=== PATIENT | male | born 1945 | race Caucasian/White ===

== ENCOUNTER → 2016-08-30 | Outpatient (CLI) | payer OTHER, MEDICARE ==
--- NOTE | 2016-08-30 13:40 | RAD ---
EXAM: Nuclear bone scan. HISTORY: Prostate cancer. Abnormal PSA. TECHNIQUE: Following the intravenous injection of 25 mCi of Tc 99m labeled methylene diphosphonate (MDP), whole body imaging was performed. COMPARISON: Chest radiograph dated 06/21/2013. FINDINGS: There is expected uptake of radiopharmaceutical within the axial and appendicular skeleton. There is expected tracer activity within the renal collecting system. There is no convincing evidence of osseous metastatic disease. There is intense tracer activity within the left antecubital fossa at the tracer injection site. IMPRESSION: No scintigraphic evidence of osseous metastatic disease.
== END | disposition home or self-care (01) ==
LOC: NM 09:29
PROVIDERS: ATTEND Urology
DX: C61 Malignant neoplasm of prostate (principal)
CPT/HCPCS: 78306; 96374; A9503

== ENCOUNTER → 2016-11-02 | Outpatient (CLI) | payer OTHER ==
[2016-11-02 08:45] LABS: CALCIUM 9.1 mg/dL (8.5-10.1); POTASSIUM 3.9 mmol/L (3.5-5.1)
[2016-11-02 08:46] LABS: GFR 73.5
== END | disposition home or self-care (01) ==
LOC: LAB 07:51
PROVIDERS: ATTEND Family Medicine
DX: I10 Essential (primary) hypertension (principal)
CPT/HCPCS: 36415; 80048

== ENCOUNTER → 2016-11-25 | Outpatient (CLI) | payer OTHER ==
[~2016-11-25] MED LIST: MECL12.52 PO
[2016-11-25 08:25] LABS: CALCIUM 9.2 mg/dL (8.5-10.1); CREATININE 1.1 mg/dL (0.7-1.3); POTASSIUM 3.7 mmol/L (3.5-5.1)
[2016-11-25 08:26] LABS: BASO # 0.1 x10^3/uL (0.0-0.2); BASO % 1 % (0-3); EOS # 0.2 x10^3/uL (0.0-0.7); EOS % 4 % (0-3); HEMOGLOBIN 13.1 g/dL (13.0-17.5); LYMPH # 1.5 x10^3/uL (1.0-4.8); LYMPH % 25 % (24-48); MEAN CORPUSCULAR HEMOGLOBIN 26 pg (25-35); MEAN CORPUSCULAR HGB CONC 33 g/dL (31-37); MEAN CORPUSCULAR VOLUME 79 fL (79-100); MONO # 0.6 x10^3/uL (0.0-1.1); MONO % 10 % (0-9); NEUT # 3.6 x10^3uL (1.8-7.7); NEUT % 60 % (31-73); PLATELET COUNT 221 x10^3/uL (140-400); RED BLOOD COUNT 5.07 x10^6/uL (4.30-5.70); RED CELL DISTRIBUTION WIDTH 15.5 % (11.5-14.5)
[2016-11-25 08:28] LABS: GFR 65.8
== END | disposition home or self-care (01) ==
LOC: LAB 07:56
PROVIDERS: ATTEND Internal Medicine Cardiovascular Disease
DX: I20.9 Angina pectoris, unspecified (principal)
CPT/HCPCS: 36415; 80048; 85027; 85610

== ENCOUNTER 2016-11-28 04:37 | Emergency (ER) | payer OTHER ==
[~2016-11-28] VITALS: Ht 185.4 cm; Wt 86.2 kg
[2016-11-28] MEDS ORDERED: 0.9 % SODIUM CHLORIDE 10 ML DISP.SYRIN. IV PRN (04:45)
--- NOTE | 2016-11-28 05:28 | EKG ---
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
--- NOTE | 2016-11-28 05:29 | PHYS DOC ---
Past History Past Medical History: CAD, COPD, GERD, High Cholesterol, Hypertension Additional Past Surgical Histo: prostate, bilateral hernias Smoking: Cigarettes, Quit Greater Than 1 Year Alcohol Use: None Drug Use: None Adult General Chief Complaint Chief Complaint: dizziness lightheadedness [facility] HPI This is a pleasant 71-year-old male with history of hypertension, hyperlipidemia , question of COPD on albuterol at home presenting with sudden onset of dizziness intense vertiginous like symptoms while getting up to walk to the bathroom. Patient in his normal state of health got up to use the restroom this morning when he felt his head spinning. He became intensely nauseated and felt like he was going to vomit and was complaining of a spinning sensation. He denies any headache, hearing loss, tinnitus, recent trauma falls or other neurologic complaints. He denied any chest pain, abdominal pain, only intense nausea with sensation of movement. The symptoms worsen when he changes position from a supine to standing position and with movement changes of the head. He denies any recent URI symptoms, recent travel outside the country, recent change in medications, or changes in vision, problems speaking, or other focal neurologic weakness or numbness and tingling. He did recall that he specific need for catheterization in the next [address] Lynch is his Medical Doctor Dr. Nava is his PCP Review of Systems Review of Systems Constitutional: Denies fever or chills [] Eyes: Denies change in visual acuity, redness, or eye pain [] HENT: Denies nasal congestion or sore throat [] Respiratory: Denies cough or shortness of breath [] Cardiovascular: No additional information not addressed in HPI [] GI: Denies abdominal pain, does complain of intense nausea without vomiting, bloody stools or diarrhea. : Denies dysuria or hematuria [] Musculoskeletal: Denies back pain or joint pain [] Integument: Denies rash or skin lesions [] Neurologic: Denies headache, he complains of dizziness with spinning sensation with out diplopia, dysarthria, aphasia, changes in vision or weakness. Endocrine: Denies polyuria or polydipsia [] Current Medications Current Medications Current Medications Medications (Trade) Dose Ordered Sig/Stan Start Time Stop Time Status Last Admin Dose Admin Diazepam (Valium) 5 mg 1X ONCE 11/28/16 05:00 11/28/16 05:01 UNV Ondansetron HCl (Zofran) 4 mg 1X ONCE 11/28/16 05:00 11/28/16 05:01 UNV Sodium Chloride (Normal Saline Flush) 10 ml QSHIFT PRN 11/28/16 04:45 UNV Physical Exam Physical Exam Constitutional: Well developed, well nourished, no acute distress, non-toxic appearance. [] HENT: Normocephalic, atraumatic, bilateral external ears normal, dry tacky mucous membranes no oral exudates, nose normal. [] Eyes: PERRLA, EOMI, conjunctiva normal, no discharge. [] Neck: Normal range of motion, no tenderness, supple, no stridor. No bruits noted Cardiovascular:Heart rate regular rhythm, no murmur [] Lungs & Thorax: Bilateral breath sounds clear to auscultation [] Abdomen: Bowel sounds normal, soft, no tenderness, no masses, no pulsatile masses. [] Skin: Warm, dry, no erythema, no rash. [] Back: No tenderness, no CVA tenderness. [] Extremities: No tenderness, no cyanosis, no clubbing, ROM intact, no edema. [] Neurologic: Alert and oriented X 3, normal motor function, normal sensory function, no focal deficits noted. Cranial nerves II through XII intact. Patient exhibits no dysarthria, no short term memory issues, no deep fascia. Patient has normal sensation to light touch and proprioception over all dermatomes. Patient has no dysmetria, [id number] and no evidence of pronator drift. Psychologic: Affect normal, judgement normal, mood normal. [] EKG EKG [] EKG timed 4:45 AM 11/28/2016 demonstrates normal sinus rhythm with a heart rate of 53 sinus bradycardia with a P Tk 152 which is normal, QRS width of 82 which is normal, QTC of 400 which is normal, he is numb severe T wave flattening in the inferior leads without any major abnormality. EKG read by Dr. Valladares. Radiology/Procedures Radiology/Procedures [] Course & Med Decision Making Course & Med Decision Making Pertinent Labs and Imaging studies reviewed. (See chart for details) and reviewed vital signs as well as physical exam and history. My syncope and dizziness differential includes but not limited to: Neurally mediated vasovagal syncope, situational syncope, cardiac sinus syncope , orthostatic hypertension, medications, psychiatric interventions, neurologic syncope, cardiogenic syncopal B, to include organic heart disease congestive heart failure, cardiac dysrhythmia, seizure disorder, stroke or transient ischemic attack, bradycardia dysrhythmias, tachycardia dysrhythmias, PT, V. fib V. fib, cardiac abnormalities like first degree secondary third-degree AV blocks , prolonged QT, hypertrophic Rudolph myopathy, severe pulmonic stenosis, pulmonary arterial hypertension, atrial myxomas, aortic stenosis, valvular failure, alcohol consumption, adrenal insufficiency, drug effects from things like antidepressants, antihypertensive agents like beta blockers, vasodilators including calcium channel blockers and nitrates, autonomic insufficiency. [] Care be turned over to Dr. Porter at approximately 6 AM. pending laboratory work and CT the head as well as response to therapy. The present time I do not believe this is a cardiac dysrhythmia or cardiac ischemia causing his symptoms. ER attending note Dr. Tien Porter Care assumed by me at 6 AM. Patient reexamined. He is well appearing and comfortable after treatment. Patient is alert and communicative with a nonfocal neurologic exam grossly. States he does feel improved. Remainder of workup pending At 7:41 AM patient continues to be well-appearing and improved after meclizine administration. Workup unremarkable. No further workup or treatment indicated at this time. Patient comfortable and agrees with outpatient follow-up. Meclizine prescription dispensed and strict return precautions will be given Dragon Disclaimer Dragon Disclaimer This chart was dictated in whole or in part using Voice Recognition software in a busy, high-work load, and often noisy Emergency Department environment. It may contain unintended and wholly unrecognized errors or omissions. Departure Departure: Impression: Primary Impression: Dizziness of unknown cause Additional Impressions: Postural dizziness Benign positional vertigo Disposition: 01 HOME, SELF-CARE Condition: IMPROVED Referrals: RENAN CAUSEY MD (PCP) Patient Instructions: Vertigo Additional Instructions: It appears that he was having symptoms of vertigo. This is when the inner ear causes symptoms of dizziness with movement similar to seasickness. Most commonly this is a result of a viral infection or sometimes it happens for no reason. This is called benign positional vertigo. We have done a very full workup today to make sure that there was no reason that he needs to be admitted to the hospital. Her labs, EKG, chest x-ray, and CT of the head are all unremarkable and reassuring today. No further workup or treatment is indicated at this time .Use meclizine as prescribed as needed for dizziness and be extra careful when you stand and ambulate. Do not operate a motor vehicle or machinery or put herself in any position which might be dangerous if you're having symptoms of dizziness. Follow-up up with your doctor tomorrow and return immediately for new severe or work worsening symptoms Scripts Meclizine Hcl (MECLIZINE HCL) 12.5 Mg Tablet 1 TAB PO TID, #30 TAB Prov: TIEN PORTER MD 11/28/16 Problem Qualifiers MIKE VALLADARES MD Nov 28, 2016 05:29 TIEN PORTER MD Nov 28, 2016 07:06
[2016-11-28] MEDS ORDERED: ONDANSETRON PF 4 MG/2 ML VIAL. IV ONE (05:30)
[2016-11-28] MEDS ORDERED: IV NORMAL SALINE 1,000ML 1,000 ML IV SCH (05:30)
[2016-11-28 05:34] LABS: BASO % 1 % (0-3); EOS # 0.2 x10^3/uL (0.0-0.7); EOS % 4 % (0-3); HEMATOCRIT 38.9 % (39.0-53.0); HEMOGLOBIN 12.7 g/dL (13.0-17.5); LYMPH # 1.2 x10^3/uL (1.0-4.8); LYMPH % 20 % (24-48); MEAN CORPUSCULAR HEMOGLOBIN 26 pg (25-35); MEAN CORPUSCULAR HGB CONC 33 g/dL (31-37); MEAN CORPUSCULAR VOLUME 79 fL (79-100); MONO # 0.6 x10^3/uL (0.0-1.1); MONO % 10 % (0-9); NEUT # 4.1 x10^3uL (1.8-7.7); NEUT % 66 % (31-73); PLATELET COUNT 205 x10^3/uL (140-400); RED BLOOD COUNT 4.92 x10^6/uL (4.30-5.70); RED CELL DISTRIBUTION WIDTH 15.5 % (11.5-14.5); WHITE BLOOD COUNT 6.2 x10^3/uL (4.0-11.0)
[2016-11-28 06:08] LABS: ALBUMIN 3.6 g/dL (3.4-5.0); ALBUMIN/GLOBULIN RATIO 0.9 (1.0-1.7); GFR 73.5; POTASSIUM 3.8 mmol/L (3.5-5.1); TOTAL BILIRUBIN 0.4 mg/dL (0.2-1.0); TOTAL PROTEIN 7.4 g/dL (6.4-8.2)
--- NOTE | 2016-11-28 06:17 | RAD ---
EXAM: CT head without contrast HISTORY: DIZZINESS X 1 WEEK, GETTING WORSE COMPARISON: None. TECHNIQUE: Computed tomographic images of the head were obtained without contrast. PQRS compliance statement: One or more of the following individualized dose reduction techniques were utilized for this examination: 1. Automated exposure control 2. Adjustment of the mA and/or kV according to patient size 3. Use of iterative reconstruction technique FINDINGS: There is no acute intracranial process identified. Specifically, there are no intracranial blood products, extra-axial fluid collections, mass effect or midline shift. Ventricles and basilar cisterns are maintained. The visualized portions of the orbits and mastoid air cells are unremarkable. Mucous retention cysts versus polyps partially visualized in the right maxillary sinus. Remaining visualized paranasal sinuses are clear. No suspicious calvarial lesion is seen. IMPRESSION: No acute intracranial findings. Electronically signed by: Anita Lees MD (11/28/2016 6:13 AM)
[2016-11-28] MEDS ORDERED: MECL12.52 PO (07:39)
[2016-11-28 07:45] VITALS: BP 170/67
[2016-11-28] MEDS ORDERED: MECLIZINE 25 MG TABLET PO ONE (08:00)
--- NOTE | 2016-11-28 09:33 | RAD ---
AP PORTABLE CHEST Clinical Indication: DIZZINESS. Comparison: Two-view chest 06/21/2013. Findings: The cardiomediastinal silhouette is normal. Lungs are clear. There is no pneumothorax. No pleural effusion is appreciated. There is no acute bone abnormality. IMPRESSION: No acute cardiopulmonary process.
== END 2016-11-28 07:55 | disposition home or self-care (01) ==
LOC: ER 04:37
DX: R42 Dizziness and giddiness (principal); H81.10 Benign paroxysmal vertigo, unspecified ear; K21.9 Gastro-esophageal reflux disease without esophagitis; J44.9 Chronic obstructive pulmonary disease, unspecified; I25.10 Atherosclerotic heart disease of native coronary artery without angina pectoris; I10 Essential (primary) hypertension; E78.00 Pure hypercholesterolemia, unspecified; Z87.891 Personal history of nicotine dependence
CPT/HCPCS: 36415; 70450; 71010; 80053; 82553; 83690; 83735; 83880; 84443; 84484; 85027; 93005; 96361; 96374; 96375; 99285; J2405; J8597; J7030

== ENCOUNTER 2016-12-12 11:54 | Inpatient (IN) | payer MEDICARE, OTHER ==
[~2016-12-12] VITALS: Ht 185.4 cm; Wt 83.2 kg
[2016-12-12 12:16] LABS: BASO # 0.1 x10^3/uL (0.0-0.2); BASO % 1 % (0-3); EOS # 0.2 x10^3/uL (0.0-0.7); EOS % 3 % (0-3); HEMATOCRIT 38.5 % (39.0-53.0); HEMOGLOBIN 12.6 g/dL (13.0-17.5); LYMPH # 1.5 x10^3/uL (1.0-4.8); LYMPH % 20 % (24-48); MEAN CORPUSCULAR HEMOGLOBIN 26 pg (25-35); MEAN CORPUSCULAR HGB CONC 33 g/dL (31-37); MEAN CORPUSCULAR VOLUME 80 fL (79-100); MONO # 0.7 x10^3/uL (0.0-1.1); MONO % 10 % (0-9); NEUT % 66 % (31-73); PLATELET COUNT 265 x10^3/uL (140-400); RED BLOOD COUNT 4.83 x10^6/uL (4.30-5.70); RED CELL DISTRIBUTION WIDTH 15.6 % (11.5-14.5); WHITE BLOOD COUNT 7.5 x10^3/uL (4.0-11.0)
--- NOTE | 2016-12-12 12:19 | RAD ---
CT head without contrast History: Stroke protocol Comparison: 11/28/2016. Procedure: Axial images are obtained of the head from the skull base through the vertex without IV contrast. Findings: Mild bilateral periventricular white matter hypodensities likely chronic small ischemic disease. Tiny old infarct in the left basal ganglia similar to prior exam. The ventricles and sulci are normal for the patient's age. No mass-effect, intracranial mass, midline shift, hemorrhage identified. Basilar cisterns are patent. Bone windows demonstrate no significant calvarial abnormality. Mucous retention cyst or polyp identified in the right maxillary sinus.. Impression: 1. No acute intracranial process. Report called to ER at time of dictation. PQRS Compliance Statement: One or more of the following individualized dose reduction techniques were utilized for this examination: 1. Automated exposure control 2. Adjustment of the mA and/or kV according to patient size 3. Use of iterative reconstruction technique
[2016-12-12 12:28] LABS: ALBUMIN 3.7 g/dL (3.4-5.0); CALCIUM 8.9 mg/dL (8.5-10.1); CREATININE 0.9 mg/dL (0.7-1.3); GFR 82.9; POTASSIUM 4.5 mmol/L (3.5-5.1); TOTAL BILIRUBIN 0.4 mg/dL (0.2-1.0); TOTAL PROTEIN 7.4 g/dL (6.4-8.2)
--- NOTE | 2016-12-12 12:28 | PHYS DOC ---
General Chief Complaint: WEAKNESS/GENERALIZED Stated Complaint: POSS CVA Time Seen by MD: 11:57 Source: patient, family, EMS, snf records, old records, other ([facility] records) Exam Limitations: clinical condition (pt communicates via written, appears AOx3 ) Problems: History of Present Illness Initial Comments Patient is a 71-year-old male brought to the ED by EMS from 2003 possible stroke. EMS reports that the staff at [facility] reports the patient was last known well at 1123 this morning. They report that the patient apparently suddenly became aphasic but able to write for communication. Through this mode of communication the patient complained of difficulty swallowing and generalized weakness. During the stroke scale evaluation RN reports that the patient was "unable" to raise his arms for the test however able to adjust his hearing aids and write to communicate. No headache chest pain or difficulty breathing. Patient corrects that his symptoms started at 11 AM but weren't detected until 1123. Patient was seen at [facility] emergency department on November 28 diagnosed benign positional vertigo advised to follow-up with his doctor the following day. He followed up with his doctor early that week and was recommended to go to physical therapy. On December 01 while attending therapy at [facility] the patient fell suffering a head laceration. Family reports that he had an ischemic stroke and was transferred to [facility] for further evaluation and treatment. Patient was an inpatient at [facility] for 12/01-12/09 with vertigo symptoms, while an inpatient on December 04 lasting until December 05 the patient developed the same symptoms and was fully evaluated with CTs, MRI, lumbar puncture, and neurology consultation. Ultimately symptoms were attributed to psychiatric etiology and the patient was discharged to 2005 this past , December 09. Family reports that the patient had a recurrence of these symptoms this past Tuesday and Tuesday while still an inpatient at [facility]. Both times symptoms resolved spontaneously without intervention. Medical records have been requested from [facility]. NIHSS 20 in ED. PCP is Dr. Nava Patient follows with Dr. Lynch cardiology. Urologist Dr Garibay Radio Broadcaster Dr Ryan GILL VS: 97.6, 57, 16, 141/87, 100% RA Timing/Duration: 1/2 hour Severity: severe Modifying Factors: improves with other Associated Symptoms: other Allergies: Coded Allergies: amlodipine (Verified Adverse Reaction, Intermediate, 11/28/16) Past Medical History Medical History: other (coronary artery disease, COPD, GERD, hyperlipidemia, hypertension, prostate cancer) Surgical History: other (prostate, bilateral herniorrhaphies) Social History Smoker: quit greater than 1 year Alcohol: none Drugs: none Review of Systems Constitutional: see HPI, denies diaphoresis, denies fever Respiratory: denies cough, denies shortness of breath Cardiovascular: denies chest pain, denies syncope Gastrointestinal: denies diarrhea (while), denies vomiting Genitourinary: denies discharge, denies hematuria Musculoskeletal: denies back pain, denies neck pain Psychiatric/Neurological: see HPI (she and she has redness swelling) Physical Exam General Appearance: WD/WN, no apparent distress Eyes: bilateral eye normal inspection, bilateral eye PERRL, bilateral eye EOMI Ear, Nose, Throat: hearing grossly normal, normal ENT inspection, normal pharynx Neck: non-tender (order), supple Respiratory: normal breath sounds Cardiovascular: normal peripheral pulses, bradycardia Gastrointestinal: non tender, soft Back: no CVA tenderness, no vertebral tenderness Extremities: non-tender, normal inspection Neurologic/Psychiatric: turf keeper II-XII nml as tested (no lateralizing neuro deficits,), alert, oriented x 3, other Skin: normal color, warm/dry Orders, Labs, Meds EKG: Sinus bradycardia at [address]-T changes no STEMI. Interpreted by Dr. Guadarrama. PATIENT: KITTY BRENNAN ACCOUNT: [id number] : 1945 LOCATION: ER AGE: 71 SEX: M EXAM STATUS: PRE ER ORD. PHYSICIAN: IGNACIO GUADARRAMA DO REASON: cva PROCEDURE: CT CODE STROKE HEAD WO CT head without contrast History: Stroke protocol Comparison: 11/28/2016. Procedure: Axial images are obtained of the head from the skull base through the vertex without IV contrast. Findings: Mild bilateral periventricular white matter hypodensities likely chronic small ischemic disease. Tiny old infarct in the left basal ganglia similar to prior exam. The ventricles and sulci are normal for the patient's age. No mass-effect, intracranial mass, midline shift, hemorrhage identified. Basilar cisterns are patent. Bone windows demonstrate no significant calvarial abnormality. Mucous retention cyst or polyp identified in the right maxillary sinus.. Impression: 1. No acute intracranial process. Report called to ER at time of dictation. RS Compliance Statement: One or more of the following individualized dose reduction techniques were utilized for this examination: 1. Automated exposure control 2. Adjustment of the mA and/or kV according to patient size 3. Use of iterative reconstruction technique DICTATED AND SIGNED BY: MICHAEL WOODARD MD DATE: 12/12/16 1211 CC: RENAN CAUSEY MD; IGNACIO GUADARRAMA DO ~ PATIENT: KITTY BRENNAN ACCOUNT: [id number] : 1945 LOCATION: ER AGE: 71 SEX: M EXAM STATUS: REG ER ORD. PHYSICIAN: IGNACIO GUADARRAMA DO REASON: cva PROCEDURE: CHEST AP ONLY EXAM: CHEST 1 VIEW History: Cerebrovascular accident COMPARISON: None available. TECHNIQUE: Single portable radiograph of the chest FINDINGS: The cardiac silhouette is unremarkable. The lungs are clear bilaterally. The costophrenic sulci are clear and well demarcated. IMPRESSION: No radiographic evidence of an acute cardiopulmonary process. DICTATED AND SIGNED BY: MICHAEL WOODARD MD DATE: 12/12/16 1240 CC: RENAN CAUSEY MD; IGNACIO GUADARRAMA DO ~ Pertinent labs: D-dimer 1.42, lactic acid 0.8, AST 47, ALT 97, CRP 5, troponin less than 0.017 urine studies remain pending 1330: I discussed the patient with Dr. Jeter who recommends observation admission. He requests that I hold off from ordering tests until he can review the results and records from [facility] recent admission to prevent redundancy in testing. 1335: I discussed the patient with Dr. Causey who accepts observation admission. We will keep patient nothing by mouth until Dr. Jeter takes a look at the patient later today. IMPRESSIONS: Aphasia rule out CVA Elevated d-dimer Elevated LFTs Benign positional vertigo Departure Time of Disposition: 13:46 Disposition: 09 ADMITTED INPATIENT Diagnosis: aphasia rule out CVA, elevated d-dimer, benign pos Condition: STABLE Additional Instructions: Admit to tele/obs, Dr. Causey is accepting Dr. Jeter neurology to be consulted. IGNACIO GUADARRAMA DO Dec 12, 2016 12:28
--- NOTE | 2016-12-12 12:44 | RAD ---
EXAM: CHEST 1 VIEW History: Cerebrovascular accident COMPARISON: None available. TECHNIQUE: Single portable radiograph of the chest FINDINGS: The cardiac silhouette is unremarkable. The lungs are clear bilaterally. The costophrenic sulci are clear and well demarcated. IMPRESSION: No radiographic evidence of an acute cardiopulmonary process.
[2016-12-12 13:23] LABS: SEDIMENTATION RATE 27 (0-15)
[2016-12-12 13:51] LABS: BARBITURATES NEG (NEG); BENZODIAZEPINES NEG (NEG); CANNABINOIDS NEG (NEG); COCAINE NEG (NEG); METHADONE NEG (NEG); OPIATES NEG (NEG); PHENCYCLIDINE NEG (NEG)
[2016-12-12 13:52] LABS: AMPHETAMINE/METHAMPHETAMINE NEG (NEG)
[2016-12-12 15:00] VITALS: BP 175/85
[2016-12-12] MEDS ORDERED: ALBU0.63 NEB (15:35)
[2016-12-12] MEDS ORDERED: CLOP75TA57 PO (15:35)
[2016-12-12] MEDS ORDERED: ALPR0.25 PO (15:35)
[2016-12-12] MEDS ORDERED: LIDO700A39 TP (15:35)
[2016-12-12] MEDS ORDERED: ATORVASTATIN CA80 MG PO (15:35)
[2016-12-12] MEDS ORDERED: TAMS0.4C2 PO (16:01)
[2016-12-12] MEDS ORDERED: BECL8.7H NS (16:01)
[2016-12-12] MEDS ORDERED: FISH12002 PO (16:02)
[2016-12-12] MEDS ORDERED: ASPI-630 PO (16:03)
[2016-12-12] MEDS ORDERED: CARV6.25 PO (16:03)
[2016-12-12] MEDS ORDERED: FOSI20TA PO (16:04)
[2016-12-12] MEDS ORDERED: ESOM40CA PO (16:05)
--- NOTE | 2016-12-12 16:57 | EKG ---
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
[2016-12-12] MEDS ORDERED: ALPRAZolam 0.25 MG TABLET PO PRN (18:00)
[2016-12-12] MEDS ORDERED: ALBUTEROL SULFATE 2.5 MG/3 ML NEBU. NEB PRN (18:15)
[2016-12-12] MEDS ORDERED: CONTRAST GIVEN MC PRN (18:30)
[2016-12-12] MEDS: CARVEDILOL 6.25 MG TABLET PO SCH (18:30)
[2016-12-12] MEDS ORDERED: IOHEXOL 300 MG/ML 75 ML VIAL. IV ONE (18:30)
--- NOTE | 2016-12-12 19:47 | RAD ---
CT ANGIOGRAPHY CHEST dated 12/12/2016 5:53 PM Indication: Chest pain, elevated [id number] PE protocol: Omni 300 75cc: Chest pain, elevated d-dimer. No priors.. Comparison: No comparison is available. Technique: Contiguous axial imaging of the chest performed following intravenous and demonstration of 75 cc Omnipaque 300. Study was performed as dedicated PE protocol with thin cut coronal MIPS and 3-D reconstructions. One or more of the following individualized dose reduction techniques were utilized for this examination: 1. Automated exposure control 2. Adjustment of the mA and/or kV according to patient size 3. Use of iterative reconstruction technique Findings: Study is somewhat limited due to diminished contrast bolus. No evidence of central, lobar or proximal segmental pulmonary embolus. Distal segmental and subsegmental branches are not well evaluated based on technique. Heart size mildly enlarged. No pericardial effusion. Coronary artery calcifications. No mediastinal, hilar or axillary lymphadenopathy. Nonpathologically enlarged precarinal lymph node. Thyroid gland unremarkable. Central airways are patent there prominent interstitial markings at both lung bases 3 mm noncalcified pulmonary nodule in the left lower lobe on image 210. No consolidation or pleural effusion. Mild upper zone emphysema. No pneumothorax. Right lateral chest wall is excluded on this exam. Limited images of the upper abdomen show small hiatal hernia. There is a well-defined low density focus at the hepatic dome that likely represents cyst. No significant bony abnormality. Multilevel spondylosis.. IMPRESSION: 1. Limited exam. No evidence of central, lobar or proximal segmental pulmonary and was. 2. Interstitial changes at both lung bases, mild interstitial fibrosis versus mild basilar predominant edema. 3. Coronary artery calcifications. 4. Mild emphysema. 5. Small noncalcified pulmonary nodules in the left lower lobe, nonspecific. Electronically signed by: Tien Dhaliwal MD (12/12/2016 7:43 PM) [employer]
[2016-12-12] MEDS: MECLIZINE 12.5 MG TABLET. PO SCH (20:31)
[2016-12-12] MEDS: ATORVASTATIN CALCIUM 20 MG TABLET PO SCH (20:31)
[2016-12-12] MEDS: ENOXAPARIN 40 MG/0.4 ML DISP.SYRIN. SQ SCH (20:36)
[2016-12-12 20:39] VITALS: BP 181/72
[2016-12-12 20:44] LABS: BACTERIA,URINE 0 /HPF (0-FEW); BILIRUBIN,URINE NEG (NEG); CLARITY,URINE CLEAR; COLOR,URINE STRAW; GLUCOSE,URINE NEG (NEG); NITRITE,URINE NEG (NEG); RBC,URINE 0 /HPF (0-2); UROBILINOGEN,URINE 0.2 mg/dL (0.2 mg/dL); WBC,URINE OCC /HPF (0-4)
[2016-12-12 20:45] LABS: SQUAMOUS EPITHELIAL CELL,UR OCC /LPF
[2016-12-12 21:38] VITALS: BP 204/70
[2016-12-12] MEDS ORDERED: hydrALAZINE 20 MG/ML VIAL. IV PRN (21:45)
[2016-12-12 23:25] VITALS: BP 163/61
[2016-12-13 06:07] VITALS: BP 167/73
--- NOTE | 2016-12-13 07:09 | PDOC2 ---
CARDIAC CONSULT DATE OF CONSULT Date Of Consult DATE: 12/12/16 REASON FOR CONSULT Reason for Consult gernera weakness and difficulty to talk. REFERRING PHYSICIAN Referring Physician Dr Jansen SOURCE Source: Caregiver, Chart review, Patient HPI History of Present Illness Mr Hartley is a 71cy.o.wm was admitted through ER after he presented with recurrent episodes of aphasia for the last week.. Apparently the episodes was around 11:this am at [facility] where he receives physical therapy and rehabilitation. The patient has been communicating well with writing only since admission. He was admitted to [facility] in the first week of December where extensive stroke work up including brain MRI,Head ct scan, CT angio to the brain and neck,Echocardiogram for left sided weakness and aphasia revealed chronic small vessels ischemic changes and 70% stenosis of the left carotid artery at the origin. He had neurology and psychiatry consultations which concluded possibility of conversion reaction. Currently and through writing the patient denies any new medical or neurological complaints except for aphasia and dysphagia. PAST MEDICAL HISTORY Cardiovascular: AFIB, HTN CENTRAL NERVOUS SYSTEM: CVA, Vertigo GI: Diverticulosis, GERD Psych: Anxiety Musculoskeletal: Weakness Renal/: Prostate Ca. PAST SURGICAL HISTORY Past Surgical History: Other (abdominal surgery) FAMILY HISTORY Family History: Coronary Artery Disease (father had cad and mother had cancer.) SOCIAL HISTORY Smoke: No ALCOHOL: none Lives: with Family CURRENT MEDICATIONS Current Medications Current Medications Alprazolam (Xanax) 0.125 mg PRN BID PRN PO ANXIETY / AGITATION; Start 12/12/16 at 18:00 Aspirin (Children'S Aspirin) 81 mg DAILY PO ; Start 12/13/16 at 09:00 Carvedilol (Coreg) 6.25 mg BIDWMEALS PO ; Start 12/12/16 at 18:30 Clopidogrel Bisulfate (Plavix) 75 mg DAILY PO ; Start 12/13/16 at 09:00 Lidocaine (Lidoderm) 1 patch DAILY TP ; Start 12/13/16 at 09:00 Meclizine HCl (Antivert) 12.5 mg TID PO ; Start 12/12/16 at 21:00 Tamsulosin HCl (Flomax) 0.4 mg DAILY PO ; Start 12/13/16 at 09:00 Albuterol Sulfate (Ventolin) 2.5 mg PRN QID PRN NEB SHORTNESS OF BREATH; Start 12/12/16 at 18:15 Atorvastatin Calcium (Lipitor) 80 mg QHS PO ; Start 12/12/16 at 21:00 Fluticasone Propionate (Flonase) 2 spray DAILY NS ; Start 12/13/16 at 09:00 Pantoprazole Sodium (Protonix) 40 mg DAILYAC PO ; Start 12/13/16 at 07:30 Fish Oil (Fish Oil) 1,000 mg DAILY PO ; Start 12/13/16 at 09:00 Lisinopril (Prinivil) 10 mg DAILY PO ; Start 12/13/16 at 09:00 Enoxaparin Sodium (Lovenox) 40 mg Q24H SQ Last administered on 12/12/16 20:36; Start 12/12/16 at 21:00 Iohexol (Omnipaque 300 Mg/ml) 75 ml 1X ONCE IV Last administered on 12/12/16 19:44; Start 12/12/16 at 18:30; Stop 12/12/16 at 18:31; Status DC Info (Do NOT chart on this entry -- for MONITORING) 1 each PRN DAILY PRN MC SEE COMMENTS; Start 12/12/16 at 18:30; Stop 12/14/16 at 18:29 Hydralazine HCl (Apresoline) 10 mg PRN Q8HRS PRN IV ELEVATED BP, SEE COMMENTS Last administered on 12/12/16 21:45; Start 12/12/16 at 21:45 Active Scripts Active Meclizine Hcl 12.5 Mg Tablet 1 Tab PO TID Reported Nexium Capsule (Esomeprazole Magnesium) 40 Mg Capsule. 1 Cap PO DAILY Fosinopril Sodium 20 Mg Tablet 0.5 Tab PO DAILY Coreg (Carvedilol) 6.25 Mg Tablet 1 Tab PO BID Aspirin 81 Mg Tab.chew 81 Mg PO DAILY Check 3-6-9 1,200 mg Softgel (Fish Oil/Borage/Flax/Om3,6,9#1) 1,200 Mg Capsule 1 ,200 Mg PO DAILY Qnasl (Beclomethasone Dipropionate) 8.7 Gm Hfa.aer.ad 1 Spr NS BID Tamsulosin Hcl 0.4 Mg Cap.er.24h 1 Cap PO DAILY Atorvastatin Calcium 80 Mg Tablet 80 Mg PO QHS Albuterol Sulfate Neb Soln (Albuterol Sulfate) 0.63 Mg/3 Ml Vial.neb 1 Vial NEB QID PRN Lidocaine 1 Each Adh..patch 1 Each TP DAILY Plavix (Clopidogrel Bisulfate) 75 Mg Tablet 1 Tab PO DAILY Xanax (Alprazolam) 0.25 Mg Tablet 0.5 Tab PO PRN BID PRN ALLERGIES Allergies: Coded Allergies: amlodipine (Verified Adverse Reaction, Intermediate, 11/28/16) ROS Review of Systems as mention above in the HPI PHYSICAL EXAM Physical Exam WD/WN NAD HEENT: Atraumatic Lungs: Clear to auscultation Heart: Regular rate, Normal S1, Normal S2, No murmurs, Gallops Abdomen: Normal bowel sounds, Soft, No tenderness, No hepatospenomegaly Extremities: No clubbing, No cyanosis, Normal pulses, No tenderness/swelling Skin: No rashes Neuro: Normal gait, Strength at 5/5 X4 ext (srength 4/5 throughout.), Normal tone, Sensation intact, Cranial nerves 3-12 NL, Other ( aphasic, communicates well with writing only, memory judgement and comprehsion are intcat ) Psych/Mental Status: Mental status NL (except for anxiety) VITALS Vital Signs Vital Signs Date Time Temp Pulse Resp B/P (MAP) Pulse Ox O2 Delivery O2 Flow Rate FiO2 12/12/16 23:25 98.4 66 18 163/61 (95) 100 Room Air LABS LABS Laboratory Tests Test 12/12/16 11:55 12/12/16 13:31 12/12/16 16:30 12/12/16 20:00 White Blood Count 7.5 x10^3/uL (4.0-11.0) Red Blood Count 4.83 x10^6/uL (4.30-5.70) Hemoglobin 12.6 g/dL (13.0-17.5) Hematocrit 38.5 % (39.0-53.0) Mean Corpuscular Volume 80 fL (79-100) Mean Corpuscular Hemoglobin 26 pg (25-35) Mean Corpuscular Hemoglobin Concent 33 g/dL (31-37) Red Cell Distribution Width 15.6 % (11.5-14.5) Platelet Count 265 x10^3/uL (140-400) Neutrophils (%) (Auto) 66 % (31-73) Lymphocytes (%) (Auto) 20 % (24-48) Monocytes (%) (Auto) 10 % (0-9) Eosinophils (%) (Auto) 3 % (0-3) Basophils (%) (Auto) 1 % (0-3) Neutrophils # (Auto) 5.0 x10^3uL (1.8-7.7) Lymphocytes # (Auto) 1.5 x10^3/uL (1.0-4.8) Monocytes # (Auto) 0.7 x10^3/uL (0.0-1.1) Eosinophils # (Auto) 0.2 x10^3/uL (0.0-0.7) Basophils # (Auto) 0.1 x10^3/uL (0.0-0.2) Erythrocyte Sedimentation Rate 27 (0-15) Prothrombin Time 10.1 SEC (9.4-11.4) Prothromb Time International Ratio 1.0 (0.9-1.1) Activated Partial Thromboplast Time 25 SEC (23-33) D-Dimer (Aicha) 1.42 mg/L (0.00-0.50) Sodium Level 143 mmol/L (136-145) Potassium Level 4.5 mmol/L (3.5-5.1) Chloride Level 107 mmol/L (98-107) Carbon Dioxide Level 28 mmol/L (21-32) Anion Gap 8 (6-14) Blood Urea Nitrogen 15 mg/dL (8-26) Creatinine 0.9 mg/dL (0.7-1.3) Estimated GFR (Cockcroft-Gault) 82.9 BUN/Creatinine Ratio 17 (6-20) Glucose Level 100 mg/dL (70-99) Lactic Acid Level 0.8 mmol/L (0.4-2.0) Calcium Level 8.9 mg/dL (8.5-10.1) Total Bilirubin 0.4 mg/dL (0.2-1.0) Aspartate Amino Transf (AST/SGOT) 47 U/L (15-37) Alanine Aminotransferase (ALT/SGPT) 97 U/L (16-63) Alkaline Phosphatase 74 U/L (46-116) Creatine Kinase 48 U/L (39-308) Troponin I Quantitative < 0.017 ng/mL (0-0.055) < 0.017 ng/mL (0-0.055) C-Reactive Protein 5.0 mg/L (0-3.3) Total Protein 7.4 g/dL (6.4-8.2) Albumin 3.7 g/dL (3.4-5.0) Albumin/Globulin Ratio 1.0 (1.0-1.7) Ethyl Alcohol Level < 10 mg/dL (0-10) Urine Opiates Screen Neg (NEG) Urine Methadone Screen Neg (NEG) Urine Barbiturates Neg (NEG) Urine Phencyclidine Screen Neg (NEG) Urine Amphetamine/Methamphetamine Neg (NEG) Urine Benzodiazepines Screen Neg (NEG) Urine Cocaine Screen Neg (NEG) Urine Cannabinoids Screen Neg (NEG) Urine Ethyl Alcohol Neg (NEG) Ammonia 16 mcmol/L (11-34) Urine Collection Type Unknown Urine Color Straw Urine Clarity Clear Urine pH 5.5 Urine Specific [place] 1.010 Urine Protein Neg (NEG-TRACE) Urine Glucose (UA) Neg mg/dL (NEG) Urine Ketones (Stick) Neg mg/dL (NEG) Urine Blood Neg (NEG) Urine Nitrite Neg (NEG) Urine Bilirubin Neg (NEG) Urine Urobilinogen Dipstick 0.2 mg/dL (0.2 mg/dL) Urine Leukocyte Esterase Neg (NEG) Urine RBC 0 /HPF (0-2) Urine WBC Occ /HPF (0-4) Urine Squamous Epithelial Cells Occ /LPF Urine Bacteria 0 /HPF (0-FEW) Urine Mucus Slight /LPF Test 12/13/16 01:00 Troponin I Quantitative < 0.017 ng/mL (0-0.055) IMAGES IMAGES CT head without contrast History: Stroke protocol Comparison: 11/28/2016. Procedure: Axial images are obtained of the head from the skull base through the vertex without IV contrast. CT ANGIOGRAPHY CHEST dated 12/12/2016 5:53 PM Indication: Chest pain, elevated [id number] PE protocol: Omni 300 75cc: Chest pain, elevated d-dimer. No priors.. Comparison: No comparison is available. Technique: Contiguous axial imaging of the chest performed following intravenous and demonstration of 75 cc Omnipaque 300. Study was performed as dedicated PE protocol with thin cut coronal MIPS and 3-D reconstructions. One or more of the following individualized dose reduction techniques were utilized for this examination: 1. Automated exposure control 2. Adjustment of the mA and/or kV according to patient size 3. Use of iterative reconstruction technique Findings: Study is somewhat limited due to diminished contrast bolus. No evidence of central, lobar or proximal segmental pulmonary embolus. Distal segmental and subsegmental branches are not well evaluated based on technique. Heart size mildly enlarged. No pericardial effusion. Coronary artery calcifications. No mediastinal, hilar or axillary lymphadenopathy. Nonpathologically enlarged precarinal lymph node. Thyroid gland unremarkable. Central airways are patent there prominent interstitial markings at both lung bases 3 mm noncalcified pulmonary nodule in the left lower lobe on image 210. No consolidation or pleural effusion. Mild upper zone emphysema. No pneumothorax. Right lateral chest wall is excluded on this exam. Limited images of the upper abdomen show small hiatal hernia. There is a well-defined low density focus at the hepatic dome that likely represents cyst. No significant bony abnormality. Multilevel spondylosis.. IMPRESSION: 1. Limited exam. No evidence of central, lobar or proximal segmental pulmonary and was. 2. Interstitial changes at both lung bases, mild interstitial fibrosis versus mild basilar predominant edema. 3. Coronary artery calcifications. 4. Mild emphysema. 5. Small noncalcified pulmonary nodules in the left lower lobe, nonspecific. Findings: Mild bilateral periventricular white matter hypodensities likely chronic small ischemic disease. Tiny old infarct in the left basal ganglia similar to prior exam. The ventricles and sulci are normal for the patient's age. No mass-effect, intracranial mass, midline shift, hemorrhage identified. Basilar cisterns are patent. Bone windows demonstrate no significant calvarial abnormality. Mucous retention cyst or polyp identified in the right maxillary sinus.. Impression: XAM: CHEST 1 VIEW History: Cerebrovascular accident COMPARISON: None available. TECHNIQUE: Single portable radiograph of the chest FINDINGS: The cardiac silhouette is unremarkable. The lungs are clear bilaterally. The costophrenic sulci are clear and well demarcated. IMPRESSION: No radiographic evidence of an acute cardiopulmonary process. 1. No acute intracranial process. EKG EKG normal sinus rhythm. Assessment Additional comments: 1- Recurrent episodes of aphasia without focal neurological deficits, anxiety and possible conversion reaction. 2- Multiple medical problems includes CAD,HTN,HLD, Cerebral chronic small vessels disease 3- Anxiety. PLAN: 1- Continue Home medications, speech therapy, PT/OT Irina SOTO MD Dec 13, 2016 07:09
[2016-12-13] MEDS: LIDOCAINE (700MG/PATCH) PATCH. TP SCH (09:00)
[2016-12-13] MEDS: FLUTICASONE 50MCG/NASAL SPRAY 16GM BOTTLE. NS SCH (09:00)
[2016-12-13 09:30] LABS: BASO # 0.1 x10^3/uL (0.0-0.2); BASO % 1 % (0-3); EOS # 0.2 x10^3/uL (0.0-0.7); EOS % 3 % (0-3); HEMATOCRIT 37.7 % (39.0-53.0); HEMOGLOBIN 12.3 g/dL (13.0-17.5); LYMPH # 1.4 x10^3/uL (1.0-4.8); LYMPH % 23 % (24-48); MEAN CORPUSCULAR HEMOGLOBIN 26 pg (25-35); MEAN CORPUSCULAR HGB CONC 33 g/dL (31-37); MEAN CORPUSCULAR VOLUME 79 fL (79-100); MONO # 0.6 x10^3/uL (0.0-1.1); MONO % 10 % (0-9); NEUT # 3.8 x10^3uL (1.8-7.7); NEUT % 64 % (31-73); PLATELET COUNT 255 x10^3/uL (140-400); RED BLOOD COUNT 4.78 x10^6/uL (4.30-5.70); RED CELL DISTRIBUTION WIDTH 15.5 % (11.5-14.5); WHITE BLOOD COUNT 5.9 x10^3/uL (4.0-11.0)
--- NOTE | 2016-12-13 09:33 | PDOC ---
OBJECTIVE: Vital Signs: Vital Signs Date Time Temp Pulse Resp B/P (MAP) Pulse Ox O2 Delivery O2 Flow Rate FiO2 12/13/16 06:07 98.4 69 20 167/73 (104) 94 Room Air I & O Intake and Output 12/13/16 07:00 Intake Total 0 ml Output Total 825 ml Balance -825 ml Intake Oral 0 ml Output Urine Total 825 ml Labs: Laboratory Tests Test 12/12/16 11:55 12/12/16 13:31 12/12/16 16:30 12/12/16 20:00 White Blood Count 7.5 x10^3/uL (4.0-11.0) Red Blood Count 4.83 x10^6/uL (4.30-5.70) Hemoglobin 12.6 g/dL (13.0-17.5) Hematocrit 38.5 % (39.0-53.0) Mean Corpuscular Volume 80 fL (79-100) Mean Corpuscular Hemoglobin 26 pg (25-35) Mean Corpuscular Hemoglobin Concent 33 g/dL (31-37) Red Cell Distribution Width 15.6 % (11.5-14.5) Platelet Count 265 x10^3/uL (140-400) Neutrophils (%) (Auto) 66 % (31-73) Lymphocytes (%) (Auto) 20 % (24-48) Monocytes (%) (Auto) 10 % (0-9) Eosinophils (%) (Auto) 3 % (0-3) Basophils (%) (Auto) 1 % (0-3) Neutrophils # (Auto) 5.0 x10^3uL (1.8-7.7) Lymphocytes # (Auto) 1.5 x10^3/uL (1.0-4.8) Monocytes # (Auto) 0.7 x10^3/uL (0.0-1.1) Eosinophils # (Auto) 0.2 x10^3/uL (0.0-0.7) Basophils # (Auto) 0.1 x10^3/uL (0.0-0.2) Erythrocyte Sedimentation Rate 27 (0-15) Prothrombin Time 10.1 SEC (9.4-11.4) Prothromb Time International Ratio 1.0 (0.9-1.1) Activated Partial Thromboplast Time 25 SEC (23-33) D-Dimer (Aicha) 1.42 mg/L (0.00-0.50) Sodium Level 143 mmol/L (136-145) Potassium Level 4.5 mmol/L (3.5-5.1) Chloride Level 107 mmol/L (98-107) Carbon Dioxide Level 28 mmol/L (21-32) Anion Gap 8 (6-14) Blood Urea Nitrogen 15 mg/dL (8-26) Creatinine 0.9 mg/dL (0.7-1.3) Estimated GFR (Cockcroft-Gault) 82.9 BUN/Creatinine Ratio 17 (6-20) Glucose Level 100 mg/dL (70-99) Lactic Acid Level 0.8 mmol/L (0.4-2.0) Calcium Level 8.9 mg/dL (8.5-10.1) Total Bilirubin 0.4 mg/dL (0.2-1.0) Aspartate Amino Transf (AST/SGOT) 47 U/L (15-37) Alanine Aminotransferase (ALT/SGPT) 97 U/L (16-63) Alkaline Phosphatase 74 U/L (46-116) Creatine Kinase 48 U/L (39-308) Troponin I Quantitative < 0.017 ng/mL (0-0.055) < 0.017 ng/mL (0-0.055) C-Reactive Protein 5.0 mg/L (0-3.3) Total Protein 7.4 g/dL (6.4-8.2) Albumin 3.7 g/dL (3.4-5.0) Albumin/Globulin Ratio 1.0 (1.0-1.7) Ethyl Alcohol Level < 10 mg/dL (0-10) Urine Opiates Screen Neg (NEG) Urine Methadone Screen Neg (NEG) Urine Barbiturates Neg (NEG) Urine Phencyclidine Screen Neg (NEG) Urine Amphetamine/Methamphetamine Neg (NEG) Urine Benzodiazepines Screen Neg (NEG) Urine Cocaine Screen Neg (NEG) Urine Cannabinoids Screen Neg (NEG) Urine Ethyl Alcohol Neg (NEG) Ammonia 16 mcmol/L (11-34) Urine Collection Type Unknown Urine Color Straw Urine Clarity Clear Urine pH 5.5 Urine Specific [place] 1.010 Urine Protein Neg (NEG-TRACE) Urine Glucose (UA) Neg mg/dL (NEG) Urine Ketones (Stick) Neg mg/dL (NEG) Urine Blood Neg (NEG) Urine Nitrite Neg (NEG) Urine Bilirubin Neg (NEG) Urine Urobilinogen Dipstick 0.2 mg/dL (0.2 mg/dL) Urine Leukocyte Esterase Neg (NEG) Urine RBC 0 /HPF (0-2) Urine WBC Occ /HPF (0-4) Urine Squamous Epithelial Cells Occ /LPF Urine Bacteria 0 /HPF (0-FEW) Urine Mucus Slight /LPF Test 12/13/16 01:00 Troponin I Quantitative < 0.017 ng/mL (0-0.055) Physical Exam: General Exam: HEENT: normocephalic, atraumatic, otherwise unremarkable. Neck: supple, negative for JVD, carotid bruit, lymphadenopathy or thyromegaly. Lungs: clear. Cardiovascular: normal S1, S2, systolic murmur.. Abdomen: soft, no tenderness, mass or organomegaly. Extremities: no edema, or clubbing or cyanosis.. The peripheral pulses were normal. Neurological Examination: 1- Mental status: alert and oriented to time x2 follows simple commands, fluent speech, no language dysfunction. 2- Cranial Nerves:. The pupils were equal and reactive to light and accommodation. The extra ocular movements were intact; there was no nystagmus on horizontal or vertical gazes. There were no facial, motor or sensory deficits. The hearing was intact. The palate was elevated symmetrically. The sternocleidomastoids were powerful bilaterally. The patient protruded the tongue in the midline without fasciculations or atrophy. 3-Motor Examination: No focal muscle bulk wasting. The strength was 5/5 throughout. 4-Sensory Examination: Normal pinprick, light touch, vibratory, and position senses. 5-Deep Tendon Reflexes: Were symmetric and active without pathologic responses. 6-Coordinations and Gait: uses a walker with assistance. ASSESSMENT: Assessment Additional comments: 1- Recurrent episodes of aphasia without focal neurological deficits, anxiety and possible conversion reaction. 2- Multiple medical problems includes CAD,HTN,HLD, Cerebral chronic small vessels disease 3- Anxiety. PLAN: 1- Continue Home medications, speech therapy, PT/OT Irina SOTO MD Dec 13, 2016 09:33
[2016-12-13 09:43] LABS: ALBUMIN 3.5 g/dL (3.4-5.0); ALBUMIN/GLOBULIN RATIO 0.9 (1.0-1.7); CALCIUM 9.2 mg/dL (8.5-10.1); CREATININE 0.9 mg/dL (0.7-1.3); GFR 82.9; POTASSIUM 3.8 mmol/L (3.5-5.1); TOTAL BILIRUBIN 0.4 mg/dL (0.2-1.0); TOTAL PROTEIN 7.5 g/dL (6.4-8.2)
--- NOTE | 2016-12-13 09:49 | PDOC ---
SUBJECTIVE: No new neurological c/o. OBJECTIVE: OBJECTIVE: Vital Signs: Vital Signs Date Time Temp Pulse Resp B/P (MAP) Pulse Ox O2 Delivery O2 Flow Rate FiO2 12/13/16 06:07 98.4 69 20 167/73 (104) 94 Room Air I & O Intake and Output 12/13/16 07:00 Intake Total 0 ml Output Total 825 ml Balance -825 ml Intake Oral 0 ml Output Urine Total 825 ml Labs: Laboratory Tests Test 12/12/16 11:55 12/12/16 13:31 12/12/16 16:30 12/12/16 20:00 White Blood Count 7.5 x10^3/uL (4.0-11.0) Red Blood Count 4.83 x10^6/uL (4.30-5.70) Hemoglobin 12.6 g/dL (13.0-17.5) Hematocrit 38.5 % (39.0-53.0) Mean Corpuscular Volume 80 fL (79-100) Mean Corpuscular Hemoglobin 26 pg (25-35) Mean Corpuscular Hemoglobin Concent 33 g/dL (31-37) Red Cell Distribution Width 15.6 % (11.5-14.5) Platelet Count 265 x10^3/uL (140-400) Neutrophils (%) (Auto) 66 % (31-73) Lymphocytes (%) (Auto) 20 % (24-48) Monocytes (%) (Auto) 10 % (0-9) Eosinophils (%) (Auto) 3 % (0-3) Basophils (%) (Auto) 1 % (0-3) Neutrophils # (Auto) 5.0 x10^3uL (1.8-7.7) Lymphocytes # (Auto) 1.5 x10^3/uL (1.0-4.8) Monocytes # (Auto) 0.7 x10^3/uL (0.0-1.1) Eosinophils # (Auto) 0.2 x10^3/uL (0.0-0.7) Basophils # (Auto) 0.1 x10^3/uL (0.0-0.2) Erythrocyte Sedimentation Rate 27 (0-15) Prothrombin Time 10.1 SEC (9.4-11.4) Prothromb Time International Ratio 1.0 (0.9-1.1) Activated Partial Thromboplast Time 25 SEC (23-33) D-Dimer (Aicha) 1.42 mg/L (0.00-0.50) Sodium Level 143 mmol/L (136-145) Potassium Level 4.5 mmol/L (3.5-5.1) Chloride Level 107 mmol/L (98-107) Carbon Dioxide Level 28 mmol/L (21-32) Anion Gap 8 (6-14) Blood Urea Nitrogen 15 mg/dL (8-26) Creatinine 0.9 mg/dL (0.7-1.3) Estimated GFR (Cockcroft-Gault) 82.9 BUN/Creatinine Ratio 17 (6-20) Glucose Level 100 mg/dL (70-99) Lactic Acid Level 0.8 mmol/L (0.4-2.0) Calcium Level 8.9 mg/dL (8.5-10.1) Total Bilirubin 0.4 mg/dL (0.2-1.0) Aspartate Amino Transf (AST/SGOT) 47 U/L (15-37) Alanine Aminotransferase (ALT/SGPT) 97 U/L (16-63) Alkaline Phosphatase 74 U/L (46-116) Creatine Kinase 48 U/L (39-308) Troponin I Quantitative < 0.017 ng/mL (0-0.055) < 0.017 ng/mL (0-0.055) C-Reactive Protein 5.0 mg/L (0-3.3) Total Protein 7.4 g/dL (6.4-8.2) Albumin 3.7 g/dL (3.4-5.0) Albumin/Globulin Ratio 1.0 (1.0-1.7) Ethyl Alcohol Level < 10 mg/dL (0-10) Urine Opiates Screen Neg (NEG) Urine Methadone Screen Neg (NEG) Urine Barbiturates Neg (NEG) Urine Phencyclidine Screen Neg (NEG) Urine Amphetamine/Methamphetamine Neg (NEG) Urine Benzodiazepines Screen Neg (NEG) Urine Cocaine Screen Neg (NEG) Urine Cannabinoids Screen Neg (NEG) Urine Ethyl Alcohol Neg (NEG) Ammonia 16 mcmol/L (11-34) Urine Collection Type Unknown Urine Color Straw Urine Clarity Clear Urine pH 5.5 Urine Specific [place] 1.010 Urine Protein Neg (NEG-TRACE) Urine Glucose (UA) Neg mg/dL (NEG) Urine Ketones (Stick) Neg mg/dL (NEG) Urine Blood Neg (NEG) Urine Nitrite Neg (NEG) Urine Bilirubin Neg (NEG) Urine Urobilinogen Dipstick 0.2 mg/dL (0.2 mg/dL) Urine Leukocyte Esterase Neg (NEG) Urine RBC 0 /HPF (0-2) Urine WBC Occ /HPF (0-4) Urine Squamous Epithelial Cells Occ /LPF Urine Bacteria 0 /HPF (0-FEW) Urine Mucus Slight /LPF Test 12/13/16 01:00 Troponin I Quantitative < 0.017 ng/mL (0-0.055) Physical Exam: General Exam: HEENT: normocephalic, atraumatic, otherwise unremarkable. Neck: supple, negative for JVD, carotid bruit, lymphadenopathy or thyromegaly. Lungs: clear. Cardiovascular: normal S1, S2, systolic murmur.. Abdomen: soft, no tenderness, mass or organomegaly. Extremities: no edema, or clubbing or cyanosis.. The peripheral pulses were normal. Neurological Examination: 1- Mental status: alert and oriented to time x3 follows commands, fluent speech , no language dysfunction. 2- Cranial Nerves:. The pupils were equal and reactive to light and accommodation. The extra ocular movements were intact; there was no nystagmus on horizontal or vertical gazes. There were no facial, motor or sensory deficits. The hearing was intact. The palate was elevated symmetrically. The sternocleidomastoids were powerful bilaterally. The patient protruded the tongue in the midline without fasciculations or atrophy. 3-Motor Examination: No focal muscle bulk wasting. The strength was 5/5 throughout. 4-Sensory Examination: Normal pinprick, light touch, vibratory, and position senses. 5-Deep Tendon Reflexes: Were symmetric and active without pathologic responses. 6-Coordinations and Gait: unsteady uses a walker with assistance. ASSESSMENT: Assessment Additional comments: 1- Recurrent episodes of aphasia resolved without focal neurological deficits, anxiety, non-convulsive seizure and possible conversion reaction. 2- Multiple medical problems includes CAD,HTN,HLD, Cerebral chronic small vessels disease 3- Anxiety. PLAN: 1- Continue Home medications, speech therapy, PT/OT and vestibular exercises for positional vertigo. 2- follow up in my office after 1 week from discharge and schedule for an EEG on out patient basis. i have discussed with Dr. Carson. Vital Signs: Vital Signs Date Time Temp Pulse Resp B/P (MAP) Pulse Ox O2 Delivery O2 Flow Rate FiO2 12/13/16 06:07 98.4 69 20 167/73 (104) 94 Room Air I & O Intake and Output 12/13/16 07:00 Intake Total 0 ml Output Total 825 ml Balance -825 ml Intake Oral 0 ml Output Urine Total 825 ml Labs: Laboratory Tests Test 12/12/16 11:55 12/12/16 13:31 12/12/16 16:30 12/12/16 20:00 White Blood Count 7.5 x10^3/uL (4.0-11.0) Red Blood Count 4.83 x10^6/uL (4.30-5.70) Hemoglobin 12.6 g/dL (13.0-17.5) Hematocrit 38.5 % (39.0-53.0) Mean Corpuscular Volume 80 fL (79-100) Mean Corpuscular Hemoglobin 26 pg (25-35) Mean Corpuscular Hemoglobin Concent 33 g/dL (31-37) Red Cell Distribution Width 15.6 % (11.5-14.5) Platelet Count 265 x10^3/uL (140-400) Neutrophils (%) (Auto) 66 % (31-73) Lymphocytes (%) (Auto) 20 % (24-48) Monocytes (%) (Auto) 10 % (0-9) Eosinophils (%) (Auto) 3 % (0-3) Basophils (%) (Auto) 1 % (0-3) Neutrophils # (Auto) 5.0 x10^3uL (1.8-7.7) Lymphocytes # (Auto) 1.5 x10^3/uL (1.0-4.8) Monocytes # (Auto) 0.7 x10^3/uL (0.0-1.1) Eosinophils # (Auto) 0.2 x10^3/uL (0.0-0.7) Basophils # (Auto) 0.1 x10^3/uL (0.0-0.2) Erythrocyte Sedimentation Rate 27 (0-15) Prothrombin Time 10.1 SEC (9.4-11.4) Prothromb Time International Ratio 1.0 (0.9-1.1) Activated Partial Thromboplast Time 25 SEC (23-33) D-Dimer (Aicha) 1.42 mg/L (0.00-0.50) Sodium Level 143 mmol/L (136-145) Potassium Level 4.5 mmol/L (3.5-5.1) Chloride Level 107 mmol/L (98-107) Carbon Dioxide Level 28 mmol/L (21-32) Anion Gap 8 (6-14) Blood Urea Nitrogen 15 mg/dL (8-26) Creatinine 0.9 mg/dL (0.7-1.3) Estimated GFR (Cockcroft-Gault) 82.9 BUN/Creatinine Ratio 17 (6-20) Glucose Level 100 mg/dL (70-99) Lactic Acid Level 0.8 mmol/L (0.4-2.0) Calcium Level 8.9 mg/dL (8.5-10.1) Total Bilirubin 0.4 mg/dL (0.2-1.0) Aspartate Amino Transf (AST/SGOT) 47 U/L (15-37) Alanine Aminotransferase (ALT/SGPT) 97 U/L (16-63) Alkaline Phosphatase 74 U/L (46-116) Creatine Kinase 48 U/L (39-308) Troponin I Quantitative < 0.017 ng/mL (0-0.055) < 0.017 ng/mL (0-0.055) C-Reactive Protein 5.0 mg/L (0-3.3) Total Protein 7.4 g/dL (6.4-8.2) Albumin 3.7 g/dL (3.4-5.0) Albumin/Globulin Ratio 1.0 (1.0-1.7) Ethyl Alcohol Level < 10 mg/dL (0-10) Urine Opiates Screen Neg (NEG) Urine Methadone Screen Neg (NEG) Urine Barbiturates Neg (NEG) Urine Phencyclidine Screen Neg (NEG) Urine Amphetamine/Methamphetamine Neg (NEG) Urine Benzodiazepines Screen Neg (NEG) Urine Cocaine Screen Neg (NEG) Urine Cannabinoids Screen Neg (NEG) Urine Ethyl Alcohol Neg (NEG) Ammonia 16 mcmol/L (11-34) Urine Collection Type Unknown Urine Color Straw Urine Clarity Clear Urine pH 5.5 Urine Specific [place] 1.010 Urine Protein Neg (NEG-TRACE) Urine Glucose (UA) Neg mg/dL (NEG) Urine Ketones (Stick) Neg mg/dL (NEG) Urine Blood Neg (NEG) Urine Nitrite Neg (NEG) Urine Bilirubin Neg (NEG) Urine Urobilinogen Dipstick 0.2 mg/dL (0.2 mg/dL) Urine Leukocyte Esterase Neg (NEG) Urine RBC 0 /HPF (0-2) Urine WBC Occ /HPF (0-4) Urine Squamous Epithelial Cells Occ /LPF Urine Bacteria 0 /HPF (0-FEW) Urine Mucus Slight /LPF Test 12/13/16 01:00 12/13/16 09:23 Troponin I Quantitative < 0.017 ng/mL (0-0.055) White Blood Count 5.9 x10^3/uL (4.0-11.0) Red Blood Count 4.78 x10^6/uL (4.30-5.70) Hemoglobin 12.3 g/dL (13.0-17.5) Hematocrit 37.7 % (39.0-53.0) Mean Corpuscular Volume 79 fL (79-100) Mean Corpuscular Hemoglobin 26 pg (25-35) Mean Corpuscular Hemoglobin Concent 33 g/dL (31-37) Red Cell Distribution Width 15.5 % (11.5-14.5) Platelet Count 255 x10^3/uL (140-400) Neutrophils (%) (Auto) 64 % (31-73) Lymphocytes (%) (Auto) 23 % (24-48) Monocytes (%) (Auto) 10 % (0-9) Eosinophils (%) (Auto) 3 % (0-3) Basophils (%) (Auto) 1 % (0-3) Neutrophils # (Auto) 3.8 x10^3uL (1.8-7.7) Lymphocytes # (Auto) 1.4 x10^3/uL (1.0-4.8) Monocytes # (Auto) 0.6 x10^3/uL (0.0-1.1) Eosinophils # (Auto) 0.2 x10^3/uL (0.0-0.7) Basophils # (Auto) 0.1 x10^3/uL (0.0-0.2) Irina SOTO MD Dec 13, 2016 09:49
--- NOTE | 2016-12-13 09:59 | PDOC ---
SUBJECTIVE: Still feels dizzy lightheaded OBJECTIVE: WDWN NAD taking physical therapy Vital Signs: Vital signs noted relatively elevated blood pressure does have drop in his orthostatics however Vital Signs Date Time Temp Pulse Resp B/P (MAP) Pulse Ox O2 Delivery O2 Flow Rate FiO2 12/13/16 06:07 98.4 69 20 167/73 (104) 94 Room Air I & O Intake and Output 12/13/16 07:00 Intake Total 0 ml Output Total 825 ml Balance -825 ml Intake Oral 0 ml Output Urine Total 825 ml Labs: Laboratory Tests Test 12/12/16 11:55 12/12/16 13:31 12/12/16 16:30 12/12/16 20:00 White Blood Count 7.5 x10^3/uL (4.0-11.0) Red Blood Count 4.83 x10^6/uL (4.30-5.70) Hemoglobin 12.6 g/dL (13.0-17.5) Hematocrit 38.5 % (39.0-53.0) Mean Corpuscular Volume 80 fL (79-100) Mean Corpuscular Hemoglobin 26 pg (25-35) Mean Corpuscular Hemoglobin Concent 33 g/dL (31-37) Red Cell Distribution Width 15.6 % (11.5-14.5) Platelet Count 265 x10^3/uL (140-400) Neutrophils (%) (Auto) 66 % (31-73) Lymphocytes (%) (Auto) 20 % (24-48) Monocytes (%) (Auto) 10 % (0-9) Eosinophils (%) (Auto) 3 % (0-3) Basophils (%) (Auto) 1 % (0-3) Neutrophils # (Auto) 5.0 x10^3uL (1.8-7.7) Lymphocytes # (Auto) 1.5 x10^3/uL (1.0-4.8) Monocytes # (Auto) 0.7 x10^3/uL (0.0-1.1) Eosinophils # (Auto) 0.2 x10^3/uL (0.0-0.7) Basophils # (Auto) 0.1 x10^3/uL (0.0-0.2) Erythrocyte Sedimentation Rate 27 (0-15) Prothrombin Time 10.1 SEC (9.4-11.4) Prothromb Time International Ratio 1.0 (0.9-1.1) Activated Partial Thromboplast Time 25 SEC (23-33) D-Dimer (Aicha) 1.42 mg/L (0.00-0.50) Sodium Level 143 mmol/L (136-145) Potassium Level 4.5 mmol/L (3.5-5.1) Chloride Level 107 mmol/L (98-107) Carbon Dioxide Level 28 mmol/L (21-32) Anion Gap 8 (6-14) Blood Urea Nitrogen 15 mg/dL (8-26) Creatinine 0.9 mg/dL (0.7-1.3) Estimated GFR (Cockcroft-Gault) 82.9 BUN/Creatinine Ratio 17 (6-20) Glucose Level 100 mg/dL (70-99) Lactic Acid Level 0.8 mmol/L (0.4-2.0) Calcium Level 8.9 mg/dL (8.5-10.1) Total Bilirubin 0.4 mg/dL (0.2-1.0) Aspartate Amino Transf (AST/SGOT) 47 U/L (15-37) Alanine Aminotransferase (ALT/SGPT) 97 U/L (16-63) Alkaline Phosphatase 74 U/L (46-116) Creatine Kinase 48 U/L (39-308) Troponin I Quantitative < 0.017 ng/mL (0-0.055) < 0.017 ng/mL (0-0.055) C-Reactive Protein 5.0 mg/L (0-3.3) Total Protein 7.4 g/dL (6.4-8.2) Albumin 3.7 g/dL (3.4-5.0) Albumin/Globulin Ratio 1.0 (1.0-1.7) Ethyl Alcohol Level < 10 mg/dL (0-10) Urine Opiates Screen Neg (NEG) Urine Methadone Screen Neg (NEG) Urine Barbiturates Neg (NEG) Urine Phencyclidine Screen Neg (NEG) Urine Amphetamine/Methamphetamine Neg (NEG) Urine Benzodiazepines Screen Neg (NEG) Urine Cocaine Screen Neg (NEG) Urine Cannabinoids Screen Neg (NEG) Urine Ethyl Alcohol Neg (NEG) Ammonia 16 mcmol/L (11-34) Urine Collection Type Unknown Urine Color Straw Urine Clarity Clear Urine pH 5.5 Urine Specific [place] 1.010 Urine Protein Neg (NEG-TRACE) Urine Glucose (UA) Neg mg/dL (NEG) Urine Ketones (Stick) Neg mg/dL (NEG) Urine Blood Neg (NEG) Urine Nitrite Neg (NEG) Urine Bilirubin Neg (NEG) Urine Urobilinogen Dipstick 0.2 mg/dL (0.2 mg/dL) Urine Leukocyte Esterase Neg (NEG) Urine RBC 0 /HPF (0-2) Urine WBC Occ /HPF (0-4) Urine Squamous Epithelial Cells Occ /LPF Urine Bacteria 0 /HPF (0-FEW) Urine Mucus Slight /LPF Test 12/13/16 01:00 12/13/16 09:23 Troponin I Quantitative < 0.017 ng/mL (0-0.055) White Blood Count 5.9 x10^3/uL (4.0-11.0) Red Blood Count 4.78 x10^6/uL (4.30-5.70) Hemoglobin 12.3 g/dL (13.0-17.5) Hematocrit 37.7 % (39.0-53.0) Mean Corpuscular Volume 79 fL (79-100) Mean Corpuscular Hemoglobin 26 pg (25-35) Mean Corpuscular Hemoglobin Concent 33 g/dL (31-37) Red Cell Distribution Width 15.5 % (11.5-14.5) Platelet Count 255 x10^3/uL (140-400) Neutrophils (%) (Auto) 64 % (31-73) Lymphocytes (%) (Auto) 23 % (24-48) Monocytes (%) (Auto) 10 % (0-9) Eosinophils (%) (Auto) 3 % (0-3) Basophils (%) (Auto) 1 % (0-3) Neutrophils # (Auto) 3.8 x10^3uL (1.8-7.7) Lymphocytes # (Auto) 1.4 x10^3/uL (1.0-4.8) Monocytes # (Auto) 0.6 x10^3/uL (0.0-1.1) Eosinophils # (Auto) 0.2 x10^3/uL (0.0-0.7) Basophils # (Auto) 0.1 x10^3/uL (0.0-0.2) Sodium Level 144 mmol/L (136-145) Potassium Level 3.8 mmol/L (3.5-5.1) Chloride Level 109 mmol/L (98-107) Carbon Dioxide Level 25 mmol/L (21-32) Anion Gap 10 (6-14) Blood Urea Nitrogen 15 mg/dL (8-26) Creatinine 0.9 mg/dL (0.7-1.3) Estimated GFR (Cockcroft-Gault) 82.9 BUN/Creatinine Ratio 17 (6-20) Glucose Level 90 mg/dL (70-99) Calcium Level 9.2 mg/dL (8.5-10.1) Total Bilirubin 0.4 mg/dL (0.2-1.0) Aspartate Amino Transf (AST/SGOT) 30 U/L (15-37) Alanine Aminotransferase (ALT/SGPT) 70 U/L (16-63) Alkaline Phosphatase 69 U/L (46-116) Total Protein 7.5 g/dL (6.4-8.2) Albumin 3.5 g/dL (3.4-5.0) Albumin/Globulin Ratio 0.9 (1.0-1.7) Physical Exam: Speech fluent spontaneous alert and oriented eyes PERRL EOMI sclerae clear mouth and throat normal lungs clear severe exam regular sinus was soft nontender ASSESSMENT: TIA like symptoms sliding orthostasis orthostatic hypotension Lightheadedness Problem List: Benign positional vertigo Dizziness of unknown cause Postural dizziness PLAN: Continue to monitor just medications physical occupational therapy RENAN CAUSEY MD Dec 13, 2016 09:59
[2016-12-13 10:38] VITALS: BP 182/70
[2016-12-13 10:44] VITALS: BP 175/70
[2016-12-13 10:45] VITALS: BP 147/69
[2016-12-13] MEDS: TAMSULOSIN 0.4 MG CAP.ER.24H. PO SCH (10:54)
[2016-12-13] MEDS: OMEGA-3 FATTY ACIDS/FISH OIL 1,000 MG CAPSULE. PO SCH (10:55)
[2016-12-13] MEDS: CARVEDILOL 6.25 MG TABLET PO SCH ×2 (10:55→17:02)
[2016-12-13] MEDS: MECLIZINE 12.5 MG TABLET. PO SCH ×3 (10:55→21:06)
[2016-12-13] MEDS: CLOPIDOGREL BISULFATE 75 MG TABLET PO SCH (10:55)
[2016-12-13] MEDS: PANTOPRAZOLE 40 MG TABLET. PO SCH (10:55)
[2016-12-13] MEDS: LISINOPRIL 10 MG TABLET PO SCH (10:55)
[2016-12-13] MEDS: ASPIRIN 81 MG TAB.CHEW PO SCH (10:55)
--- NOTE | 2016-12-13 13:54 | RAD ---
Ultrasound abdomen 12/13/2016 at 0833 hours Indication: Elevated LFTs Comparison: None available Technique: Grayscale and color Doppler sonographic imaging of the abdomen was performed. Findings: The liver is homogenous in echotexture without evidence for a focal mass lesion. The liver measures 12.7 cm. Gallbladder is normal in appearance without evidence for gallstones, gallbladder wall thickening or pericholecystic fluid. Negative sonographic Lauren's sign. The common bile duct measures maximum 3 mm. The spleen is normal in appearance measuring maximally 10.0 cm. Pancreas is normal as visualized. The right kidney measures 10.5 x 6 x 4 x 5.9 cm. The left kidney measures 9.8 x 4.6 x 6.3 cm. There is mild to moderate hydronephrosis of the right kidney. No parenchymal loss. There are no renal calculi identified. No suspicious contour deforming renal mass. The aorta is nondilated. IVC is patent. Impression: 1. There is mild to moderate hydronephrosis of the right kidney. Underlying etiology is not elicited on this examination. Further evaluation with a CT abdomen/pelvis without intravenous contrast is recommended. 2. No evidence for intrahepatic or extrahepatic biliary ductal dilatation. No cholelithiasis.
[2016-12-13 15:31] VITALS: BP 147/66
[2016-12-13 19:13] VITALS: BP 146/59
[2016-12-13] MEDS: ENOXAPARIN 40 MG/0.4 ML DISP.SYRIN. SQ SCH (21:06)
[2016-12-13] MEDS: ATORVASTATIN CALCIUM 20 MG TABLET PO SCH (21:06)
[2016-12-14 05:13] VITALS: BP 135/55
[2016-12-14 06:31] LABS: CALCIUM 8.6 mg/dL (8.5-10.1); CREATININE 0.9 mg/dL (0.7-1.3); GFR 82.9; POTASSIUM 3.7 mmol/L (3.5-5.1)
--- NOTE | 2016-12-14 06:51 | ACF ---
Admission Criteria Forms NEUROLOGY GRG Clinical Indications for Admission to Inpatient Care (Place ' X' for any and all applicable criteria): Hospital admission is needed for appropriate care of the patient because of 1 or more of the following: [ ]I. Encephalitis [ ]II. Severe [employer] infections indicated by 1 or more of the following(1)(2)(3) : [ ]a) Intracranial abscess [ ]b) Spinal abscess or myelitis [ ]c) Tuberculous or other nonbacterial, nonviral [employer] infection(8) [ ]III. Vasculitis and 1 or more of the following(14)(15): []a) Altered mental status that is severe or persistent or other acute neurologic change []b) Psychosis []c) Seizure [ ]IV. Status epilepticus or repetitive seizures not controlled with emergent treatment [A] (7)(8) [ ]V. Altered mental status that is severe or persistent [ ]. Transient alteration in consciousness with high-risk etiology; examples include (12)(13): [ ]a) Cardiovascular source [ ]b) Cataplexy [ ]VII. Cerebral aneurysm requiring ANY ONE of the following(14): [ ]a) IV antihypertensives or vasoactive agents [ ]b) Sedation and analgesia for suspected leak [ ]c) Need for external ventricular drainage and cerebral perfusion pressure monitoring [ ]d) Emergent evaluation to determine need for surgical clipping or endovascular coiling by interventional radiology. If surgery is required ( Also use Craniotomy, Supratentorial, for Surgery of Bleeding Intracranial Aneurysm (for bleeding aneurysm) or Craniotomy, Supratentorial (for nonbleeding aneurysm) as appropriate. [ X]VIII. New-onset severe neurologic symptom requiring inpatient care indicated by ANY ONE of the following: [ X]a) Aphasia(15) [ ]b) Weakness (grade 3 or less) [ ]c) Paralysis (eg, hemiplegia) [ ]d) Spasticity(16) [ ]e) Dystonia [ ]e) Ataxia(17) [ ]f) Amnesia(18) [ ]g) Involuntary movements(19) [ ]h) Vertigo [ ] Visual loss [ ]i) Other severe neurologic finding (eg, papilledema, mass effect on imaging, myoclonus not treatable at alternative level of care (eg, observation care) [ ]IX. Guillain-[place] syndrome(20) [ ]X. Myasthenia gravis crisis or inpatient monitoring need as indicated by 1 or more of the following(21): [ ]a) Intensive treatment (eg, course of plasmapheresis) with inadequate outpatient situation to monitor patients status [ ]b) Inadequate airway protection [ ]c) Respiratory insufficiency requiring intubation or inpatient. monitoring [ ]d) Progressive dysphagia with failure to thrive [ ]XI. Multiple sclerosis or other acute demyelinating disease requiring inpatient care as indicated by 1 or more of the following (22)(23): [ ]a) Acute severe deterioration requiring inpatient treatment (eg, IV steroids, plasmapheresis, close observation) [ ]b) Acute complication requiring inpatient care (eg, sepsis, severe decubitus, aspiration) [ ]XII.Parkinson disease requiring inpatient care (Also use Optimal Recovery Care Criteria or General Recovery Criteria as appropriate) indicated by 1 or more of the following(25): [ ]a) Infection (eg, aspiration pneumonia) not treatable at alternative level of care [ ]b Dehydration that is severe or persistent [ ]c) Life-threatening agitation or psychotic behavior not treatable on emergency, observation care, or alternative level (eg, residential) basis [ ]d) Severe medication withdrawal effects (eg, freezing, neuroleptic malignant syndrome) not responsive to emergency and observation care treatment ( as appropriate) [ ]e) Other severe manifestation not treatable at alternative level of care [ ]XII. Amyotrophic lateral sclerosis with inpatient care needs as indicated by ANY ONE of the following(26): [ ]a) Acute complications (eg, aspiration pneumonia, sepsis ) requiring inpatient care ( see other optimal Recovery Guideline as appropriate) [ ]b) Dehydration that is severe persistent AND artificial support desired [ ]c) Inadequate airway protection AND artificial support desired [ ]d) Severe ventilatory insufficiency AND artificial support desired [ ]XIII. Myasthenia gravis crisis or inpatient monitoring need as indicated by 1 or more of the following(21): [] a) Inadequate airway protection []b) Respiratory insufficiency requiring intubation or inpatient monitoring []c) Progressive dysphagia with failure to thrive []d) Intensive treatment (e.g., course of plasmapheresis) with inadequate outpatient situation to monitor patients status [ ]XIV. Multiple sclerosis or other acute demyelinating disease requiring inpatient care indicated by 1 or more of the following[C](36)(43)(44)(45)(46): []a) Acute severe deterioration requiring inpatient treatment (eg, IV steroids, plasmapheresis, close observation) []b) Acute complication requiring inpatient care (eg, sepsis, severe decubitus, aspiration) [ ]XV. Intracranial hypertension (e.g., pseudotumor cerebri) requiring inpatient care (e.g., acute visual loss, inadequate oral intake) (47)(48)(49) [ ]XVI. Parkinson disease requiring inpatient care (Also use Optimal Recovery Care Criteria or General Recovery Criteria as appropriate) indicated by 1 or more of the following(25): [] a) Infection (e.g., aspiration pneumonia) not treatable at alternative level of care []b) Volume depletion not responsive to emergency and observation care treatment (as appropriate) []c) Life-threatening agitation or psychotic behavior not treatable on emergency, observation care, or alternative level (e.g., residential) basis []d) Severe medication withdrawal effects (e.g., freezing, neuroleptic malignant syndrome) not responsive to emergency and observation care treatment (as appropriate) []e) Other severe manifestation not treatable at alternative level of care [ ]XVII. Amyotrophic lateral sclerosis with inpatient care needs as indicated by1 or more of the following(42): []a) Acute complications (eg, aspiration pneumonia, sepsis) requiring inpatient care (see other Optimal Recovery Guideline or General Recovery Guideline as appropriate) []b) Dehydration that is severe or persistent AND artificial support desired []c) Inadequate airway protection AND artificial support desired []d) Severe ventilatory insufficiency AND artificial support desired [ ]XVIII. Severe myopathy, neuropathy, or other neuromuscular disease indicated by 1 or more of the following(42)(52)(53)(54): []a ) New-onset severe diffuse weakness (eg, strength 3/5 or less) []b) Severe dysphagia []c) Dyspnea at rest or with minimal exertion (new) []d) Inadequate airway protection []e) Inadequate ventilation indicated by 1 or more of the following : i) Partial pressure of carbon dioxide greater than 44 mm Hg ( 5.9 kPa) (new) ii) Reduced peak expiratory flow rate (new) iii) Vital capacity less than 50% of predicted (less than 15 mL/kg) iv) Peak inspiratory force less negative than -30 cm H2O (- 2942 Pa) [ ]XVII.Complications of congenital or degenerative disease (eg, infection, seizures, dehydration, injury) not responsive to emergency and observation care treatment (as appropriate ) [C](16)(29)(30) [ ]XVIII.Suspected or confirmed nerve or muscle toxic injury, including ANY ONE of the following: [ ]a) Rhabdomyolysis(31) i) Acute renal failure ii) Dehydration that is severe or persistent iii) Altered mental status that is severe or persistent iv) Electrolyte abnormality that remains after emergency or observation level care ( as appropriate) [ ]b) Botulism(32) [ ]c) Other severe toxin-induced sign or symptom [ ]XIX. Neurologic trauma requiring inpatient treatment (medical) indicated by ANY ONE of the following(33)(34): [ ]a) Vital signs or neurologic signs more frequently than every 4 hours [ ]b) Hyperosmolar therapy [ ]c) Respiratory monitoring [ ]d) Intracranial pressure monitoring and treatment [ ]e) Stabilization and immobilization device placement (eg, braces, body jacket) [ ]f) Intubation & mechanical ventilation for airway protection or therapeutic hyperventilation [ ]g) Other treatment or monitoring needed that requires inpatient level of care [ ]XX.Complications of neurologic devices (eg, ventricular shunt, neurostimulator) requiring 1 or more of the following(35)(36): [ ]a) IV antibiotics with monitoring while awaiting culture results [ ]b) Monitoring for hydrocephalus [ ]XXI. Neurology condition symptom, or finding for which emergency and observation care have failed or are not considered appropriate. See General Criteria: Observation Care ISC, General Admission Criteria GRG, or Pediatric General Admission Criteria GRG guideline as appropriate. The original [facility] content created by [facility] [employer] has been revised. The portions of the content which have been revised are identified through the use of italic text or in bold, and [facility] has neither reviewed nor approved the modified material. All other unmodified content is copyright [facility] Please see references footnoted in the original [facility] edition 2016 Admission Criteria Met?: Yes TAY CALVO Dec 14, 2016 06:51
[2016-12-14] MEDS ORDERED: IOHEXOL 300 MG/ML 75 ML VIAL. IV ONE (08:00)
--- NOTE | 2016-12-14 08:36 | PDOC ---
SUBJECTIVE: Mr. Hartley continues to have positional vertigo. he denies any new neurological complaints. No recurrent TIA or seizure -like episodes. OBJECTIVE: Vital Signs: Vital Signs Date Time Temp Pulse Resp B/P (MAP) Pulse Ox O2 Delivery O2 Flow Rate FiO2 12/14/16 05:13 98.2 59 18 135/55 (81) 95 Room Air I & O Intake and Output 12/14/16 07:00 Intake Total 1640 ml Balance 1640 ml Intake Oral 1640 ml # Bowel Movements 3 Labs: Laboratory Tests Test 12/12/16 11:55 12/12/16 13:31 12/12/16 16:30 12/12/16 20:00 White Blood Count 7.5 x10^3/uL (4.0-11.0) Red Blood Count 4.83 x10^6/uL (4.30-5.70) Hemoglobin 12.6 g/dL (13.0-17.5) Hematocrit 38.5 % (39.0-53.0) Mean Corpuscular Volume 80 fL (79-100) Mean Corpuscular Hemoglobin 26 pg (25-35) Mean Corpuscular Hemoglobin Concent 33 g/dL (31-37) Red Cell Distribution Width 15.6 % (11.5-14.5) Platelet Count 265 x10^3/uL (140-400) Neutrophils (%) (Auto) 66 % (31-73) Lymphocytes (%) (Auto) 20 % (24-48) Monocytes (%) (Auto) 10 % (0-9) Eosinophils (%) (Auto) 3 % (0-3) Basophils (%) (Auto) 1 % (0-3) Neutrophils # (Auto) 5.0 x10^3uL (1.8-7.7) Lymphocytes # (Auto) 1.5 x10^3/uL (1.0-4.8) Monocytes # (Auto) 0.7 x10^3/uL (0.0-1.1) Eosinophils # (Auto) 0.2 x10^3/uL (0.0-0.7) Basophils # (Auto) 0.1 x10^3/uL (0.0-0.2) Erythrocyte Sedimentation Rate 27 (0-15) Prothrombin Time 10.1 SEC (9.4-11.4) Prothromb Time International Ratio 1.0 (0.9-1.1) Activated Partial Thromboplast Time 25 SEC (23-33) D-Dimer (Aicha) 1.42 mg/L (0.00-0.50) Sodium Level 143 mmol/L (136-145) Potassium Level 4.5 mmol/L (3.5-5.1) Chloride Level 107 mmol/L (98-107) Carbon Dioxide Level 28 mmol/L (21-32) Anion Gap 8 (6-14) Blood Urea Nitrogen 15 mg/dL (8-26) Creatinine 0.9 mg/dL (0.7-1.3) Estimated GFR (Cockcroft-Gault) 82.9 BUN/Creatinine Ratio 17 (6-20) Glucose Level 100 mg/dL (70-99) Lactic Acid Level 0.8 mmol/L (0.4-2.0) Calcium Level 8.9 mg/dL (8.5-10.1) Total Bilirubin 0.4 mg/dL (0.2-1.0) Aspartate Amino Transf (AST/SGOT) 47 U/L (15-37) Alanine Aminotransferase (ALT/SGPT) 97 U/L (16-63) Alkaline Phosphatase 74 U/L (46-116) Creatine Kinase 48 U/L (39-308) Troponin I Quantitative < 0.017 ng/mL (0-0.055) < 0.017 ng/mL (0-0.055) C-Reactive Protein 5.0 mg/L (0-3.3) Total Protein 7.4 g/dL (6.4-8.2) Albumin 3.7 g/dL (3.4-5.0) Albumin/Globulin Ratio 1.0 (1.0-1.7) Ethyl Alcohol Level < 10 mg/dL (0-10) Urine Opiates Screen Neg (NEG) Urine Methadone Screen Neg (NEG) Urine Barbiturates Neg (NEG) Urine Phencyclidine Screen Neg (NEG) Urine Amphetamine/Methamphetamine Neg (NEG) Urine Benzodiazepines Screen Neg (NEG) Urine Cocaine Screen Neg (NEG) Urine Cannabinoids Screen Neg (NEG) Urine Ethyl Alcohol Neg (NEG) Ammonia 16 mcmol/L (11-34) Urine Collection Type Unknown Urine Color Straw Urine Clarity Clear Urine pH 5.5 Urine Specific [place] 1.010 Urine Protein Neg (NEG-TRACE) Urine Glucose (UA) Neg mg/dL (NEG) Urine Ketones (Stick) Neg mg/dL (NEG) Urine Blood Neg (NEG) Urine Nitrite Neg (NEG) Urine Bilirubin Neg (NEG) Urine Urobilinogen Dipstick 0.2 mg/dL (0.2 mg/dL) Urine Leukocyte Esterase Neg (NEG) Urine RBC 0 /HPF (0-2) Urine WBC Occ /HPF (0-4) Urine Squamous Epithelial Cells Occ /LPF Urine Bacteria 0 /HPF (0-FEW) Urine Mucus Slight /LPF Test 12/13/16 01:00 12/13/16 09:23 12/14/16 05:46 Troponin I Quantitative < 0.017 ng/mL (0-0.055) White Blood Count 5.9 x10^3/uL (4.0-11.0) Red Blood Count 4.78 x10^6/uL (4.30-5.70) Hemoglobin 12.3 g/dL (13.0-17.5) Hematocrit 37.7 % (39.0-53.0) Mean Corpuscular Volume 79 fL (79-100) Mean Corpuscular Hemoglobin 26 pg (25-35) Mean Corpuscular Hemoglobin Concent 33 g/dL (31-37) Red Cell Distribution Width 15.5 % (11.5-14.5) Platelet Count 255 x10^3/uL (140-400) Neutrophils (%) (Auto) 64 % (31-73) Lymphocytes (%) (Auto) 23 % (24-48) Monocytes (%) (Auto) 10 % (0-9) Eosinophils (%) (Auto) 3 % (0-3) Basophils (%) (Auto) 1 % (0-3) Neutrophils # (Auto) 3.8 x10^3uL (1.8-7.7) Lymphocytes # (Auto) 1.4 x10^3/uL (1.0-4.8) Monocytes # (Auto) 0.6 x10^3/uL (0.0-1.1) Eosinophils # (Auto) 0.2 x10^3/uL (0.0-0.7) Basophils # (Auto) 0.1 x10^3/uL (0.0-0.2) Sodium Level 144 mmol/L (136-145) 144 mmol/L (136-145) Potassium Level 3.8 mmol/L (3.5-5.1) 3.7 mmol/L (3.5-5.1) Chloride Level 109 mmol/L (98-107) 108 mmol/L (98-107) Carbon Dioxide Level 25 mmol/L (21-32) 26 mmol/L (21-32) Anion Gap 10 (6-14) 10 (6-14) Blood Urea Nitrogen 15 mg/dL (8-26) 19 mg/dL (8-26) Creatinine 0.9 mg/dL (0.7-1.3) 0.9 mg/dL (0.7-1.3) Estimated GFR (Cockcroft-Gault) 82.9 82.9 BUN/Creatinine Ratio 17 (6-20) Glucose Level 90 mg/dL (70-99) 97 mg/dL (70-99) Calcium Level 9.2 mg/dL (8.5-10.1) 8.6 mg/dL (8.5-10.1) Total Bilirubin 0.4 mg/dL (0.2-1.0) Aspartate Amino Transf (AST/SGOT) 30 U/L (15-37) Alanine Aminotransferase (ALT/SGPT) 70 U/L (16-63) Alkaline Phosphatase 69 U/L (46-116) Total Protein 7.5 g/dL (6.4-8.2) Albumin 3.5 g/dL (3.4-5.0) Albumin/Globulin Ratio 0.9 (1.0-1.7) Physical Exam: General Exam: HEENT: normocephalic, atraumatic, otherwise unremarkable. Neck: supple, negative for JVD, carotid bruit, lymphadenopathy or thyromegaly. Lungs: clear. Cardiovascular: normal S1, S2, systolic murmur.. Abdomen: soft, no tenderness, mass or organomegaly. Extremities: no edema, or clubbing or cyanosis.. The peripheral pulses were normal. Neurological Examination: 1- Mental status: alert and oriented to time x3 follows commands, fluent speech , no language dysfunction. 2- Cranial Nerves:. The pupils were equal and reactive to light and accommodation. The extra ocular movements were intact; there was no nystagmus on horizontal or vertical gazes. There were no facial, motor or sensory deficits. The hearing was intact. The palate was elevated symmetrically. The sternocleidomastoids were powerful bilaterally. The patient protruded the tongue in the midline without fasciculations or atrophy. 3-Motor Examination: No focal muscle bulk wasting. The strength was 5/5 throughout. 4-Sensory Examination: Normal pinprick, light touch, vibratory, and position senses. 5-Deep Tendon Reflexes: Were symmetric and active without pathologic responses. 6-Coordinations and Gait: unsteady uses a walker with assistance. still slightly unsteady in uprising positions. ELECTROENCEPHALOGRAM: normal waking and drowsy record. No seizure activities . low background amplitude probably due to anxiety. ASSESSMENT: 1- Recurrent episodes of aphasia resolved without focal neurological deficits, anxiety, non-convulsive seizure and possible conversion reaction. 2- Multiple medical problems includes CAD,HTN,HLD, Cerebral chronic small vessels disease 3- Anxiety. PLAN: 1- Continue Home medications, speech therapy, PT/OT and vestibular exercises for positional vertigo Irina SOTO MD Dec 14, 2016 08:36
[2016-12-14] MEDS: FLUTICASONE 50MCG/NASAL SPRAY 16GM BOTTLE. NS SCH (09:36)
[2016-12-14] MEDS: TAMSULOSIN 0.4 MG CAP.ER.24H. PO SCH (09:37)
[2016-12-14] MEDS: LIDOCAINE (700MG/PATCH) PATCH. TP SCH (09:37)
[2016-12-14] MEDS: CLOPIDOGREL BISULFATE 75 MG TABLET PO SCH (09:37)
[2016-12-14] MEDS: ASPIRIN 81 MG TAB.CHEW PO SCH (09:37)
[2016-12-14] MEDS: MECLIZINE 12.5 MG TABLET. PO SCH (09:37)
[2016-12-14] MEDS: LISINOPRIL 10 MG TABLET PO SCH (09:37)
[2016-12-14] MEDS: OMEGA-3 FATTY ACIDS/FISH OIL 1,000 MG CAPSULE. PO SCH (09:37)
[2016-12-14] MEDS: PANTOPRAZOLE 40 MG TABLET. PO SCH (09:37)
[2016-12-14 09:38] VITALS: BP 135/55
[2016-12-14] MEDS: CARVEDILOL 6.25 MG TABLET PO SCH (09:38)
--- NOTE | 2016-12-14 10:44 | RAD ---
CT abdomen/pelvis without contrast 12/14/2016 at 0917 hours Indication: Hydronephrosis. Comparison: Ultrasound abdomen 12/13/2016 Technique: Multiple axial CT images of the abdomen and pelvis were acquired without intravenous contrast. Oral contrast was administered. Coronal and sagittal reformats are provided. Findings: Lung bases are clear. Heart is normal in size. Evaluation of the solid abdominal viscera is limited by lack of intravenous contrast. There is a 2.0 cm simple appearing cyst in the right hepatic dome. There is an 8 mm simple cyst in the inferior right hepatic lobe. There is a 4 mm hypodense lesion in the left hepatic lobe which is too small to characterize, however favor to represent a simple cyst. The spleen, bilateral adrenal glands, pancreas and gallbladder are normal in appearance. No intrahepatic or extrahepatic biliary ductal dilatation. The kidneys are symmetric in size. There is moderate prominence of the right renal collecting system and mild prominence of the left renal collecting system. The ureters are nondilated. Findings may represent ureteropelvic junction obstruction or peripelvic cysts. Urinary bladder is normal in appearance. No renal calculi are identified. No contour deforming renal mass is present. The abdominal aorta is normal in course and caliber with moderate atherosclerotic calcification. IVC is present. No enlarged abdominal or pelvic lymph nodes are identified. Small and large bowel are normal in caliber. No evidence for bowel obstruction. Normal appendix is visualized. Sigmoid colonic diverticula are present without adjacent inflammatory changes to suggest diverticulitis. There is no abdominal free fluid or free air. Post surgical changes from prostatectomy are identified. Bilateral gianna dissection is noted. No suspicious osseous lesions are identified. Impression: 1. Moderate prominence of the right renal collecting system and mild prominence of the left renal collecting system may represent hydronephrosis from a ureteropelvic junction (UPJ) obstruction versus parapelvic cysts given the lack of ureteral dilatation and renal calculi. A contrast-enhanced examination may delineate whether the cystic areas within the renal pelvis represent the renal collecting systems versus separate cystic structures. 2. Prostate post therapy changes are present. No suspicious osseous lesions are identified. No suspicious gianna disease within the abdomen or pelvis. PQRS Compliance Statement: One or more of the following individualized dose reduction techniques were utilized for this examination: 1. Automated exposure control 2. Adjustment of the mA and/or kV according to patient size 3. Use of iterative reconstruction technique
--- NOTE | 2017-01-05 17:56 | HP ---
ADMIT DATE: 12/12/2016 HISTORY OF PRESENT ILLNESS: A 71-year-old gentleman brought in through the Emergency Room, apparently with possibility of a stroke. The patient suddenly became markedly aphasic, but was able to communicate through writing. He noted sudden trouble swallowing, generalized weakness, and unable to raise his arms or communicate in any other ways, but do write. The patient was seen within the hour of onset of his medical issues. The patient apparently was seen recently at [facility] for possibility of an ischemic stroke and he was seen there from 12/01/2016 to 12/09/2016. He had a CT scan, MRI, lumbar puncture, and neurological consultation. In any case, he was admitted through the Emergency Room for possible TIA versus stroke in evolution. PAST MEDICAL HISTORY: As noted above versus coronary artery disease, COPD, GERD, hyperlipidemia, hypertension, and prostate cancer. SURGICAL HISTORY: Problems with BPH and bilateral herniorrhaphies. SOCIAL HISTORY: He quit smoking approximately a year ago. Denies alcohol or drug use. FAMILY HISTORY: Unremarkable. MEDICATIONS: DuoNeb nebulizer treatments, Xanax 0.25, aspirin 81, Lipitor 80, QNASL nasal spray, carvedilol 6.25 mg daily, Plavix 75 mg daily, Nexium 40 mg daily, lisinopril 20 mg daily, meclizine 12.5 mg t.i.d., and Flomax 0.4 mg daily. ALLERGIES: AMLODIPINE. SOCIAL HISTORY: As noted above. Quit smoking. Denies alcohol or drug use. Lives at [place] at the present time for rehabilitation. REVIEW OF SYSTEMS: General aphasia with generalized weakness, seems to communicate. No chest pain or shortness of breath. Denies abdominal pain. Denies any melena, hematochezia, or hematemesis. Does have neurological deficits as reported above. PHYSICAL EXAMINATION: VITAL SIGNS: Blood pressure as high as 204/70, pulse 70, respiratory rate 18, afebrile. HEENT: The patient's head was atraumatic, normocephalic. Eyes: PERRLA without jaundice. Mouth and throat were normal. NECK: Supple, without JVD, clear of thyromegaly. LUNGS: Diminished throughout, but clear. CARDIOVASCULAR: Regular sinus rhythm, S1, S2, without murmur, rub, thrill, or extra heart sounds. ABDOMEN: Soft and nontender. EXTREMITIES: No clubbing, cyanosis, or edema. NEUROLOGIC: The patient seems to be aphasic, but communicates well with writing. Eyes are PERRLA, EOMI. Cranial nerves 2-12 grossly intact. Memory and judgment are basically intact. Fairly good muscle strength as well as normal reflexes. IMPRESSION: Aphasia, history of coronary artery disease, hypertension, hyperlipidemia, cerebral chronic small vessel disease, hypertensive urgency, and generalized anxiety. PLAN: The patient will be admitted. Consult with Neurology, Dr. Jeter, and make further evaluation on him as indicated. Make further evaluation per those results. RENAN CAUSEY MD DR: JOHN/reg JOB#: [id number] / [id number]
--- NOTE | 2017-01-05 21:08 | DS ---
DATE OF DISCHARGE: 12/14/2016 HOSPITAL COURSE: The patient came in with intermittent episodes of aphasia. The patient was brought in, evaluated carefully. Dr. Jeter, neurologist, was also consulted, elevated D-dimer. CTA was basically unremarkable. The patient also had other testing done including a CT of the abdomen and pelvis that demonstrated prominence of the right renal collecting system, may have a obstruction. The patient made excellent progress during the rest of his hospitalization. Dr. Jeter as noted neurologist reviewed the patient early and reviewed tests that were done at [facility], made timely diagnoses. The patient made good progress. He will be discharged home to follow up as an outpatient. MEDICATIONS: See MRAD. DISCHARGE INSTRUCTIONS: Decreased activity. No driving. IMPRESSION: Multiple episodes of aphasia, focal neurological deficits, anxiety, nonconvulsive seizure, possible conversion reaction, history of coronary artery disease, hypertension, cerebral chronic small vessel disease, hypertensive urgency, anxiety, abnormal urinary collection system on the right. RENAN CAUSEY MD DR: JOHN/reg JOB#: [id number] / [id number]
== END 2016-12-14 13:24 | disposition home or self-care (01) | DRG 312 ==
LOC: ER 11:54 → 1 SOUTH 14:20
PROVIDERS: ADMIT Family Medicine; ATTEND Family Medicine
DX: I95.1 Orthostatic hypotension (principal); R47.01 Aphasia; F44.9 Dissociative and conversion disorder, unspecified; E78.5 Hyperlipidemia, unspecified; I10 Essential (primary) hypertension; I25.10 Atherosclerotic heart disease of native coronary artery without angina pectoris; I48.91 Unspecified atrial fibrillation; J44.9 Chronic obstructive pulmonary disease, unspecified; K21.9 Gastro-esophageal reflux disease without esophagitis; H81.10 Benign paroxysmal vertigo, unspecified ear; K57.90 Diverticulosis of intestine, part unspecified, without perforation or abscess without bleeding; R13.10 Dysphagia, unspecified; R29.720 NIHSS score 20; R56.9 Unspecified convulsions; Z80.9 Family history of malignant neoplasm, unspecified; Z82.49 Family history of ischemic heart disease and other diseases of the circulatory system; Z85.46 Personal history of malignant neoplasm of prostate; Z86.73 Personal history of transient ischemic attack (TIA), and cerebral infarction without residual deficits; Z87.891 Personal history of nicotine dependence; Z88.8 Allergy status to other drugs, medicaments and biological substances; I16.0 Hypertensive urgency; I73.9 Peripheral vascular disease, unspecified; F41.1 Generalized anxiety disorder
CPT/HCPCS: 36415; 70450; 71010; 71275; 74176; 76700; 80048; 80053; 81001; 82140; 82550; 82608; 83605; 84484; 85027; 85379; 85610; 85651; 85730; 86140; 87086; 93005; 95816; G0480; G0481; J0360; J1650; J8597; Q9967; 97110; 97116; 97530; 99285-25

== ENCOUNTER → 2017-01-28 | Outpatient (CLI) | payer MEDICARE, OTHER ==
[~2017-01-28] MED LIST changes: +ALBU0.63 NEB; +ALPR0.25 PO; +ASPI-630 PO; +ATORVASTATIN CA80 MG PO; +BECL8.7H NS; +CARV6.25 PO; +CLOP75TA57 PO; +ESOM40CA PO; +FISH12002 PO; +FOSI20TA PO; +LIDO700A39 TP; +TAMS0.4C2 PO
[2017-01-28 09:19] LABS: CALCIUM 8.8 mg/dL (8.5-10.1); CREATININE 0.9 mg/dL (0.7-1.3); GFR 82.9; POTASSIUM 3.9 mmol/L (3.5-5.1)
== END | disposition home or self-care (01) ==
LOC: LAB 08:18
PROVIDERS: ATTEND Internal Medicine Cardiovascular Disease
DX: I10 Essential (primary) hypertension (principal)
CPT/HCPCS: 36415; 80048

== ENCOUNTER → 2017-03-07 | Outpatient (CLI) | payer MEDICARE, OTHER ==
[2017-03-07 10:23] LABS: BASO % 1 % (0-3); EOS # 0.2 x10^3/uL (0.0-0.7); EOS % 4 % (0-3); HEMATOCRIT 39.4 % (39.0-53.0); HEMOGLOBIN 13.1 g/dL (13.0-17.5); LYMPH # 1.1 x10^3/uL (1.0-4.8); LYMPH % 21 % (24-48); MEAN CORPUSCULAR HEMOGLOBIN 26 pg (25-35); MEAN CORPUSCULAR HGB CONC 33 g/dL (31-37); MEAN CORPUSCULAR VOLUME 78 fL (79-100); MONO # 0.6 x10^3/uL (0.0-1.1); MONO % 12 % (0-9); NEUT # 3.1 x10^3uL (1.8-7.7); NEUT % 62 % (31-73); PLATELET COUNT 214 x10^3/uL (140-400); RED BLOOD COUNT 5.06 x10^6/uL (4.30-5.70); RED CELL DISTRIBUTION WIDTH 15.6 % (11.5-14.5); WHITE BLOOD COUNT 5.1 x10^3/uL (4.0-11.0)
[2017-03-07 10:28] LABS: CREATININE 0.8 mg/dL (0.7-1.3); POTASSIUM 4.1 mmol/L (3.5-5.1)
== END | disposition home or self-care (01) ==
LOC: LAB 08:50
PROVIDERS: ATTEND Family Medicine
DX: I10 Essential (primary) hypertension (principal); E78.01 Familial hypercholesterolemia; D50.9 Iron deficiency anemia, unspecified; R79.89 Other specified abnormal findings of blood chemistry
CPT/HCPCS: 36415; 80048; 80061; 85025

== ENCOUNTER → 2017-09-02 | Outpatient (CLI) | payer OTHER, MEDICARE ==
--- NOTE | 2017-09-02 15:52 | RAD ---
Carotid ultrasound, 09/02/2017: History: Carotid artery disease Duplex evaluation of the carotid arteries in neck was performed including grayscale, color-flow and spectral Doppler analysis. There is moderate intimal thickening and smooth plaquing in both common carotid arteries, extending into the bifurcations, more so on the right. The right plaque is partially calcified. The peak systolic velocity in the right internal carotid artery is 149 cm/s with an end-diastolic velocity of 36 cm/s. This produces an internal carotid to common carotid artery ratio on the right of 1.8. The peak systolic velocity suggests narrowing in the 50-70% diameter range while the end-diastolic velocity measurement and the ratio suggests a lesser degree of narrowing. Correlation with color images suggests that the narrowing is probably approximately 50%. On the left, the peak systolic velocity in the internal carotid artery is 62 cm per sec with an end-diastolic velocity 15 cm/s. The internal carotid to common carotid artery ratio is 0.70. These Doppler findings suggest narrowing in the 0-50% diameter range. Antegrade flow is present in both vertebral arteries in the neck. IMPRESSION: 1. Moderate atherosclerotic plaquing at the right carotid bifurcation with underlying luminal narrowing in the 50-70% diameter range, probably closer to the 50% level. 2. Mild atherosclerotic plaquing at the left carotid bifurcation with underlying luminal narrowing in the 0-50% diameter range. Note: Stenosis calculations for CTA, MRA and conventional angiography are based upon determination of the distal ICA diameter in accordance with the NASCET methodology. Stenosis calculations for Doppler studies are derived from validated velocity criteria which are known to correlate with NASCET methodology of determining stenosis.
== END | disposition home or self-care (01) ==
LOC: US 09:36
PROVIDERS: ATTEND Internal Medicine Cardiovascular Disease
DX: I65.23 Occlusion and stenosis of bilateral carotid arteries (principal)
CPT/HCPCS: 93880

== ENCOUNTER → 2017-10-03 | Outpatient (CLI) | payer OTHER, MEDICARE ==
--- NOTE | 2017-10-03 13:41 | RAD ---
Deep Doppler renal ultrasound, 10/03/2017: History: Hypertension Duplex evaluation of the main renal arteries was performed including grayscale, color-flow and spectral Doppler analysis. The peak systolic velocity in the proximal right main renal artery is 99 cm/s and on the left is 144 cm/s. These findings do not suggest high-grade stenosis. No parvus/tardus phenomena is seen. The right kidney measures 10.4 cm in length while the left kidney measures 11.2 cm. The renal pelves are mildly prominent bilaterally, as also noted on the 12/14/2016 CT study. IMPRESSION: 1. No duplex evidence of significant renal artery stenosis. 2. Mild chronic prominence of the renal pelves.
== END | disposition home or self-care (01) ==
LOC: US 08:38
PROVIDERS: ATTEND Internal Medicine Cardiovascular Disease
DX: I10 Essential (primary) hypertension (principal)
CPT/HCPCS: 93975

== ENCOUNTER 2018-01-20 11:06 | Inpatient (IN) | payer MEDICARE ==
[2018-01-20] VITALS (11 sets, daily range): BP systolic 141–184; BP diastolic 47–76
[~2018-01-20] VITALS: Ht 185.4 cm; Wt 82.7 kg
--- NOTE | 2018-01-20 11:26 | RAD ---
PQRS Compliance Statement: One or more of the following individualized dose reduction techniques were utilized for this examination: 1. Automated exposure control 2. Adjustment of the mA and/or kV according to patient size 3. Use of iterative reconstruction technique CT HEAD WITHOUT CONTRAST History: APHASIA, CHEST PAIN, WEAKNESS Comparison: CT head without contrast, December 12, 2016. Technique: Axial images are obtained of the head from the skull base through the vertex without IV contrast. Findings: No mass-effect, midline shift, extra-axial fluid collection, hemorrhage, or obvious acute infarction is identified. Basilar cisterns are patent. The ventricles and sulci are prominent, consistent with age-related cerebral atrophy. Bone windows demonstrate no acute calvarial abnormality. There are 2 mucous retention cysts or polyps of the right maxillary sinus, larger measures 2 cm. There is no air-fluid level. Mastoid air cells are well aerated. IMPRESSION: No acute intracranial abnormality. FOR INTERNAL CODING PURPOSES Critical result: Findings discussed with BRANDON NORTON at 01/20/2018 11:21 AM. RESULT CODE: (C) Electronically signed by: Montana Phelps MD (01/20/2018 11:22 AM) [id number]
[2018-01-20 11:37] LABS: BASO # 0.1 x10^3/uL (0.0-0.2); BASO % 1 % (0-3); EOS # 0.2 x10^3/uL (0.0-0.7); EOS % 3 % (0-3); HEMATOCRIT 38.5 % (39.0-53.0); HEMOGLOBIN 12.7 g/dL (13.0-17.5); LYMPH # 1.2 x10^3/uL (1.0-4.8); LYMPH % 22 % (24-48); MEAN CORPUSCULAR HEMOGLOBIN 26 pg (25-35); MEAN CORPUSCULAR HGB CONC 33 g/dL (31-37); MEAN CORPUSCULAR VOLUME 79 fL (79-100); MONO # 0.7 x10^3/uL (0.0-1.1); MONO % 13 % (0-9); NEUT # 3.3 x10^3uL (1.8-7.7); NEUT % 61 % (31-73); PLATELET COUNT 242 x10^3/uL (140-400); RED BLOOD COUNT 4.89 x10^6/uL (4.30-5.70); RED CELL DISTRIBUTION WIDTH 15.8 % (11.5-14.5); WHITE BLOOD COUNT 5.3 x10^3/uL (4.0-11.0)
--- NOTE | 2018-01-20 11:51 | RAD ---
PORTABLE CHEST 1V Clinical Indication: chest pain, aphagia Comparison: AP chest December 12, 2016. Findings: Atherosclerotic aortic arch. The cardiomediastinal silhouette is normal. Lungs are clear. There is no pneumothorax. No pleural effusion is appreciated. No acute bone abnormality. IMPRESSION: No acute cardiopulmonary process. Electronically signed by: Montana Phelps MD (01/20/2018 11:47 AM) [id number]
[2018-01-20 12:00] LABS: ALBUMIN 3.8 g/dL (3.4-5.0); ALBUMIN/GLOBULIN RATIO 1.1 (1.0-1.7); GFR 73.2; MAGNESIUM 1.9 mg/dL (1.8-2.4); POTASSIUM 3.8 mmol/L (3.5-5.1); TOTAL BILIRUBIN 0.7 mg/dL (0.2-1.0); TOTAL PROTEIN 7.2 g/dL (6.4-8.2)
[2018-01-20] MEDS ORDERED: ASPIRIN 81 MG TAB.CHEW PO ONE (12:00)
[2018-01-20] MEDS ORDERED: LORazepam 2 MG/ML VIAL IV ONE (12:15)
--- NOTE | 2018-01-20 12:24 | PHYS DOC ---
Past History Past Medical History: CAD, Cancer, COPD, GERD, Hypertension Additional Past Surgical Histo: prostate, bilateral hernias Smoking: Cigarettes, Quit Greater Than 1 Year Alcohol Use: None Drug Use: None Adult General Chief Complaint Chief Complaint: chest pain and unable to talk HPI HPI 72-year-old male patient with history of previous CVA brought in by EMS because of chest pain and aphasia. Patient was mowing the grass and complaining of substernal chest pain and EMS was informed and on today to come to the hospital at 1055 suddenly stopped to talk and asking for paper to right his words. Patient is not talking at arrival to ER but moving all extremities without any problem and denies chest pain. Review of Systems Review of Systems Constitutional: Denies fever or chills [] Eyes: Denies change in visual acuity, redness, or eye pain [] HENT: Denies nasal congestion or sore throat [] Respiratory: Denies cough or shortness of breath [] Cardiovascular: No additional information not addressed in HPI [] GI: Denies abdominal pain, nausea, vomiting, bloody stools or diarrhea [] : Denies dysuria or hematuria [] Musculoskeletal: Denies back pain or joint pain [] Integument: Denies rash or skin lesions [] Neurologic: Denies headache, focal weakness or sensory changes [] Endocrine: Denies polyuria or polydipsia [] All other systems were reviewed and found to be within normal limits, except as documented in this note. Current Medications Current Medications Current Medications Medications (Trade) Dose Ordered Sig/Stan Start Time Stop Time Status Last Admin Dose Admin Aspirin (Children'S Aspirin) 324 mg 1X ONCE 01/20/18 12:00 01/20/18 12:01 DC Iohexol (Omnipaque 300 Mg/ml) 75 ml 1X ONCE 01/20/18 12:30 01/20/18 12:31 Lorazepam (Ativan) 1 mg 1X ONCE 01/20/18 12:15 01/20/18 12:16 01/20/18 12:10 1 MG Allergies Allergies Allergies Coded Allergies Type Severity Reaction Last Updated Verified amlodipine Adverse Reaction Intermediate 11/28/16 Yes Physical Exam Physical Exam Constitutional: Well nourished, mild distress, non-toxic appearance. [] HENT: Normocephalic, atraumatic, bilateral external ears normal, oropharynx moist, no oral exudates, nose normal. [] Eyes: PERRLA, EOMI, conjunctiva normal, no discharge. [] Neck: Normal range of motion, no tenderness, supple, no stridor. [] Cardiovascular:Heart rate regular rhythm, no murmur [] Lungs & Thorax: Bilateral breath sounds clear to auscultation [] Abdomen: Bowel sounds normal, soft, no tenderness, no masses, no pulsatile masses. [] Skin: Warm, dry, no erythema, no rash. [] Back: No tenderness, no CVA tenderness. [] Extremities: No tenderness, no cyanosis, no clubbing, ROM intact, no edema. [] Neurologic: Alert and oriented X 3, normal motor function, normal sensory function, no focal deficits noted, no facial droop, aphasia, NIH scale of 1. [] Psychologic: Affect anxious, judgement normal, mood normal. [] Current Patient Data Lab Results Laboratory Tests Test 01/20/18 11:22 White Blood Count 5.3 x10^3/uL (4.0-11.0) Red Blood Count 4.89 x10^6/uL (4.30-5.70) Hemoglobin 12.7 g/dL (13.0-17.5) L Hematocrit 38.5 % (39.0-53.0) L Mean Corpuscular Volume 79 fL (79-100) Mean Corpuscular Hemoglobin 26 pg (25-35) Mean Corpuscular Hemoglobin Concent 33 g/dL (31-37) Red Cell Distribution Width 15.8 % (11.5-14.5) H Platelet Count 242 x10^3/uL (140-400) Neutrophils (%) (Auto) 61 % (31-73) Lymphocytes (%) (Auto) 22 % (24-48) L Monocytes (%) (Auto) 13 % (0-9) H Eosinophils (%) (Auto) 3 % (0-3) Basophils (%) (Auto) 1 % (0-3) Neutrophils # (Auto) 3.3 x10^3uL (1.8-7.7) Lymphocytes # (Auto) 1.2 x10^3/uL (1.0-4.8) Monocytes # (Auto) 0.7 x10^3/uL (0.0-1.1) Eosinophils # (Auto) 0.2 x10^3/uL (0.0-0.7) Basophils # (Auto) 0.1 x10^3/uL (0.0-0.2) Prothrombin Time 10.4 SEC (9.4-11.4) Prothrombin Time INR 1.0 (0.9-1.1) PTT 24 SEC (23-33) Sodium Level 145 mmol/L (136-145) Potassium Level 3.8 mmol/L (3.5-5.1) Chloride Level 107 mmol/L (98-107) Carbon Dioxide Level 27 mmol/L (21-32) Anion Gap 11 (6-14) Blood Urea Nitrogen 22 mg/dL (8-26) Creatinine 1.0 mg/dL (0.7-1.3) Estimated GFR (Cockcroft-Gault) 73.2 BUN/Creatinine Ratio 22 (6-20) H Glucose Level 107 mg/dL (70-99) H Calcium Level 9.0 mg/dL (8.5-10.1) Magnesium Level 1.9 mg/dL (1.8-2.4) Total Bilirubin 0.7 mg/dL (0.2-1.0) Aspartate Amino Transferase (AST) 22 U/L (15-37) Alanine Aminotransferase (ALT) 33 U/L (16-63) Alkaline Phosphatase 69 U/L (46-116) Creatine Kinase 109 U/L (39-308) Creatine Kinase MB (Mass) 1.2 ng/mL (0.0-3.6) Creatine Kinase MB Relative Index 1.1 % (0-4) Troponin I Quantitative < 0.017 ng/mL (0-0.055) IQ-Fqm-I-Type Natriuretic Peptide 241 pg/mL (0-124) H Total Protein 7.2 g/dL (6.4-8.2) Albumin 3.8 g/dL (3.4-5.0) Albumin/Globulin Ratio 1.1 (1.0-1.7) Lipase 189 U/L (73-393) EKG EKG EKG interpreted by me. EKG at 1105 showed normal sinus rhythm at rate of 60, no acute ST and T-wave abnormalities[] Radiology/Procedures Radiology/[place] [[place] [address] IMAGING REPORT Signed PATIENT: KITTY BRENNAN W ACCOUNT: [id number] : 1945 LOCATION: ER AGE: 72 SEX: M EXAM STATUS: REG ER ORD. PHYSICIAN: BRANDON NOROTN MD REASON: chest pain and aphasia PROCEDURE: CT CODE STROKE HEAD WO PQRS Compliance Statement: One or more of the following individualized dose reduction techniques were utilized for this examination: 1. Automated exposure control 2. Adjustment of the mA and/or kV according to patient size 3. Use of iterative reconstruction technique CT HEAD WITHOUT CONTRAST History: APHASIA, CHEST PAIN, WEAKNESS Comparison: CT head without contrast, December 12, 2016. Technique: Axial images are obtained of the head from the skull base through the vertex without IV contrast. Findings: No mass-effect, midline shift, extra-axial fluid collection, hemorrhage, or obvious acute infarction is identified. Basilar cisterns are patent. The ventricles and sulci are prominent, consistent with age-related cerebral atrophy. Bone windows demonstrate no acute calvarial abnormality. There are 2 mucous retention cysts or polyps of the right maxillary sinus, larger measures 2 cm. There is no air-fluid level. Mastoid air cells are well aerated. IMPRESSION: No acute intracranial abnormality. FOR INTERNAL CODING PURPOSES Critical result: Findings discussed with BRANDON NORTON at 01/20/2018 11:21 AM. RESULT CODE: (C) Electronically signed by: Montana Phelps MD (01/20/2018 11:22 AM) [id number] DICTATED AND SIGNED BY: MONTANA PHELPS MD DATE: 01/20/18 1116 CC: RENAN CAUSEY MD; BRANDON NORTON MD ~ ][address] [address] IMAGING REPORT Signed PATIENT: KITTY BRENNAN ACCOUNT: [id number] : 1945 LOCATION: ER AGE: 72 SEX: M EXAM STATUS: REG ER ORD. PHYSICIAN: BRANDON NORTON MD REASON: chest pain and aphagia PROCEDURE: PORTABLE CHEST 1V PORTABLE CHEST 1V Clinical Indication: chest pain, aphagia Comparison: AP chest December 12, 2016. Findings: Atherosclerotic aortic arch. The cardiomediastinal silhouette is normal. Lungs are clear. There is no pneumothorax. No pleural effusion is appreciated. No acute bone abnormality. IMPRESSION: No acute cardiopulmonary process. Electronically signed by: Montana Phelps MD (01/20/2018 11:47 AM) [id number] DICTATED AND SIGNED BY: MONTANA PHELPS MD DATE: 01/20/18 1144 CC: RENAN CAUSEY MD; BRANDON NORTON MD ~ [address] [address] IMAGING REPORT Signed PATIENT: KITTY RBENNAN ACCOUNT: [id number] : 1945 LOCATION: ICU AGE: 72 SEX: M EXAM STATUS: ADM IN ORD. PHYSICIAN: BRANDON NORTON MD REASON: aphasia PROCEDURE: CT ANGIOGRAPHY HEAD AND NECK CT ANGIOGRAPHY HEAD AND NECK Indication: CHEST PAIN, WEAKNESS, UNABLE TO TALK OMNI 300 75CC Exposure: One or more of the following individualized dose reduction techniques were utilized for this examination: 1. Automated exposure control 2. Adjustment of the mA and/or kV according to patient size 3. Use of iterative reconstruction technique. TECHNIQUE: Standard imaging obtained after intravenous contrast. MIP reconstructions were obtained. Percent stenosis is estimated using criteria that correlates with NASCET methodology. Comparison: None are available. Neck: Atherosclerotic calcifications and moderate narrowing of the proximal right subclavian artery. The right common carotid artery is patent with mild mural irregularity. Right internal carotid artery demonstrates moderate narrowing at its origin. There is also omhu-uy-[id number] narrowing at the origin of the right internal carotid artery. Right vertebral artery is patent in the neck. Mild narrowing at the origin of the left common carotid artery. Mild narrowing at the origin of the left internal carotid artery. Left vertebral artery is tortuous at its origin. Grossly patent throughout its length. Head: Middle cerebral arteries are patent bilaterally. The left A1 segment of the anterior cerebral artery is hypoplastic with a narrowed appearance but patent. There is symmetric opacification of both anterior cerebral arteries. Left vertebral artery is dominant. Basilar artery is patent. Posterior cerebral arteries are patent. Posterior communicating arteries are not clearly seen. No filling defects are identified. No evidence of aneurysm or vascular malformation. IMPRESSION: Findings compatible with mild atherosclerotic disease. No evidence of occlusive disease or filling defect. Electronically signed by: Tien Mcrae MD (01/20/2018 1:21 PM) [facility] DICTATED AND SIGNED BY: TIEN MCRAE MD DATE: 01/20/18 1243 CC: RENAN CAUSEY MD; BRANDON NORTON MD ~ Course & Med Decision Making Course & Med Decision Making Pertinent Labs and Imaging studies reviewed. (See chart for details) Evaluation of patient in ER showed 72-year-old male patient brought in by EMS because of chest pain and developing aphasia while he was in the ambulance. Patient was writing everything without problem. Code stroke was activated. patient had remarkable CT of head but was not a candidate for TPA because of indigestion of 1. Dr. Jeter was informed at 1124 agreed with not to starting TPA and recommended to give aspirin and Plavix. While he was in ER complaining of numbness of left side of his extremity and did not move his left or right upper and lower extremities but was able to write without problem. Dr. Jeter was informed again at 1148 and recommended to seek and sharp headache and to not start any TPA. Dr. Causey accepted admission at 1218. Dragon Disclaimer Dragon Disclaimer This electronic medical record was generated, in whole or in part, using a voice recognition dictation system. Departure Departure: Impression: Primary Impression: Aphasia Additional Impression: Acute chest pain Disposition: ADMITTED INPATIENT (at 1218) Admitting Physician: Renan Causey Condition: GUARDED Referrals: RENAN CAUSEY MD (PCP) Critical Care Time Critical care time was [60] minutes exclusive of procedures. Problem Qualifiers BRANDON NORTON MD Jan 20, 2018 12:24
[2018-01-20] MEDS ORDERED: IOHEXOL 300 MG/ML 75 ML VIAL. IV ONE (12:30)
--- NOTE | 2018-01-20 13:25 | RAD ---
CT ANGIOGRAPHY HEAD AND NECK Indication: CHEST PAIN, WEAKNESS, UNABLE TO TALK OMNI 300 75CC Exposure: One or more of the following individualized dose reduction techniques were utilized for this examination: 1. Automated exposure control 2. Adjustment of the mA and/or kV according to patient size 3. Use of iterative reconstruction technique. TECHNIQUE: Standard imaging obtained after intravenous contrast. MIP reconstructions were obtained. Percent stenosis is estimated using criteria that correlates with NASCET methodology. Comparison: None are available. Neck: Atherosclerotic calcifications and moderate narrowing of the proximal right subclavian artery. The right common carotid artery is patent with mild mural irregularity. Right internal carotid artery demonstrates moderate narrowing at its origin. There is also [id number] narrowing at the origin of the right internal carotid artery. Right vertebral artery is patent in the neck. Mild narrowing at the origin of the left common carotid artery. Mild narrowing at the origin of the left internal carotid artery. Left vertebral artery is tortuous at its origin. Grossly patent throughout its length. Head: Middle cerebral arteries are patent bilaterally. The left A1 segment of the anterior cerebral artery is hypoplastic with a narrowed appearance but patent. There is symmetric opacification of both anterior cerebral arteries. Left vertebral artery is dominant. Basilar artery is patent. Posterior cerebral arteries are patent. Posterior communicating arteries are not clearly seen. No filling defects are identified. No evidence of aneurysm or vascular malformation. IMPRESSION: Findings compatible with mild atherosclerotic disease. No evidence of occlusive disease or filling defect. Electronically signed by: Tien Mcrae MD (01/20/2018 1:21 PM) [facility]
[2018-01-20] MEDS ORDERED: NON FORMULARY ITEM (Meclizine Hcl 1 TAB) PO SCH (14:00)
[2018-01-20] MEDS ORDERED: ALPRAZolam 0.5 MG TABLET PO PRN (14:00)
[2018-01-20] MEDS ORDERED: NON FORMULARY ITEM (Albuterol Sulfate (Albuterol Sulfate Neb Soln) 1 VIAL) NEB PRN (14:00)
[2018-01-20] MEDS ORDERED: CARV25TA2 PO (14:37)
[2018-01-20] MEDS ORDERED: FLUT30CR5 TP (14:37)
[2018-01-20] MEDS ORDERED: HYDR12.58 PO (14:37)
[2018-01-20] MEDS: IV NORMAL SALINE 1,000ML 1,000 ML IV SCH (14:43)
[2018-01-20] MEDS ORDERED: ALBUTEROL SULFATE 2.5 MG/3 ML NEBU. NEB PRN (15:00)
[2018-01-20 15:33] LABS: BILIRUBIN,URINE NEG (NEG); CLARITY,URINE CLEAR; COLOR,URINE YELLOW; GLUCOSE,URINE NEG (NEG); NITRITE,URINE NEG (NEG); UROBILINOGEN,URINE 1 mg/dL (0.2 mg/dL)
[2018-01-20 15:34] LABS: BACTERIA,URINE 0 /HPF (0-FEW); RBC,URINE RARE /HPF (0-2); SQUAMOUS EPITHELIAL CELL,UR FEW /LPF; WBC,URINE OCC /HPF (0-4)
[2018-01-20] MEDS: hydrALAZINE 20 MG/ML VIAL. IV PRN ×2 (16:18→21:07)
[2018-01-20] MEDS: CARVEDILOL 12.5 MG TABLET PO SCH (16:58)
[2018-01-20] MEDS ORDERED: BECLOMETHASONE DIPROPIONATE NS SCH (21:00)
[2018-01-20] MEDS: ATORVASTATIN CALCIUM 20 MG TABLET PO SCH (21:00)
[2018-01-20] MEDS ORDERED: ACETAMINOPHEN 650 MG SUPP.RECT. PR PRN (22:00)
[2018-01-21] VITALS (19 sets, daily range): BP systolic 121–196; BP diastolic 57–93
[2018-01-21] MEDS: hydrALAZINE 20 MG/ML VIAL. IV PRN ×4 (01:52→20:23)
[2018-01-21] MEDS: IV NORMAL SALINE 1,000ML 1,000 ML IV SCH (04:10)
[2018-01-21] MEDS: PANTOPRAZOLE 40 MG TABLET. PO SCH (07:30)
[2018-01-21] MEDS: ASPIRIN 81 MG TAB.CHEW PO SCH (07:51)
[2018-01-21] MEDS: CLOPIDOGREL BISULFATE 75 MG TABLET PO SCH (07:51)
[2018-01-21] MEDS: TAMSULOSIN 0.4 MG CAP.ER.24H. PO SCH (07:51)
[2018-01-21] MEDS: CARVEDILOL 12.5 MG TABLET PO SCH ×2 (07:51→18:20)
[2018-01-21] MEDS: LISINOPRIL 20 MG TABLET PO SCH (07:51)
[2018-01-21] MEDS ORDERED: ASPIRIN ENTERIC COATED 81 MG TABLET.DR. PO SCH (08:00)
[2018-01-21] MEDS ORDERED: LIDOCAINE (700MG/PATCH) PATCH. TD SCH (09:00)
[2018-01-21] MEDS ORDERED: cloNIDine TTS-2 1 PATCH PATCH TD SCH (10:30)
--- NOTE | 2018-01-21 11:53 | EKG ---
[address] [address] Test Date: 2018-01-20 Test Time: 11:05:46 Pat Name: KITTY BRENNAN Department: Room: ICU02 1 Gender: M Closing Agent: : 1945 Requested By: BRANDON NORTON Order Number: [id number] Reading MD: Primo Soriano MD Measurements Intervals Etters Rate: 60 P: 36 GA: 146 QRS: 16 QRSD: 82 T: 61 QT: 414 QTc: 414 Interpretive Statements SINUS RHYTHM Electronically Signed On 01-23-2018 10:36:11 CDT by Primo Soriano MD
--- NOTE | 2018-01-21 11:56 | PDOC ---
Exam Note: Manuel Note: Please also refer to the separate dictated note~for this date of service dictated separately.~Patient seen individually. Discussed the patient with Nursing staff reviewed the chart.~Reviewed interim history and current functioning. Reviewed vital signs,~Labs/ Radiology~and current medications noted below. Continue current treatment with the changes noted in the dictated addendum note. late entry for 01/20/18 Assessment: Vital Signs: VS - Last 72 Hours, by Label Date Time Temp Pulse Resp B/P (MAP) Pulse Ox O2 Delivery O2 Flow Rate FiO2 01/21/18 11:05 81 133/59 (83) 01/21/18 10:00 85 164/69 (100) 01/21/18 09:05 82 189/76 01/21/18 09:04 82 18 176/61 (99) 96 Room Air 01/21/18 08:00 67 18 183/70 (107) 96 Room Air 01/21/18 07:00 98.3 71 18 188/71 (110) 96 Room Air 01/21/18 06:45 69 19 150/93 (112) 95 Room Air 01/21/18 05:38 72 16 153/68 (96) 95 Room Air 01/21/18 04:38 64 10 161/64 (96) 96 Room Air 01/21/18 03:38 71 10 158/68 (98) 96 Room Air 01/21/18 01:52 65 181/68 01/21/18 01:38 65 20 181/68 (105) 95 Room Air 01/21/18 00:38 58 11 164/62 (96) 95 Room Air 01/20/18 23:38 61 11 141/67 (91) 98 Room Air 01/20/18 22:38 72 28 160/53 (88) 97 Room Air 01/20/18 21:38 81 27 161/47 (85) 97 Room Air 01/20/18 21:07 66 180/73 01/20/18 20:44 66 20 180/73 (108) 97 Room Air 01/20/18 19:38 66 22 173/56 (95) 98 Room Air 01/20/18 18:38 97.6 68 20 172/57 (95) 98 Room Air 01/20/18 18:07 70 19 169/76 (107) 98 Room Air 01/20/18 17:08 72 147/52 (83) 8/17/18 16:30 98.4 72 20 147/52 (83) 97 Room Air 01/20/18 16:18 54 174/67 01/20/18 16:12 54 174/67 (102) 01/20/18 14:51 53 18 184/68 (106) 100 Room Air 01/20/18 12:47 61 16 166/64 (98) 97 Room Air 01/20/18 12:24 60 16 173/64 (100) 96 Room Air 01/20/18 11:47 58 18 176/72 (106) 97 Room Air 01/20/18 11:06 98.4 59 16 96 Room Air Vital Signs Date Time Temp Pulse Resp B/P (MAP) Pulse Ox O2 Delivery O2 Flow Rate FiO2 01/21/18 11:05 81 133/59 (83) 01/21/18 09:04 18 96 Room Air 01/21/18 07:00 98.3 I&O Intake and Output 01/21/18 07:00 Intake Total 0 ml Output Total 1000 ml Balance -1000 ml Intake Oral 0 ml Output Urine Total 1000 ml Labs: Laboratory Tests Test 01/20/18 13:50 01/20/18 18:00 01/20/18 23:45 Urine Collection Type Unknown Urine Color Yellow Urine Clarity Clear Urine pH 7.5 Urine Specific [place] 1.015 Urine Protein Neg (NEG-TRACE) Urine Glucose (UA) Neg mg/dL (NEG) Urine Ketones (Stick) Neg mg/dL (NEG) Urine Blood Neg (NEG) Urine Nitrite Neg (NEG) Urine Bilirubin Neg (NEG) Urine Urobilinogen Dipstick 1 mg/dL (0.2 mg/dL) Urine Leukocyte Esterase Neg (NEG) Urine RBC Rare /HPF (0-2) Urine WBC Occ /HPF (0-4) Urine Squamous Epithelial Cells Few /LPF Urine Bacteria 0 /HPF (0-FEW) Urine Mucus Slight /LPF Nasal Screen MRSA (PCR) Negative (Negative) Troponin I Quantitative < 0.017 ng/mL (0-0.055) < 0.017 ng/mL (0-0.055) Current Medications: Meds: Current Medications Aspirin (Children'S Aspirin) 324 mg 1X ONCE PO ; Start 01/20/18 at 12:00; Stop 01/20/18 at 12:01; Status DC Lorazepam (Ativan) 1 mg 1X ONCE IV Last administered on 01/20/18at 12:10; Start 01/20/18 at 12:15; Stop 01/20/18 at 12:16; Status DC Iohexol (Omnipaque 300 Mg/ml) 75 ml 1X ONCE IV Last administered on 01/20/18at 12:20; Start 01/20/18 at 12:30; Stop 01/20/18 at 12:31; Status DC Sodium Chloride 1,000 ml @ 75 mls/hr [id number] IV Last administered on at 04:10; Start 01/20/18 at 12:17; Stop 01/21/18 at 12:16 Clopidogrel Bisulfate (Plavix) 75 mg DAILY PO ; Start 01/21/18 at 09:00 Tamsulosin HCl (Flomax) 0.4 mg DAILY PO ; Start 01/21/18 at 09:00 Non-Formulary Medication (Albuterol Sulfate (Albuterol Sulfate Neb Soln)) 1 vial QID PRN NEB SHORTNESS OF BREATH; Start 01/20/18 at 14:00; Status Cancel Alprazolam (Xanax) 0.5 mg PRN BID PRN PO ANXIETY / AGITATION; Start 01/20/18 at 14:00; Stop 01/20/18 at 14:50; Status DC Aspirin (Aspirin Enteric Coated) 81 mg DAILYWBKFT PO ; Start 01/21/18 at 08:00; Stop 01/21/18 at 08:00; Status DC Atorvastatin Calcium (Lipitor) 80 mg QHS PO ; Start 01/20/18 at 21:00 Non-Formulary Medication (Beclomethasone Dipropionate (Qnasl)) 1 spr BID NS ; Start 01/20/18 at 21:00; Status UNV Carvedilol (Coreg) 25 mg BIDWMEALS PO ; Start 01/20/18 at 17:00 Pantoprazole Sodium (Protonix) 40 mg DAILYAC PO ; Start 01/21/18 at 07:30 Lisinopril (Prinivil) 20 mg DAILY PO ; Start 01/21/18 at 09:00 Lidocaine (Lidoderm) 1 patch DAILY TD ; Start 01/21/18 at 09:00; Status Cancel Non-Formulary Medication (Meclizine Hcl ) 1 tab TID PO ; Start 01/20/18 at 14:00 ; Status UNV Hydralazine HCl (Apresoline) 20 mg PRN Q4HRS PRN IV ELEVATED BP, SEE COMMENTS Last administered on 01/21/18at 09:05; Start 01/20/18 at 14:00 Aspirin (Children'S Aspirin) 81 mg DAILYWBKFT PO ; Start 01/21/18 at 08:00 Albuterol Sulfate (Ventolin) 2.5 mg PRN QID PRN NEB SHORTNESS OF BREATH; Start 01/20/18 at 15:00 Acetaminophen (Tylenol Supp) 650 mg PRN Q6HRS PRN NE PAIN / TEMP; Start at 22:00 Clonidine HCl (Catapres Tts-2) 1 patch WEEKLY TD Last administered on at 10:16; Start 01/21/18 at 10:30 Active Scripts Active Reported Cutivate (Fluticasone Propionate) 30 Gm Cream..g. 1 Maykel TP BID Hydrochlorothiazide Tablet (Hydrochlorothiazide) 12.5 Mg Tablet 25 Mg PO DAILY Carvedilol 25 Mg Tablet 1 Tab PO BID Nexium Capsule (Esomeprazole Magnesium) 40 Mg Capsule.dr 1 Cap PO DAILY last dose this morning next dose tomorrow Fosinopril Sodium 20 Mg Tablet 1 Tab PO DAILY last dose this morning next dose tomorrow Aspirin 81 Mg Tab.chew 81 Mg PO DAILY last dose this morning next dose tomorrow morning Barnard 3-6-9 1,200 mg Softgel (Fish Oil/Borage/Flax/Om3,6,9#1) 1,200 Mg Capsule 1 ,200 Mg PO DAILY last dose this morning next dose tomorrow Tamsulosin Hcl 0.4 Mg Cap.er.24h 1 Cap PO DAILY last dose this morning next dose tomorrow Atorvastatin Calcium 80 Mg Tablet 80 Mg PO QHS last dose last night next dose tonight Albuterol Sulfate Neb Soln (Albuterol Sulfate) 0.63 Mg/3 Ml Vial.neb 1 Vial NEB QID PRN last dose this morning next dose this afternoon Plavix (Clopidogrel Bisulfate) 75 Mg Tablet 1 Tab PO DAILY last dose this morning next dose tomorrow I have reviewed the current psychotropics carefully including drug interactions. Risk benefit ratio favors no change other than as noted in my dictated progress note. Diagnosis: Problems: (1) Aphasia MARCO HADDAD MD Jan 21, 2018 11:56
--- NOTE | 2018-01-21 13:11 | CONS ---
DATE OF CONSULTATION: 01/20/2018 PSYCHIATRIC CONSULTATION This late entry 01/20/2018, covers elements not covered in my initial note 01/20/2018. SUBJECTIVE: I met with the patient evening of 01/20/2018, also with his and grandson, who were in the room with him in ICU bed 2. IDENTIFYING DATA: The patient is a 72-year-old male seen in ICU bed 2, [facility], referred by Dr. Carson and Dr. Jeter on account of questionable conversion disorder with the patient is unable to speak. Reportedly, he has had a similar episode about a year back, though the family believes he had CVA at that time, was treated at [facility], then transferred to [facility] at that time. Since then, he has done reasonably well. Around that time a year back, he had another episodes similar as well. The patient has been writing on a piece of paper to communicate. He seems to be able to fully understand and receptive skills are reasonable. HISTORY OF PRESENT ILLNESS: The patient reportedly was doing well till the morning of 01/20/2018, mowing his yard. Grandson states he found his grandfather sitting during that time, unable to respond verbally. He has been reasonably oriented and as stated, he is able to understand receptively reasonably well. He denies being depressed. No clear anxiety episodes. No symptoms of bipolar disorder, suicidal or homicidal ideation. No clear psychotic symptoms. PAST PSYCHIATRIC HISTORY: As noted above. PAST MEDICAL HISTORY: Hyperlipidemia, hypertension, GERD, BPH. ALLERGIES: AMLODIPINE. CODE STATUS: FULL CODE. CURRENT PSYCHOTROPICS: Xanax p.r.n. FAMILY HISTORY: Noncontributory. SOCIAL HISTORY: The patient lives at home with his and grandson. Grandson reportedly has a diagnosis of autistic spectrum disorder. No alcohol or drug abuse history. MENTAL STATUS EXAMINATION: The patient was seen individually. He communicates by writing, seems to understand reasonably well, well oriented, seemed to remember me from the past as I had seen the family previously, but unable to communicate verbally. No active suicidal or homicidal ideation. He denies being depressed or anxious. IMPRESSION: 1. Anxiety disorder, unspecified. He reportedly has a questionable diagnosis of conversion disorder, but at this stage, it is not quite clear. I would like to defer until we made sure everything organic has been ruled out as a cause for his symptoms. He does follow with Dr. Jeter, Neurology on an outpatient basis. CT head, ventricles, sulci prominent, age-related cerebral atrophy, maxillary sinus cyst, otherwise unremarkable. PLAN: Carefully reviewed the patient's current psychotropics. I would not make any changes in his psychotropics for now and reassess depending on how he does medically. Dr. Carson, thank you for the opportunity to participate in your patient's care. We will follow up with you. MAN Sabra HADDAD MD DR: JERSEY/reg JOB#: [id number] / [id number]
--- NOTE | 2018-01-21 15:46 | HP ---
ADMIT DATE: 01/20/2018 HISTORY OF PRESENT ILLNESS: The patient is a 72-year-old gentleman who came in through the Emergency Room with multiple complaints. First of all is a stroke and the patient had marked aphasia and that he had problems with one arm and then the left arm, got confused on which arm was weak and leg was weak. The patient also began to talk to spontaneously without any problems. In the past, the patient has had problems with conversion syndrome. He also was complaining of chest pain. The patient was admitted for a variety of reasons, possible TIA versus stroke versus conversion syndrome, also chest pain and the like. The patient is having substernal chest pain, nonradiating. PAST MEDICAL HISTORY: Possibility for histories of strokes, TIA, numbness, hypercholesterolemia, hypertension, diverticulitis, abdominal hernia repair, GERD, prostate problems, psychiatric issues, recently seen by a psychiatrist for anxiety, possible history of cancer. Immunizations of tetanus, influenza and pneumococcal up-to-date. FAMILY HISTORY: Father with heart attack. Mother with some form of cancer. ALLERGIES: He has ADVERSE EFFECTS TO AMLODIPINE. MEDICATIONS: Include clonidine TTS 2 patch, lisinopril 20 mg a day, Flomax 0.4, Plavix 75, aspirin 81, Protonix 40, Lipitor 80, carvedilol 25, albuterol treatments. SOCIAL HISTORY: Denies smoking, alcohol, or drug use. , lives at home. REVIEW OF SYSTEMS: The patient denies headaches, vision change, blurred vision, double vision. Denies any melena, hematochezia, or hematemesis and neurologically, baseline for this individual. PHYSICAL EXAMINATION: GENERAL: This is a very anxious-appearing white male. VITAL SIGNS: Blood pressure is approximately 140/70, respiratory rate upwards of 10, pulse in the 60s. He is afebrile. HEENT: Atraumatic, normocephalic. Eyes: PERRLA without jaundice. The mouth and throat were normal. NECK: Supple, without thyromegaly. LUNGS: Clear to auscultation. CARDIOVASCULAR: Regular sinus rhythm. ABDOMEN: Soft, nontender, no rebound or guarding. Positive bowel sounds, no hepatosplenomegaly. EXTREMITIES: No clubbing, cyanosis, or edema. NEUROLOGIC: The patient was alert and oriented x 3. Speech fluent, spontaneous, appropriate. The patient moving all extremities well. Reflexes were normal. He was actually up with PT, OT walking down the bill and without any obvious signs of weakness or dysfunction. IMPRESSION: Chest pain, rule out myocardial infarction. History of coronary artery disease. Also, a possible conversion syndrome. Dr. Christiansen and Dr. Jeter, Psychiatry and Neurology respectively are reviewing the patient and making the best judgment possible for this individual's medical care. In any case, the patient to continue to be monitored and make further once Psychiatry and Neurology have made their evaluation of the patient. RENAN CAUSEY MD DR: JOHN/reg JOB#: [id number] / [id number]
--- NOTE | 2018-01-21 17:56 | PN ---
DATE: 01/21/2018 SUBJECTIVE: The patient denies any new medical or neurological complaints. The patient is talking and communicating well, stated he wants to go home. The patient stated he is back to his normal baseline. He denies any headaches, visual disturbances, chest pain, shortness of breath or palpitation. OBJECTIVE: GENERAL: Well-developed, well-nourished male, not in acute distress. VITAL SIGNS: Blood pressure is 121/57, respiratory rate 18, pulse is 86 and regular, afebrile. Oxygen saturation 96% on room air. HEENT: Normocephalic, atraumatic, otherwise unremarkable. NECK: Supple. Negative for carotid bruit, lymphadenopathy or thyromegaly. LUNGS: Clear to A and P. CARDIOVASCULAR: Regular rate and rhythm, normal S1, S2. There is no S3, S4, or murmur. ABDOMEN: Soft. Bowel sounds positive. EXTREMITIES: Negative for cyanosis, clubbing or pitting edema. NEUROLOGIC: Mental Status: The patient is alert and oriented x 3. Speech is fluent. There is no language dysfunction. Memory, judgment and abstracting thinking are normal. The patient denies hallucination or delusion. Cranial nerves are intact. No focal motor or sensory deficit. Deep tendon reflexes were symmetric and hypoactive without pathologic responses. Gait not tested at this time. IMPRESSION: 1. Intermittent difficulty speaking, lasted less than 24 hours with a normal neurological examination, rule out conversion reaction. Other remote possibility includes a TIA, results without neurological sequelae. 2. Multiple medical problems that include history of stroke, hypertension, hyperlipidemia, anxiety and prostate cancer. RECOMMENDATIONS: Continue with current management and home medications. No further neurological workup is needed at this time. M Ean SOTO MD DR: HAILEY/reg JOB#: [id number] / [id number]
--- NOTE | 2018-01-21 19:34 | CONS ---
DATE OF CONSULTATION: 01/20/2018 NEUROLOGY CONSULTATION REFERRING PHYSICIAN: Roscoe Carson M.D. REASON FOR CONSULTATION: Rule out stroke versus TIA. HISTORY OF PRESENT ILLNESS: This is a 72-year-old right-handed male who is known to me from previous admission to [facility], who was admitted through Emergency Room with a chief complaint of difficulty talking and possible aphasia. The patient has been under extreme stress and anxiety in the last few days. In the Emergency Room, he tried to communicate by writing. The patient was mourning because he complained of substernal chest pain. EMS was activated and transferred the patient to Emergency Room. In the ER, the patient was not communicating, but he was following commands and communicated by writing. He denies chest pain, nausea, vomiting, vertigo, headaches or visual disturbances. The patient had similar episode last year, he was admitted the same institution and he presented with the same complaints. The patient also was admitted to [facility] last year and an extensive workup had been done including a brain MRI, CAT scan and carotid Doppler study, which revealed no evidence of intracranial process or stroke and his symptoms probably related to conversion, reaction and underlying anxiety disorders. Initial nonenhanced head CT scan this morning revealed no evidence of acute intracranial process, but showed age-related atrophy, and mucous retention cyst or polyp in the right maxillary sinus. PAST MEDICAL HISTORY: Significant for stroke in the past, TIAs, hypertension, diverticulitis, double hernia repair, GERD, prostate cancer, anxiety. SOCIAL HISTORY: The patient denies smoking, alcohol drinking, or illicit drug use. FAMILY HISTORY: Mother had cancer and father had coronary artery disease. CURRENT MEDICATIONS: Clonidine TTS-2 1 patch weekly, lisinopril 20 mg p.o. daily, tamsulosin or Flomax 0.4 mg daily, Plavix 75 mg p.o. daily, aspirin 81 mg daily, Protonix 40 mg p.o. daily, Tylenol p.r.n., Lipitor 80 mg at bedtime, carvedilol 25 mg b.i.d., albuterol inhaler, and hydralazine 20 mg IV p.r.n. for severe hypertension. ALLERGIES: AMLODIPINE. REVIEW OF SYSTEMS: A 10-point review of system was performed and consistent with inability to speak. Otherwise, as mentioned above in the history of present illness. PHYSICAL EXAMINATION: GENERAL: Well-developed, well-nourished male, not in acute distress. He weighs 182 pounds. VITAL SIGNS: Blood pressure is 147/52, respiratory rate 20, pulse 72, temperature 98.4, oxygen saturation 97% on room air. HEENT: Normocephalic, atraumatic, otherwise, unremarkable. NECK: Supple. Negative for carotid bruit, lymphadenopathy or thyromegaly. LUNGS: Clear to A and P. CARDIOVASCULAR: Regular rate and rhythm, normal S1, S2. There is no S3, S4 or murmur. ABDOMEN: Soft. Bowel sounds positive. EXTREMITIES: Negative for cyanosis, clubbing or pitting edema. NEUROLOGIC: 1. Mental Status: The patient is alert and oriented x 3. The patient is aphasic at this time, but he communicates with writing. Comprehension is normal. He follows 1-step commands. Further evaluation is limited at this time; however, the patient shrugs his shoulders symmetrically, protrudes his tongue in the midline without fasciculation or atrophy. 2. Motor: No focal muscle bulk was seen. The tone is normal. The strength is 4/5 throughout. 3. Sensory examination revealed normal pinprick, light touch senses throughout. Deep tendon reflexes were symmetric and hypoactive with absent Achilles responses. Gait: The stance is steady. LABORATORY DATA: CBC revealed white cells of 5.3 thousand, hemoglobin 12.7, hematocrit 38.5, platelet count 242,000. Chemistry revealed sodium of 145, potassium 3.8, chloride 107, CO2 27, BUN 22, creatinine 1, glucose 107, calcium 9. Liver enzymes are normal. Cardiac enzymes are normal. Lipid profile is normal as well and lipase is normal. NPB is elevated at 241. Urinalysis is negative for urinary tract infections. DIAGNOSTIC DATA: Nonenhanced head CT scan as described above in the history of present illness. CT angio of the neck and brain revealed no evidence of abnormalities. IMPRESSION: 1. Difficulty to speak, otherwise, the rest of the neurological examination is unremarkable, etiology uncertain. The differential diagnosis includes transient ischemic attack versus aphasia. However, the patient had similar episodes in the past and conversion reaction could not be entirely ruled out. 2. Multiple medical problems include previous stroke, transient ischemic attacks, hypertension, hyperlipidemia, anxiety, and history of prostate cancer. RECOMMENDATIONS: 1. Continue with current management and home medications. 2. Agree with psychiatric consult, rule out anxiety versus conversion reaction. M Ean SOTO MD DR: HAILEY/reg JOB#: [id number] / [id number]
[2018-01-21] MEDS: ATORVASTATIN CALCIUM 20 MG TABLET PO SCH (20:23)
[2018-01-22 03:49] VITALS: BP 118/59
[2018-01-22 08:00] VITALS: BP 131/59
[2018-01-22] MEDS: ASPIRIN 81 MG TAB.CHEW PO SCH (08:52)
[2018-01-22] MEDS: TAMSULOSIN 0.4 MG CAP.ER.24H. PO SCH (08:52)
[2018-01-22] MEDS: CLOPIDOGREL BISULFATE 75 MG TABLET PO SCH (08:52)
[2018-01-22] MEDS: LISINOPRIL 20 MG TABLET PO SCH (08:52)
[2018-01-22] MEDS: PANTOPRAZOLE 40 MG TABLET. PO SCH (08:52)
[2018-01-22] MEDS: CARVEDILOL 12.5 MG TABLET PO SCH (08:53)
[2018-01-22 11:04] VITALS: BP 132/57
--- NOTE | 2018-01-22 22:12 | PN ---
DATE: 01/21/2018 This is a late entry, 01/21/2018, covers the elements not covered in my initial note, 01/21/2018. SUBJECTIVE: I met with the patient in the morning. Overall, the patient is back to speaking once again. I also met with his who was in his room with him and she is very pleased. We reviewed his history of having had several similar episodes in about a year back. There are no overt discernible psychiatric reason to account for his symptoms at this stage, especially given the fact that he has had no episodes for a whole year and then had an episode of chest pain followed by the above transient aphasia or elective mutism. REVIEW OF SYSTEMS: No CV, , pulmonary, eye system symptoms on review. MENTAL STATUS EXAM: The patient is reasonably oriented. Speech is coherent, abstraction fair, computation reasonable. Mood and affect is improved. He was pleasant and smiling. LABORATORY DATA: Reviewed. IMPRESSION: Anxiety disorder, unspecified; adjustment disorder, unclear psychiatric diagnosis beyond these. Possible transient conversion reaction. PLAN: No change from a psychiatric standpoint. Reviewed his psychotropics at some length. MARCO HADDAD MD DR: JERSEY/reg JOB#: [id number] / [id number]
== END 2018-01-22 12:05 | disposition home or self-care (01) | DRG 880 ==
LOC: ER 11:06 → ICU 12:42
PROVIDERS: ADMIT Family Medicine; ATTEND Family Medicine
DX: F44.9 Dissociative and conversion disorder, unspecified (principal); R47.01 Aphasia; R07.9 Chest pain, unspecified; E78.5 Hyperlipidemia, unspecified; F43.22 Adjustment disorder with anxiety; I10 Essential (primary) hypertension; I25.10 Atherosclerotic heart disease of native coronary artery without angina pectoris; E78.00 Pure hypercholesterolemia, unspecified; J34.1 Cyst and mucocele of nose and nasal sinus; J44.9 Chronic obstructive pulmonary disease, unspecified; K21.9 Gastro-esophageal reflux disease without esophagitis; N40.0 Benign prostatic hyperplasia without lower urinary tract symptoms; Z80.9 Family history of malignant neoplasm, unspecified; I69.320 Aphasia following cerebral infarction; Z82.49 Family history of ischemic heart disease and other diseases of the circulatory system; Z85.46 Personal history of malignant neoplasm of prostate; Z87.891 Personal history of nicotine dependence; Z88.8 Allergy status to other drugs, medicaments and biological substances; Z79.82 Long term (current) use of aspirin; Z79.899 Other long term (current) drug therapy; Z79.02 Long term (current) use of antithrombotics/antiplatelets
CPT/HCPCS: 36415; 70450; 70496; 70498; 71045; 80053; 80061; 81001; 82553; 82947; 83690; 83735; 83880; 84484; 85025; 85610; 85730; 87641; 92526; 93005; 94640; 96374; J0360; J2060; Q9967; 92610; 97116; 97530; 99291-25; J7030

== ENCOUNTER 2018-04-05 08:25 | Inpatient (IN) | payer MEDICARE ==
[~2018-04-05] VITALS: Ht 185.4 cm; Wt 82.6 kg
[2018-04-05] VITALS (11 sets, daily range): BP systolic 139–188; BP diastolic 53–84
[~2018-04-05 08:25] MED LIST changes: +CARV25TA2 PO; +FLUT30CR5 TP; -FOSI20TA PO; -TAMS0.4C2 PO
--- NOTE | 2018-04-05 08:51 | RAD ---
CT CODE STROKE HEAD WO History: CODE STROKE, aphasia Comparison: None. Technique: Noncontrast CT imaging was performed of the head. Exposure: One or more of the following individualized dose reduction techniques were utilized for this examination: 1. Automated exposure control 2. Adjustment of the mA and/or kV according to patient size 3. Use of iterative reconstruction technique. Findings: No acute extra-axial or parenchymal hemorrhage is identified. There is no significant intra-axial mass effect, midline shift, or extra-axial fluid collection. The lomeli-white differentiation of the major vascular territories is preserved. The ventricles, sulci, and cisterns are within normal limits in size and configuration. There are again mucous retention cysts or polyps of the right maxillary sinus, larger focus posteriorly about 2.2 cm. No acute calvarial abnormality is identified. Impression: 1. No acute intracranial abnormality is identified. If there is concern for evolving or acute ischemia, followup CT or MRI could be beneficial. Critical result: Findings discussed with BRANDON NORTON at 04/05/2018 8:48 AM. RESULT CODE: (C) Electronically signed by: Redd Bueno MD (04/05/2018 8:48 AM) [id number]
--- NOTE | 2018-04-05 08:53 | RAD ---
PORTABLE CHEST 1V History: CODE STROKE Comparison: January 20, 2018 Findings: Single view of the chest is submitted. There is a lesser degree of inspiration for this exam. Pericardial cardiac silhouette is similar. Left hemidiaphragm is not defined on this exam, possible small left pleural effusion with adjacent airspace opacity. There is also likely atelectasis medial right lung base. No pneumothorax is identified. Impression: 1. There is left base opacity, possible small left pleural effusion with adjacent atelectasis/infiltrate, also suspected atelectasis of the medial right lung base. Electronically signed by: Redd Bueno MD (04/05/2018 8:50 AM) [id number]
[2018-04-05 09:17] LABS: BASO # 0.1 x10^3/uL (0.0-0.2); BASO % 1 % (0-3); EOS # 0.2 x10^3/uL (0.0-0.7); EOS % 3 % (0-3); HEMATOCRIT 39.2 % (39.0-53.0); LYMPH # 1.1 x10^3/uL (1.0-4.8); LYMPH % 19 % (24-48); MEAN CORPUSCULAR HEMOGLOBIN 26 pg (25-35); MEAN CORPUSCULAR HGB CONC 33 g/dL (31-37); MEAN CORPUSCULAR VOLUME 78 fL (79-100); MONO # 0.6 x10^3/uL (0.0-1.1); MONO % 11 % (0-9); NEUT # 3.8 x10^3uL (1.8-7.7); NEUT % 66 % (31-73); PLATELET COUNT 226 x10^3/uL (140-400); RED BLOOD COUNT 5.02 x10^6/uL (4.30-5.70); RED CELL DISTRIBUTION WIDTH 15.6 % (11.5-14.5); WHITE BLOOD COUNT 5.8 x10^3/uL (4.0-11.0)
--- NOTE | 2018-04-05 09:17 | PHYS DOC ---
Past History Past Medical History: CAD, Cancer, COPD, GERD, Hypertension Past Surgical History: No Surgical History Additional Past Surgical Histo: prostate, bilateral hernias Smoking: Cigarettes, Quit Greater Than 1 Year Alcohol Use: Sober Drug Use: None Adult General Chief Complaint Chief Complaint: NEURO SYMPTOMS/DEFICITS HPI HPI Patient is a 72 year old male who was seen I EMS because of sudden onset of aphasia. Patient's family member states he woke up around 6:30 this morning and talk a few sentences and at 0645 had a have a fall at bathroom and stopped talking. Patient and son stated he had several episodes of aphasia the same as this time previously and treated as TIA. Patient does not follows the commands. Patient had previous hospitalization with the fascia and diagnosis of conversion disorder. Review of Systems Review of Systems Unable to obtain because of the aphasia Allergies Allergies Allergies Coded Allergies Type Severity Reaction Last Updated Verified amlodipine Adverse Reaction Intermediate 04/05/18 Yes Physical Exam Physical Exam Constitutional: Well nourished, mild distress, non-toxic appearance, anxious, refused to talk HENT: Normocephalic, atraumatic Eyes: PERRLA, EOMI, conjunctiva normal, no discharge. [] Neck: Normal range of motion, no tenderness, supple, no stridor. [] Cardiovascular:Heart rate regular rhythm, no murmur [] Lungs & Thorax: Bilateral breath sounds clear to auscultation [] Abdomen: Bowel sounds normal, soft, no tenderness, no masses, no pulsatile masses. [] Skin: Warm, dry, no erythema, no rash. [] Back: No tenderness, no CVA tenderness. [] Extremities: No tenderness, no cyanosis, no clubbing, ROM intact, no edema. [] Neurologic: Alert and moves all extremities but reports his upper and lower extremity for 10 and 5 seconds up and gradually drops intentionally his extremities. Unable to have NIH score. Psychologic: Affect anxious. EKG EKG EKG interpreted by me. EKG at 0 858 showed sinus bradycardia at rate of 52, left gan axis, poor R-wave progress in anteroseptal leads, no acute ST and T- wave abnormalities Radiology/Procedures Radiology/Procedures [address] [address] IMAGING REPORT Signed PATIENT: KITTY BRENNAN ACCOUNT: [id number] : 1945 LOCATION: ER AGE: 72 SEX: M EXAM STATUS: PRE ER ORD. PHYSICIAN: BRANDON NORTON MD REASON: aphasia PROCEDURE: CT CODE STROKE HEAD WO CT CODE STROKE HEAD WO History: CODE STROKE, aphasia Comparison: None. Technique: Noncontrast CT imaging was performed of the head. Exposure: One or more of the following individualized dose reduction techniques were utilized for this examination: 1. Automated exposure control 2. Adjustment of the mA and/or kV according to patient size 3. Use of iterative reconstruction technique. Findings: No acute extra-axial or parenchymal hemorrhage is identified. There is no significant intra-axial mass effect, midline shift, or extra-axial fluid collection. The lomeli-white differentiation of the major vascular territories is preserved. The ventricles, sulci, and cisterns are within normal limits in size and configuration. There are again mucous retention cysts or polyps of the right maxillary sinus, larger focus posteriorly about 2.2 cm. No acute calvarial abnormality is identified. Impression: 1. No acute intracranial abnormality is identified. If there is concern for evolving or acute ischemia, followup CT or MRI could be beneficial. Critical result: Findings discussed with BRANDON NORTON at 04/05/2018 8:48 AM. RESULT CODE: (C) Electronically signed by: Carrol Bueno MD (04/05/2018 8:48 AM) [id number] DICTATED AND SIGNED BY: CARROL BUENO MD DATE: 04/05/18 0844 CC: RENAN CAUSEY MD; BRANDON NORTON MD ~ [address] [address] IMAGING REPORT Signed PATIENT: KITTY BRENNAN ACCOUNT: [id number] : 1945 LOCATION: ER AGE: 72 SEX: M EXAM STATUS: PRE ER ORD. PHYSICIAN: BRANDON NORTON MD REASON: CODE STROKE PROCEDURE: PORTABLE CHEST 1V PORTABLE CHEST 1V History: CODE STROKE Comparison: January 20, 2018 Findings: Single view of the chest is submitted. There is a lesser degree of inspiration for this exam. Pericardial cardiac silhouette is similar. Left hemidiaphragm is not defined on this exam, possible small left pleural effusion with adjacent airspace opacity. There is also likely atelectasis medial right lung base. No pneumothorax is identified. Impression: 1. There is left base opacity, possible small left pleural effusion with adjacent atelectasis/infiltrate, also suspected atelectasis of the medial right lung base. Electronically signed by: Carrol Bueno MD (04/05/2018 8:50 AM) [facility] DICTATED AND SIGNED BY: CARROL BUENO MD DATE: 04/05/18847 CC: RENAN CAUSEY MD; BRANDON NORTON MD ~ Course & Med Decision Making Course & Med Decision Making Pertinent Labs and Imaging studies reviewed. (See chart for details) Evaluation of patient in ER showed 72-year-old male patient brought in by EMS because of sudden onset aphasia since 0645 this morning. Patient had the same problem previously with diagnose of conversion reaction. CT of head was unremarkable. Patient was not a candidate for TPA because of episodes of the same problem previously that resolved spontaneously and also concern for conversion disorder. Dr. Jeter on-call neurology was consulted at 0846 and agreed with plan of care and not starting TPA. Dr. Causey accepted admission at 0910. Dragon Disclaimer Dragon Disclaimer This electronic medical record was generated, in whole or in part, using a voice recognition dictation system. Departure Departure: Impression: Primary Impression: Aphasia Additional Impressions: Conversion disorder Anxiety Disposition: ADMITTED INPATIENT (at 0916) Admitting Physician: Renan Causey (accepted admission at 0910) Condition: STABLE Referrals: RENAN CAUSEY MD (PCP) Problem Qualifiers BRANDON NORTON MD Apr 05, 2018 09:17
[2018-04-05 09:32] LABS: ALBUMIN 3.8 g/dL (3.4-5.0); CALCIUM 8.7 mg/dL (8.5-10.1); CREATININE 0.9 mg/dL (0.7-1.3); GFR 82.7; POTASSIUM 4.1 mmol/L (3.5-5.1); TOTAL BILIRUBIN 0.5 mg/dL (0.2-1.0); TOTAL PROTEIN 7.5 g/dL (6.4-8.2)
--- NOTE | 2018-04-05 10:25 | EKG ---
[address] [address] Test Date: 2018-04-05 Test Time: 08:58:47 Pat Name: KITTY BRENNAN Department: Room: ICU03 1 Gender: M Check Clerk: : 1945 Requested By: BRANDON NORTON Order Number: [id number] Reading MD: Ha Philip Measurements Intervals [place] Rate: 52 P: 47 TN: 160 QRS: -8 QRSD: 84 T: 49 QT: 434 QTc: 406 Interpretive Statements SINUS RHYTHM LEFTWARD AXIS QRS(T) CONTOUR ABNORMALITY CONSIDER ANTEROSEPTAL MYOCARDIAL DAMAGE POSSIBLY ABNORMAL ECG Electronically Signed On 04-07-2018 10:31:22 CDT by Ha Philip
[2018-04-05] MEDS: hydrALAZINE 10 MG TABLET PO SCH ×2 (14:23→20:52)
[2018-04-05] MEDS ORDERED: HYDR12.58 PO (14:37)
[2018-04-05] MEDS ORDERED: TAMS0.4C2 PO (16:01)
[2018-04-05] MEDS ORDERED: FOSI20TA3 PO (16:04)
[2018-04-05] MEDS ORDERED: CARVEDILOL 12.5 MG TABLET PO SCH (17:00)
--- NOTE | 2018-04-05 18:31 | PDOC ---
Exam Note: Manuel Note: Please also refer to the separate dictated note~for this date of service dictated separately.~Patient seen individually. Discussed the patient with Nursing staff reviewed the chart.~Reviewed interim history and current functioning. Reviewed vital signs,~Labs/ Radiology~and current medications noted below. Continue current treatment with the changes noted in the dictated addendum note Assessment: Vital Signs: Vital Signs Date Time Temp Pulse Resp B/P (MAP) Pulse Ox O2 Delivery O2 Flow Rate FiO2 04/05/18 17:51 64 151/69 (96) 94 Room Air 04/05/18 16:48 18 04/05/18 11:04 98.0 Labs: Laboratory Tests Test 04/05/18 08:50 White Blood Count 5.8 x10^3/uL (4.0-11.0) Red Blood Count 5.02 x10^6/uL (4.30-5.70) Hemoglobin 13.0 g/dL (13.0-17.5) Hematocrit 39.2 % (39.0-53.0) Mean Corpuscular Volume 78 fL (79-100) L Mean Corpuscular Hemoglobin 26 pg (25-35) Mean Corpuscular Hemoglobin Concent 33 g/dL (31-37) Red Cell Distribution Width 15.6 % (11.5-14.5) H Platelet Count 226 x10^3/uL (140-400) Neutrophils (%) (Auto) 66 % (31-73) Lymphocytes (%) (Auto) 19 % (24-48) L Monocytes (%) (Auto) 11 % (0-9) H Eosinophils (%) (Auto) 3 % (0-3) Basophils (%) (Auto) 1 % (0-3) Neutrophils # (Auto) 3.8 x10^3uL (1.8-7.7) Lymphocytes # (Auto) 1.1 x10^3/uL (1.0-4.8) Monocytes # (Auto) 0.6 x10^3/uL (0.0-1.1) Eosinophils # (Auto) 0.2 x10^3/uL (0.0-0.7) Basophils # (Auto) 0.1 x10^3/uL (0.0-0.2) Prothrombin Time 9.8 SEC (9.4-11.4) Prothrombin Time INR 1.0 (0.9-1.1) PTT 24 SEC (23-33) Sodium Level 139 mmol/L (136-145) Potassium Level 4.1 mmol/L (3.5-5.1) Chloride Level 104 mmol/L (98-107) Carbon Dioxide Level 27 mmol/L (21-32) Anion Gap 8 (6-14) Blood Urea Nitrogen 21 mg/dL (8-26) Creatinine 0.9 mg/dL (0.7-1.3) Estimated GFR (Cockcroft-Gault) 82.7 BUN/Creatinine Ratio 23 (6-20) H Glucose Level 106 mg/dL (70-99) H Calcium Level 8.7 mg/dL (8.5-10.1) Total Bilirubin 0.5 mg/dL (0.2-1.0) Aspartate Amino Transferase (AST) 26 U/L (15-37) Alanine Aminotransferase (ALT) 41 U/L (16-63) Alkaline Phosphatase 66 U/L (46-116) Creatine Kinase 64 U/L (39-308) Troponin I Quantitative < 0.017 ng/mL (0-0.055) Total Protein 7.5 g/dL (6.4-8.2) Albumin 3.8 g/dL (3.4-5.0) Albumin/Globulin Ratio 1.0 (1.0-1.7) Triglycerides Level 125 mg/dL (0-150) Cholesterol Level 131 mg/dL (0-200) LDL Cholesterol, Calculated 65 mg/dL (0-100) VLDL Cholesterol, Calculated 25 mg/dL (0-40) Non-HDL Cholesterol Calculated 90 mg/dL (0-129) HDL Cholesterol 41 mg/dL (40-60) Cholesterol/HDL Ratio 3.0 Current Medications: Meds: Current Medications Clopidogrel Bisulfate (Plavix) 75 mg DAILY PO ; Start 04/06/18 at 09:00 Tamsulosin HCl (Flomax) 0.4 mg HS PO ; Start 04/05/18 at 21:00 Aspirin (Children'S Aspirin) 81 mg DAILYWBKFT PO ; Start 04/06/18 at 08:00 Atorvastatin Calcium (Lipitor) 80 mg QHS PO ; Start 04/05/18 at 21:00 Carvedilol (Coreg) 25 mg BIDWMEALS PO Last administered on 04/05/18at 17:01; Start 04/05/18 at 17:00 Pantoprazole Sodium (Protonix) 40 mg DAILYAC PO ; Start 04/06/18 at 07:30 Fish Oil (Fish Oil) 1,000 mg DAILY PO ; Start 04/06/18 at 09:00 Lisinopril (Prinivil) 40 mg DAILY PO ; Start 04/06/18 at 09:00 Hydrochlorothiazide (Microzide) 12.5 mg DAILY PO ; Start 04/06/18 at 09:00 Hydralazine HCl (Apresoline) 10 mg TID PO Last administered on 04/05/18at 14:23 ; Start 04/05/18 at 14:00 Active Scripts Active Reported Hydrochlorothiazide Tablet (Hydrochlorothiazide) 12.5 Mg Tablet 12.5 Mg PO DAILY 30 Days Carvedilol 25 Mg Tablet 1 Tab PO BID Nexium Capsule (Esomeprazole Magnesium) 40 Mg Capsule.dr 1 Cap PO DAILY last dose this morning next dose tomorrow Fosinopril Sodium 20 Mg Tablet 2 Tab PO DAILY last dose this morning next dose tomorrow Aspirin 81 Mg Tab.chew 81 Mg PO DAILY last dose this morning next dose tomorrow morning [place] 3-6-9 1,200 mg Softgel (Fish Oil/Borage/Flax/Om3,6,9#1) 1,200 Mg Capsule 1 ,200 Mg PO DAILY last dose this morning next dose tomorrow Tamsulosin Hcl 0.4 Mg Cap.er.24h 1 Cap PO HS last dose this morning next dose tomorrow Atorvastatin Calcium 80 Mg Tablet 80 Mg PO QHS last dose last night next dose tonight Plavix (Clopidogrel Bisulfate) 75 Mg Tablet 1 Tab PO DAILY last dose this morning next dose tomorrow I have reviewed the current psychotropics carefully including drug interactions. Risk benefit ratio favors no change other than as noted in my dictated progress note. Diagnosis: Problems: (1) Aphasia (2) Anxiety (3) Conversion disorder MARCO HADDAD MD Apr 05, 2018 18:30
[2018-04-05] MEDS ORDERED: ATORVASTATIN CALCIUM 20 MG TABLET PO SCH (21:00)
[2018-04-05] MEDS ORDERED: TAMSULOSIN 0.4 MG CAP.ER.24H. PO SCH (21:00)
--- NOTE | 2018-04-05 23:08 | PDOC ---
Exam Note: Manuel Note: Please also refer to the separate dictated note~for this date of service dictated separately.~Patient seen individually. Discussed the patient with Nursing staff reviewed the chart.~Reviewed interim history and current functioning. Reviewed vital signs,~Labs/ Radiology~and current medications noted below. Continue current treatment with the changes noted in the dictated addendum note Assessment: Vital Signs: Vital Signs Date Time Temp Pulse Resp B/P (MAP) Pulse Ox O2 Delivery O2 Flow Rate FiO2 04/05/18 22:00 56 16 167/64 (98) 94 Room Air 04/05/18 19:00 98.3 Labs: Laboratory Tests Test 04/05/18 08:50 White Blood Count 5.8 x10^3/uL (4.0-11.0) Red Blood Count 5.02 x10^6/uL (4.30-5.70) Hemoglobin 13.0 g/dL (13.0-17.5) Hematocrit 39.2 % (39.0-53.0) Mean Corpuscular Volume 78 fL (79-100) L Mean Corpuscular Hemoglobin 26 pg (25-35) Mean Corpuscular Hemoglobin Concent 33 g/dL (31-37) Red Cell Distribution Width 15.6 % (11.5-14.5) H Platelet Count 226 x10^3/uL (140-400) Neutrophils (%) (Auto) 66 % (31-73) Lymphocytes (%) (Auto) 19 % (24-48) L Monocytes (%) (Auto) 11 % (0-9) H Eosinophils (%) (Auto) 3 % (0-3) Basophils (%) (Auto) 1 % (0-3) Neutrophils # (Auto) 3.8 x10^3uL (1.8-7.7) Lymphocytes # (Auto) 1.1 x10^3/uL (1.0-4.8) Monocytes # (Auto) 0.6 x10^3/uL (0.0-1.1) Eosinophils # (Auto) 0.2 x10^3/uL (0.0-0.7) Basophils # (Auto) 0.1 x10^3/uL (0.0-0.2) Prothrombin Time 9.8 SEC (9.4-11.4) Prothrombin Time INR 1.0 (0.9-1.1) PTT 24 SEC (23-33) Sodium Level 139 mmol/L (136-145) Potassium Level 4.1 mmol/L (3.5-5.1) Chloride Level 104 mmol/L (98-107) Carbon Dioxide Level 27 mmol/L (21-32) Anion Gap 8 (6-14) Blood Urea Nitrogen 21 mg/dL (8-26) Creatinine 0.9 mg/dL (0.7-1.3) Estimated GFR (Cockcroft-Gault) 82.7 BUN/Creatinine Ratio 23 (6-20) H Glucose Level 106 mg/dL (70-99) H Calcium Level 8.7 mg/dL (8.5-10.1) Total Bilirubin 0.5 mg/dL (0.2-1.0) Aspartate Amino Transferase (AST) 26 U/L (15-37) Alanine Aminotransferase (ALT) 41 U/L (16-63) Alkaline Phosphatase 66 U/L (46-116) Creatine Kinase 64 U/L (39-308) Troponin I Quantitative < 0.017 ng/mL (0-0.055) Total Protein 7.5 g/dL (6.4-8.2) Albumin 3.8 g/dL (3.4-5.0) Albumin/Globulin Ratio 1.0 (1.0-1.7) Triglycerides Level 125 mg/dL (0-150) Cholesterol Level 131 mg/dL (0-200) LDL Cholesterol, Calculated 65 mg/dL (0-100) VLDL Cholesterol, Calculated 25 mg/dL (0-40) Non-HDL Cholesterol Calculated 90 mg/dL (0-129) HDL Cholesterol 41 mg/dL (40-60) Cholesterol/HDL Ratio 3.0 Current Medications: Meds: Current Medications Clopidogrel Bisulfate (Plavix) 75 mg DAILY PO ; Start 04/06/18 at 09:00 Tamsulosin HCl (Flomax) 0.4 mg HS PO Last administered on 04/05/18at 20:52; Start 04/05/18 at 21:00 Aspirin (Children'S Aspirin) 81 mg DAILYWBKFT PO ; Start 04/06/18 at 08:00 Atorvastatin Calcium (Lipitor) 80 mg QHS PO Last administered on 04/05/18at 20: 51; Start 04/05/18 at 21:00 Carvedilol (Coreg) 25 mg BIDWMEALS PO Last administered on 04/05/18at 17:01; Start 04/05/18 at 17:00 Pantoprazole Sodium (Protonix) 40 mg DAILYAC PO ; Start 04/06/18 at 07:30 Fish Oil (Fish Oil) 1,000 mg DAILY PO ; Start 04/06/18 at 09:00 Lisinopril (Prinivil) 40 mg DAILY PO ; Start 04/06/18 at 09:00 Hydrochlorothiazide (Microzide) 12.5 mg DAILY PO ; Start 04/06/18 at 09:00 Hydralazine HCl (Apresoline) 10 mg TID PO Last administered on 04/05/18at 20:52 ; Start 04/05/18 at 14:00 Active Scripts Active Reported Hydrochlorothiazide Tablet (Hydrochlorothiazide) 12.5 Mg Tablet 12.5 Mg PO DAILY 30 Days Carvedilol 25 Mg Tablet 1 Tab PO BID Nexium Capsule (Esomeprazole Magnesium) 40 Mg Capsule.dr 1 Cap PO DAILY last dose this morning next dose tomorrow Fosinopril Sodium 20 Mg Tablet 2 Tab PO DAILY last dose this morning next dose tomorrow Aspirin 81 Mg Tab.chew 81 Mg PO DAILY last dose this morning next dose tomorrow morning [place] 3-6-9 1,200 mg Softgel (Fish Oil/Borage/Flax/Om3,6,9#1) 1,200 Mg Capsule 1 ,200 Mg PO DAILY last dose this morning next dose tomorrow Tamsulosin Hcl 0.4 Mg Cap.er.24h 1 Cap PO HS last dose this morning next dose tomorrow Atorvastatin Calcium 80 Mg Tablet 80 Mg PO QHS last dose last night next dose tonight Plavix (Clopidogrel Bisulfate) 75 Mg Tablet 1 Tab PO DAILY last dose this morning next dose tomorrow I have reviewed the current psychotropics carefully including drug interactions. Risk benefit ratio favors no change other than as noted in my dictated progress note. Diagnosis: Problems: (1) Vertigo (2) Conversion disorder (3) Anxiety (4) Aphasia MARCO HADDAD MD Apr 05, 2018 23:08
--- NOTE | 2018-04-05 23:42 | HP ---
ADMIT DATE: 04/05/2018 HISTORY OF PRESENT ILLNESS: A 72-year-old male came in via EMS with sudden onset of aphasia. The patient woke up at 6:30, he was unable to really talk much. He also complained of right arm tingling and weakness in his right arm. The patient was brought into rule out TIA versus stroke in evolution. The patient has had previous diagnosis of conversion disorder and has been seen by ____ in the past for such, but to be on the safe side as he does have risk factors the patient was admitted to the hospital for further evaluation and treatment. Neurological symptoms, he has had a TPA given to him in 2017, TIA, and numbness. PAST MEDICAL HISTORY: Coronary artery disease, hypertension, COPD, diverticulitis, abdominal surgery, double hernia repair, GERD, prostate cancer, prostate problems, quit smoking approximately a year ago, history of cancer. IMMUNIZATIONS: Diphtheria, tetanus, influenza and pneumococcal vaccinations are all up-to-date. FAMILY HISTORY: Positive for heart attack, cancer. ALLERGIES: NORVASC. HOME MEDICATIONS: Include that of Flomax daily, Plavix 75 daily, Lipitor 80 daily, carvedilol 25 b.i.d., fosinopril 20 mg daily, hydrochlorothiazide 12.5 mg daily, Nexium and fish oil. SOCIAL HISTORY: The patient noted he quit smoking a year ago. REVIEW OF SYSTEMS: Denies abdominal pain. Denies any melena, hematochezia, or hematemesis. Actually he was able to write with his right hand very distinctly, very nicely and answering questions that he seemed to understand and gave appropriate answers on his pad. PHYSICAL EXAMINATION: GENERAL: A pleasant white male, in no apparent distress. VITAL SIGNS: Blood pressure up to 188/76 came down to 150/70, respiratory rate 18, pulse 58, and afebrile. HEENT: The patient's head was atraumatic, normocephalic. Eyes: PERRLA without jaundice. Mouth and throat were normal. NECK: Supple, without JVD, carotid bruits or thyromegaly. LUNGS: Diminished throughout, poor movement of air, but clear. CARDIOVASCULAR: Tachycardic. ABDOMEN: Soft, nontender. EXTREMITIES: No clubbing, cyanosis or edema. NEUROLOGIC: The patient was alert and oriented. On a slip of paper, he was able to write; however, he was not able to speak, although Speech Pathology had seen the patient and had him do some coughing maneuvers or other maneuvers that would indicate that he was able to use his vocal cords and so she did not have any problem with him eating. PLAN: As a result of this, the patient was admitted and will continue to be monitored carefully for further evaluation and treatment of his TIA-like symptoms versus that of a conversion syndrome. RENAN CAUSEY MD DR: JOHN/reg JOB#: [id number] / [id number]
[2018-04-06] VITALS (10 sets, daily range): BP systolic 122–180; BP diastolic 49–87
[2018-04-06 07:08] LABS: BACTERIA,URINE 0 /HPF (0-FEW); BILIRUBIN,URINE NEG (NEG); CLARITY,URINE CLEAR; COLOR,URINE YELLOW; GLUCOSE,URINE NEG (NEG); NITRITE,URINE NEG (NEG); RBC,URINE 0 /HPF (0-2); SQUAMOUS EPITHELIAL CELL,UR OCC /LPF; UROBILINOGEN,URINE 0.2 mg/dL (0.2 mg/dL); WBC,URINE 0 /HPF (0-4)
[2018-04-06 07:11] LABS: CALCIUM 8.7 mg/dL (8.5-10.1); GFR 73.2; POTASSIUM 3.7 mmol/L (3.5-5.1)
[2018-04-06 07:12] LABS: BASO # 0.1 x10^3/uL (0.0-0.2); BASO % 1 % (0-3); EOS # 0.2 x10^3/uL (0.0-0.7); EOS % 3 % (0-3); HEMATOCRIT 38.3 % (39.0-53.0); HEMOGLOBIN 12.6 g/dL (13.0-17.5); LYMPH # 1.3 x10^3/uL (1.0-4.8); LYMPH % 22 % (24-48); MEAN CORPUSCULAR HEMOGLOBIN 26 pg (25-35); MEAN CORPUSCULAR HGB CONC 33 g/dL (31-37); MEAN CORPUSCULAR VOLUME 79 fL (79-100); MONO # 0.6 x10^3/uL (0.0-1.1); MONO % 10 % (0-9); NEUT # 3.7 x10^3uL (1.8-7.7); NEUT % 64 % (31-73); PLATELET COUNT 214 x10^3/uL (140-400); RED BLOOD COUNT 4.87 x10^6/uL (4.30-5.70); RED CELL DISTRIBUTION WIDTH 15.6 % (11.5-14.5); WHITE BLOOD COUNT 5.7 x10^3/uL (4.0-11.0)
[2018-04-06] MEDS ORDERED: PANTOPRAZOLE 40 MG TABLET. PO SCH (07:30)
[2018-04-06] MEDS: hydrALAZINE 10 MG TABLET PO SCH (07:42)
[2018-04-06] MEDS ORDERED: ASPIRIN 81 MG TAB.CHEW PO SCH (08:00)
[2018-04-06] MEDS ORDERED: OMEGA-3 FATTY ACIDS/FISH OIL 1,000 MG CAPSULE. PO SCH (09:00)
[2018-04-06] MEDS ORDERED: hydroCHLOROthiazide 12.5 MG CAPSULE PO SCH (09:00)
[2018-04-06] MEDS ORDERED: LISINOPRIL 20 MG TABLET PO SCH (09:00)
[2018-04-06] MEDS ORDERED: CLOPIDOGREL BISULFATE 75 MG TABLET PO SCH (09:00)
--- NOTE | 2018-04-06 11:54 | DS ---
DATE OF DISCHARGE: 04/06/2018 HOSPITAL COURSE: The patient was admitted because of possible TIA with numbness, tingling, weakness on the right side of his body and inability to speak. The patient had been suffering a couple concussions previous to this and the patient otherwise seemed to be resting fairly comfortably, making fairly good progress overall there. On the day of discharge, the patient was able to talk, walk. He was working with PT/OT and made a dramatic recovery from his episodes. Dr. Christiansen, psychiatrist, has reviewed the patient and made further evaluation on him as indicated. Otherwise, the patient has made good progress. He will be discharged home. See EMRAD and regular diet, decreased activity. Follow up as an outpatient. IMPRESSION: Aphasia, anxiety, conversion disorder, mild concussion, hypertension, bradycardia. Decrease activity, no driving, and return to clinic for followup in 7-10 days or sooner as needed. RENAN CAUSEY MD DR: JOHN/reg JOB#: [id number] / [id number]
--- NOTE | 2018-04-06 22:21 | CONS ---
DATE OF CONSULTATION: 04/05/2018 PSYCHIATRIC CONSULTATION This late entry 04/05/2018 covers elements not covered in my initial note 04/05/2018. IDENTIFYING DATA: The patient is a 72-year-old male seen in ICU bed 3, [facility], requested by Dr. Carson after the patient was admitted earlier in the morning once again with the inability to speak and aphasia. He has had several of these episodes in the past, nothing medical has been found to account for it, question has been raised about conversion disorder and I have been asked to consult from a psychiatric standpoint again. I have seen him in the past. CHIEF COMPLAINT: "I can talk again now." HISTORY OF PRESENT ILLNESS: I met with the patient and his in the ICU. 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 and found he was unable to talk very much. He had gone to the restroom. He was also complaining of right arm tingling, weakness of right arm. He was brought in to rule out TIA versus stroke in evolution. In the past, there has been question of some obsessive thinking, though he minimizes this. His feels this is a problem. She states he worries about her health and he ruminates to a point where he then may stop talking. In 2006, reportedly, he was given TPA as well. PAST PSYCHIATRIC HISTORY: Noncontributory other than above. He does admit to some anxiety, mood symptoms, obsessive thinking. He has never been on any psychotropics in the past. PAST MEDICAL HISTORY: History of coronary artery disease, hypertension, COPD, diverticulitis, abdominal surgery, double hernia repair, GERD, prostate cancer. He quit smoking 1 year ago. History of cancer. IMMUNIZATIONS: Up-to-date. ALLERGIES: NORVASC. CURRENT PSYCHOTROPICS: Noncontributory. FAMILY HISTORY: Noncontributory for psychiatric disorder. Coronary artery disease, cancer. SOCIAL HISTORY: The patient lives at home with his . No alcohol or drug abuse history. MENTAL STATUS EXAMINATION: The patient was seen individually on the evening of 04/05/2018. He remembered me from my prior visit. He is quite pleasant, verbal, somewhat anxious with the dysphoric mood, which he minimizes. Speech is coherent, abstraction fair. He is somewhat distractable. No active suicidal or homicidal ideation. Attention span short. LABORATORY DATA: Reviewed. IMPRESSION: Anxiety disorder, unspecified, probable adjustment disorder with depressed mood and anxiety versus major depressive disorder, though the patient minimizes mood symptoms. He has some obsessive thought processes. RECOMMENDATION: From a psychiatric standpoint once again, I am unable to explain all the symptoms entirely, but perhaps some of his obsessive thinking could be contributing to it and making presentation of conversion disorder more likely. I have discussed at great length with the patient and his about SSRIs. Apparently, her grandson is on Celexa, he is doing well on it, and they are agreeable to considering that if that was recommended by Dr. Carson as an outpatient. Let them think this over, make decision with Dr. Carson. Dr. Carson, thank you for the opportunity to participate in your patient's care. We will follow with you. MAN Sabra HADDAD MD DR: JERSE[place]/reg JOB#: [id number] / [id number]
== END 2018-04-06 11:20 | disposition short-term general hospital (02) | DRG 880 ==
LOC: ER 08:25 → ICU 09:14
PROVIDERS: ADMIT Family Medicine; ATTEND Family Medicine
DX: F44.9 Dissociative and conversion disorder, unspecified (principal); S06.0X9A Concussion with loss of consciousness of unspecified duration, initial encounter; F41.9 Anxiety disorder, unspecified; F39 Unspecified mood [affective] disorder; I10 Essential (primary) hypertension; I25.10 Atherosclerotic heart disease of native coronary artery without angina pectoris; F43.23 Adjustment disorder with mixed anxiety and depressed mood; J44.9 Chronic obstructive pulmonary disease, unspecified; K21.9 Gastro-esophageal reflux disease without esophagitis; W18.39XA Other fall on same level, initial encounter; Z82.49 Family history of ischemic heart disease and other diseases of the circulatory system; Z85.46 Personal history of malignant neoplasm of prostate; Z86.73 Personal history of transient ischemic attack (TIA), and cerebral infarction without residual deficits; Z87.891 Personal history of nicotine dependence; Z88.8 Allergy status to other drugs, medicaments and biological substances; Y93.89 Activity, other specified; Y92.89 Other specified places as the place of occurrence of the external cause; Y99.8 Other external cause status
CPT/HCPCS: 36415; 70450; 71045; 80048; 80053; 80061; 81001; 82550; 84484; 85025; 85610; 85730; 87641; 93005; 92610; 99285-25

== ENCOUNTER 2018-04-07 08:34 | Emergency (ER) | payer MEDICARE ==
[~2018-04-07] VITALS: Ht 185.4 cm; Wt 82.6 kg
[~2018-04-07 08:34] MED LIST changes: +FOSI20TA3 PO; +HYDR12.58 PO; +TAMS0.4C2 PO
--- NOTE | 2018-04-07 09:13 | PHYS DOC ---
Past History Past Medical History: CAD, Cancer, COPD, GERD, High Cholesterol, Hypertension, TIA Past Surgical History: No Surgical History Additional Past Surgical Histo: prostate, bilateral hernias Smoking: Cigarettes, Quit Greater Than 1 Year Alcohol Use: Sober Drug Use: None Adult General Chief Complaint Chief Complaint: NEURO SYMPTOMS/DEFICITS HPI HPI Patient is a 72 year old male who brought in by EMS because of aphasia and not moving his upper and lower extremities. Patient was seen in this emergency room 3 days ago with aphasia and was discharged yesterday with diagnose of conversation disorder and was able to talk and walk without problem at 10 PM before going to bed. Patient stated she was at the kitchen making breakfast at 8 AM when she heard banging on the wall and then found him on the edge of a his bed and was not able to talk and move his upper and lower extremity. Patient refused to talk or moving his upper and lower extremity as well as arrival to ER. Review of Systems Review of Systems Unable to obtain because of medical condition Allergies Allergies Allergies Coded Allergies Type Severity Reaction Last Updated Verified amlodipine Adverse Reaction Intermediate 04/07/18 Yes Physical Exam Physical Exam Constitutional: Well nourished, no acute distress, non-toxic appearance. [] HENT: Normocephalic, atraumatic, oropharynx moist, no oral exudates, nose normal. [] Eyes: PERRLA, EOMI, conjunctiva normal, no discharge. [] Neck: Normal range of motion, no tenderness, supple, no stridor. [] Cardiovascular:Heart rate regular rhythm, no murmur [] Lungs & Thorax: Bilateral breath sounds clear to auscultation [] Abdomen: Bowel sounds normal, soft, no tenderness, no masses, no pulsatile masses. [] Skin: Warm, dry, no erythema, no rash. [] Back: No tenderness, no CVA tenderness. [] Extremities: No tenderness, no cyanosis, no clubbing, ROM intact, no edema. [] Neurologic: Alert, patient inpatient and refused to talk and move his extremity but then he does not. Patient moves upper and lower extremities. Patient had induration skin of 24 that most of them was false numbers. Psychologic: Affect anxious. Current Patient Data Vital Signs Vital Signs Date Time Temp Pulse Resp B/P (MAP) Pulse Ox O2 Delivery O2 Flow Rate FiO2 04/07/18 08:35 98.4 71 18 96 Room Air Lab Results Laboratory Tests Test 04/07/18 08:39 Glucose (Fingerstick) 95 mg/dL (70-99) EKG EKG EKG interpreted by me. EKG at 0841 showed normal sinus rhythm at rate of 64, left gan axis, incomplete right bundle branch, no acute ST and T-wave abnormalities. Radiology/Procedures Radiology/Procedures [place] [id number] IMAGING REPORT Signed PATIENT: KITTY BRENNAN ACCOUNT: [id number] : 1945 LOCATION: ER AGE: 72 SEX: M EXAM STATUS: PRE ER ORD. PHYSICIAN: BRANDON NORTON MD REASON: ALOC PROCEDURE: CT HEAD WO CONTRAST CT HEAD WO CONTRAST History: Altered mental status, not communicating, bilateral arm weakness Comparison: December 12, 2016 and April 05, 2018 Technique: Noncontrast CT imaging was performed of the head. Exposure: One or more of the following individualized dose reduction techniques were utilized for this examination: 1. Automated exposure control 2. Adjustment of the mA and/or kV according to patient size 3. Use of iterative reconstruction technique. Findings: Ventricular size is stable. There is no new intra-axial mass effect, midline shift, extra-axial fluid collection, acute intracranial hemorrhage. There are again right maxillary sinus mucous retention cysts. Impression: 1. No acute intracranial abnormality is identified by CT. There Electronically signed by: Carrol Sadler MD (04/07/2018 9:08 AM) [id number] DICTATED AND SIGNED BY: CARROL SADLER MD DATE: 04/07/18 0900 CC: RENAN CAUSEY MD; BRANDON NORTON MD ~ Course & Med Decision Making Course & Med Decision Making Pertinent Labs and Imaging studies reviewed. (See chart for details) Evaluation of patient in ER showed 72-year-old male patient with history of compression disorder in by EMS because of aphasia and not moving his extremity. Patient was able to use his arm for writing. Dr. Causey informed and recommended to transfer patient to [facility] for obtaining MRI. Dr. Guadalupe accepted admission to [facility] at 0950. Dragon Disclaimer Dragon Disclaimer This electronic medical record was generated, in whole or in part, using a voice recognition dictation system. NIH Stroke Scale: NIH Stroke Scale Response (Comments) Value Level of Consciousness: 0 Alert/Responsive 0 LOC Questions: 2 Answers neither correct 2 LOC Commands: 1 Performs one task 1 Best Gaze: 0 Normal 0 Visual: 0 No visual loss 0 Facial Palsy: 0 Normal, symmetrical 0 Motor - Left Arm 3 Limb falls 3 Motor - Right Arm 3 Limb falls 3 Motor - Left Leg 3 Limb falls 3 Motor: Right Leg 3 Limb falls 3 Limb Ataxia: 2 Two limbs 2 Sensory: 2 Severe to total loss 2 Best Language: 3 Mute 3 Dysathria: 2 Severe 2 Extinction and Inattention: 0 Normal 0 Total 24 Departure Departure: Impression: Primary Impression: Acute focal neurological deficit Additional Impressions: Aphasia Conversion disorder Disposition: XFER [id number] HOSP ([facility] at 0 951) Condition: STABLE Referrals: RENAN CAUSEY MD (PCP) Problem Qualifiers BRANDON NORTON MD Apr 07, 2018 09:13
[2018-04-07 09:15] LABS: BASO # 0.1 x10^3/uL (0.0-0.2); BASO % 1 % (0-3); EOS # 0.2 x10^3/uL (0.0-0.7); EOS % 3 % (0-3); HEMATOCRIT 39.7 % (39.0-53.0); HEMOGLOBIN 13.1 g/dL (13.0-17.5); LYMPH # 1.1 x10^3/uL (1.0-4.8); LYMPH % 20 % (24-48); MEAN CORPUSCULAR HEMOGLOBIN 26 pg (25-35); MEAN CORPUSCULAR HGB CONC 33 g/dL (31-37); MEAN CORPUSCULAR VOLUME 79 fL (79-100); MONO # 0.6 x10^3/uL (0.0-1.1); MONO % 12 % (0-9); NEUT # 3.3 x10^3uL (1.8-7.7); NEUT % 63 % (31-73); PLATELET COUNT 239 x10^3/uL (140-400); RED BLOOD COUNT 5.04 x10^6/uL (4.30-5.70); RED CELL DISTRIBUTION WIDTH 15.7 % (11.5-14.5); WHITE BLOOD COUNT 5.2 x10^3/uL (4.0-11.0)
[2018-04-07 09:26] LABS: ALBUMIN 3.6 g/dL (3.4-5.0); CALCIUM 8.7 mg/dL (8.5-10.1); GFR 73.2; MAGNESIUM 2.2 mg/dL (1.8-2.4); POTASSIUM 3.7 mmol/L (3.5-5.1); TOTAL BILIRUBIN 0.6 mg/dL (0.2-1.0); TOTAL PROTEIN 7.2 g/dL (6.4-8.2)
[2018-04-07 11:35] VITALS: BP 168/79
== END 2018-04-07 11:50 | disposition short-term general hospital (02) ==
LOC: ER 08:34
DX: F44.9 Dissociative and conversion disorder, unspecified (principal); R29.818 Other symptoms and signs involving the nervous system; R47.01 Aphasia; I25.10 Atherosclerotic heart disease of native coronary artery without angina pectoris; J44.9 Chronic obstructive pulmonary disease, unspecified; K21.9 Gastro-esophageal reflux disease without esophagitis; E78.00 Pure hypercholesterolemia, unspecified; I10 Essential (primary) hypertension; Z86.73 Personal history of transient ischemic attack (TIA), and cerebral infarction without residual deficits; Z87.891 Personal history of nicotine dependence; Z88.8 Allergy status to other drugs, medicaments and biological substances
CPT/HCPCS: 36415; 70450; 80053; 82550; 82947; 83735; 84484; 85025; 85610; 93005; 99285

== ENCOUNTER → 2018-09-26 | Outpatient (CLI) | payer MEDICARE ==
[~2018-09-26] MED LIST changes: -FOSI20TA3 PO; +FOSI20TA7 PO
== END | disposition home or self-care (01) ==
LOC: LAB 08:16
PROVIDERS: ATTEND Urology
DX: C61 Malignant neoplasm of prostate (principal)
CPT/HCPCS: 84153; G0103

== ENCOUNTER → 2018-09-26 | Outpatient (CLI) | payer MEDICARE ==
[2018-09-26 09:38] LABS: CALCIUM 9.3 mg/dL (8.5-10.1); CREATININE 1.1 mg/dL (0.7-1.3); GFR 65.4; POTASSIUM 4.2 mmol/L (3.5-5.1)
== END | disposition home or self-care (01) ==
LOC: LAB 08:08
PROVIDERS: ATTEND Internal Medicine Cardiovascular Disease
DX: I10 Essential (primary) hypertension (principal)
CPT/HCPCS: 36415; 80048

== ENCOUNTER 2019-07-28 12:59 | Inpatient (IN) | payer MEDICARE, BC ==
[~2019-07-28] VITALS: Ht 185.4 cm; Wt 94.7 kg
[~2019-07-28 12:59] MED LIST changes: +LIDO700A21 TP; -LIDO700A39 TP; -MECL12.52 PO; +MECL12.573 PO
--- NOTE | 2019-07-28 13:30 | RAD ---
CT CODE STROKE HEAD WO Clinical indications: Unresponsive. Code stroke. COMPARISON: April 07, 2018. Technique: Noncontrast axial cross sectional scanning of the head was performed. PQRS compliance Statement One or more of the following individualized dose reduction techniques were utilized for this study: 1. Automated exposure control 2. Adjustment of the mA and/or kV according to patient size 3. Use of iterative reconstruction technique Findings: No acute intracranial hemorrhage or midline shift or mass-effect or hydrocephalus or extra-axial fluid collection is seen. No new focal hypodense area or sulci effacement is seen to indicate an acute infarct or edema radiographically. No skull fracture or pneumocephalus is seen. No opacification of the mastoid sinuses or the middle ear cavities or the paranasal sinuses is seen. The maxillary sinuses are not completely seen in this study. Impression: No new intracranial abnormality is seen. FOR INTERNAL CODING PURPOSES Critical result: Findings discussed with Dr. FEDERICO SCOTT at 07/28/2019 1:26 PM. RESULT CODE: (C) Electronically signed by: Rick Cabral MD (07/28/2019 1:27 PM) [facility]
[2019-07-28] MEDS ORDERED: IV NORMAL SALINE 1,000ML 1,000 ML IV SCH (14:08)
[2019-07-28 14:18] LABS: CALCIUM 9.4 mg/dL (8.5-10.1)
[2019-07-28 14:19] LABS: BASO # 0.1 x10^3/uL (0.0-0.2); BASO % 1 % (0-3); EOS # 0.2 x10^3/uL (0.0-0.7); EOS % 4 % (0-3); HEMATOCRIT 42.1 % (39.0-53.0); HEMOGLOBIN 13.4 g/dL (13.0-17.5); LYMPH # 1.3 x10^3/uL (1.0-4.8); LYMPH % 21 % (24-48); MEAN CORPUSCULAR HEMOGLOBIN 26 pg (25-35); MEAN CORPUSCULAR HGB CONC 32 g/dL (31-37); MEAN CORPUSCULAR VOLUME 82 fL (79-100); MONO # 0.9 x10^3/uL (0.0-1.1); MONO % 14 % (0-9); NEUT # 3.7 x10^3uL (1.8-7.7); NEUT % 60 % (31-73); PLATELET COUNT 234 x10^3/uL (140-400); RED CELL DISTRIBUTION WIDTH 16.4 % (11.5-14.5); WHITE BLOOD COUNT 6.1 x10^3/uL (4.0-11.0)
[2019-07-28 14:24] LABS: ALBUMIN 4.2 g/dL (3.4-5.0); DIRECT BILIRUBIN 0.2 mg/dL (0.0-0.2); MAGNESIUM 2.2 mg/dL (1.8-2.4); TOTAL BILIRUBIN 0.9 mg/dL (0.2-1.0); TOTAL PROTEIN 7.9 g/dL (6.4-8.2)
--- NOTE | 2019-07-28 14:42 | RAD ---
PORTABLE CHEST 1V Clinical indications: Chest pain. COMPARISON: April 05 2018. Findings: Chronic elevation of the right hemidiaphragm with associated atelectasis is seen which is stable. Small right-sided pleural effusion is now evident with blunting of the right lateral costophrenic angle. There is chronic pleural thickening and scarring of the left lung base. No perihilar pulmonary edema is seen. No pneumothorax is evident. Heart size, pulmonary vasculature, mediastinum and both danyell are stable. Impression: New small right-sided pleural effusion. Electronically signed by: Rick Cabral MD (07/28/2019 2:39 PM) [facility]
--- NOTE | 2019-07-28 15:09 | PHYS DOC ---
Past History Past Medical History: CAD, Cancer, COPD, GERD, High Cholesterol, Hypertension, TIA Additional Past Medical Histor: conversion disorder Past Surgical History: No Surgical History Additional Past Surgical Histo: prostate, bilateral hernias Smoking: Cigarettes, Quit Greater Than 1 Year Alcohol Use: Sober Drug Use: None Adult General Chief Complaint Chief Complaint: NEURO SYMPTOMS/DEFICITS [facility] HPI Patient is a 3-year-old male who presents from home via EMS with report of acute mental status change. EMS reports that call went out his chest pain and well in route, they indicate that patient went unresponsive and came in code stroke. Nolan garcia was transported to CT immediately upon arrival. Upon evaluation of patient, patient size noted to be open and patient looking around but not interacting with staff whatsoever. Upon review of prior notes from recent admission, patient noted to have been diagnosed with conversion disorder. Additional history is unobtainable as patient is not interacting with staff at all.[] Review of Systems Review of Systems Constitutional: No reported fever or chills [] Cardiovascular: No additional information not addressed in HPI [] GI: No reported vomiting or diarrhea [] Neurologic: Positive mental status changes [] Unable to fully assess review of systems as patient is not interacting with staff. Current Medications Current Medications Current Medications Medications (Trade) Dose Ordered Sig/Stan Start Time Stop Time Status Last Admin Dose Admin Sodium Chloride 1,000 ml @ 1,000 mls/hr Q1H 07/28/19 14:08 07/28/19 15:07 07/28/19 14:08 1,000 MLS/HR Allergies Allergies Allergies Coded Allergies Type Severity Reaction Last Updated Verified amlodipine Adverse Reaction Intermediate 04/07/18 Yes Physical Exam Physical Exam Constitutional: Well developed, well nourished, no acute distress, non-toxic appearance. [] HENT: Normocephalic, atraumatic, bilateral external ears normal, oropharynx moist, no oral exudates, nose normal. [] Eyes: PERRLA, EOMI, conjunctiva normal, no discharge. [] Neck: Normal range of motion, no tenderness, supple. [] Cardiovascular: Regular rate and rhythm[] Lungs & Thorax: Bilateral breath sounds clear to auscultation [] Abdomen: Bowel sounds normal, soft, no tenderness. [] Skin: Warm, dry, no erythema, no rash. [] Extremities: No tenderness, no cyanosis, no clubbing, ROM intact, no edema. [] Neurologic: Awake and alert, unable to fully assess neurological status as patient will not follow any commands. [] Current Patient Data Vital Signs Vital Signs Date Time Temp Pulse Resp B/P (MAP) Pulse Ox O2 Delivery O2 Flow Rate FiO2 07/28/19 12:59 97.7 66 22 183/90 (121) 98 Room Air Lab Results Laboratory Tests Test 07/28/19 13:20 White Blood Count 6.1 x10^3/uL (4.0-11.0) Red Blood Count 5.10 x10^6/uL (4.30-5.70) Hemoglobin 13.4 g/dL (13.0-17.5) Hematocrit 42.1 % (39.0-53.0) Mean Corpuscular Volume 82 fL (79-100) Mean Corpuscular Hemoglobin 26 pg (25-35) Mean Corpuscular Hemoglobin Concent 32 g/dL (31-37) Red Cell Distribution Width 16.4 % (11.5-14.5) H Platelet Count 234 x10^3/uL (140-400) Neutrophils (%) (Auto) 60 % (31-73) Lymphocytes (%) (Auto) 21 % (24-48) L Monocytes (%) (Auto) 14 % (0-9) H Eosinophils (%) (Auto) 4 % (0-3) H Basophils (%) (Auto) 1 % (0-3) Neutrophils # (Auto) 3.7 x10^3uL (1.8-7.7) Lymphocytes # (Auto) 1.3 x10^3/uL (1.0-4.8) Monocytes # (Auto) 0.9 x10^3/uL (0.0-1.1) Eosinophils # (Auto) 0.2 x10^3/uL (0.0-0.7) Basophils # (Auto) 0.1 x10^3/uL (0.0-0.2) Sodium Level 145 mmol/L (136-145) Potassium Level 4.0 mmol/L (3.5-5.1) Chloride Level 106 mmol/L (98-107) Carbon Dioxide Level 28 mmol/L (21-32) Anion Gap 11 (6-14) Blood Urea Nitrogen 20 mg/dL (8-26) Creatinine 1.0 mg/dL (0.7-1.3) Estimated GFR (Cockcroft-Gault) 73.0 Glucose Level 89 mg/dL (70-99) Calcium Level 9.4 mg/dL (8.5-10.1) Magnesium Level 2.2 mg/dL (1.8-2.4) Total Bilirubin 0.9 mg/dL (0.2-1.0) Direct Bilirubin 0.2 mg/dL (0.0-0.2) Aspartate Amino Transferase (AST) 57 U/L (15-37) H Alanine Aminotransferase (ALT) 101 U/L (16-63) H Alkaline Phosphatase 70 U/L (46-116) Troponin I Quantitative < 0.017 ng/mL (0-0.055) Total Protein 7.9 g/dL (6.4-8.2) Albumin 4.2 g/dL (3.4-5.0) EKG EKG [] Radiology/Procedures Radiology/Procedures [] Impressions: PROCEDURE: CT CODE STROKE HEAD WO CT CODE STROKE HEAD WO Clinical indications: Unresponsive. Code stroke. COMPARISON: April 07, 2018. Technique: Noncontrast axial cross sectional scanning of the head was performed. PQRS compliance Statement One or more of the following individualized dose reduction techniques were utilized for this study: 1. Automated exposure control 2. Adjustment of the mA and/or kV according to patient size 3. Use of iterative reconstruction technique Findings: No acute intracranial hemorrhage or midline shift or mass-effect or hydrocephalus or extra-axial fluid collection is seen. No new focal hypodense area or sulci effacement is seen to indicate an acute infarct or edema radiographically. No skull fracture or pneumocephalus is seen. No opacification of the mastoid sinuses or the middle ear cavities or the paranasal sinuses is seen. The maxillary sinuses are not completely seen in this study. Impression: No new intracranial abnormality is seen. Course & Med Decision Making Course & Med Decision Making Pertinent Labs and Imaging studies reviewed. (See chart for details) [] Dragon Disclaimer Dragon Disclaimer This electronic medical record was generated, in whole or in part, using a voice recognition dictation system. Departure Departure: Impression: Primary Impression: Chest pain Additional Impressions: Aphasia Conversion disorder Disposition: 09 ADMITTED INPATIENT Admitting Physician: Renan Carson Condition: IMPROVED Referrals: RENAN CARSON MD (PCP) Problem Qualifiers Primary Impression: Chest pain Chest pain type: unspecified Qualified Codes: R07.9 - Chest pain, unspecified FEDERICO SCOTT Jr. DO Jul 28, 2019 15:09
[2019-07-28] MEDS ORDERED: ASPIRIN 81 MG TAB.CHEW PO ONE (16:15)
[2019-07-28] MEDS ORDERED: MORPHINE SULFATE 2 MG/ML DISP.SYRIN. IV ONE (16:15)
--- NOTE | 2019-07-28 16:23 | EKG ---
[address] [address] Test Date: 2019-07-28 Test Time: 13:14:56 Pat Name: KITTY BRENNAN Department: Room: Gender: M Visual Aid Expert: : 1945 Requested By: FEDERICO SCOTT Order Number: [id number] Reading MD: Measurements Intervals [place] Rate: 65 P: 59 [place]: 170 QRS: 47 QRSD: 80 T: 26 QT: 428 QTc: 446 Interpretive Statements SINUS RHYTHM NO SPECIFIC ECG ABNORMALITIES RI6.01 No previous ECG available for comparison
[2019-07-28 17:00] VITALS: BP 178/70
[2019-07-28] MEDS ORDERED: LEVE500T21 PO (18:20)
[2019-07-28] MEDS ORDERED: CARV25TA2 PO (18:20)
[2019-07-28] MEDS ORDERED: FOSI40TA4 PO (18:20)
[2019-07-28] MEDS ORDERED: POTA20TA4 PO (18:20)
[2019-07-28] MEDS ORDERED: FURO-69 PO (18:20)
--- NOTE | 2019-07-28 19:00 | HP ---
ADMIT DATE: 07/28/2019 HISTORY OF PRESENT ILLNESS: This 73-year-old gentleman apparently was having some neurological symptoms and deficits at his house. 911 was called and the patient was brought in through the Emergency Room for an element of possible having a stroke or seizure. The patient in the past and has been evaluated by Neurology as well as Psychiatry and felt the patient may have some type of a conversion syndrome. See notes by Dr. Christiansen and Dr. Jeter pretty much agrees that there is no evidence of any significant deficits noted in terms of substantial neurological problems. PAST MEDICAL HISTORY: As noted a possible conversion syndrome, TPA given in 2017 for possible CVA, TIAs, numbness, coronary artery disease, hypercholesterolemia, diverticulitis, abdominal surgery, GERD. He has had prostate problems. He has recently seen a psychiatrist. His vaccinations for influenza, pneumococcal, and TPD are all up-to-date. FAMILY HISTORY: Father with heart attack. Mother with cancer. ALLERGIES: THE PATIENT HAS AN ADVERSE REACTION TO AMLODIPINE. HOME MEDICATIONS: Include Flomax, Plavix, Lipitor 80, carvedilol 25 b.i.d., lisinopril, aspirin 81, hydrochlorothiazide 12.5, Nexium 40, fish oil. SOCIAL HISTORY: Denies smoking, alcohol or drug use. REVIEW OF SYSTEMS: As noted, the patient notes just generalized weakness, unable to bring his arm down after being unable to move his right hand and distinctly he answer some questions. He seems to be improving there. He denies chest pain, shortness of breath, any abdominal pain, any nausea, vomiting, basically unremarkable there. PHYSICAL EXAMINATION: GENERAL: This is a pleasant white male. VITAL SIGNS: Blood pressure 183/90, respiratory rate 22, pulse 66, afebrile. NEUROLOGIC: The patient is alert and oriented. Speech is fluent, spontaneous, appropriate. The patient does seem to have some deficits, but again, we will leave that to Dr. Jeter if these are significant. HEENT: Otherwise the patient's eyes are PERRL, EOMI. Sclerae clear. Mouth and throat: Normal. NECK: Supple. LUNGS: Diminished, but clear. CARDIOVASCULAR: Regular sinus rhythm. ABDOMEN: Soft, nontender. EXTREMITIES: No clubbing, cyanosis, or edema. NEUROLOGIC: Intact. LABORATORY DATA: Basically unremarkable. Chest x-ray did show pleural effusion. We will go ahead and get a BMP. CBC all within normal limits except there is elevation of liver enzymes. We will go ahead and run some other blood test. IMPRESSION: Change in mental status, possible TIAs, elevated liver enzymes, hypertensive urgency and BPH, make further evaluation on him as indicated. Also, pleural effusion. RENAN CAUSEY MD DR: JOHN/reg JOB#: [id number] / [id number]
[2019-07-28 19:45] VITALS: BP 162/76
[2019-07-28] MEDS: CARVEDILOL 12.5 MG TABLET PO SCH (19:45)
[2019-07-28] MEDS: levETIRAcetam 500 MG TABLET PO SCH (19:45)
[2019-07-28] MEDS: TAMSULOSIN 0.4 MG CAP.ER.24H. PO SCH (20:59)
[2019-07-28] MEDS: ATORVASTATIN CALCIUM 20 MG TABLET PO SCH (20:59)
--- NOTE | 2019-07-28 21:57 | PDOC ---
Exam Note: Manuel Note: Please also refer to the separate dictated note~for this date of service dictated separately.~Patient seen individually. Discussed the patient with Nursing staff reviewed the chart.~Reviewed interim history and current functioning. Reviewed vital signs,~Labs/ Radiology~and current medications noted below. Continue current treatment with the changes noted in the dictated addendum note Assessment: Vital Signs/I&O: Vital Signs Date Time Temp Pulse Resp B/P (MAP) Pulse Ox O2 Delivery O2 Flow Rate FiO2 07/28/19 19:45 Room Air 07/28/19 19:45 59 162/76 07/28/19 19:45 98.3 18 94 Labs: Laboratory Tests Test 07/28/19 13:20 07/28/19 18:35 White Blood Count 6.1 x10^3/uL (4.0-11.0) Red Blood Count 5.10 x10^6/uL (4.30-5.70) Hemoglobin 13.4 g/dL (13.0-17.5) Hematocrit 42.1 % (39.0-53.0) Mean Corpuscular Volume 82 fL (79-100) Mean Corpuscular Hemoglobin 26 pg (25-35) Mean Corpuscular Hemoglobin Concent 32 g/dL (31-37) Red Cell Distribution Width 16.4 % (11.5-14.5) H Platelet Count 234 x10^3/uL (140-400) Neutrophils (%) (Auto) 60 % (31-73) Lymphocytes (%) (Auto) 21 % (24-48) L Monocytes (%) (Auto) 14 % (0-9) H Eosinophils (%) (Auto) 4 % (0-3) H Basophils (%) (Auto) 1 % (0-3) Neutrophils # (Auto) 3.7 x10^3uL (1.8-7.7) Lymphocytes # (Auto) 1.3 x10^3/uL (1.0-4.8) Monocytes # (Auto) 0.9 x10^3/uL (0.0-1.1) Eosinophils # (Auto) 0.2 x10^3/uL (0.0-0.7) Basophils # (Auto) 0.1 x10^3/uL (0.0-0.2) Sodium Level 145 mmol/L (136-145) Potassium Level 4.0 mmol/L (3.5-5.1) Chloride Level 106 mmol/L (98-107) Carbon Dioxide Level 28 mmol/L (21-32) Anion Gap 11 (6-14) Blood Urea Nitrogen 20 mg/dL (8-26) Creatinine 1.0 mg/dL (0.7-1.3) Estimated GFR (Cockcroft-Gault) 73.0 Glucose Level 89 mg/dL (70-99) Calcium Level 9.4 mg/dL (8.5-10.1) Magnesium Level 2.2 mg/dL (1.8-2.4) Total Bilirubin 0.9 mg/dL (0.2-1.0) Direct Bilirubin 0.2 mg/dL (0.0-0.2) Aspartate Amino Transferase (AST) 57 U/L (15-37) H Alanine Aminotransferase (ALT) 101 U/L (16-63) H Alkaline Phosphatase 70 U/L (46-116) Troponin I Quantitative < 0.017 ng/mL (0-0.055) Total Protein 7.9 g/dL (6.4-8.2) Albumin 4.2 g/dL (3.4-5.0) JU-[id number]-Type Natriuretic Peptide 207 pg/mL (0-124) H Current Medications: Meds: Current Medications Medications (Trade) Dose Ordered Sig/Stan Route PRN Reason Start Time Stop Time Status Last Admin Dose Admin Sodium Chloride 1,000 ml @ 1,000 mls/hr Q1H IV 07/28/19 14:08 07/28/19 15:07 DC 07/28/19 14:08 Tamsulosin HCl (Flomax) 0.4 mg HS PO 07/28/19 21:00 07/28/19 20:59 Atorvastatin Calcium (Lipitor) 80 mg QHS PO 07/28/19 21:00 07/28/19 20:59 Carvedilol (Coreg) 25 mg [id number] PO 07/28/19 19:00 07/28/19 19:45 Levetiracetam (Keppra) 500 mg BID94 PO 07/28/19 19:00 07/28/19 19:45 I have reviewed the current psychotropics carefully including drug interactions. Risk benefit ratio favors no change other than as noted in my dictated progress note. Diagnosis: Problems: (1) Adjustment disorder with anxiety (2) Conversion disorder (3) Aphasia (4) Chest pain MARCO HADDAD MD Jul 28, 2019 21:57
[2019-07-28 23:24] VITALS: BP 128/73
[2019-07-29 05:35] VITALS: BP 142/72
[2019-07-29 06:56] LABS: CALCIUM 8.2 mg/dL (8.5-10.1); CREATININE 0.9 mg/dL (0.7-1.3); GFR 82.5
[2019-07-29 07:05] LABS: BASO # 0.1 x10^3/uL (0.0-0.2); BASO % 1 % (0-3); EOS # 0.2 x10^3/uL (0.0-0.7); EOS % 4 % (0-3); HEMOGLOBIN 11.6 g/dL (13.0-17.5); LYMPH % 23 % (24-48); MEAN CORPUSCULAR HEMOGLOBIN 27 pg (25-35); MEAN CORPUSCULAR HGB CONC 32 g/dL (31-37); MEAN CORPUSCULAR VOLUME 82 fL (79-100); MONO # 0.6 x10^3/uL (0.0-1.1); MONO % 14 % (0-9); NEUT # 2.6 x10^3uL (1.8-7.7); NEUT % 58 % (31-73); PLATELET COUNT 202 x10^3/uL (140-400); RED BLOOD COUNT 4.39 x10^6/uL (4.30-5.70); RED CELL DISTRIBUTION WIDTH 16.4 % (11.5-14.5); WHITE BLOOD COUNT 4.5 x10^3/uL (4.0-11.0)
--- NOTE | 2019-07-29 07:29 | RAD ---
EXAM: Abdomen sonogram. HISTORY: Elevated liver function laboratory values. TECHNIQUE: Sonographic imaging of the abdomen was performed. COMPARISON: 12/14/2016. FINDINGS: The liver is normal in size. There is hepatic steatosis. No focal hepatic lesion is seen. The gallbladder is unremarkable. The kidneys are normal in size. There is slight renal cortical lobulation which may be developmental or due to scarring. No convincing solid or cystic renal lesion or hydronephrosis seen. The pancreas, spleen, aorta and inferior vena cava are unremarkable. IMPRESSION: 1. Hepatic steatosis. 2. No acute abdominal finding. Electronically signed by: Dalia Rich MD (07/29/2019 7:26 AM) [id number]
[2019-07-29] MEDS: OMEGA-3 FATTY ACIDS/FISH OIL 1,000 MG CAPSULE. PO SCH (08:17)
[2019-07-29] MEDS: hydroCHLOROthiazide 25 MG TABLET PO SCH (08:17)
[2019-07-29] MEDS: ASPIRIN 81 MG TAB.CHEW PO SCH (08:17)
[2019-07-29] MEDS: PANTOPRAZOLE 40 MG TABLET. PO SCH (08:17)
[2019-07-29] MEDS: CLOPIDOGREL BISULFATE 75 MG TABLET PO SCH (08:17)
[2019-07-29] MEDS: POTASSIUM CHLORIDE 20 MEQ TABLET.ER. PO SCH (08:17)
[2019-07-29] MEDS: levETIRAcetam 500 MG TABLET PO SCH ×2 (08:18→17:11)
[2019-07-29] MEDS: LISINOPRIL 10 MG TABLET PO SCH (08:18)
[2019-07-29] MEDS: CARVEDILOL 12.5 MG TABLET PO SCH ×2 (08:18→17:11)
[2019-07-29] MEDS: FUROSEMIDE 20 MG TABLET PO SCH (08:18)
[2019-07-29 11:08] VITALS: BP 174/68
--- NOTE | 2019-07-29 12:52 | PN ---
DATE: SUBJECTIVE: The patient denies any new medical or neurological complaints; however, he has been talking, conversing and communicating without any problems. The patient stated he is back to his normal baseline. He denies headaches, visual disturbances, nausea, vomiting, chest pain, shortness of breath or palpitation, dysarthria or dysphagia. The patient did not remember me last night when I saw him; however, he remembers me from previous admissions and followup visit in my office. OBJECTIVE: GENERAL: Well-developed, well-nourished male, not in acute distress. VITAL SIGNS: Blood pressure 174/68, respiratory rate 20, pulse is 64 and regular, temperature 97.9, oxygen saturation 92% on room air. HEENT: Normocephalic, atraumatic, otherwise unremarkable. NECK: Supple. Negative for carotid bruit, lymphadenopathy or thyromegaly. LUNGS: Clear to A and P. CARDIOVASCULAR: Regular rate and rhythm, normal S1, S2. There is no S3, S4 or murmur. ABDOMEN: Soft. Bowel sounds positive. EXTREMITIES: Negative for cyanosis, clubbing or edema. NEUROLOGICAL EXAM: Mental Status: The patient is alert and oriented x 2. The speech is fluent. There is no language dysfunction. The patient recalls 1/3 immediately and after 1 and 3 minutes. Judgment and abstract thinking are fair. The patient denies hallucination or delusion. Cranial nerves are intact. No focal motor or sensory deficit. Deep tendon reflexes were symmetric and hypoactive with absent Achilles responses. Gait not tested at this time. DIAGNOSTIC STUDIES: Abdomen ultrasound revealed hepatic steatosis without acute other abnormalities. LABORATORY DATA: CBC revealed white blood cells of 4.5 thousand, hemoglobin 11.6, hematocrit 36, platelet count 202,000. Chemistry revealed sodium of 143, potassium 4, chloride 107, CO2 of 30, BUN 20, creatinine 0.9, glucose 96, calcium 8.2. Ammonia level is 16. Thyroid profile is normal at 1.76. IMPRESSION: 1. Acute mental status changes, possible transient ischemic attack versus conversion reaction. 2. Multiple medical problems including coronary artery disease, hypertension, hyperlipidemia, gastroesophageal reflux disease. 3. Anxiety disorder. 4. Possible early dementia. RECOMMENDATIONS: 1. Continue with current management initiated by Dr. Carson. 2. Physical therapy evaluation. M Ean SOTO MD DR: HAILEY/reg JOB#: [id number] / [id number]
--- NOTE | 2019-07-29 13:14 | CONS ---
DATE OF CONSULTATION: 07/28/2019 NEUROLOGY CONSULTATION REFERRING PHYSICIAN: Dr. Nava. REASON FOR CONSULTATION: Acute mental status changes. HISTORY OF PRESENT ILLNESS: This is a 73-year-old right-handed male who is known to me from previous admissions when he presented with the same chief complaints of sudden onset of difficulty talking. According to his and son, the patient had acute mental status changes today when he was not able to talk or follow commands. EMS was activated. On arrival, they found the patient sitting, but not able to converse; however, his blood pressure was elevated. When they tried to stand him, the patient said some words. The patient did not recall the events. He is not able to tell about any preceding symptoms prior to this spells as chest pain, shortness of breath, palpitations, vertigo or visual disturbances. At the time of this evaluation, the patient stared at me when I asked him questions, but not able to say any words. The has not witnessed any seizure like activities or recent head injuries or falls. Initial nonenhanced head CT scan revealed no acute intracranial abnormalities. The patient did have extensive workup in the past including a carotid Doppler study, which did not show any significant stenosis. PAST MEDICAL HISTORY: Significant for recurrent spells of aphasia usually last hours, history of TIA and possible stroke, coronary artery disease, hyperlipidemia, hypertension, GERD, diverticulitis and enlarged prostate. SOCIAL HISTORY: The patient lives with his at home. There is no history of smoking, alcohol drinking or illicit drug use. FAMILY HISTORY: Positive for coronary artery disease. His father had myocardial infarction and mother had cancer. CURRENT HOME MEDICATIONS: Flomax, Lipitor, Plavix, carvedilol, lisinopril, aspirin, hydrochlorothiazide and Nexium. ALLERGIES: AMLODIPINE. REVIEW OF SYSTEMS: A 10-point review of system was performed and consistent with recurrent spells of difficulty to talk. Otherwise, as mentioned above in history of present illness. PHYSICAL EXAMINATION: GENERAL: Well-developed, well-nourished man, not in acute distress. He weighs 95.2 kilos. VITAL SIGNS: Blood pressure 142/72, respiratory rate 20, pulse is 53, oxygen saturation is 97% on 2 liters by nasal cannula and temperature 97.9. HEENT: Normocephalic, atraumatic, otherwise unremarkable. NECK: Supple. Negative for carotid bruit, lymphadenopathy, JVD or thyromegaly. LUNGS: Clear to A and P. CARDIOVASCULAR: Regular rate and rhythm, normal S1, S2. There is no S3, S4 or murmur. ABDOMEN: Soft. Bowel sounds positive. EXTREMITIES: Negative for cyanosis, clubbing or edema. NEUROLOGICAL EXAM: 1. Mental Status: The patient is awake, but not able to communicate or converse. Further evaluation of his mental status is limited at this time. 2. Cranial Nerves: There is no facial asymmetry, otherwise the evaluation is limited at this time because the patient is not able to converse. 3. Motor Examination: No focal muscle bulk was seen. The tone is normal. The strength is 4/5. 4. Sensory Examination: The patient moves all his upper and lower extremities to noxious stimuli. 5. Deep tendon reflexes were symmetric and hypoactive with absent Achilles responses. Gait not tested. LABORATORY DATA: CBC revealed white blood cells of 6.1 thousand, hemoglobin 13.4, hematocrit 42.1, platelet count 234,000. Chemistry revealed sodium of 145, potassium 4, chloride 106, CO2 of 28, BUN 20, creatinine 1, glucose is 89 and calcium is 9.4. Liver enzymes are elevated with normal alkaline phosphatase and troponin level. BNP is high at 207. Thyroid profile, TSH is normal. DIAGNOSTIC DATA: Head CT scan as mentioned above in history of present illness, otherwise unremarkable. A chest x-ray revealed new small right-sided pleural effusion. IMPRESSION: 1. Sudden onset probably of aphasia, rule out transient ischemic attack versus acute stroke; however, the patient had similar episode in the past and consistent with conversion disorder. 2. Multiple medical problems include hypertension, hyperlipidemia, gastroesophageal reflux disease, benign prostate hypertrophy, possible transient ischemic attack and possible non-convulsive seizure. 3. Dementia to be ruled out. 4. Elevated liver enzymes. RECOMMENDATIONS: 1. Continue with current management. 2. To obtain a carotid Doppler study. 3. Continue with current management initiated by Dr. Nava. M Ean SOTO MD DR: HAILEY/reg JOB#: [id number] / [id number]
[2019-07-29 15:12] VITALS: BP 154/73
[2019-07-29] MEDS: TAMSULOSIN 0.4 MG CAP.ER.24H. PO SCH (20:46)
[2019-07-29] MEDS: ATORVASTATIN CALCIUM 20 MG TABLET PO SCH (20:47)
[2019-07-29 21:02] VITALS: BP 118/70
--- NOTE | 2019-07-29 21:15 | CONS ---
DATE OF CONSULTATION: 07/28/2019 PSYCHIATRIC CONSULTATION This late entry 07/28/2019 covers the elements not covered in my initial note. IDENTIFYING DATA: The patient is a 73-year-old male seen in bed 123, [facility], for a psychiatric consult requested by Dr. Carson on account of possible symptoms of conversion disorder. Reportedly, the patient has been living at home, was having some neurological symptoms and deficits at his house. 911 was called and the patient was brought to the Emergency Room for possible seizure or stroke. In the past, he has been evaluated by Neurology as well, found to have a questionable conversion syndrome, some depressive symptoms, obsessiveness and anxiety. Reportedly, neurological workup had been negative to explain all his symptoms. At one point, the patient had been given TPA in 2017 for possible CVA. CHIEF COMPLAINT: "I am doing better now." HISTORY OF PRESENT ILLNESS: The patient has a history of symptoms of depression, anxiety from a psychiatric standpoint. He has also had frequent neurological symptoms, but nothing specifically has been found to explain this from a neurological standpoint. At my last visit when I saw the patient in the ICU, I had suggested starting Celexa for his mood, anxiety symptoms and the patient was agreeable to starting it since the grandson had been on Celexa and did well on it. Nevertheless, it appears he never got started on it. No clear history of bipolar disorder, suicidal or homicidal ideation. PAST MEDICAL HISTORY: In addition to above positive for coronary artery disease, hyperlipidemia, diverticulitis, abdominal surgery, GERD. He has had prostate problems. FAMILY HISTORY: Father from [place]. Mother with cancer. ALLERGIES: AMLODIPINE. CURRENT MEDICATIONS: Aspirin, Lipitor, carvedilol, Plavix, Lasix, hydrochlorothiazide, Keppra, Flomax, Protonix, and lisinopril. FAMILY HISTORY: Noncontributory for psychiatric problems. SOCIAL HISTORY: No alcohol, drug abuse history. 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 He is a nonsmoker. No alcohol usage. MENTAL STATUS EXAMINATION: The patient was seen individually in the evening of 07/28/2019. He seemed to recognize me from the past. He is oriented to himself and situation. Speech has some latency, coherent. Abstraction fair, computation somewhat impaired, language function intact, attention span short. Mood and affect somewhat dysphoric, anxious, slightly obsessive. He is slightly hard of hearing. I had to talk loudly to communicate with him. IMPRESSION: Depressive disorder, unspecified versus major depressive disorder; anxiety disorder, unspecified, questionable conversion disorder. He has some obsessive compulsive symptoms. Rest as above. PLAN: The patient's psychiatric symptoms do not entirely explain his presentation, but given the repetitive nature of his presentation nothing found organically/neurologically to account for them. Certainly, the psychiatric part takes greater predominance. I still feel he would benefit from an SSRI agent. He was agreeable to Celexa in the past, perhaps this could be started 10 mg a day and later increased. Would again suggest having neurological workup to make sure nothing new has occurred to explain his symptoms. Dr. Carson, thank you for the opportunity to participate in your patient's care. We will follow with you. MAN Sabra HADDAD MD DR: JERSEY/reg JOB#: [id number] / [id number]
--- NOTE | 2019-07-29 21:49 | PDOC ---
Exam Note: Manuel Note: Please also refer to the separate dictated note~for this date of service dictated separately.~Patient seen individually. Discussed the patient with Nursing staff reviewed the chart.~Reviewed interim history and current functioning. Reviewed vital signs,~Labs/ Radiology~and current medications noted below. Continue current treatment with the changes noted in the dictated addendum note Assessment: Vital Signs/I&O: Vital Signs Date Time Temp Pulse Resp B/P (MAP) Pulse Ox O2 Delivery O2 Flow Rate FiO2 07/29/19 21:02 97.4 59 18 118/70 (86) 96 Room Air 07/29/19 05:35 2.0 I & O 07/28/19 07/28/19 07/29/19 15:00 23:00 07:00 Intake Total 1000 ml Output Total 300 ml 200 ml Balance 700 ml -200 ml Labs: Laboratory Tests Test 07/29/19 06:29 07/29/19 11:20 White Blood Count 4.5 x10^3/uL (4.0-11.0) Red Blood Count 4.39 x10^6/uL (4.30-5.70) Hemoglobin 11.6 g/dL (13.0-17.5) L Hematocrit 36.0 % (39.0-53.0) L Mean Corpuscular Volume 82 fL (79-100) Mean Corpuscular Hemoglobin 27 pg (25-35) Mean Corpuscular Hemoglobin Concent 32 g/dL (31-37) Red Cell Distribution Width 16.4 % (11.5-14.5) H Platelet Count 202 x10^3/uL (140-400) Neutrophils (%) (Auto) 58 % (31-73) Lymphocytes (%) (Auto) 23 % (24-48) L Monocytes (%) (Auto) 14 % (0-9) H Eosinophils (%) (Auto) 4 % (0-3) H Basophils (%) (Auto) 1 % (0-3) Neutrophils # (Auto) 2.6 x10^3uL (1.8-7.7) Lymphocytes # (Auto) 1.0 x10^3/uL (1.0-4.8) Monocytes # (Auto) 0.6 x10^3/uL (0.0-1.1) Eosinophils # (Auto) 0.2 x10^3/uL (0.0-0.7) Basophils # (Auto) 0.1 x10^3/uL (0.0-0.2) Sodium Level 143 mmol/L (136-145) Potassium Level 4.0 mmol/L (3.5-5.1) Chloride Level 107 mmol/L (98-107) Carbon Dioxide Level 30 mmol/L (21-32) Anion Gap 6 (6-14) Blood Urea Nitrogen 20 mg/dL (8-26) Creatinine 0.9 mg/dL (0.7-1.3) Estimated GFR (Cockcroft-Gault) 82.5 Glucose Level 96 mg/dL (70-99) Calcium Level 8.2 mg/dL (8.5-10.1) L Gamma Glutamyl Transpeptidase 50 U/L (10-85) Ammonia 16 mcmol/L (11-34) Current Medications: Meds: Current Medications Medications (Trade) Dose Ordered Sig/Stan Route PRN Reason Start Time Stop Time Status Last Admin Dose Admin Aspirin (Children'S Aspirin) 81 mg DAILY PO 07/29/19 09:00 07/29/19 08:17 Clopidogrel Bisulfate (Plavix) 75 mg DAILY PO 07/29/19 09:00 07/29/19 08:17 Furosemide (Lasix) 20 mg DAILY PO 07/29/19 09:00 07/29/19 08:18 Potassium Chloride (Klor-Con) 20 meq DAILY PO 07/29/19 09:00 07/29/19 08:17 Pantoprazole Sodium (Protonix) 40 mg DAILYAC PO 07/29/19 07:30 07/29/19 08:17 Fish Oil (Fish Oil) 1,000 mg DAILY PO 07/29/19 09:00 07/29/19 08:17 Lisinopril (Prinivil) 10 mg DAILY PO 07/29/19 09:00 07/29/19 08:18 Hydrochlorothiazide (Hydrodiuril) 25 mg DAILY PO 07/29/19 09:00 07/29/19 08:17 I have reviewed the current psychotropics carefully including drug interactions. Risk benefit ratio favors no change other than as noted in my dictated progress note. Diagnosis: Problems: (1) Vertigo (2) Adjustment disorder with anxiety (3) Conversion disorder (4) Aphasia (5) Chest pain MARCO HADDAD MD Jul 29, 2019 21:49
[2019-07-30] VITALS (7 sets, daily range): BP systolic 98–176; BP diastolic 44–71
[2019-07-30] MEDS: levETIRAcetam 500 MG TABLET PO SCH ×2 (08:00→16:00)
[2019-07-30] MEDS: CARVEDILOL 12.5 MG TABLET PO SCH ×2 (08:01→16:32)
[2019-07-30] MEDS: PANTOPRAZOLE 40 MG TABLET. PO SCH (08:01)
[2019-07-30] MEDS: POTASSIUM CHLORIDE 20 MEQ TABLET.ER. PO SCH (08:01)
[2019-07-30] MEDS: FUROSEMIDE 20 MG TABLET PO SCH (08:01)
[2019-07-30] MEDS: ASPIRIN 81 MG TAB.CHEW PO SCH (08:01)
[2019-07-30] MEDS: OMEGA-3 FATTY ACIDS/FISH OIL 1,000 MG CAPSULE. PO SCH (08:02)
[2019-07-30] MEDS: LISINOPRIL 10 MG TABLET PO SCH (08:02)
[2019-07-30] MEDS: CLOPIDOGREL BISULFATE 75 MG TABLET PO SCH (08:02)
[2019-07-30] MEDS: hydroCHLOROthiazide 25 MG TABLET PO SCH (08:02)
[2019-07-30] MEDS ORDERED: hydrALAZINE 20 MG/ML VIAL. IV PRN (09:45)
--- NOTE | 2019-07-30 21:17 | PDOC ---
Exam Note: Manuel Note: Please also refer to the separate dictated note~for this date of service dictated separately.~Patient seen individually. Discussed the patient with Nursing staff reviewed the chart.~Reviewed interim history and current functioning. Reviewed vital signs,~Labs/ Radiology~and current medications noted below. Continue current treatment with the changes noted in the dictated addendum note Assessment: Vital Signs/I&O: Vital Signs Date Time Temp Pulse Resp B/P (MAP) Pulse Ox O2 Delivery O2 Flow Rate FiO2 07/30/19 20:06 Nasal Cannula 2.0 07/30/19 19:52 98.0 60 18 115/64 (81) 95 I & O 07/29/19 07/29/19 07/30/19 15:00 23:00 07:00 Intake Total 480 ml 240 ml Output Total 600 ml Balance 480 ml -360 ml Current Medications: Meds: Current Medications Medications (Trade) Dose Ordered Sig/Stan Route PRN Reason Start Time Stop Time Status Last Admin Dose Admin Hydralazine HCl (Apresoline) 10 mg PRN Q4HRS PRN IV ELEVATED BP, SEE COMMENTS 07/30/19 09:45 07/30/19 09:52 I have reviewed the current psychotropics carefully including drug interactions. Risk benefit ratio favors no change other than as noted in my dictated progress note. Diagnosis: Problems: (1) Adjustment disorder with anxiety (2) Vertigo (3) Conversion disorder (4) Aphasia (5) Chest pain MARCO HADDAD MD Jul 30, 2019 21:17
[2019-07-30] MEDS: TAMSULOSIN 0.4 MG CAP.ER.24H. PO SCH (22:00)
[2019-07-30] MEDS: ATORVASTATIN CALCIUM 20 MG TABLET PO SCH (22:00)
[2019-07-31 00:39] VITALS: BP 120/68
--- NOTE | 2019-07-31 01:01 | PN ---
DATE: SUBJECTIVE: A 73-year-old male patient who was doing reasonably well, but had what appeared to be petit mal seizures this morning. The patient was just staring out in space, basically unresponsive overall. The patient, however, eventually came out of the seizure, but only for about 5 minutes or so or whatever the episode was and was basically responsive, although fairly slow. OBJECTIVE: VITAL SIGNS: Blood pressure 115/64, respirations 18, pulse 60, afebrile. GENERAL: The patient is alert and oriented, presently, but at the time he was having these episodes, he was completely unresponsive basically. In any case, the patient was continued to be monitored. LUNGS: Diminished, but clear. CARDIOVASCULAR: Stable. ABDOMEN: Soft, nontender. IMPRESSION AND PLAN: Therefore, what appears to be petit mal seizures and the like and continue to be monitored accordingly. RENAN CAUSEY MD DR: JOHN/reg JOB#: [id number] / [id number]
--- NOTE | 2019-07-31 01:19 | PN ---
DATE: 05/28/2020 PSYCHIATRIC PROGRESS NOTE This late entry 05/28/2020 covers elements not covered in my initial note. SUBJECTIVE: Per nursing report, the patient's somatic symptoms appear to have resolved once again. He remains a little anxious, obsessive. He is hard of hearing, was going for a shower in the evening. REVIEW OF SYSTEMS: No CV, , pulmonary, eye system symptoms on review. MENTAL STATUS EXAM: Reasonably oriented. Speech is per nursing report coherent, abstraction fair, computation reasonable, remains somewhat obsessive, anxious, dysphoric in his mood, which he minimizes. We discussed treatment on Celexa in the past. He never started it and if approved by Dr. Carson, I would suggest this be started at 10 mg a day. No suicidal or homicidal ideation. LABORATORY DATA: Reviewed. IMPRESSION: Unchanged from initial note. PLAN: No change from initial note and start the Celexa as noted. MARCO HADDAD MD DR: JERSEY/reg JOB#: [id number] / [id number]
[2019-07-31 05:55] VITALS: BP 112/66
[2019-07-31] MEDS: PANTOPRAZOLE 40 MG TABLET. PO SCH (08:17)
[2019-07-31] MEDS: CARVEDILOL 12.5 MG TABLET PO SCH (08:18)
[2019-07-31] MEDS: CLOPIDOGREL BISULFATE 75 MG TABLET PO SCH (08:19)
[2019-07-31] MEDS: levETIRAcetam 500 MG TABLET PO SCH (08:19)
[2019-07-31] MEDS: POTASSIUM CHLORIDE 20 MEQ TABLET.ER. PO SCH (08:19)
[2019-07-31] MEDS: FUROSEMIDE 20 MG TABLET PO SCH (08:19)
[2019-07-31] MEDS: ASPIRIN 81 MG TAB.CHEW PO SCH (08:19)
[2019-07-31] MEDS: hydroCHLOROthiazide 25 MG TABLET PO SCH (08:21)
[2019-07-31] MEDS: OMEGA-3 FATTY ACIDS/FISH OIL 1,000 MG CAPSULE. PO SCH (08:21)
[2019-07-31] MEDS: LISINOPRIL 10 MG TABLET PO SCH (08:21)
--- NOTE | 2019-07-31 09:17 | PN ---
DATE: 07/31/2019 SUBJECTIVE: The patient is doing very well. He denies any new medical or neurological complaints. OBJECTIVE: GENERAL: Well-developed, well-nourished male, not in acute distress. VITAL SIGNS: Blood pressure 162/81, respiratory rate 18, pulse is 67, and temperature is 97.7, oxygen saturation is 95% on 2 liters by nasal cannula. HEENT: Normocephalic, atraumatic, otherwise unremarkable. NECK: Supple. Negative for carotid bruit, lymphadenopathy or thyromegaly. LUNGS: Clear to A and P. CARDIOVASCULAR: Regular rate and rhythm, normal S1, S2. There is no S3, S4 or murmur. ABDOMEN: Soft. Bowel sounds positive. EXTREMITIES: Negative for cyanosis, clubbing or edema. NEUROLOGICAL EXAM: Mental status: The patient is alert and oriented x 2. The speech is fluent. There is no language dysfunction. Memory, judgment, and abstracting thinking are fair. The patient denies hallucination or delusion. Cranial nerves are intact. No focal motor or sensory deficit. Deep tendon reflexes were symmetric and active without pathologic responses. Gait: The stance is more steady today. IMPRESSION: 1. Mental status changes, rule out transient ischemic attack versus seizure versus conversion reaction. 2. Multiple medical problems include coronary artery disease, hypertension, hyperlipidemia, anxiety disorders, and dementia. RECOMMENDATIONS: 1. Continue with current management and Physical therapy evaluation. 2. We will arrange for electroencephalogram on an outpatient basis. M Ean SOTO MD DR: HAILEY/reg JOB#: [id number] / [id number]
[2019-07-31 10:17] VITALS: BP 115/67
--- NOTE | 2019-07-31 14:15 | PN ---
DATE: 07/30/2019 SUBJECTIVE: The patient denies any new medical or neurological complaints; however, his stated that he has a short spell lasted 50 minutes, described as a sudden onset of mental status changes, not able to talk, with staring spells. The patient did not recall the event and no convulsions, bowel or bladder incontinence reported. Otherwise, the patient denies headaches, visual disturbances, chest pain, shortness of breath or palpitation. OBJECTIVE: GENERAL: Well-developed, well-nourished male, not in acute distress. VITAL SIGNS: Blood pressure 176/69, respiratory rate 16, pulse is 67, temperature 97.6, oxygen saturation 96% on 2 liters by nasal cannula. HEENT: Normocephalic, atraumatic, otherwise unremarkable. NECK: Supple. Negative for carotid bruit, lymphadenopathy or thyromegaly. LUNGS: Clear to A and P. CARDIOVASCULAR: Regular rate and rhythm, normal S1, S2. There is no S3, S4 or murmur. ABDOMEN: Soft. Bowel sounds positive. EXTREMITIES: Negative for cyanosis, clubbing or edema. NEUROLOGICAL EXAM: The patient is alert and oriented to place and person. He has difficulty remembering the date. Speech is fluent. There is no language dysfunction. Memory, judgment, and abstracting thinking are fair. The patient denies hallucination or delusion. Cranial nerves are intact. No focal motor or sensory deficit. Deep tendon reflexes were symmetric and hypoactive with absent Achilles responses. Gait: The stance is steady. IMPRESSION: 1. Acute mental status changes, possible transient ischemic attack versus conversion reaction versus seizure. 2. Multiple medical problems include coronary artery disease, hypertension, hyperlipidemia, gastroesophageal reflux disease, anxiety disorder and dementia. RECOMMENDATIONS: 1. Continue current management and Physical therapy evaluation. 2. We will arrange for electroencephalogram on an outpatient basis. M Ean SOTO MD DR: HAILEY/reg JOB#: [id number] / [id number]
--- NOTE | 2019-07-31 20:49 | PN ---
DATE: 07/30/2019 PSYCHIATRIC PROGRESS NOTE This late entry 07/30/2019 covers elements not covered in my initial note. SUBJECTIVE: I met with the patient in the evening. Per nursing report, the patient had an episode where he seemed out of contact with reality and with questionable reduction in his consciousness. 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 REVIEW OF SYSTEMS: No CV, , pulmonary, eye system symptoms on review. MENTAL STATUS EXAM: Oriented to himself and situation. Speech is coherent, abstraction fair, computation somewhat impaired, hard of hearing. No suicidal or homicidal ideation. No psychotic symptoms, mood is somewhat anxious. Affect is mood congruent. IMPRESSION: Unchanged from initial note. PLAN: No change from initial note. We have suggested starting Celexa 10 mg a day as an SSRI for his mood and anxiety symptoms. We will defer to Dr. Carson to make a final decision on this. I do not see a need to start an atypical antipsychotic, but that is something that might have to be considered at a later stage depending on how he does. MAN Sabra HADDAD MD DR: JERSEY/reg JOB#: [id number] / [id number]
== END 2019-07-31 11:20 | disposition home or self-care (01) | DRG 69 ==
LOC: ER 12:59 → 1 SOUTH 15:08
PROVIDERS: ADMIT Family Medicine; ATTEND Family Medicine
DX: G45.9 Transient cerebral ischemic attack, unspecified (principal); R47.01 Aphasia; F43.22 Adjustment disorder with anxiety; F44.9 Dissociative and conversion disorder, unspecified; J44.9 Chronic obstructive pulmonary disease, unspecified; K21.9 Gastro-esophageal reflux disease without esophagitis; E78.00 Pure hypercholesterolemia, unspecified; I10 Essential (primary) hypertension; I25.10 Atherosclerotic heart disease of native coronary artery without angina pectoris; N40.0 Benign prostatic hyperplasia without lower urinary tract symptoms; E78.5 Hyperlipidemia, unspecified; F03.90 Unspecified dementia, unspecified severity, without behavioral disturbance, psychotic disturbance, mood disturbance, and anxiety; F32.9 Major depressive disorder, single episode, unspecified; R56.9 Unspecified convulsions; Z86.73 Personal history of transient ischemic attack (TIA), and cerebral infarction without residual deficits; Z87.891 Personal history of nicotine dependence; Z88.8 Allergy status to other drugs, medicaments and biological substances; Z82.49 Family history of ischemic heart disease and other diseases of the circulatory system; Z80.9 Family history of malignant neoplasm, unspecified
CPT/HCPCS: 36415; 70450; 71045; 76700; 80048; 80076; 82140; 82607; 82977; 83735; 83880; 84443; 84484; 85025; 86705; 86709; 86803; 87340; 93005; 96360; 96361; J0360; 99285-25; J7030

== ENCOUNTER 2019-08-03 10:00 | Inpatient (IN) | payer MEDICARE, BC ==
[~2019-08-03] VITALS: Ht 185.4 cm; Wt 95.4 kg
[~2019-08-03 10:00] MED LIST changes: +FOSI40TA4 PO; +FURO-69 PO; +LEVE500T21 PO; +POTA20TA4 PO
[2019-08-03] MEDS ORDERED: IV NORMAL SALINE 1,000ML 1,000 ML IV ONE (10:15)
[2019-08-03 10:38] LABS: BASO # 0.1 x10^3/uL (0.0-0.2); BASO % 1 % (0-3); EOS # 0.2 x10^3/uL (0.0-0.7); EOS % 5 % (0-3); HEMATOCRIT 40.8 % (39.0-53.0); HEMOGLOBIN 13.1 g/dL (13.0-17.5); LYMPH % 18 % (24-48); MEAN CORPUSCULAR HEMOGLOBIN 26 pg (25-35); MEAN CORPUSCULAR HGB CONC 32 g/dL (31-37); MEAN CORPUSCULAR VOLUME 82 fL (79-100); MONO # 0.7 x10^3/uL (0.0-1.1); MONO % 14 % (0-9); NEUT # 3.3 x10^3uL (1.8-7.7); NEUT % 62 % (31-73); PLATELET COUNT 248 x10^3/uL (140-400); RED CELL DISTRIBUTION WIDTH 16.4 % (11.5-14.5); WHITE BLOOD COUNT 5.3 x10^3/uL (4.0-11.0)
[2019-08-03 10:47] LABS: CALCIUM 9.1 mg/dL (8.5-10.1); POTASSIUM 4.3 mmol/L (3.5-5.1)
[2019-08-03 11:04] LABS: ALBUMIN 3.7 g/dL (3.4-5.0); ALBUMIN/GLOBULIN RATIO 1.1 (1.0-1.7); MAGNESIUM 2.3 mg/dL (1.8-2.4); TOTAL BILIRUBIN 0.6 mg/dL (0.2-1.0); TOTAL PROTEIN 7.2 g/dL (6.4-8.2)
--- NOTE | 2019-08-03 11:13 | PHYS DOC ---
Past History Past Medical History: CAD, Cancer, COPD, GERD, High Cholesterol, Hypertension, TIA Additional Past Medical Histor: conversion disorder Past Medical History Limited due to altered mental status Past Surgical History: No Surgical History Additional Past Surgical Histo: prostate, bilateral hernias Past Surgical History Limited due to altered mental status Smoking: Cigarettes, Quit Greater Than 1 Year Alcohol Use: Sober Drug Use: None Social History Limited due to altered mental status Adult General Chief Complaint Chief Complaint: CHEST PAIN HPI HPI Patient is a 73-year-old male who presents with shortness of breath, chest pain, difficulty speaking. History provided by and grandson as patient is not able to speak. They say that the chest pain and shortness of breath started around 9:30 AM. Patient was able to say that his symptoms slightly improved upon arrival to the ED. Patient was just discharged from the hospital on Tuesday, he was admitted for similar complaint of shortness of breath and difficulty speaking. When he was discharged his speech had improved slightly. says that since discharge his difficulty speaking has slowly returned and has been at its worst this morning. also reports that he has had increased weakness today. He was not able to stand from his chair without help. He has had multiple similar episodes in the past with difficulty speaking. These started about 2 years ago. He has seen a neurologist for EEG and says that "neurologist said that this has shown slow brain activity, with no other abnormal findings". says that he has no history of stroke or seizures, although he is on Keppra. History of present illness limited due to altered mental status. Review of Systems Review of Systems Review of systems unable to be obtained due to patient's altered mental status Current Medications Current Medications Current Medications Medications (Trade) Dose Ordered Sig/Stan Start Time Stop Time Status Last Admin Dose Admin Lorazepam (Ativan Inj) 1 mg 1X ONCE 08/03/19 10:45 08/03/19 10:46 DC Sodium Chloride 1,000 ml @ 1,000 mls/hr 1X ONCE 08/03/19 10:15 08/03/19 11:14 08/03/19 10:15 1,000 MLS/HR Allergies Allergies Allergies Coded Allergies Type Severity Reaction Last Updated Verified amlodipine Adverse Reaction Intermediate 04/07/18 Yes Physical Exam Physical Exam Constitutional: Well developed, well nourished, no acute distress, non-toxic appearance HENT: Normocephalic, atraumatic, oropharynx moist Eyes: PERRL, patient would not follow commands so eye movements unable to be evaluated, conjunctiva normal, no discharge Neck: Normal range of motion, supple Cardiovascular: Bradycardic, regular rhythm Lungs & Thorax: Bilateral breath sounds clear to auscultation, no wheezing Abdomen: Soft, no tenderness Skin: Warm, dry, no erythema, no rash Extremities: No tenderness, ROM intact, no edema, distal pulses intact Neurologic: normal motor function, no focal deficits noted; GCS 13 (Eyes:4, Verbal:4, Motor:5) Psychologic: Uncooperative Current Patient Data Vital Signs Vital Signs Date Time Temp Pulse Resp B/P (MAP) Pulse Ox O2 Delivery O2 Flow Rate FiO2 08/03/19 10:26 97.8 52 18 149/69 (95) 98 Room Air Lab Results Laboratory Tests Test 08/03/19 10:18 White Blood Count 5.3 x10^3/uL (4.0-11.0) Red Blood Count 5.00 x10^6/uL (4.30-5.70) Hemoglobin 13.1 g/dL (13.0-17.5) Hematocrit 40.8 % (39.0-53.0) Mean Corpuscular Volume 82 fL (79-100) Mean Corpuscular Hemoglobin 26 pg (25-35) Mean Corpuscular Hemoglobin Concent 32 g/dL (31-37) Red Cell Distribution Width 16.4 % (11.5-14.5) H Platelet Count 248 x10^3/uL (140-400) Neutrophils (%) (Auto) 62 % (31-73) Lymphocytes (%) (Auto) 18 % (24-48) L Monocytes (%) (Auto) 14 % (0-9) H Eosinophils (%) (Auto) 5 % (0-3) H Basophils (%) (Auto) 1 % (0-3) Neutrophils # (Auto) 3.3 x10^3uL (1.8-7.7) Lymphocytes # (Auto) 1.0 x10^3/uL (1.0-4.8) Monocytes # (Auto) 0.7 x10^3/uL (0.0-1.1) Eosinophils # (Auto) 0.2 x10^3/uL (0.0-0.7) Basophils # (Auto) 0.1 x10^3/uL (0.0-0.2) Prothrombin Time 10.1 SEC (9.4-11.4) Prothrombin Time INR 1.0 (0.9-1.1) Activated Partial Thromboplast Time 25 SEC (23-33) Sodium Level 142 mmol/L (136-145) Potassium Level 4.3 mmol/L (3.5-5.1) Chloride Level 105 mmol/L (98-107) Carbon Dioxide Level 29 mmol/L (21-32) Anion Gap 8 (6-14) Blood Urea Nitrogen 21 mg/dL (8-26) Creatinine 1.0 mg/dL (0.7-1.3) Estimated GFR (Cockcroft-Gault) 73.0 BUN/Creatinine Ratio 21 (6-20) H Glucose Level 104 mg/dL (70-99) H Lactic Acid Level 1.1 mmol/L (0.4-2.0) Calcium Level 9.1 mg/dL (8.5-10.1) Magnesium Level Pending Total Bilirubin Pending Aspartate Amino Transferase (AST) Pending Alanine Aminotransferase (ALT) Pending Alkaline Phosphatase Pending Ammonia < 10 mcmol/L (11-34) L Creatine Kinase Pending Creatine Kinase MB (Mass) Pending Creatine Kinase MB Relative Index Pending Troponin I Quantitative 0.018 ng/mL (0-0.055) MH-Zrg-W-Type Natriuretic Peptide Pending Total Protein Pending Albumin Pending Albumin/Globulin Ratio Pending Lipase Pending Ethyl Alcohol Level < 10 mg/dL (0-10) EKG EKG @1011 EKG showed sinus bradycardia with heart rate of [address] segment changes noted. Baseline artifact. Radiology/Procedures Radiology/Procedures PROCEDURE: PORTABLE CHEST 1V PORTABLE CHEST 1V History: Chest pain Comparison: July 28, 2019 Findings: Small left pleural effusion. Patchy left basilar opacity. No pneumothorax. Normal heart size. Bibasilar linear atelectasis. Impression: 1. Small left pleural effusion with adjacent opacity, likely atelectasis. Electronically signed by: Regulo Alfaro DO (08/03/2019 11:20 AM) [id number] CT HEAD WO CONTRAST CT HEAD WO CONTRAST History: Altered mental status Comparison: July 28, 2019 Technique: Noncontrast CT imaging was performed of the head. Exposure: One or more of the following individualized dose reduction techniques were utilized for this examination: 1. Automated exposure control 2. Adjustment of the mA and/or kV according to patient size 3. Use of iterative reconstruction technique. Findings: No intracranial hemorrhage. No mass effect. No hydrocephalus. Mild brain parenchymal volume loss, unchanged. Inferior basal ganglia hypodensity, likely prominent perivascular space, unchanged. Imaged orbits are unremarkable. Right maxillary sinus mucous retention cysts, unchanged. Mastoid air cells are clear. No acute calvarial fracture. Impression: 1. No acute intracranial abnormality. Electronically signed by: Regulo Alfaro DO (08/03/2019 11:17 AM) [id number] Course & Med Decision Making Course & Med Decision Making Pertinent Labs and Imaging studies reviewed. (See chart for details) Patient is a 73-year-old male who presented to the ED with complaints of shortness of breath, chest pain, weakness, difficulty speaking. GCS of 13. NIHSS 4. Head CT was performed and showed no acute intracranial findings. Chest x-ray performed and showed small left pleural effusion with adjacent opacity that is likely atelectasis. EKG performed and showed sinus bradycardia with heart rate of 53 bpm and no acute ST segment changes. Urinalysis was negative for nitrites and leukocyte esterase. Patient noted to have history of conversion disorder with multiple similar episodes in the past year and a half. Patient requiring admission for further evaluation and treatment. Discussed with Dr. Carson (PCP) who is in agreement with admission. Dr. Carosn requests consults placed to Neurology (Habib) and Psych (Kuldip). Discussed findings and plan with patient and family, who acknowledge understanding and agreement. Dragon Disclaimer Dragon Disclaimer This electronic medical record was generated, in whole or in part, using a voice recognition dictation system. Departure Departure: Impression: Primary Impression: Altered mental status Additional Impression: Expressive aphasia Disposition: 09 ADMITTED INPATIENT Admitting Physician: Renan Carson Condition: STABLE Referrals: RENAN CARSON MD (PCP) NIHSS - ED NIH Stroke Scale: NIH Stroke Scale Response (Comments) Value Level of Consciousness: 1 Not alert/arousable 1 LOC Questions: 0 Answers both correctly 0 LOC Commands: 0 Performs both tasks 0 Best Gaze: 0 Normal 0 Visual: 0 No visual loss 0 Facial Palsy: 0 Normal, symmetrical 0 Motor - Left Arm 0 No drift 0 Motor - Right Arm 0 No drift 0 Motor - Left Leg 0 No drift 0 Motor: Right Leg 0 No drift 0 Limb Ataxia: 0 Absent 0 Sensory: 0 No loss 0 Best Language: 2 Severe aphasia 2 Dysathria: 1 Mild to moderate 1 Extinction and Inattention: 0 Normal 0 Total 4 Problem Qualifiers Primary Impression: Altered mental status Altered mental status type: unspecified Qualified Codes: R41.82 - Altered mental status, unspecified TYE WANG DO Aug 03, 2019 11:13
--- NOTE | 2019-08-03 11:20 | RAD ---
CT HEAD WO CONTRAST History: Altered mental status Comparison: July 28, 2019 Technique: Noncontrast CT imaging was performed of the head. Exposure: One or more of the following individualized dose reduction techniques were utilized for this examination: 1. Automated exposure control 2. Adjustment of the mA and/or kV according to patient size 3. Use of iterative reconstruction technique. Findings: No intracranial hemorrhage. No mass effect. No hydrocephalus. Mild brain parenchymal volume loss, unchanged. Inferior basal ganglia hypodensity, likely prominent perivascular space, unchanged. Imaged orbits are unremarkable. Right maxillary sinus mucous retention cysts, unchanged. Mastoid air cells are clear. No acute calvarial fracture. Impression: 1. No acute intracranial abnormality. Electronically signed by: Regulo Alfaro DO (08/03/2019 11:17 AM) [id number]
--- NOTE | 2019-08-03 11:23 | RAD ---
PORTABLE CHEST 1V History: Chest pain Comparison: July 28, 2019 Findings: Small left pleural effusion. Patchy left basilar opacity. No pneumothorax. Normal heart size. Bibasilar linear atelectasis. Impression: 1. Small left pleural effusion with adjacent opacity, likely atelectasis. Electronically signed by: Regulo Alfaro DO (08/03/2019 11:20 AM) [id number]
[2019-08-03] MEDS ORDERED: ONDANSETRON PF 4 MG/2 ML VIAL. IV PRN (12:30)
--- NOTE | 2019-08-03 12:33 | EKG ---
[address] [address] Test Date: 2019-08-03 Test Time: 10:11:43 Pat Name: KITTY BRENNAN Department: Room: Gender: M Mold Preparer: : 1945 Requested By: TYE WANG Order Number: [id number] Reading MD: Measurements Intervals [place] Rate: 53 P: CO: QRS: -2 QRSD: 90 T: 38 QT: 444 QTc: 419 Interpretive Statements IRREGULAR RHYTHM, NO P-WAVE FOUND LEFTWARD AXIS OTHERWISE NORMAL ECG RI6.01 No previous ECG available for comparison
[2019-08-03 12:40] LABS: BARBITURATES NEG (NEG); BENZODIAZEPINES NEG (NEG); CANNABINOIDS NEG (NEG); COCAINE NEG (NEG); METHADONE NEG (NEG); OPIATES NEG (NEG); PHENCYCLIDINE NEG (NEG)
[2019-08-03 12:41] LABS: AMPHETAMINE/METHAMPHETAMINE NEG (NEG)
[2019-08-03 12:50] LABS: CLARITY,URINE CLEAR; COLOR,URINE YELLOW
[2019-08-03 12:51] LABS: BACTERIA,URINE 0 /HPF (0-FEW); BILIRUBIN,URINE NEG (NEG); GLUCOSE,URINE NEG (NEG); NITRITE,URINE NEG (NEG); RBC,URINE OCC /HPF (0-2); SQUAMOUS EPITHELIAL CELL,UR FEW /LPF; UROBILINOGEN,URINE 0.2 mg/dL (0.2 mg/dL); WBC,URINE OCC /HPF (0-4)
[2019-08-03 13:32] VITALS: BP 154/76
[2019-08-03] MEDS ORDERED: DONE5TAB7 PO (14:56)
[2019-08-03] MEDS ORDERED: DICL100G18 TP (14:56)
[2019-08-03] MEDS: IV NORMAL SALINE 1,000ML 1,000 ML IV SCH (15:03)
[2019-08-03] MEDS ORDERED: ALPRAZolam 0.25 MG TABLET PO ONE (19:45)
[2019-08-03 20:45] VITALS: BP 166/73
[2019-08-03] MEDS ORDERED: ZOLPIDEM 5 MG TABLET. PO PRN (21:15)
--- NOTE | 2019-08-03 21:15 | PDOC ---
Exam Note: Manuel Note: Please also refer to the separate dictated note~for this date of service dictated separately.~Patient seen individually. Discussed the patient with Nursing staff reviewed the chart.~Reviewed interim history and current functioning. Reviewed vital signs,~Labs/ Radiology~and current medications noted below. Continue current treatment with the changes noted in the dictated addendum note Assessment: Vital Signs/I&O: Vital Signs Date Time Temp Pulse Resp B/P (MAP) Pulse Ox O2 Delivery O2 Flow Rate FiO2 08/03/19 20:45 97.9 60 20 166/73 (104) 96 Room Air Labs: Laboratory Tests Test 08/03/19 10:18 08/03/19 12:11 08/03/19 15:30 08/03/19 18:30 White Blood Count 5.3 x10^3/uL (4.0-11.0) Red Blood Count 5.00 x10^6/uL (4.30-5.70) Hemoglobin 13.1 g/dL (13.0-17.5) Hematocrit 40.8 % (39.0-53.0) Mean Corpuscular Volume 82 fL (79-100) Mean Corpuscular Hemoglobin 26 pg (25-35) Mean Corpuscular Hemoglobin Concent 32 g/dL (31-37) Red Cell Distribution Width 16.4 % (11.5-14.5) H Platelet Count 248 x10^3/uL (140-400) Neutrophils (%) (Auto) 62 % (31-73) Lymphocytes (%) (Auto) 18 % (24-48) L Monocytes (%) (Auto) 14 % (0-9) H Eosinophils (%) (Auto) 5 % (0-3) H Basophils (%) (Auto) 1 % (0-3) Neutrophils # (Auto) 3.3 x10^3uL (1.8-7.7) Lymphocytes # (Auto) 1.0 x10^3/uL (1.0-4.8) Monocytes # (Auto) 0.7 x10^3/uL (0.0-1.1) Eosinophils # (Auto) 0.2 x10^3/uL (0.0-0.7) Basophils # (Auto) 0.1 x10^3/uL (0.0-0.2) Prothrombin Time 10.1 SEC (9.4-11.4) Prothrombin Time INR 1.0 (0.9-1.1) Activated Partial Thromboplast Time 25 SEC (23-33) Sodium Level 142 mmol/L (136-145) Potassium Level 4.3 mmol/L (3.5-5.1) Chloride Level 105 mmol/L (98-107) Carbon Dioxide Level 29 mmol/L (21-32) Anion Gap 8 (6-14) Blood Urea Nitrogen 21 mg/dL (8-26) Creatinine 1.0 mg/dL (0.7-1.3) Estimated GFR (Cockcroft-Gault) 73.0 BUN/Creatinine Ratio 21 (6-20) H Glucose Level 104 mg/dL (70-99) H Lactic Acid Level 1.1 mmol/L (0.4-2.0) Calcium Level 9.1 mg/dL (8.5-10.1) Magnesium Level 2.3 mg/dL (1.8-2.4) Total Bilirubin 0.6 mg/dL (0.2-1.0) Aspartate Amino Transferase (AST) 62 U/L (15-37) H Alanine Aminotransferase (ALT) 108 U/L (16-63) H Alkaline Phosphatase 67 U/L (46-116) Ammonia < 10 mcmol/L (11-34) L Creatine Kinase 52 U/L (39-308) Creatine Kinase MB (Mass) 0.6 ng/mL (0.0-3.6) Creatine Kinase MB Relative Index 1.2 % (0-4) Troponin I Quantitative 0.018 ng/mL (0-0.055) < 0.017 ng/mL (0-0.055) 0.019 ng/mL (0-0.055) ZA-Otm-U-Type Natriuretic Peptide 89 pg/mL (0-124) Total Protein 7.2 g/dL (6.4-8.2) Albumin 3.7 g/dL (3.4-5.0) Albumin/Globulin Ratio 1.1 (1.0-1.7) Lipase 201 U/L (73-393) Ethyl Alcohol Level < 10 mg/dL (0-10) Urine Collection Type Unknown Urine Color Yellow Urine Clarity Clear Urine pH 5.0 Urine Specific [place] 1.010 Urine Protein Neg (NEG-TRACE) Urine Glucose (UA) Neg mg/dL (NEG) Urine Ketones (Stick) Neg mg/dL (NEG) Urine Blood Neg (NEG) Urine Nitrite Neg (NEG) Urine Bilirubin Neg (NEG) Urine Urobilinogen Dipstick 0.2 mg/dL (0.2 mg/dL) Urine Leukocyte Esterase Neg (NEG) Urine RBC Occ /HPF (0-2) Urine WBC Occ /HPF (0-4) Urine Squamous Epithelial Cells Few /LPF Urine Bacteria 0 /HPF (0-FEW) Urine Opiates Screen Neg (NEG) Urine Methadone Screen Neg (NEG) Urine Barbiturates Neg (NEG) Urine Phencyclidine Screen Neg (NEG) Urine Amphetamine/Methamphetamine Neg (NEG) Urine Benzodiazepines Screen Neg (NEG) Urine Cocaine Screen Neg (NEG) Urine Cannabinoids Screen Neg (NEG) Urine Ethyl Alcohol Neg (NEG) Current Medications: Meds: Current Medications Medications (Trade) Dose Ordered Sig/Stan Route PRN Reason Start Time Stop Time Status Last Admin Dose Admin Sodium Chloride 1,000 ml @ 1,000 mls/hr 1X ONCE IV 08/03/19 10:15 08/03/19 11:14 DC 08/03/19 10:15 Lorazepam (Ativan Inj) 1 mg 1X ONCE IVP 08/03/19 10:45 08/03/19 10:46 DC 08/03/19 10:45 Sodium Chloride 1,000 ml @ 75 mls/hr [id number] IV 08/03/19 14:45 08/03/19 15:03 I have reviewed the current psychotropics carefully including drug interactions. Risk benefit ratio favors no change other than as noted in my dictated progress note. Diagnosis: Problems: (1) Expressive aphasia (2) Adjustment disorder with anxiety (3) Major depressive disorder, recurrent episode (4) Conversion disorder (5) Aphasia (6) Altered mental status MARCO HADDAD MD Aug 03, 2019 21:14
[2019-08-03] MEDS ORDERED: DICLOFENAC SODIUM 1% TOPICAL GEL 100GM TUBE. TP PRN (22:00)
[2019-08-03] MEDS: TAMSULOSIN 0.4 MG CAP.ER.24H. PO SCH (22:00)
[2019-08-03] MEDS: DONEPEZIL HCL 5 MG TABLET. PO SCH (22:17)
[2019-08-03] MEDS: ATORVASTATIN CALCIUM 20 MG TABLET PO SCH (22:17)
[2019-08-03 23:26] VITALS: BP 158/73
[2019-08-04] MEDS: IV NORMAL SALINE 1,000ML 1,000 ML IV SCH (01:31)
[2019-08-04 05:48] VITALS: BP 146/71
[2019-08-04] MEDS: ASPIRIN 81 MG TAB.CHEW PO SCH (09:08)
[2019-08-04] MEDS: FUROSEMIDE 20 MG TABLET PO SCH (09:08)
[2019-08-04] MEDS: POTASSIUM CHLORIDE 20 MEQ TABLET.ER. PO SCH (09:08)
[2019-08-04] MEDS: CLOPIDOGREL BISULFATE 75 MG TABLET PO SCH (09:08)
[2019-08-04] MEDS: OMEGA-3 FATTY ACIDS/FISH OIL 1,000 MG CAPSULE. PO SCH (09:08)
[2019-08-04] MEDS: levETIRAcetam 500 MG TABLET PO SCH ×2 (09:08→16:37)
[2019-08-04] MEDS: CARVEDILOL 12.5 MG TABLET PO SCH ×3 (09:08→17:00)
[2019-08-04] MEDS: hydroCHLOROthiazide 25 MG TABLET PO SCH (09:09)
[2019-08-04] MEDS: PANTOPRAZOLE 40 MG TABLET. PO SCH (09:09)
[2019-08-04] MEDS: ALPRAZolam 0.25 MG TABLET PO SCH ×2 (09:09→16:37)
[2019-08-04] MEDS: CITALOPRAM 10 MG TABLET. PO SCH (09:09)
[2019-08-04] MEDS: LISINOPRIL 10 MG TABLET PO SCH (09:09)
--- NOTE | 2019-08-04 10:39 | RAD ---
Carotid artery duplex Doppler ultrasound HISTORY: Expressive aphasia. No other clinical history provided. Stenosis calculations for CT, MR, and conventional angiography are based upon measurements of the distal ICA diameter in accordance with the NASCET methodology. Stenosis calculations for carotid ultrasound studies are derived from validated velocity criteria which are known to correlate with the NASCET methodology. FINDINGS: Right carotid artery demonstrates mild intimal thickening, no severe stenosis by color Doppler sonography. Normal carotid waveforms. Internal carotid artery peak systolic velocity at the upper neck is 131 cm/s, end-diastolic velocity 29 cm/s, although visibly there is no high-grade stenosis at this region is somewhat obscured by shadowing and may be indicative of tortuosity of the vessel. ICA/CC velocity ratio is 1.4. Right vertebral artery antegrade blood flow. Left carotid artery demonstrates intimal thickening, no significant stenosis by color Doppler sonography. Normal carotid waveforms. Internal carotid artery peak systolic velocity 78 cm/s, end-diastolic velocity 20 cm/s. ICA/CC velocity ratio is 0.7. Left vertebral artery antegrade blood flow. IMPRESSION: 1. Mild subintimal soft plaque of the right internal carotid artery, at the upper neck there is a mild elevated peak systolic velocity of 131 cm/s without visible significant stenosis on color Doppler sonography, this could be due to vessel tortuosity, versus mild/moderate stenosis of 50-69 percent based on velocity measurements. 2. Mild subintimal soft plaque of the left internal carotid artery without significant stenosis by Doppler sonography. 3. Bilateral vertebral artery antegrade blood flow. Electronically signed by: Mak Rowe MD (08/04/2019 10:36 AM) [id number]
[2019-08-04 10:54] VITALS: BP 144/70
[2019-08-04 15:08] VITALS: BP 118/64
--- NOTE | 2019-08-04 15:28 | PN ---
DATE: SUBJECTIVE: The patient denies any new medical or neurological complaints. The patient states that his speech is better and he is more active. The patient was seen by speech therapist this morning and he passed dysphagia test at bedside. He denies any chest pain, shortness of breath or palpitation, dysarthria or dysphagia. A carotid Doppler study revealed evidence of moderate stenosis on the right side, estimated 50-69 and no significant stenosis on the left side. PHYSICAL EXAMINATION: GENERAL: Well-developed, well-nourished male, not in any acute distress. VITAL SIGNS: Blood pressure 166/73, respiratory rate 20, pulse is 60 and regular, temperature 97.9, oxygen saturation 96% on room air. HEENT: Normocephalic, atraumatic, otherwise unremarkable. NECK: Supple. Negative for carotid bruit, lymphadenopathy or thyromegaly. LUNGS: Clear to A and P. CARDIOVASCULAR: Regular rate and rhythm, normal S1, S2. ABDOMEN: Soft. Bowel sounds positive. EXTREMITIES: Negative for cyanosis, clubbing or edema. NEUROLOGICAL EXAM: Mental Status: The patient is alert and oriented x 3. Speech is fluent. There is no language dysfunction. Memory, Judgment and Abstract Thinking: The patient recalls 2/3 immediately and after 1 and 3 minutes. Judgment and abstract thinking are fair. The patient denies hallucination or delusion. Cranial nerves are intact. No focal motor deficit. The strength is 4/5 throughout. Sensory examination revealed normal pinprick and light touch senses throughout. Deep tendon reflexes were symmetric and hypoactive with absent responses. Gait: The stance is steady, but using a walker. IMPRESSION: 1. Recurrent episode of difficulty of aphasia and difficulty to speak, etiology uncertain, rule out underlying anxiety, depression and conversion reaction. 2. Multiple medical problems include coronary artery disease, hypertension, hyperlipidemia, chronic obstructive pulmonary disease. RECOMMENDATIONS: 1. Continue with current management initiated by Dr. Carson. 2. Physical therapy evaluation. M Ean SOTO MD DR: HAILEY/reg JOB#: [id number] / [id number]
--- NOTE | 2019-08-04 18:51 | HP ---
ADMIT DATE: HISTORY OF PRESENT ILLNESS: A 73-year-old male, the patient came back in through the Emergency Room, apparently having chest pain. The patient also was noted to have difficulty speaking, history was provided by and grandson, although this morning, the patient is feeling somewhat better, able to talk a little bit better. Dr. Christiansen and Dr. Jeter have reviewed the patient, made timely suggestions. He was admitted for shortness of breath and difficulty in speaking. The patient noted that he had been improved by the time he was discharged at last admission, but began to have some chest discomfort and difficulty in speaking became increasingly worse. He has had multiple episodes with difficulty in speaking. He has been on neurological EEG. A swallowing study was to be performed as well. In any case, the patient was admitted to the hospital for further evaluation and treatment thereof. The patient has dysphagia, cerebrovascular accident, TIA, numbness, valvular heart disease, hypercholesterolemia, atherosclerosis, pneumonia, sleep apnea, diverticulitis, hiatal hernia, abdominal surgery, double hernia repair, prostate problems, prostate problems, prostatectomy in 2018, psychiatric problem in the past with conversion disorder, seen by Psychiatry, anxiety, history of smoking, stopped smoking in 1997, history of cancer, influenza, pneumococcal vaccinations up-to-date. ALLERGIES: AMLODIPINE (NORVASC). FAMILY HISTORY: Father had heart disease. Mother had a form of cancer. SOCIAL HISTORY: The patient is a full code, presently denies smoking, alcohol or drug use. Lives at home with his . MEDICATIONS: The patient's reconciliation of medications was undertaken as noted in the chart including donepezil 5, Flomax 0.4, Plavix 75, Lipitor 80, carvedilol 25, lisinopril 40, aspirin, Lamictal 500 b.i.d., potassium chloride, furosemide 20. REVIEW OF SYSTEMS: Outside of difficulty in talking, presently he had some intermittent chest pain when he was at home, but denied any melena, hematochezia, hematemesis and neurologically baseline for him with some difficulty in his enunciation of words. PHYSICAL EXAMINATION: GENERAL: This is a pleasant white male, in moderate amount of distress. VITAL SIGNS: Blood pressure 140/70, respiratory rate 18, pulse 60, afebrile. HEENT: The patient's head was atraumatic, normocephalic. Eyes: PERRLA without jaundice. The mouth and throat were normal. NECK: Supple. LUNGS: Diminished. He was somewhat clammy. CARDIOVASCULAR: Regular sinus rhythm, S1, S2, without murmur, rub, thrill, or extra heart sounds. ABDOMEN: Soft, nontender. EXTREMITIES: No clubbing, cyanosis, nor edema. NEUROLOGIC: The patient was baseline, although he does have difficulty with speech and has some aphasia noted, otherwise his content of speech was basically good, his judgment and abstract thinking was good. He was colouring very exquisitely without any complication. He revealed normal sensory and DTRs were normal. IMPRESSION: Recurrent episodes of aphasia, etiology uncertain. Medical problems include coronary artery disease, hypertension, hyperlipidemia, atherosclerosis, chronic obstructive pulmonary disease. PLAN: The patient to continue with PT and OT, swallowing study to be performed. The patient is as well being seen by Dr. Jeter and Dr. Christiansen, Psychiatry. RENAN CAUSEY MD DR: JOHN/reg JOB#: [id number] / [id number]
[2019-08-04 20:02] VITALS: BP 159/68
[2019-08-04] MEDS: DONEPEZIL HCL 5 MG TABLET. PO SCH (20:56)
[2019-08-04] MEDS: TAMSULOSIN 0.4 MG CAP.ER.24H. PO SCH (20:56)
[2019-08-04] MEDS: ATORVASTATIN CALCIUM 20 MG TABLET PO SCH (20:57)
--- NOTE | 2019-08-04 21:10 | CONS ---
DATE OF CONSULTATION: 08/03/2019 PSYCHIATRIC CONSULTATION This late entry 08/03/2019 covers elements not covered in my initial note. I met with the patient evening of 08/03/2019 and met with the patient's 2 daughters and and grandson. Discussed with nursing staff, reviewed past psychiatric records as well. IDENTIFYING DATA: The patient is a 73-year-old male who is readmitted per Dr. Carson after he presented with chest pain, shortness of breath, difficulty speaking. He has been here with similar symptoms several times in the past, nothing neurologically has been found to explain his symptoms and medically nothing again to explain his symptoms. It was felt that some of his symptoms may be partly a conversion disorder with heightened anxiety. Recent stressor has been the fall that his had and patient states this was quite overwhelming for him. CHIEF COMPLAINT: "This has happened again. He is now starting to talk a little." This is according to the and the family. As I met with the patient today, he was gradually a little more verbal, but having difficulty with word finding. HISTORY OF PRESENT ILLNESS: The patient has been living at home with his and once again presents with neurological symptoms and other symptoms for which no clear medical cause was determined. He has been worked up for a seizure and CVA in the past and the workup was negative per Neurology. He does admit to being depressed, anxious and more overwhelmed due to the fall his had in the office when she was visiting her primary care physician. He has had some sleep and appetite changes. No suicidal or homicidal ideation. No clear symptoms of bipolar disorder. Once he is over these spells, then he appears much more coherent, able to communicate appropriately. PAST PSYCHIATRIC HISTORY: As above. MEDICAL HISTORY: In addition to above, coronary artery disease, hyperlipidemia, diverticulitis, abdominal surgery, GERD, prostate problems. FAMILY HISTORY: Father from ID. Mother with cancer. ALLERGIES: AMLODIPINE. CURRENT PSYCHOTROPICS: Negative. During his last admission, I had suggested starting Celexa. Since this was the only SSRI, they were agreeable to as the grandson has been taking it and does well on it. However, it never got started. SOCIAL HISTORY: No alcohol, drug abuse. 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 Again, he is a nonsmoker. No alcohol usage. MENTAL STATUS EXAMINATION: The patient was seen individually evening of 08/03/2019 and met with the family as well at length. Speech: He has some word finding problems, often responses monosyllabic. Abstraction fair, computation impaired, language function intact, attention span short. Mood and affect remains somewhat anxious, labile. LABORATORY DATA: Reviewed. IMPRESSION: Major depressive disorder, questionable conversion disorder; anxiety disorder, unspecified; some symptoms of obsessive compulsive disorder. PLAN: From a psychiatric standpoint, we will go ahead and start Celexa 10 mg a day if okay with Dr. Carson and Xanax 0.25 mg at 9 a.m. and 5 p.m. to help his anxiety/symptoms to the extent they are part of the conversion symptoms. We will defer medical and neurological workup to Dr. Carson and Dr. Jeter. Dr. Carson, thank you for the opportunity to participate in your patient's care. We will follow with you. MAN Sabra HADDAD MD DR: JERSEY/reg JOB#: [id number] / [id number]
--- NOTE | 2019-08-04 21:20 | PDOC ---
Exam Note: Manuel Note: Please also refer to the separate dictated note~for this date of service dictated separately.~Patient seen individually. Discussed the patient with Nursing staff reviewed the chart.~Reviewed interim history and current functioning. Reviewed vital signs,~Labs/ Radiology~and current medications noted below. Continue current treatment with the changes noted in the dictated addendum note Assessment: Vital Signs/I&O: Vital Signs Date Time Temp Pulse Resp B/P (MAP) Pulse Ox O2 Delivery O2 Flow Rate FiO2 08/04/19 20:02 97.5 56 18 159/68 (98) 95 Room Air 08/04/19 05:48 1.0 I & O 08/03/19 08/03/19 08/04/19 15:00 23:00 07:00 Intake Total 1000 ml 240 ml 1000 ml Output Total 650 ml Balance 1000 ml -410 ml 1000 ml Current Medications: Meds: Current Medications Medications (Trade) Dose Ordered Sig/Stan Route PRN Reason Start Time Stop Time Status Last Admin Dose Admin Alprazolam (Xanax) 0.25 mg [id number] PO 08/04/19 09:00 08/04/19 16:37 Citalopram Hydrobromide (CeleXA) 10 mg DAILY PO 08/04/19 09:00 08/04/19 09:09 Aspirin (Children'S Aspirin) 81 mg DAILY PO 08/04/19 09:00 08/04/19 09:08 Clopidogrel Bisulfate (Plavix) 75 mg DAILY PO 08/04/19 09:00 08/04/19 09:08 Donepezil HCl (Aricept) 5 mg HS PO 08/03/19 22:00 08/04/19 20:56 Furosemide (Lasix) 20 mg DAILY PO 08/04/19 09:00 08/04/19 09:08 Potassium Chloride (Klor-Con) 20 meq DAILY PO 08/04/19 09:00 08/04/19 09:08 Tamsulosin HCl (Flomax) 0.4 mg HS PO 08/03/19 22:00 08/04/19 20:56 Carvedilol (Coreg) 25 mg BIDWMEALS PO 08/04/19 08:00 08/04/19 09:08 Pantoprazole Sodium (Protonix) 40 mg DAILYAC PO 08/04/19 07:30 08/04/19 09:09 Fish Oil (Fish Oil) 1,000 mg DAILY PO 08/04/19 09:00 08/04/19 09:08 Lisinopril (Prinivil) 10 mg DAILY PO 08/04/19 09:00 08/04/19 09:09 Hydrochlorothiazide (Hydrodiuril) 25 mg DAILY PO 08/04/19 09:00 08/04/19 09:09 Levetiracetam (Keppra) 500 mg BID94 PO 08/04/19 09:00 08/04/19 16:37 I have reviewed the current psychotropics carefully including drug interactions. Risk benefit ratio favors no change other than as noted in my dictated progress note. Diagnosis: Problems: (1) Expressive aphasia (2) Adjustment disorder with anxiety (3) Major depressive disorder, recurrent episode (4) Conversion disorder (5) Aphasia (6) Altered mental status MARCO HADDAD MD Aug 04, 2019 21:20
[2019-08-04 23:31] VITALS: BP 130/59
[2019-08-05 07:35] VITALS: BP 167/69
[2019-08-05] MEDS: LISINOPRIL 10 MG TABLET PO SCH (08:16)
[2019-08-05] MEDS: CARVEDILOL 12.5 MG TABLET PO SCH ×2 (08:16→17:00)
[2019-08-05] MEDS: PANTOPRAZOLE 40 MG TABLET. PO SCH (08:17)
[2019-08-05] MEDS: levETIRAcetam 500 MG TABLET PO SCH ×2 (08:17→17:02)
[2019-08-05] MEDS: ASPIRIN 81 MG TAB.CHEW PO SCH (08:17)
[2019-08-05] MEDS: ALPRAZolam 0.25 MG TABLET PO SCH ×2 (08:17→17:03)
[2019-08-05] MEDS: POTASSIUM CHLORIDE 20 MEQ TABLET.ER. PO SCH (08:17)
[2019-08-05] MEDS: hydroCHLOROthiazide 25 MG TABLET PO SCH (08:17)
[2019-08-05] MEDS: OMEGA-3 FATTY ACIDS/FISH OIL 1,000 MG CAPSULE. PO SCH (08:17)
[2019-08-05] MEDS: CITALOPRAM 10 MG TABLET. PO SCH (08:17)
[2019-08-05] MEDS: FUROSEMIDE 20 MG TABLET PO SCH (08:17)
[2019-08-05] MEDS: CLOPIDOGREL BISULFATE 75 MG TABLET PO SCH (08:17)
[2019-08-05 10:47] VITALS: BP 94/57
--- NOTE | 2019-08-05 12:34 | PN ---
DATE: SUBJECTIVE: A 73-year-old male in what appeared to be a TIA, strokes, difficulty with aphasia and forming his words. The patient seems to be making fairly good progress. The patient does have some plaque buildup in his carotids, but not anything significant. He is on 80 mg of Lipitor that should stabilize that plaque. OBJECTIVE: VITAL SIGNS: The patient's blood pressure varies anywhere from 160/70 to 95/60, respiratory rate 18, pulse 60, afebrile. HEENT: The patient's head was atraumatic, normocephalic. Eyes: PERRLA without jaundice. The mouth and throat were normal. NECK: Supple, without JVD or thyromegaly. LUNGS: Diminished, but clear. CARDIOVASCULAR: Stable. ABDOMEN: Soft, nontender. The patient seems to be enunciating his words better this morning and making good progress and that we are still waiting for speech therapy to evaluate him for any possibility of aspiration. Otherwise, the patient continues to make good progress. He will continue with PT, OT, in mobilizing and making sure that he has the ability to mobilize safely what he has discharge. IMPRESSION: Labile hypertension, aphasia, apraxia, transient ischemic attack like symptoms. Possible coronary artery disease, hypertension, hyperlipidemia and atherosclerosis. RENAN CAUSEY MD DR: JOHN/reg JOB#: [id number] / [id number]
[2019-08-05 14:52] VITALS: BP 145/65
--- NOTE | 2019-08-05 18:53 | CONS ---
DATE OF CONSULTATION: 08/03/2019 NEUROLOGY CONSULTATION REFERRING PHYSICIAN: Dr. Carson. REASON FOR CONSULTATION: Mental status changes, difficulty to speak. HISTORY OF PRESENT ILLNESS: This is a 73-year-old right-handed male who was admitted this morning through Emergency Room after he presented with recurrent spells of difficulty speaking, finding words with chest pain and shortness of breath. According to the patient, the symptom started this morning. EMS was activated and transferred the patient to Emergency Room for further evaluation. The patient was found to have some difficulty with speech, but the family stated he is doing better than earlier this morning. Initial nonenhanced head CT scan revealed no evidence of acute intracranial process. The patient was just discharged last week from this hospital when he presented with similar complaints of difficulty speaking and generalized malaise and weakness. He denies headaches, visual disturbances, nausea, vomiting, chest pain, shortness of breath or palpitation. He denies any recent head injuries or fall. The patient was evaluated in my office on Tuesday last week and had EEG, which revealed evidence of mild diffuse cerebral dysfunction without acute seizure activities. PAST MEDICAL HISTORY: Significant for recurrent spells of difficulty speaking. The patient had similar episode off and on for the last 2 years and ____ required several admissions. Carotid Doppler study performed in 2018 revealed no evidence of significant stenosis. The patient has history of seizure disorder of unknown etiology, possible TIA, coronary artery disease, hypertension, hyperlipidemia, GERD, diverticulitis and enlarged prostate. FAMILY HISTORY: Father had coronary artery disease and myocardial infarction and mother had cancer. SOCIAL HISTORY: The patient is . He lives with his at home. He denies smoking, alcohol drinking, or illicit drug use. CURRENT MEDICATIONS: Aspirin 81 mg daily, Plavix 75 mg daily, Lipitor 80 mg daily, carvedilol 25 mg twice daily, diclofenac 100 mg application, donepezil 5 mg nightly, Nexium 40 mg daily, fish oil, fosinopril 40 mg daily, furosemide 20 mg daily, hydrochlorothiazide 25 mg daily, levetiracetam generic of Keppra 500 mg b.i.d., potassium 20 mEq daily and tamsulosin 0.4 mg daily. ALLERGIES: AMLODIPINE. REVIEW OF SYSTEMS: 10-point review of system was performed as mentioned above in history of present illness. PHYSICAL EXAMINATION: GENERAL: Well-developed, well-nourished male, not in acute distress. He weighs 93.7 kilos. VITAL SIGNS: Blood pressure 154/76, respiratory rate 20, pulse is 52, temperature 97.8, oxygen saturation 98% on room air. HEENT: Normocephalic, atraumatic, otherwise unremarkable. NECK: Supple. Negative for carotid bruit, lymphadenopathy, JVD or thyromegaly. LUNGS: Clear to A and P. CARDIOVASCULAR: Regular rate and rhythm, normal S1, S2. There is no S3, S4 or murmurs. ABDOMEN: Soft. Bowel sounds positive. EXTREMITIES: Negative for cyanosis, clubbing or edema. NEUROLOGICAL EXAM: Mental Status: The patient is alert and oriented x 3. Speech: Some slurred and sometimes difficult to initiate the speech. His comprehension is normal. Repetition is abnormal with decreased fluency. The patient denies hallucination or delusion. Cranial nerves: Visual mccracken are full. The pupils are reactive to light and accommodation. Extraocular movements are intact. There is no nystagmus. There is no facial motor or sensory deficit. Hearing is slightly diminished bilaterally. The palate is elevated symmetrically. Sternocleidomastoid muscles are powerful bilaterally. The patient shrugs his shoulders symmetrically and protrudes his tongue in the midline without fasciculation or atrophy. Motor: No focal muscle bulk was seen. The tone is normal. The strength is 4/5 throughout. Sensory examination revealed normal pinprick and light touch senses throughout. Deep tendon reflexes were asymmetric and hypoactive with absent Achilles responses. Gait: The patient needed a walker for ambulation. DIAGNOSTIC DATA: Initial nonenhanced head CT scan revealed no evidence of acute intracranial process. Chest x-ray revealed no acute changes and it shows old small left pleural effusion with atelectasis. LABORATORY DATA: CBC revealed white blood cells of 5.3 thousand, hemoglobin 13.1, hematocrit 40.8, platelet count 248,000. Chemistry: Sodium 142, potassium 4.3, chloride 105, CO2 of 29, BUN 21, creatinine 1, glucose 104, calcium is 9.1, magnesium 2.3. Liver enzymes elevated. Ammonia level is less than 10. Troponin level is 0.019. CRP is high at 5 ____ is normal at 89. Lipid profile: Triglyceride is 125, cholesterol ____ and LDL is 65, HDL is 41, normal TSH, vitamin B12 at 435. Urinalysis, no evidence of urinary tract infection. Urine drug screen is negative. IMPRESSION: 1. Recurrent episodes of difficulty speaking, etiology uncertain, rule out TIA versus nonorganic versus underlying psychiatric disorders including depression, anxiety, and possible conversion reaction. 2. Multiple medical problems include hypertension, hyperlipidemia, coronary artery disease, history of seizure disorder, and chronic obstructive pulmonary disease. RECOMMENDATIONS: 1. We will check carotid Doppler study. 2. Speech therapy evaluation. 3. Continue with current management initiated by Dr. Carson. 4. Physical therapy. 5. Psychiatric consult for possible underlying depressions and anxiety. M Ean SOTO MD DR: HAILEY/reg JOB#: [id number] / [id number]
[2019-08-05 19:30] VITALS: BP 157/54
--- NOTE | 2019-08-05 20:53 | PN ---
DATE: SUBJECTIVE: The patient denies any new medical or neurological complaints. He eats and drinks fine. He walked with physical therapy today using a walker. He denies any recurrent spells of slurred speech or seizure-like activities. OBJECTIVE: GENERAL: Well-developed, well-nourished male, not in acute distress. VITAL SIGNS: Blood pressure 94/57, respiratory rate 18, pulse is 52, temperature 97.4, oxygen saturation 96% on room air. HEENT: Normocephalic, atraumatic, otherwise unremarkable. NECK: Supple. Negative for carotid bruit, lymphadenopathy or thyromegaly. LUNGS: Clear to A and P. CARDIOVASCULAR: Regular rate and rhythm, normal S1, S2. ABDOMEN: Soft. Bowel sounds positive. EXTREMITIES: Negative for cyanosis, clubbing or edema. NEUROLOGICAL EXAM: Mental Status: The patient is alert and oriented x 3. Speech is fluent. There is no language dysfunction. Memory, judgment, and abstract thinking are fair. The patient denies hallucination or delusion. Cranial nerves are intact. No focal motor or sensory deficits. Deep tendon reflexes were symmetric and hypoactive with absent Achilles responses. Gait: The stance is steady, using a walker for ambulation. IMPRESSION: 1. Recurrent episode of aphasia and dysphagia - resolved, probably due to underlying anxiety, depressions or conversion reaction. 2. Multiple medical problems include coronary artery disease, hypertension, hyperlipidemia, chronic obstructive pulmonary disease. RECOMMENDATIONS: 1. Continue with current management initiated by Dr. Carson. 2. Physical therapy as tolerated. The patient is neurologically stable. M Ean SOTO MD DR: HAILEY/reg JOB#: [id number] / [id number]
[2019-08-05] MEDS: ATORVASTATIN CALCIUM 20 MG TABLET PO SCH (21:03)
[2019-08-05] MEDS: DONEPEZIL HCL 5 MG TABLET. PO SCH (21:03)
[2019-08-05] MEDS: TAMSULOSIN 0.4 MG CAP.ER.24H. PO SCH (21:04)
--- NOTE | 2019-08-05 21:20 | PDOC ---
Exam Note: Manuel Note: Please also refer to the separate dictated note~for this date of service dictated separately.~Patient seen individually. Discussed the patient with Nursing staff reviewed the chart.~Reviewed interim history and current functioning. Reviewed vital signs,~Labs/ Radiology~and current medications noted below. Continue current treatment with the changes noted in the dictated addendum note Assessment: Vital Signs/I&O: Vital Signs Date Time Temp Pulse Resp B/P (MAP) Pulse Ox O2 Delivery O2 Flow Rate FiO2 08/05/19 19:30 97.6 55 20 157/54 (88) 95 Room Air 08/04/19 05:48 1.0 I & O 08/04/19 08/04/19 08/05/19 15:00 23:00 07:00 Intake Total 480 ml 780 ml 0 ml Output Total 700 ml 300 ml 0 ml Balance -220 ml 480 ml 0 ml Current Medications: I have reviewed the current psychotropics carefully including drug interactions. Risk benefit ratio favors no change other than as noted in my dictated progress note. Diagnosis: Problems: (1) Expressive aphasia (2) Adjustment disorder with anxiety (3) Major depressive disorder, recurrent episode (4) Conversion disorder (5) Altered mental status MARCO HADDAD MD Aug 05, 2019 21:20
--- NOTE | 2019-08-05 23:22 | PN ---
DATE: 08/04/2019 PSYCHIATRIC PROGRESS NOTE This late entry 08/04/2019 covers elements not covered in my initial note. SUBJECTIVE: I met with the patient in the evening at some length. Per nursing report, the patient has been ambulating a little better, though he does not motivate himself to ambulate or do other activities as much as the nursing staff feels he can. Speech is somewhat better, but still states he has word finding problems. REVIEW OF SYSTEMS: Additionally, complains of some tiredness. No CV, , pulmonary, eye system symptoms on review. MENTAL STATUS EXAM: Oriented reasonably. Speech as above. Abstraction fair, computation impaired, language function intact. Mood and affect somewhat withdrawn. LABORATORY DATA: Reviewed. IMPRESSION: Unchanged from initial note. PLAN: No change from initial note. We may need to increase Xanax to 0.25 mg t.i.d., will give it another day on b.i.d. and then decide. Maintain Celexa 10 mg a day. MAN Sabra HADDAD MD DR: JERSEY/reg JOB#: [id number] / [id number]
[2019-08-05 23:38] VITALS: BP 138/74
[2019-08-06 06:32] VITALS: BP 148/79
[2019-08-06] MEDS: CARVEDILOL 12.5 MG TABLET PO SCH (08:00)
[2019-08-06 08:27] VITALS: BP 148/79
[2019-08-06] MEDS: CLOPIDOGREL BISULFATE 75 MG TABLET PO SCH (08:27)
[2019-08-06] MEDS: LISINOPRIL 10 MG TABLET PO SCH (08:27)
[2019-08-06] MEDS: ALPRAZolam 0.25 MG TABLET PO SCH (08:27)
[2019-08-06] MEDS: ASPIRIN 81 MG TAB.CHEW PO SCH (08:27)
[2019-08-06] MEDS: POTASSIUM CHLORIDE 20 MEQ TABLET.ER. PO SCH (08:27)
[2019-08-06] MEDS: FUROSEMIDE 20 MG TABLET PO SCH (08:28)
[2019-08-06] MEDS: CITALOPRAM 10 MG TABLET. PO SCH (08:28)
[2019-08-06] MEDS: PANTOPRAZOLE 40 MG TABLET. PO SCH (08:28)
[2019-08-06] MEDS: levETIRAcetam 500 MG TABLET PO SCH (08:28)
[2019-08-06] MEDS: hydroCHLOROthiazide 25 MG TABLET PO SCH (08:28)
[2019-08-06] MEDS: OMEGA-3 FATTY ACIDS/FISH OIL 1,000 MG CAPSULE. PO SCH (08:28)
--- NOTE | 2019-08-06 09:51 | PN ---
DATE: 08/05/2019 PSYCHIATRIC PROGRESS NOTE This late entry 08/05/2019 covers elements not covered in my initial note. SUBJECTIVE: I met with the patient evening of 08/05/2019. The patient has been doing better per nursing staff. He has been participating with physical therapy a little more verbal, less anxious, tolerating Xanax 0.25 mg twice a day and Celexa 10 mg a day. REVIEW OF SYSTEMS: Positive for some tiredness. No CV, , pulmonary, eye, ENT system symptoms on review. MENTAL STATUS EXAM: Reasonably oriented. Speech is coherent, clearer than before. Abstraction fair, computation impaired, language function intact. Mood and affect is improved. LABORATORY DATA: Reviewed. IMPRESSION: Unchanged from initial note. PLAN: No change from initial note. Maintain Celexa and Xanax for now, may need to increase Xanax in due course for anxiety. He would benefit from outpatient psychotherapy post-discharge. MARCO HADDAD MD DR: JERSEY/reg JOB#: [id number] / [id number]
--- NOTE | 2019-08-06 10:00 | PN ---
DATE: SUBJECTIVE: The patient denies any new medical or neurological complaints. He eats and drinks and walks with a walker well. OBJECTIVE: GENERAL: Well-developed, well-nourished male, not in acute distress. VITAL SIGNS: Blood pressure 148/79, respiratory rate 18, pulse is 56, oxygen saturation is 97% on 1 liter by nasal cannula. HEENT: Normocephalic, atraumatic, otherwise unremarkable. NECK: Supple. Negative for carotid bruit, lymphadenopathy or thyromegaly. LUNGS: Clear to A and P. CARDIOVASCULAR: Regular rhythm, normal S1, S2. There is no S3, S4 or murmur. ABDOMEN: Soft. Bowel sounds positive. EXTREMITIES: Negative for cyanosis, clubbing or edema. NEUROLOGICAL EXAM: Mental Status: The patient is alert and oriented x 2. The speech is fluent. There is no language dysfunction. Memory, judgment, and abstracting thinking are fair. The patient denies hallucination or delusion. Cranial nerves are intact. No focal motor or sensory deficit. Deep tendon reflexes were symmetric and hypoactive with absent Achilles responses. Gait: The stance is steady. The patient uses a walker for ambulation. IMPRESSION: 1. Recurrent episode of aphasia and dysphagia -- resolved, probably due to underlying anxiety, depression and conversion reaction. Speech therapy at bedside to check on dysphagia. The patient had no difficulty swallowing to liquid or solid food. 2. Multiple medical problems include coronary artery disease, hypertension, hyperlipidemia, chronic obstructive pulmonary disease. RECOMMENDATIONS: Continue with current management and care. The patient is neurologically stable. Physical therapy as tolerated. M Ean SOTO MD DR: HAILEY/reg JOB#: [id number] / [id number]
[2019-08-06] MEDS ORDERED: ALPR0.254 PO (10:03)
[2019-08-06] MEDS ORDERED: CITA10TA8 PO (10:03)
== END 2019-08-06 10:44 | disposition home or self-care (01) | DRG 392 ==
LOC: ER 10:00 → 1 SOUTH 13:15
PROVIDERS: ADMIT Family Medicine; ATTEND Family Medicine
DX: K21.9 Gastro-esophageal reflux disease without esophagitis (principal); F33.9 Major depressive disorder, recurrent, unspecified; R47.01 Aphasia; I25.10 Atherosclerotic heart disease of native coronary artery without angina pectoris; I10 Essential (primary) hypertension; E78.00 Pure hypercholesterolemia, unspecified; F41.9 Anxiety disorder, unspecified; E78.5 Hyperlipidemia, unspecified; J44.9 Chronic obstructive pulmonary disease, unspecified; F44.9 Dissociative and conversion disorder, unspecified; G40.909 Epilepsy, unspecified, not intractable, without status epilepticus; F43.22 Adjustment disorder with anxiety; G47.30 Sleep apnea, unspecified; R13.10 Dysphagia, unspecified; Z90.79 Acquired absence of other genital organ(s); Z87.891 Personal history of nicotine dependence; Z86.73 Personal history of transient ischemic attack (TIA), and cerebral infarction without residual deficits; Z82.49 Family history of ischemic heart disease and other diseases of the circulatory system; Z80.9 Family history of malignant neoplasm, unspecified; Z79.899 Other long term (current) drug therapy; Z88.8 Allergy status to other drugs, medicaments and biological substances
CPT/HCPCS: 36415; 70450; 71045; 80053; 80307; 81001; 82140; 82553; 83605; 83690; 83735; 83880; 84484; 85025; 85610; 85730; 93005; 93880; 96361; 96374; G0480; J2060; 92610; 97116; 97530; 99285-25; J7030

== ENCOUNTER → 2019-09-29 | Outpatient (CLI) | payer BC, MEDICARE ==
[~2019-09-29] MED LIST changes: +ALPR0.254 PO; +CITA10TA8 PO; +DICL100G18 TP; +DONE5TAB7 PO
[2019-09-29 09:44] LABS: CALCIUM 8.7 mg/dL (8.5-10.1); CREATININE 0.9 mg/dL (0.7-1.3); GFR 82.3; MAGNESIUM 1.9 mg/dL (1.8-2.4); POTASSIUM 4.1 mmol/L (3.5-5.1)
[2019-09-29 10:44] LABS: BASO % 1 % (0-3); EOS # 0.3 x10^3/uL (0.0-0.7); EOS % 6 % (0-3); HEMATOCRIT 38.6 % (39.0-53.0); HEMOGLOBIN 12.7 g/dL (13.0-17.5); LYMPH % 20 % (24-48); MEAN CORPUSCULAR HEMOGLOBIN 27 pg (25-35); MEAN CORPUSCULAR HGB CONC 33 g/dL (31-37); MEAN CORPUSCULAR VOLUME 81 fL (79-100); MONO # 0.7 x10^3/uL (0.0-1.1); MONO % 15 % (0-9); NEUT % 59 % (31-73); PLATELET COUNT 219 x10^3/uL (140-400); RED BLOOD COUNT 4.74 x10^6/uL (4.30-5.70); RED CELL DISTRIBUTION WIDTH 16.3 % (11.5-14.5); WHITE BLOOD COUNT 5.1 x10^3/uL (4.0-11.0)
== END | disposition home or self-care (01) ==
LOC: LAB 09:06
PROVIDERS: ATTEND Internal Medicine Cardiovascular Disease
DX: C61 Malignant neoplasm of prostate (principal); I48.19 Other persistent atrial fibrillation
CPT/HCPCS: 36415; 80048; 83735; 84153; 85025; 85610; 85730; G0103

== ENCOUNTER → 2019-09-29 | Outpatient (CLI) | payer BC, MEDICARE | END | disposition home or self-care (01) | LOC: LAB 09:06 | PROVIDERS: ATTEND Urology | DX: C61 Malignant neoplasm of prostate (principal) | CPT/HCPCS: 84153; G0103 ==

== ENCOUNTER 2019-11-04 19:01 | Inpatient (IN) | payer MEDICARE, BC ==
[~2019-11-04] VITALS: Ht 185.4 cm; Wt 92.6 kg
[~2019-11-04 19:01] MED LIST changes: -HYDR12.58 PO
--- NOTE | 2019-11-04 19:13 | PHYS DOC ---
Past History Past Medical History: Anxiety, Arthritis, CAD, Cancer, COPD, Dementia, Depression, GERD, High Cholesterol, Hypertension, TIA Additional Past Medical Histor: conversion disorder Past Surgical History: No Surgical History Additional Past Surgical Histo: prostate, bilateral hernias Smoking: Cigarettes, Quit Greater Than 1 Year Alcohol Use: Sober Drug Use: None General Adult EDM: Chief Complaint: NEURO SYMPTOMS/DEFICITS HPI: HPI: Patient is a 74 year old male who presents with hx of mental status change. P t. reportedly normal this morning, but upon return tonight at 1800 was having problems walking up the stairs and word selection. Pt. has had prior work up for similar episodes with admission 07/28,08/03, 08/04. Pt. has been reportedly compliant with his meds. Patient does have a past medical history of these TIA, conversion syndrome-like presentations. These episodes have been off and on for the last 2 years. Has had several admissions. Prior Doppler study performed in 2018 showed no evidence of significant stenosis. Review of Systems: Review of Systems: Constitutional: Denies fever or chills Eyes: Denies change in visual acuity HENT: Denies nasal congestion or sore throat Respiratory: Denies cough or shortness of breath Cardiovascular: Denies chest pain or edema GI: Denies abdominal pain, nausea, vomiting, bloody stools or diarrhea : Denies dysuria Musculoskeletal: Denies back pain or joint pain Integument: Denies rash Neurologic: Denies headache, focal weakness or sensory changes Endocrine: Denies polyuria or polydipsia Lymphatic: Denies swollen glands Psychiatric: Denies depression or anxiety Heart Score: HEART Score for Chest Pain: HEART Score for Chest Pain Response (Comments) Value History Slighlty/Non-Suspicious 0 ECG Nonspecific Repolarizatio 1 Age > 65 2 Risk Factors 1 or 2 Risk Factors 1 Total 4 Risk Factors: Risk Factors: DM, Current or recent (<one month) smoker, HTN, HLP, family history of CAD, obesity. Risk Scores: Score 0 - 3: 2.5% MACE over next 6 weeks - Discharge Home Score 4 - 6: 20.3% MACE over next 6 weeks - Admit for Clinical Observation Score 7 - 10: 72.7% MACE over next 6 weeks - Early Invasive Strategies Family History: Family History: Noncontributory to presentation. Father had a history of coronary artery disease with OR mother had a history of cancer per old record. Current Medications: Current Meds: See nursing for home meds Allergies: Allergies: Allergies Coded Allergies Type Severity Reaction Last Updated Verified amlodipine Adverse Reaction Intermediate 04/07/18 Yes Physical Exam: PE: Constitutional: , no acute distress, non-toxic appearance. [] HENT: Normocephalic, atraumatic, bilateral external ears normal, oropharynx moist, no oral exudates, nose normal. [] Eyes: PERRLA, EOMI, conjunctiva normal, no discharge. [] Neck: Normal range of motion, no tenderness, supple, no stridor. [] Cardiovascular:Heart rate regular rhythm, no murmur [] Lungs & Thorax: Bilateral breath sounds equal at apex with a few scattered wheezes on o auscultation [] Abdomen: Bowel sounds normal, soft, no tenderness, no masses, no pulsatile masses. [] Skin: Warm, dry, no erythema, no rash. [] Back: No tenderness, no CVA tenderness. [] Extremities: No tenderness, no cyanosis, no clubbing, ROM intact, no edema. Arthritic changes Neurologic: Alert and oriented X 3, difficult with volitional motor function, has distal sensory function, appears to have problems with word selection and speech, however is able to write things down. Appropriate responses to questions. Patient does cross-react. Does move legs when his feet are tickled. NHIS at 17 Psychologic: Affect appears anxious,, judgement unable to determine depth at this time mood seems somewhat depressed EKG: EKG: sinus rhythm at [facility] interpretation of EKG shows shows a bradycardia rhythm at 59 bpm. Left axis. LVH. Slightly prolonged QT interval at 480 ms and a QTc interval is 480 ms. No findings of acute STEMI with contralateral changes. Slight S in 1 and a Q in 3 Radiology/Procedures: Radiology/Procedures: [address] [address] IMAGING REPORT Signed PATIENT: KITTY BRENNAN ACCOUNT: [id number] : 1945 LOCATION: ER AGE: 74 SEX: M EXAM STATUS: REG ER ORD. PHYSICIAN: CHUCHO BLOOD MD REASON: TIA, CVA symptoms PROCEDURE: DOPPLER CAROTID BILAT EXAM: CHEST AP ONLY, DOPPLER CAROTID BILAT INDICATION: Reason: Shortness of air, altered mental status / Spl. Instructions: / History: . TECHNIQUE: Single view COMPARISON: 08/03/2019 chest x-ray FINDINGS: The heart size is normal. The great vessels appear unremarkable. There is no hilar or mediastinal mass. The lungs are clear. No pneumothorax. No pleural effusion. Mild blunting of left costophrenic angle likely represents prominent epicardial fat. There are no significant osseous abnormalities. IMPRESSION: No active cardiopulmonary disease. Exam : Carotid Duplex with Grayscale Ultrasound and Spectral and Color Doppler Analysis: Clinical Indications: TIA, CVA symptoms. PQRS Compliance Statement - Stenosis calculations for CT, MR and conventional angiography are based upon measurement of the distal ICA diameter in accordance with the NASCET methodology. Stenosis calculations for carotid ultrasound studies are derived from validated velocity criteria which are known to correlate with the NASCET methodology. Comparison study: None available. Findings: The common, internal and external carotid arteries were examined by grayscale, color and spectral Doppler ultrasound. There is no evidence of significant atherosclerotic disease or significant stenosis in the visualized vessels. Flow in both vertebral arteries was antegrade and normal. The following are the velocities and ratios in the carotid arteries on both sides: RIGHT ICA PV: 152cm/sec RIGHT CCA PV: 123cm/sec RIGHT ICA ED: 23cm/sec RIGHT IC/CCPV: 1.25 RIGHT VERTEBRAL: antegrade flow RIGHT % STENOSIS: Less than 50 percent LEFT ICA PV: 82cm/sec LEFT CCA PV: 123cm/sec LEFT ICA ED: 11cm/sec LEFT IC/CCPV: 0.7 LEFT VERTEBRAL: antegrade flow LEFT % STENOSIS: Less than 50 percent <50% ICA Stenosis: PSV < 125cm/s (EDV < 40cm/s; SVR < 2.0) 50-69% ICA Stenosis: PSV < 125-229cm/s (EDV 40-99cm/s; SVR 2.0-3.9) >70% ICA Stenosis: PSV > 230cm/s (EDV >100cm/s; SVR >4.0) Impression: No hemodynamically significant stenosis in the carotid arteries. Electronically signed by: Loni Osborn MD (11/04/2019 8:42 PM) [facility] [place] DICTATED AND SIGNED BY: LONI OSBORN MD DATE: 11/04/192041 CC: RENAN CAUSEY MD; CHUCHO BLOOD MD ~ [] IMAGING REPORT Signed PATIENT: KITTY BRENNAN ACCOUNT: [id number] : 1945 LOCATION: ER AGE: 74 SEX: M EXAM STATUS: REG ER ORD. PHYSICIAN: CHUCHO BLOOD MD REASON: Right sided weakness, mental status changes PROCEDURE: CT CODE STROKE HEAD WO EXAM: CT Head without IV contrast INDICATION: Reason: Right sided weakness, mental status changes / Spl. Instructions: / History: TECHNIQUE: Multi-detector row CT images were obtained of the head without the use of IV contrast. All CT scans performed at this facility utilize dose optimization techniques as appropriate to the exam, including the following: Automated exposure control and adjustment of the mA and/or KV according to patient size (this includes techniques or standardized protocols for targeted exams where dose is indication/reason for exam). COMPARISON: None FINDINGS: BRAIN PARENCHYMA: Mild colitis parenchymal volume loss. Subtle 7 mm area of asymmetric low density in the left putamen is noted. No abnormal parenchymal density or mass is otherwise noted.. VENTRICLES & EXTRA-AXIAL SPACES: Ventricles are within normal limits. Basilar cisterns are patent. Low-density prominence of the right greater than left bilateral CSF spaces are noted, measuring 5.5 mm over the right frontal convexity. ORBITS: Orbital contents are unremarkable. SINUSES: Visualized paranasal sinuses and mastoid air cells are clear. OSSEOUS & SOFT TISSUES: Calvarium and skull base are intact. IMPRESSION: 1. No acute intracranial hemorrhage or mass effect. 2. A 7 mm area of low density in the left putamen could represent a chronic lacunar infarct but is age indeterminate. 3. Generalized parenchymal volume loss with prominence of the CSF spaces over the bilateral frontal lobes, best appreciated over the right frontal lobe measuring up to 5.5 mm, likely representing either a subdural hygroma or less likely chronic subdural hematoma. FOR INTERNAL CODING PURPOSES Critical result: Findings discussed with CHUCHO BLOOD at 11/04/2019 7:20 PM. RESULT CODE: (C) Electronically signed by: Loni Osborn MD (11/04/2019 7:23 PM) [facility] [place] Course & Med Decision Making: Course & Med Decision Making Pertinent Labs and Imaging studies reviewed. (See chart for details) Note pt. verbal at time of admission. Patient noted to Dr. Morton/ [facility]. Neuro consult to Dr. Jeter. in am. Discussed presentation, testing and tx. plan with Dr. Morton- area development consultant for Dr. Causey. Impression: 1. TIA/CVA 2. Hx. of SZ disorder - Tonic Clonic and [place] 3. Hx. of Conversion Disorder 4. Hx of Anxiety Disorder 5. Hx. of Depression 6. Hx. of Dementia 7. Hx. COPD and continued Tobacco Use 8. Hx. Elevated Lipids 9. Hx. of Anemia of Unknown etiology 10. Hx. of HTN 11. Hx. CADz 12. Hx. Elevate AST 44/ALT 73 13. Hx DM 14. Elevated Lipase 15. Elevated CRP 11.4 16. Hypokalemia 2.2 [] Cesar Disclaimer: Cesar Disclaimer: This electronic medical record was generated, in whole or in part, using a voice recognition dictation system. Departure Departure: Disposition: 01 HOME/RESIDENCE PRIOR TO ADM Condition: STABLE Referrals: RENAN CAUSEY MD (PCP) Cesar Disclaimer This chart was dictated in whole or in part using Voice Recognition software in a busy, high-work load, and often noisy Emergency Department environment. It may contain unintended and wholly unrecognized errors or omissions. CHUCHO BLOOD MD November 04, 2019 19:13
[2019-11-04] MEDS ORDERED: IV RINGERS SOLUTION,LACTATED 1,000 ML IV SCH (19:15)
--- NOTE | 2019-11-04 19:27 | RAD ---
EXAM: CT Head without IV contrast INDICATION: Reason: Right sided weakness, mental status changes / Spl. Instructions: / History: TECHNIQUE: Multi-detector row CT images were obtained of the head without the use of IV contrast. All CT scans performed at this facility utilize dose optimization techniques as appropriate to the exam, including the following: Automated exposure control and adjustment of the mA and/or KV according to patient size (this includes techniques or standardized protocols for targeted exams where dose is indication/reason for exam). COMPARISON: None FINDINGS: BRAIN PARENCHYMA: Mild colitis parenchymal volume loss. Subtle 7 mm area of asymmetric low density in the left putamen is noted. No abnormal parenchymal density or mass is otherwise noted.. VENTRICLES & EXTRA-AXIAL SPACES: Ventricles are within normal limits. Basilar cisterns are patent. Low-density prominence of the right greater than left bilateral CSF spaces are noted, measuring 5.5 mm over the right frontal convexity. ORBITS: Orbital contents are unremarkable. SINUSES: Visualized paranasal sinuses and mastoid air cells are clear. OSSEOUS & SOFT TISSUES: Calvarium and skull base are intact. IMPRESSION: 1. No acute intracranial hemorrhage or mass effect. 2. A 7 mm area of low density in the left putamen could represent a chronic lacunar infarct but is age indeterminate. 3. Generalized parenchymal volume loss with prominence of the CSF spaces over the bilateral frontal lobes, best appreciated over the right frontal lobe measuring up to 5.5 mm, likely representing either a subdural hygroma or less likely chronic subdural hematoma. FOR INTERNAL CODING PURPOSES Critical result: Findings discussed with CHUCHO BLOOD at 11/04/2019 7:20 PM. RESULT CODE: (C) Electronically signed by: Roni Osborn MD (11/04/2019 7:23 PM) [facility] [place]
[2019-11-04 19:34] LABS: BASO # 0.1 x10^3/uL (0.0-0.2); BASO % 1 % (0-3); EOS # 0.2 x10^3/uL (0.0-0.7); EOS % 4 % (0-3); HEMATOCRIT 42.7 % (39.0-53.0); HEMOGLOBIN 14.1 g/dL (13.0-17.5); LYMPH # 1.4 x10^3/uL (1.0-4.8); LYMPH % 22 % (24-48); MEAN CORPUSCULAR HEMOGLOBIN 27 pg (25-35); MEAN CORPUSCULAR HGB CONC 33 g/dL (31-37); MEAN CORPUSCULAR VOLUME 81 fL (79-100); MONO # 0.7 x10^3/uL (0.0-1.1); MONO % 11 % (0-9); NEUT # 3.9 x10^3uL (1.8-7.7); NEUT % 62 % (31-73); PLATELET COUNT 240 x10^3/uL (140-400); RED CELL DISTRIBUTION WIDTH 16.1 % (11.5-14.5); WHITE BLOOD COUNT 6.3 x10^3/uL (4.0-11.0)
--- NOTE | 2019-11-04 19:38 | EKG ---
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
[2019-11-04 19:54] LABS: ALBUMIN 3.9 g/dL (3.4-5.0); C REACTIVE PROTEIN 11.4 mg/L (0-3.3); CALCIUM 10.2 mg/dL (8.5-10.1); CREATININE 1.6 mg/dL (0.7-1.3); DIRECT BILIRUBIN 0.2 mg/dL (0.0-0.2); GFR 42.3; MAGNESIUM 2.2 mg/dL (1.8-2.4); TOTAL BILIRUBIN 0.6 mg/dL (0.2-1.0); TOTAL PROTEIN 7.9 g/dL (6.4-8.2)
[2019-11-04 19:56] LABS: POTASSIUM 2.2 mmol/L (3.5-5.1)
--- NOTE | 2019-11-04 20:45 | RAD ---
EXAM: CHEST AP ONLY, DOPPLER CAROTID BILAT INDICATION: Reason: Shortness of air, altered mental status / Spl. Instructions: / History: . TECHNIQUE: Single view COMPARISON: 08/03/2019 chest x-ray FINDINGS: The heart size is normal. The great vessels appear unremarkable. There is no hilar or mediastinal mass. The lungs are clear. No pneumothorax. No pleural effusion. Mild blunting of left costophrenic angle likely represents prominent epicardial fat. There are no significant osseous abnormalities. IMPRESSION: No active cardiopulmonary disease. Exam : Carotid Duplex with Grayscale Ultrasound and Spectral and Color Doppler Analysis: Clinical Indications: TIA, CVA symptoms. PQRS Compliance Statement - Stenosis calculations for CT, MR and conventional angiography are based upon measurement of the distal ICA diameter in accordance with the NASCET methodology. Stenosis calculations for carotid ultrasound studies are derived from validated velocity criteria which are known to correlate with the NASCET methodology. Comparison study: None available. Findings: The common, internal and external carotid arteries were examined by grayscale, color and spectral Doppler ultrasound. There is no evidence of significant atherosclerotic disease or significant stenosis in the visualized vessels. Flow in both vertebral arteries was antegrade and normal. The following are the velocities and ratios in the carotid arteries on both sides: RIGHT ICA PV: 152cm/sec RIGHT CCA PV: 123cm/sec RIGHT ICA ED: 23cm/sec RIGHT IC/CCPV: 1.25 RIGHT VERTEBRAL: antegrade flow RIGHT % STENOSIS: Less than 50 percent LEFT ICA PV: 82cm/sec LEFT CCA PV: 123cm/sec LEFT ICA ED: 11cm/sec LEFT IC/CCPV: 0.7 LEFT VERTEBRAL: antegrade flow LEFT % STENOSIS: Less than 50 percent <50% ICA Stenosis: PSV < 125cm/s (EDV < 40cm/s; SVR < 2.0) 50-69% ICA Stenosis: PSV < 125-229cm/s (EDV 40-99cm/s; SVR 2.0-3.9) >70% ICA Stenosis: PSV > 230cm/s (EDV >100cm/s; SVR >4.0) Impression: No hemodynamically significant stenosis in the carotid arteries. Electronically signed by: Roni Osborn MD (11/04/2019 8:42 PM) [facility] [place]
[2019-11-04] MEDS ORDERED: ONDANSETRON PF 4 MG/2 ML VIAL. IVP PRN (21:30)
[2019-11-04] MEDS ORDERED: LORazepam 1 MG TABLET PO PRN (21:30)
[2019-11-04] MEDS ORDERED: ACETAMINOPHEN 325 MG TABLET PO PRN (21:30)
[2019-11-04] MEDS ORDERED: POTASSIUM CL 40MEQ IN 0.9%NACL 1,000 ML IV ONE (21:45)
[2019-11-04] MEDS ORDERED: levETIRAcetam 500 MG/5 ML VIAL IV ONE (23:19)
[2019-11-04] MEDS ORDERED: IV NORMAL SALINE 100ML 100 ML ONE (23:19)
[2019-11-05 00:02] LABS: BARBITURATES NEG (NEG); BENZODIAZEPINES NEG (NEG); BILIRUBIN,URINE NEG (NEG); CANNABINOIDS NEG (NEG); CLARITY,URINE CLEAR; COCAINE NEG (NEG); COLOR,URINE YELLOW; GLUCOSE,URINE NEG (NEG); METHADONE NEG (NEG); OPIATES NEG (NEG); PHENCYCLIDINE NEG (NEG)
[2019-11-05 00:03] LABS: BACTERIA,URINE FEW /HPF (0-FEW); NITRITE,URINE NEG (NEG); UROBILINOGEN,URINE 0.2 mg/dL (0.2 mg/dL)
[2019-11-05 00:04] LABS: HYALINE CASTS, URINE OCC /HPF; SQUAMOUS EPITHELIAL CELL,UR OCC /LPF
[2019-11-05 00:13] LABS: AMPHETAMINE/METHAMPHETAMINE NEG (NEG)
[2019-11-05 00:18] VITALS: BP 129/69
[2019-11-05] MEDS ORDERED: ALPR0.254 PO (00:35)
[2019-11-05] MEDS ORDERED: POTA10TA5 PO (00:35)
[2019-11-05] MEDS ORDERED: TORS20TA2 PO ×2 (00:35→11:31)
[2019-11-05] MEDS ORDERED: OMEG100021 PO (00:35)
[2019-11-05] MEDS ORDERED: LEVE500T56 PO (00:35)
[2019-11-05] MEDS: IPRATRPIUM/ALBUTEROL 0.5/2.5MG 3 ML NEBU. NEB SCH ×4 (05:21→20:00)
[2019-11-05 05:47] VITALS: BP 113/69
[2019-11-05 06:14] LABS: BASO % 1 % (0-3); EOS # 0.2 x10^3/uL (0.0-0.7); EOS % 4 % (0-3); HEMATOCRIT 36.9 % (39.0-53.0); LYMPH # 1.4 x10^3/uL (1.0-4.8); LYMPH % 25 % (24-48); MEAN CORPUSCULAR HEMOGLOBIN 26 pg (25-35); MEAN CORPUSCULAR HGB CONC 33 g/dL (31-37); MEAN CORPUSCULAR VOLUME 80 fL (79-100); MONO # 0.8 x10^3/uL (0.0-1.1); MONO % 15 % (0-9); NEUT # 3.3 x10^3uL (1.8-7.7); NEUT % 56 % (31-73); PLATELET COUNT 205 x10^3/uL (140-400); RED CELL DISTRIBUTION WIDTH 15.9 % (11.5-14.5); WHITE BLOOD COUNT 5.8 x10^3/uL (4.0-11.0)
[2019-11-05 06:20] LABS: CREATININE 1.3 mg/dL (0.7-1.3); GFR 53.8
[2019-11-05 06:22] LABS: POTASSIUM 2.3 mmol/L (3.5-5.1)
[2019-11-05] MEDS ORDERED: MAGNESIUM SULFATE 1GM 100 ML IV ONE (07:30)
[2019-11-05] MEDS: POTASSIUM CHLORIDE 20 MEQ TABLET.ER. PO SCH ×3 (07:49→17:08)
[2019-11-05] MEDS: CLOPIDOGREL BISULFATE 75 MG TABLET PO SCH (07:50)
[2019-11-05] MEDS ORDERED: ASPIRIN 325 MG TABLET PO SCH (08:00)
[2019-11-05] MEDS ORDERED: CARVEDILOL 12.5 MG TABLET PO SCH (08:00)
--- NOTE | 2019-11-05 09:38 | HP ---
ADMIT DATE: ATTENDING PHYSICIAN: Sia Crowley MD CHIEF COMPLAINT: Confusion. HISTORY OF PRESENT ILLNESS: The patient is a 74-year-old gentleman admitted with mental status changes. He was fairly normal this morning. His stated he was having problems at about suppertime finding word selection. He has had similar episode previous admission in July of this year. He does have a history of TIAs, conversion like presentations and dementia. He has had numerous workups in the past that were unremarkable for any significant ischemia. PAST MEDICAL HISTORY: Obtained from the chart is significant for essential hypertension, seizure disorder, stroke, conversion disorder, anxiety, depression, COPD, anemia, elevation of liver enzymes and generalized debilitation. CURRENT MEDICATIONS: Reviewed. He takes scheduled Keppra 500 mg b.i.d., alprazolam, aspirin, Lipitor, Coreg, Celexa, Plavix, Voltaren, Aricept, Nexium, hydrochlorothiazide, omega-3 fish oil, Keppra, and Flomax. ALLERGIES: He has allergies to AMLODIPINE. Exact cause is unclear. SOCIAL HISTORY: He used to smoke in the past and nondrinker. FAMILY HISTORY: Unobtainable. REVIEW OF SYSTEMS: Unobtainable due to the patient's confusion. PHYSICAL EXAMINATION: GENERAL: When I saw him, this is a pleasant gentleman. INITIAL VITAL SIGNS: Showed a blood pressure 129/69, pulse was 56 and regular. Repeat pulse was down to 46. HEENT: Head is without trauma. Pupils are reactive. Sclerae nonicteric. Oropharynx is clear. NECK: Supple, no bruits identified. LUNGS: Otherwise clear. CARDIOVASCULAR: Showed a bradycardic rhythm. No gallops. Peripheral pulses are palpable and full. ABDOMEN: Soft, scaphoid, nontender, no organomegaly. Bowel sounds are hypoactive. EXTREMITIES: Showed no cyanosis or edema. NEUROLOGIC: Focally intact. Mild confusion. LABORATORY DATA: Hemoglobin is maintained at 14.1 g/dL with white count of 6300. Potassium is diminished at 2.2 mEq, creatinine 1.6. Nonfasting blood sugar 184. Cardiac enzymes negative for myocardial necrosis. ASSESSMENT: 1. A 74-year-old gentleman with dementia. 2. Conversion reaction with neurologic symptoms, back to baseline. 3. Hypokalemia due to diuretics. 4. Essential hypertension. 5. Chronic obstructive pulmonary disease. 6. Depression with anxiety. 7. Aphasia corrected. PLAN: 1. Observation status. 2. I have held his diuretics. 3. Potassium and magnesium replacement. 4. Serial chemistries. 5. Because of his bradycardia, we will cut back his Coreg dose at this time. SIA CROWLEY MD DR: MARK/reg JOB#: [id number] / [id number] RENAN Causey MD
[2019-11-05] MEDS: levETIRAcetam 500 MG TABLET PO SCH ×2 (10:06→20:55)
[2019-11-05] MEDS: ASPIRIN CHEWABLE 81 MG TABLET. PO SCH (10:06)
[2019-11-05] MEDS ORDERED: POTA10TA12 PO (11:31)
[2019-11-05 11:51] VITALS: BP 175/73
[2019-11-05] MEDS ORDERED: HYDR12.58 PO (14:37)
[2019-11-05 15:08] VITALS: BP 151/63
[2019-11-05 19:17] VITALS: BP 154/54
[2019-11-05 23:06] VITALS: BP 158/68
[2019-11-06 05:23] VITALS: BP 129/68
[2019-11-06 05:55] LABS: GFR 72.8
[2019-11-06 05:58] LABS: POTASSIUM 2.9 mmol/L (3.5-5.1)
[2019-11-06] MEDS ORDERED: MAGNESIUM SULFATE 1GM 100 ML IV ONE (06:15)
--- NOTE | 2019-11-06 07:52 | CONS ---
DATE OF CONSULTATION: 11/05/2019 REFERRING PHYSICIAN: Dr. Morton/Dr. Saavedra. REASON FOR CONSULTATION: Mental status changes. HISTORY OF PRESENT ILLNESS: This is a 74-year-old right-handed male, who was admitted through Emergency Room after he presented with acute onset of mental status changes. The patient has been admitted several times to the same institutions and the last admission was in 07/2019 and he presented with the same symptoms as acute onset of mental status changes. The patient had extensive workup in the past through several admissions. He was diagnosed with possible recurrent TIAs versus conversion reaction like symptoms. The extensive workup included numerous head CT scans, carotid Doppler studies, which revealed small vessel ischemic changes and old lacunar infarct along with generalized cerebral atrophy. He was also diagnosed with dementia. In the Emergency Room, the patient was found to be depressed and had difficulty finding words and completing sentences. According to the interviewers, the patient admitted having these symptoms several times in the past, more prominent towards the night when he stopped talking for few minutes, then had difficulty finding some words. The patient recalled the events. Initial nonenhanced CT scan this time revealed no acute intracranial process and findings consistent with old small vessel ischemic changes and multiple lacunar infarcts which have not changed from previous admissions. Currently, the patient denies headaches, visual disturbances, chest pain, shortness of breath or palpitation. He also complained of significant bilateral hearing loss. PAST MEDICAL HISTORY: Significant for several episodes as described above, history of stroke, seizures, hypertension, conversion reactions, depressions, anxiety, COPD, anemia, generalized weakness and bilateral hearing loss. SOCIAL HISTORY: The patient is . He denies smoking, alcohol drinking, or illicit drug use. FAMILY HISTORY: Noncontributory. CURRENT HOME MEDICATIONS: Include Keppra 500 mg twice daily, alprazolam, Plavix 75 mg daily, aspirin 81 mg daily, albuterol inhalers and nebulizer, lorazepam 1 mg q. 12 hours p.r.n. as needed. ALLERGIES: AMLODIPINE. REVIEW OF SYSTEMS: A 10-point review of system was performed as mentioned above in the history of present illness. PHYSICAL EXAMINATION: GENERAL: Well-developed, well-nourished male, not in acute distress. VITAL SIGNS: Blood pressure 113/69, respiratory rate 20, pulse is 46, oxygen saturation is 96% on 2 liters by nasal cannula and temperature 97.6. HEENT: Normocephalic, atraumatic, otherwise unremarkable. NECK: Supple. Negative for carotid bruit, lymphadenopathy or thyromegaly. LUNGS: Clear to A and P. CARDIOVASCULAR: Regular rate and rhythm, normal S1, S2. There is no S3, S4 or murmur. ABDOMEN: Soft. Bowel sounds positive. EXTREMITIES: Negative for cyanosis, clubbing or pitting edema. NEUROLOGICAL EXAMINATION: Mental status: The patient is alert and oriented x 3. The speech is intermittent dysarthric with difficulty finding words and completing sentences. There is no language dysfunction. Memory: The patient recalls 2/3 immediately and after 1 and 3 minutes. Judgment and abstract thinking are fair. The patient denies hallucination or delusion. Cranial nerves: Visual mccracken are full. The pupils are reactive to light and accommodation. The extraocular movements are intact. There is no nystagmus. There is no facial motor or sensory deficit. Hearing is diminished bilaterally. The palate is elevated symmetrically. Sternocleidomastoid muscles are powerful bilaterally. The patient shrugs his shoulders symmetrically, protrudes his tongue in the midline without fasciculation or atrophy. Motor: No focal muscle bulk wasting. The tone is normal. The strength is 5/5 throughout. Sensory: Revealed normal pinprick, light touch, vibratory and position senses. Deep tendon reflexes: Symmetric and hypoactive with absent Achilles responses. Gait: The patient uses a walker for ambulation and sometimes, he walks to his bathroom without assistance. LABORATORY DATA: CBC revealed white cells of 5800, hemoglobin 12, hematocrit 36.9, platelet count 205,000. Chemistry revealed sodium of 146, potassium 2.3, chloride 103, CO2 is 36, BUN 42, creatinine 1.3, glucose 93, calcium 9. Amylase is high at 161. TSH is normal. Urinalysis, trace urinary leukocyte esterase with white blood cells of 5-10 and few bacteria with negative nitrite. Urine drug screen is negative. DIAGNOSTIC DATA: Chest x-ray revealed no evidence of acute cardiopulmonary process and head CT scan revealed no evidence of acute intracranial process, but shows chronic small vessel ischemic changes with multiple lacunar infarcts, unchanged from previous admission, along with generalized atrophy. Carotid Doppler study revealed no evidence of significant carotid artery stenosis. IMPRESSION: 1. Transient ischemic attack-like symptoms versus conversion reaction. 2. Recurrent similar episodes as described above in previous admissions without changes in workup. 3. Multiple medical problems, include dementia, anxiety, depression, hypertension, chronic obstructive pulmonary disease. 4. Dehydration and hypokalemia. 5. Bradycardia. RECOMMENDATIONS: 1. Continue with current management and home medications. 2. Potassium supplement with hydration. 3. Physical therapy evaluation. 4. Treat the underlying bradycardia. M Ean SOTO MD DR: HAILEY/reg JOB#: [id number] / [id number]
--- NOTE | 2019-11-06 09:07 | PN ---
DATE: 11/06/2019 SUBJECTIVE: The patient denies any new medical or neurological complaints; however, he had a short time episode of being confused and not able to communicate yesterday. The episode lasted a few minutes. The patient recalled the events. OBJECTIVE: GENERAL: Well-developed, well-nourished male, not in acute distress. VITAL SIGNS: Blood pressure 129/68, respiratory rate 18, pulse is 58, oxygen saturation is 95% on 2 liters by nasal cannula and temperature 98.2. HEENT: Normocephalic, atraumatic, otherwise unremarkable. NECK: Supple. Negative for carotid bruit, lymphadenopathy or thyromegaly. LUNGS: Clear to A and P. CARDIOVASCULAR: Regular rate and rhythm, normal S1, S2. ABDOMEN: Soft. Bowel sounds positive. EXTREMITIES: Negative for cyanosis, clubbing or edema. NEUROLOGICAL EXAM: Mental Status: The patient is alert and oriented x 3. The speech is more fluent. There is no language dysfunction. The patient recalls 2/3 immediately and 1/3 after 1 and 3 minutes. Judgment and abstracting thinking are fair. The patient denies hallucination or delusion. Cranial nerves are grossly intact. Motor Examination: No focal muscle bulk was seen. The tone is normal. The strength is 5/5 throughout. SENSORY EXAMINATION: Revealed normal pinprick and light touch senses throughout. Deep tendon reflexes were symmetric and hypoactive with absent Achilles responses. Gait: The stance is more steady. LABORATORY DATA: Chemistry revealed sodium of 146, potassium is 2.9, chloride 107, CO2 of 34, BUN 28, creatinine 1, glucose is 115 and calcium 9. IMPRESSION: 1. Recurrent episode of transient ischemic attack -- like symptoms versus conversion reaction. 2. Multiple psychiatric problems include anxiety and depressions. 3. Multiple medical problems include dementia, hypertension, chronic obstructive pulmonary disease. 4. Dehydration and hypokalemia. RECOMMENDATIONS: Continue current management with physical therapy and potassium supplement. M Ean SOTO MD DR: HAILEY/reg JOB#: [id number] / [id number]
[2019-11-06] MEDS: POTASSIUM CHLORIDE 20 MEQ TABLET.ER. PO SCH ×3 (09:17→17:09)
[2019-11-06] MEDS: CLOPIDOGREL BISULFATE 75 MG TABLET PO SCH (09:17)
[2019-11-06] MEDS: levETIRAcetam 500 MG TABLET PO SCH ×2 (09:17→20:59)
[2019-11-06] MEDS: ASPIRIN CHEWABLE 81 MG TABLET. PO SCH (09:17)
--- NOTE | 2019-11-06 09:51 | PN ---
DATE: 11/06/2019 SUBJECTIVE: Pleasantly confused. He is alert, eating better. He had a good bowel movement. He has very little insight as to why he is here. OBJECTIVE FINDINGS: VITAL SIGNS: Blood pressure today is 129/68, pulse is 62 and regular, temperature 98.2 degrees Fahrenheit, and his oxygen saturation 96% on room air. HEENT: Head is without trauma. Pupils are reactive. Sclerae nonicteric. The oropharynx is clear. NECK: Supple, no bruits. LUNGS: Clear. CARDIOVASCULAR: Showed regular heart tones. No gallops. Peripheral pulses are palpable and full. ABDOMEN: Soft, scaphoid, nontender. EXTREMITIES: Trace edema. NEUROLOGIC: Focally intact. Moderate confusion. PERTINENT LABORATORY STUDIES: Admission potassium was 2.2 mEq yesterday, was up to 2.3, today is up to 2.9 mEq per liter. Creatinine is down to 1.0 mg/dL, BUN 28, sodium 146. ASSESSMENT: 1. A 74-year-old gentleman with dementia. He had a conversion reaction. He is back to his baseline. 2. Hypokalemia due to diuretics. Replace. 3. Essential hypertension. 4. Chronic obstructive pulmonary disease. 5. Depression with anxiety. 6. Aphasia, resolved. PLAN: 1. He has been admitted because of potassium issues. This is low and critical enough; he warrants inpatient stay. Continue supplemental potassium along with magnesium intravenously. The reason magnesium is given is because 43% of patients with hypokalemia have a refractory hypokalemia due to hypomagnesemia. The magnesium allows potassium to come up to a normal range. 2. Continue home meds. 3. Diuretics have been held. 4. Serial chemistry. 5. Diet as tolerated. 6. He had bradycardia yesterday. We have held his Coreg at this time. SIA CROWLEY MD DR: MARK/reg JOB#: [id number] / [id number]
[2019-11-06 10:10] VITALS: BP 138/73
[2019-11-06 15:20] VITALS: BP 148/73
[2019-11-06 19:14] VITALS: BP 114/71
[2019-11-06 22:39] VITALS: BP 146/75
[2019-11-07 06:12] VITALS: BP 155/75
[2019-11-07] MEDS: CLOPIDOGREL BISULFATE 75 MG TABLET PO SCH (07:44)
[2019-11-07] MEDS: POTASSIUM CHLORIDE 20 MEQ TABLET.ER. PO SCH ×3 (07:44→17:06)
[2019-11-07] MEDS: levETIRAcetam 500 MG TABLET PO SCH ×2 (07:44→21:42)
[2019-11-07] MEDS: ASPIRIN CHEWABLE 81 MG TABLET. PO SCH (07:45)
[2019-11-07 07:48] LABS: BASO % 1 % (0-3); EOS # 0.3 x10^3/uL (0.0-0.7); EOS % 5 % (0-3); HEMATOCRIT 37.2 % (39.0-53.0); LYMPH # 1.1 x10^3/uL (1.0-4.8); LYMPH % 18 % (24-48); MEAN CORPUSCULAR HEMOGLOBIN 26 pg (25-35); MEAN CORPUSCULAR HGB CONC 32 g/dL (31-37); MEAN CORPUSCULAR VOLUME 82 fL (79-100); MONO # 0.6 x10^3/uL (0.0-1.1); MONO % 11 % (0-9); NEUT # 3.9 x10^3uL (1.8-7.7); NEUT % 65 % (31-73); PLATELET COUNT 182 x10^3/uL (140-400); RED BLOOD COUNT 4.56 x10^6/uL (4.30-5.70); RED CELL DISTRIBUTION WIDTH 16.1 % (11.5-14.5)
[2019-11-07 07:51] LABS: ALBUMIN/GLOBULIN RATIO 0.9 (1.0-1.7); CALCIUM 8.8 mg/dL (8.5-10.1); CREATININE 0.9 mg/dL (0.7-1.3); GFR 82.3; POTASSIUM 3.5 mmol/L (3.5-5.1); TOTAL BILIRUBIN 0.4 mg/dL (0.2-1.0); TOTAL PROTEIN 6.5 g/dL (6.4-8.2)
--- NOTE | 2019-11-07 09:28 | PN ---
DATE: 11/07/2019 SUBJECTIVE: The patient denies any new medical or neurological complaints. He denies headaches, visual disturbances, nausea, vomiting, chest pain, shortness of breath or palpitation. He eats and drinks well. Physical therapy worked with him and he is able to use a walker by himself. OBJECTIVE: GENERAL: Well-developed, well-nourished male, not in acute distress. VITAL SIGNS: Blood pressure is 155/75, respiratory rate 20, pulse is 54, oxygen saturation 95% on 2 liters by nasal cannula, temperature is 97.7. HEENT: Normocephalic, atraumatic, otherwise unremarkable. NECK: Supple. Negative for carotid bruit, lymphadenopathy or thyromegaly. LUNGS: Clear to A and P. CARDIOVASCULAR: Regular rate and rhythm, normal S1, S2. ABDOMEN: Soft. Bowel sounds positive. EXTREMITIES: Negative for cyanosis, clubbing or edema. NEUROLOGICAL EXAM: Mental Status: The patient is alert and oriented x 3. Speech is fluent. There is no language dysfunction. Memory, judgment, and abstracting thinking are fair. The patient denies hallucination or delusion. Cranial nerves are intact except for marked bilateral hearing loss for which he uses hearing aids. Motor examination: No focal muscle bulk was seen. The tone is normal. The strength is 5/5 throughout. Sensory examination revealed normal pinprick and light touch senses throughout. Deep tendon reflexes were asymmetric and hypoactive with absent Achilles responses. Gait: The patient uses a walker for ambulation. LABORATORY DATA: Chemistry revealed sodium 145, potassium 3.5, chloride 108, CO2 of 30, BUN 21, creatinine 0.9, glucose 102, calcium 8.8. CBC revealed white blood cells of 6000, hemoglobin 12, hematocrit 37.2, platelet 182,000. IMPRESSION: 1. Recurrent spells of conversion reaction versus transient ischemic attack without significant neurological residual. 2. Dementia. 3. Multiple medical problems include hypertension, chronic obstructive pulmonary disease, anxiety and depressions. 4. Hypokalemia -- resolved. RECOMMENDATIONS: 1. Continue with current management. 2. Follow up with Dr. Soto in the office after 2 weeks from discharge. M Ean SOTO MD DR: HAILEY/reg JOB#: [id number] / [id number]
[2019-11-07 11:20] VITALS: BP 148/67
[2019-11-07 14:24] VITALS: BP 154/68
--- NOTE | 2019-11-07 17:54 | EKG ---
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
--- NOTE | 2019-11-07 18:07 | RAD ---
EXAM: PORTABLE CHEST 1V INDICATION: Reason: chest pain/soa / Spl. Instructions: / History: . TECHNIQUE: Single view COMPARISON: 11/04/2019 chest x-ray, CT angiogram chest of 12/12/2016 FINDINGS: The heart size is normal. The great vessels appear unremarkable. There is no hilar or mediastinal mass. The lungs are mildly hyperlucent but clear. There is no pleural effusion or pneumothorax. There are no significant osseous abnormalities. IMPRESSION: Mild hyperlucency suggestive of underlying COPD. No active cardiopulmonary disease. Electronically signed by: Roni Osborn MD (11/07/2019 6:04 PM) [id number]
--- NOTE | 2019-11-07 18:15 | PN ---
DATE: 11/07/2019 SUBJECTIVE: The patient is a 74-year-old male patient who apparently was admitted with recurrent spell of conversion reaction versus transient ischemic attack. He was found to have a significant hypokalemia as he was on both Lasix and hydrochlorothiazide, and his potassium was profoundly low at 2.2 and basically his potassium and his magnesium were replenished, and when I saw him today, he did complain of chest pain. When I questioned him further whether this is new or old, he said that he has had this complaint before, has acid reflux and he is tired of taking pain medication for that. PHYSICAL EXAMINATION: GENERAL: When I examined him this afternoon, he looked well and was clearly in no apparent respiratory distress. No pallor, jaundice, cyanosis or thyromegaly. No jugular venous distention. No limb edema. VITAL SIGNS: His heart rate was 67, blood pressure was 154/68, temperature was 98.2, respiratory rate was 20, and oxygen saturation was 98% on room air. HEAD, EYES, EARS, NOSE AND THROAT: Showed normocephalic, atraumatic. NECK: Supple. HEART: Showed normal first and second heart sounds. No gallop, rub or murmur. CHEST: Clear to auscultation. No crepitation or rhonchi. ABDOMEN: Distended, soft, nontender. NEUROLOGIC: He was demented, but without any obvious lateralizing sign. LABORATORY DATA: His lab work this morning showed a white cell count of 6000, hemoglobin 12, hematocrit 37, MCV was 82 and platelet count of 182,000 with normal manual differential. His chemistry this morning showed serum sodium of 145, potassium 3.5, chloride 108, bicarbonate 30, anion gap of 7, BUN 21, creatinine 0.9, estimated GFR was 82 mL per minute, his glucose was 102, calcium was 8.8. Total bilirubin, AST, ALT, alkaline phosphatase were normal. Total protein was 6.5, albumin was 3.5. ASSESSMENT: 1. This is a 74-year-old male patient with dementia. He also had conversion reaction versus transient ischemic attack. He is apparently back to his baseline. 2. Profound hypokalemia due to multiple diuretics, improved and is at the lower limit of normal. 3. Essential hypertension. 4. Chronic obstructive pulmonary disease. 5. Depression and anxiety. 6. Aphasia that has resolved. PLAN: My plan is to replenish potassium. I am going to give him 40 mEq of potassium chloride twice this evening and repeat his labs tomorrow morning, and will be discharged on one of the diuretics with increased dose of potassium. KAVIN WAETRS MD DR: LAURIE/reg JOB#: [id number] / [id number]
[2019-11-07 20:30] VITALS: BP 152/73
[2019-11-07 23:10] VITALS: BP 128/72
[2019-11-08 06:17] VITALS: BP 153/79
[2019-11-08 06:38] LABS: ALBUMIN 2.8 g/dL (3.4-5.0); ALBUMIN/GLOBULIN RATIO 0.8 (1.0-1.7); CALCIUM 8.4 mg/dL (8.5-10.1); GFR 72.8; POTASSIUM 4.2 mmol/L (3.5-5.1); TOTAL BILIRUBIN 0.3 mg/dL (0.2-1.0); TOTAL PROTEIN 6.1 g/dL (6.4-8.2)
[2019-11-08 06:45] LABS: HEMATOCRIT 36.1 % (39.0-53.0); HEMOGLOBIN 11.7 g/dL (13.0-17.5); RED BLOOD COUNT 4.45 x10^6/uL (4.30-5.70); RED CELL DISTRIBUTION WIDTH 15.9 % (11.5-14.5); WHITE BLOOD COUNT 5.9 x10^3/uL (4.0-11.0)
[2019-11-08] MEDS: levETIRAcetam 500 MG TABLET PO SCH (08:07)
[2019-11-08] MEDS: ASPIRIN CHEWABLE 81 MG TABLET. PO SCH (08:07)
[2019-11-08] MEDS: POTASSIUM CHLORIDE 20 MEQ TABLET.ER. PO SCH ×3 (08:07→16:47)
[2019-11-08] MEDS: CLOPIDOGREL BISULFATE 75 MG TABLET PO SCH (08:07)
[2019-11-08 08:15] VITALS: BP 177/73
--- NOTE | 2019-11-08 09:47 | PN ---
DATE: SUBJECTIVE: According to the nursing staff, the patient had recurrent jerking movements of the right upper extremity, lasted 2-3 minutes. The patient could not respond to verbal commands. He was given Ativan 1 mg intravenously approximately 1 hour ago. Currently, he is not able to communicate and intermittently he was noticed to have movements of the right upper extremity. Due to mental status changes, the patient has not received his anticonvulsant -- Keppra dose this morning. OBJECTIVE: GENERAL: Well-developed, well-nourished male, not in acute distress. VITAL SIGNS: Blood pressure 177/73, respiratory rate 18, pulse is 77 and regular, oxygen saturation is 99% on room air, and temperature is 97.2. HEENT: Normocephalic, atraumatic, otherwise unremarkable. NECK: Supple. Negative for carotid bruit, lymphadenopathy or thyromegaly. LUNGS: Clear to A and P. CARDIOVASCULAR: Regular rate and rhythm. Normal S1, S2. ABDOMEN: Soft. Bowel sounds positive. EXTREMITIES: Negative for cyanosis, clubbing or edema. NEUROLOGICAL EXAM: Mental Status: The patient is drowsy, not able to communicate, probably he is still under Ativan influence. He closes his eyes. Further evaluation is limited at this time. Cranial nerves: The pupils are equal and reactive. There is no facial motor or sensory deficit. Hearing is diminished bilaterally. The palate is elevated symmetrically. Further evaluation is limited at this time. Motor: No focal muscle bulk wasting. The tone is normal. Further evaluation is limited at this time as the patient is drowsy. Sensory: The patient respond to noxious stimuli. Deep tendon reflexes were symmetric and hypoactive. Gait not tested. LABORATORY DATA: CBC revealed white blood cells of 5900, hemoglobin 11.7, hematocrit 35.1, platelet count 183,000. Chemistry revealed sodium of 143, potassium 4.2, chloride 109, CO2 of 29, BUN 18, creatinine 1, glucose is 96, calcium 8.4, magnesium is 2.1. IMPRESSION: 1. Recurrent episode of encephalopathy, currently he has had intermittent jerking movements of the right upper extremity with limited neurological examination as the patient becomes obtunded and drowsy, probably due to Ativan influence. 2. Multiple medical problems include convulsion reaction, dementia, seizure, chronic obstructive pulmonary disease and hypertension. RECOMMENDATIONS: 1. Continue with Keppra at 500 mg twice a day. The patient has not received the first dose yet. 2. Continue with current management and care. 3. In case of having a focal jerking movement, we will increase Keppra to 750 mg twice daily. M Ean SOTO MD DR: HAILEY/reg JOB#: [id number] / [id number]
[2019-11-08 11:32] VITALS: BP 155/75
[2019-11-08 14:43] VITALS: BP 139/68
--- NOTE | 2019-11-08 16:18 | DS ---
DATE OF DISCHARGE: 11/08/2019 DISCHARGE TRANSFER SUMMARY HOSPITAL COURSE: The patient is a 74-year-old male patient who apparently was admitted on 11/04/2019. He developed recurrent episode of aphasia and also has abnormal jerky movement affecting his right side. Apparently, this has been going on for a long time. In fact, he was evaluated before at [facility] in 2018 and had an MRI and EEG that was unremarkable; however, he continued to have these episodes and his family was very frustrated not finding an answer. I had a lengthy discussion with his and his son and I recommended the patient be transferred again to [facility]. We can do another MRI as the CT scan that was done in this hospital recently showed that he has a 7-mm area of low density in the left putamen, could represent a chronic lacunar infarct that is age indeterminate. The patient also has generalized parenchymal volume loss with prominent CSF spaces over the bilateral frontal lobes best appreciated over the right frontal lobe measuring up to 5.5 mm, likely representing either subdural hygroma or less likely chronic subdural hematoma. Apparently, the patient had an episode of aphasia and jerky right upper extremity that lasted about 4-5 minutes, but the postictal state lasted for almost 5 hours. EXAMINATION: GENERAL: When I saw him this afternoon, he was actually back to his baseline, without any difficulty talking or finding words. There was no pallor, jaundice, cyanosis or thyromegaly. No jugular venous distention. No limb edema. VITAL SIGNS: His heart rate was 58, blood pressure was 139/68, temperature was 97.4, respiratory rate was 20, and oxygen saturation was 99%. HEAD, EYES, EARS, NOSE AND THROAT: Showed normocephalic, atraumatic. NECK: Supple. HEART: Showed normal first and second heart sounds. No gallop or murmur. CHEST: Clear to auscultation. No crepitation or rhonchi. ABDOMEN: Distended, soft, nontender. NEUROLOGIC: He was awake, alert. He was obviously demented, but without any obvious lateralizing sign. The patient is able to walk with a walker with standby assist. His intake over the last 24 hours was 2500, output was 500. LABORATORY DATA: As of this morning showed a white cell count 5900, hemoglobin 11.7, hematocrit 36, MCV 81 and platelet count of 183,000. His chemistry showed a serum sodium 143, potassium 4.2, chloride 109, bicarbonate 29, anion gap of 5, BUN 18, creatinine 1, estimated GFR was 72 mL per minute. His glucose was 96, calcium was 8.4, magnesium was 2.1. Total bilirubin, AST, ALT, alkaline phosphatase were normal. Total protein was 6.1, albumin was 2.8. Serum lipase was 204. His prothrombin time, INR and aPTT are all normal. D-dimer slightly elevated at 0.56. His hepatitis serology was negative. His toxic screen was negative. Urinalysis was unremarkable. His CT scan of the head showed that the patient has no acute intracranial hemorrhage or mass effect. A 7-mm area of low density in the left putamen could represent a chronic lacunar infarct that is age indeterminate, generalized parenchymal volume loss with prominence of the CSF spaces over the bilateral frontal lobes best appreciated over the right frontal lobe measuring up to 5.5 mm, likely representing either a subdural hygroma or less likely chronic subdural hematoma. He did have bilateral carotid Doppler ultrasound, which showed no hemodynamically significant stenosis in the carotid arteries. Chest x-ray was unremarkable and showed no active cardiopulmonary disease. DISCHARGE MEDICATIONS: The patient was transferred to [facility] to continue with alprazolam 0.25 mg twice a day with meals, aspirin 81 mg once a day, atorvastatin calcium 80 mg at bedtime, carvedilol 12.5 mg twice a day, citalopram hydrobromide for Celexa 10 mg once a day, Plavix 75 mg once a day, diclofenac sodium 1 gram topically 4 times a day, Aricept 5 mg once a day, Nexium 40 mg twice a day, levetiracetam for Keppra 500 mg twice a day with meals, omega-3 fatty acid 1000 mg daily, potassium chloride 10 mEq every other day and tamsulosin 0.4 mg once a day. I did discontinue his hydrochlorothiazide and furosemide. FINAL DISCHARGE DIAGNOSES: Recurrent episode of what seems with aphasia and abnormal movement of his right upper extremity with prolonged postictal state. Other medical problems include hypertension, chronic obstructive pulmonary disease, anxiety and depression, elevated liver enzymes, and generalized debility and anemia. KAVIN WATERS MD DR: LAURIE/reg JOB#: [id number] / [id number]
== END 2019-11-08 18:31 | disposition short-term general hospital (02) | DRG 101 ==
LOC: ER 19:01 → 1 SOUTH 21:44 → OBSVTOIN 11-06 10:50
PROVIDERS: ADMIT Internal Medicine; ATTEND Hospitalist
DX: G40.201 Localization-related (focal) (partial) symptomatic epilepsy and epileptic syndromes with complex partial seizures, not intractable, with status epilepticus (principal); R47.01 Aphasia; G96.0 Cerebrospinal fluid leak; E87.6 Hypokalemia; D64.9 Anemia, unspecified; E11.9 Type 2 diabetes mellitus without complications; E78.00 Pure hypercholesterolemia, unspecified; E86.0 Dehydration; F03.90 Unspecified dementia, unspecified severity, without behavioral disturbance, psychotic disturbance, mood disturbance, and anxiety; F41.8 Other specified anxiety disorders; I10 Essential (primary) hypertension; I25.10 Atherosclerotic heart disease of native coronary artery without angina pectoris; J44.9 Chronic obstructive pulmonary disease, unspecified; T50.2X5A Adverse effect of carbonic-anhydrase inhibitors, benzothiadiazides and other diuretics, initial encounter; Y92.89 Other specified places as the place of occurrence of the external cause; Z80.9 Family history of malignant neoplasm, unspecified; Z82.49 Family history of ischemic heart disease and other diseases of the circulatory system; Z86.73 Personal history of transient ischemic attack (TIA), and cerebral infarction without residual deficits; Z87.891 Personal history of nicotine dependence; K21.9 Gastro-esophageal reflux disease without esophagitis; M19.90 Unspecified osteoarthritis, unspecified site; R00.1 Bradycardia, unspecified; R74.8 Abnormal levels of other serum enzymes
CPT/HCPCS: 36415; 70450; 71045; 80048; 80053; 80076; 80307; 81001; 82150; 82550; 83690; 83735; 83880; 84443; 84484; 85025; 85027; 85379; 85610; 85730; 86140; 86705; 86709; 86803; 87086; 87340; 93005; 93880; 94640; 96361; 96365; 96368; 99285; G0378; G0379; J1953; J2060; J3475; J7120; 97110; 97116; 97530

== ENCOUNTER 2019-11-09 22:47 | Inpatient (IN) | payer MEDICARE, BC ==
[~2019-11-09] VITALS: Ht 185.4 cm; Wt 97.6 kg
[~2019-11-09 22:47] MED LIST changes: +HYDR12.58 PO; +LEVE500T56 PO; +OMEG100021 PO; +POTA10TA12 PO; +POTA10TA5 PO; +TORS20TA2 PO
--- NOTE | 2019-11-09 22:57 | PHYS DOC ---
Past History Past Medical History: Anxiety, Arthritis, CAD, Cancer, COPD, Dementia, Depression, GERD, High Cholesterol, Hypertension, Seizure, TIA Additional Past Medical Histor: conversion disorder Past Surgical History: No Surgical History Additional Past Surgical Histo: prostate, bilateral hernias Smoking: Cigarettes, Quit Greater Than 1 Year Alcohol Use: Sober Drug Use: None General Adult HPI: HPI: Patient is a 74 year old male who presents with hx of mental status change after discharge from [facility] at approximately 1500hrs.today. Pt.having jerking movements in his Rt.upper ext. off and on since arrival home. Pt. previously admitted for similar episode at [facility] on . Pt. previously admitted to [facility] and transfer to [facility]. On 09/08/2019 and 11/03/19 patient was admitted with mental status changes after episode of difficulty in finding words. Pt. jerking in his right upper extremity at that time.. Does have a history of TIAs, conversion disorder, dementia, and anxiety. Patient has history of hypertension COPD anemia elevated LFTs and generalized deconditioning. Patient is scheduled to be on Keppra 500 mg twice a day. Pt. was seen by Dr. Meza, and was to have his Keppra increased to 750 twice a day. Patient did not receive his Keppra tonight. On arrival patient did respond to noxious stimuli and cross-reactive to noxious stimuli. Exam similar to exam on 11/02- admit. Pt. normally follows with . Pt.did not received at MRI at [facility] per radiology, CT today show s no acute change in comparison to prior films. Patient became verbal and could answer questions by the time he returned to his ED room [address] exam. Pt per hx has not been taking his " water" pill because his potassium got low.. Review of Systems: Review of Systems: Constitutional: Denies fever or chills Eyes: Denies change in visual acuity HENT: Denies nasal congestion or sore throat Respiratory: Denies cough or shortness of breath Cardiovascular: Denies chest pain or edema GI: Denies abdominal pain, nausea, vomiting, bloody stools or diarrhea : Denies dysuria Musculoskeletal: Denies back pain or joint pain Integument: Denies rash Neurologic: Denies headache, focal weakness or sensory changes Endocrine: Denies polyuria or polydipsia Lymphatic: Denies swollen glands Psychiatric: complaints of anxiety Heart Score: HEART Score for Chest Pain: HEART Score for Chest Pain Response (Comments) Value History Moderately Suspicious 1 ECG Nonspecific Repolarizatio 1 Age > 65 2 Risk Factors 1 or 2 Risk Factors 1 Total 5 Risk Factors: Risk Factors: DM, Current or recent (<one month) smoker, HTN, HLP, family history of CAD, obesity. Risk Scores: Score 0 - 3: 2.5% MACE over next 6 weeks - Discharge Home Score 4 - 6: 20.3% MACE over next 6 weeks - Admit for Clinical Observation Score 7 - 10: 72.7% MACE over next 6 weeks - Early Invasive Strategies Family History: Family History: Noncontributory to presentation Current Medications: Current Meds: See nursing for home meds Allergies: Allergies: Allergies Coded Allergies Type Severity Reaction Last Updated Verified amlodipine Adverse Reaction Intermediate 04/07/18 Yes Physical Exam: PE: Constitutional: , no acute distress, non-toxic appearance. [] HENT: Normocephalic, atraumatic, bilateral external ears normal, oropharynx moist, no oral exudates, nose normal. [] Eyes: PERRLA, EOMI, conjunctiva normal, no discharge. [] Pt.holding his eyes tightly shut on initial exam. Pt. later cooperative with exam. Neck: Normal range of motion, no tenderness, supple, no stridor. No bruits over neck. Cardiovascular:Heart rate regular rhythm, no murmur []PMI to Lt. Lungs & Thorax: Bilateral breath sounds equal at apexes on auscultation []Basilar crackles. Few scattered wheezes. Abdomen: Bowel sounds normal, soft, no tenderness, no masses, no pulsatile masses. [] Skin: Warm, dry, no erythema, no rash. [] Back: No tenderness, no CVA tenderness. [] Extremities: No tenderness, no cyanosis, no clubbing, , no edema. [] Att lst patient would not move ext. on right unless noxious stimuli. Neurologic: Initial exam pt. only responded to noxious stimulit. Alert and oriented X 3 move all extremities on request after move to room 5, has distal sensory., no focal deficits noted. []Pt appear at his baseline by the time he went to Room. 5. Psychologic: Affect anxious, dementia-obvious some memory problems, mood normal. [] EKG: EKG: My interpretation EKG shows a sinus rhythm at 67 bpm. No acute morphology appre ciated. [] Radiology/Procedures: Radiology/Procedures: [][address] [address] IMAGING REPORT Signed PATIENT: KITTY BRENNAN ACCOUNT: [id number] : 1945 LOCATION: ER AGE: 74 SEX: M EXAM STATUS: PRE ER ORD. PHYSICIAN: CHUCHO BLOOD MD REASON: CODE STROKE, WEAKNESS, AMS PROCEDURE: CT CODE STROKE HEAD WO Exam: CT head INDICATION: Stroke TECHNIQUE: Sequential axial images through the head were obtained without the administration of IV contrast. Comparisons: 11/04/2019 FINDINGS: No focal parenchymal lesion or hemorrhage is identified. There is no midline shift or sulcal effacement. Similar hyperdensity at the left putamen when compared to the prior study. No acute vascular territory infarction is identified. Lepe-white distinction is preserved. The ventricular system is within normal limits without compression hydrocephalus. The basal cisterns are well maintained. The visualized portions of the paranasal sinuses and mastoid air cells are well-pneumatized. No acute fractures. IMPRESSION: No acute intracranial abnormality. Exposure: One or more of the following in the visualized dose reduction techniques were utilized for this examination: 1. Automated exposure control 2. Adjustment of the MA and/or KV according to patient size Use of iterative of reconstructive technique FOR INTERNAL CODING PURPOSES Critical result: Findings discussed with CHUCHO BLOOD at 11/09/2019 11:01 PM. RESULT CODE: (C) [address] [place] [id number] IMAGING REPORT Signed PATIENT: KITTY BRENNAN ACCOUNT: [id number] : 1945 LOCATION: ER AGE: 74 SEX: M EXAM STATUS: PRE ER ORD. PHYSICIAN: CHUCHO BLOOD MD REASON: AMS, NECK PAIN PROCEDURE: CT CERVICAL SPINE WO CONTRAST CT C-Spine without contrast: Clinical History: Reason: AMS, NECK PAIN / Spl. Instructions: / History: Technique: Axial helical images of the cervical spine were obtained without contrast, axial coronal and sagittal reconstruction was performed. Findings: There is a polyp versus mucoid retention cyst in the right maxillary sinus and there is fluid in the sphenoid sinus. There is no loss of vertebral body stature. There is no prevertebral soft tissue swelling. The vertebral bodies are well aligned. The C1-C2 relationship is normal. The visualized osseous structures appear normal. There is diffuse circumferential disc bulges resulting in flattening of thecal sac at multiple levels. At C3-C3 there is moderate narrowing of the right neuroforamen and there is effacement of CSF anterior to the cord. At C3-C4 complete effacement of CSF anterior to the cord and marked narrowing of the right neuroforamen. At C4-C5 there is hypertrophy of the right facet and there is moderate narrowing of the neuroforamen bilaterally left worse than right. Impression: 1. Degenerative changes of the cervical spine with multilevel central and neuroforaminal stenosis. 2. Sinus disease not well included in this examination. End impression PQRS Compliance Statement: One or more of the following individualized dose reduction techniques were utilized for this examination: 1. Automated exposure control 2. Adjustment of the mA and/or kV according to patient size 3. Use of iterative reconstruction technique Electronically signed by: Lolly Brown III, MD (11/09/2019 11:15 PM) [id number] DICTATED AND SIGNED BY: LOLLY BROWN III, MD DATE: 11/09/19 0650 CC: RENAN CAUSEY MD; CHUCHO BLOOD MD ~ [address] [address] IMAGING REPORT Signed PATIENT: KITTY BRENNAN ACCOUNT: [id number] : 1945 LOCATION: ER AGE: 74 SEX: M EXAM STATUS: REG ER ORD. PHYSICIAN: CHUCHO BLOOD MD REASON: dyspnea PROCEDURE: PORTABLE CHEST 1V PORTABLE CHEST 1V Clinical History: Reason: dyspnea / Spl. Instructions: / History: Technique: AP view of the chest was obtained at 11/09/2019 10:58 PM. Comparison: November 07, 2019. Findings: The cardiomediastinal silhouette is normal. The pulmonary vasculature is normal. There are linear opacities in left lung base. Impression: Left basal infiltrate appears improved and is likely resolving discoid atelectasis. Electronically signed by: Lolly Brown III, MD (11/09/2019 11:40 PM) [id number] DICTATED AND SIGNED BY: LOLLY BROWN III, MD DATE: 11/09/19 0054 CC: RENAN CAUSEY MD; CHUCHO BLOOD MD ~ Course & Med Decision Making: Course & Med Decision Making Pt. Admitted to Dr. Saavedra, public relations representative for [facility], Consult to Dr. Jeter Neurology. Admit Observation status. Impression: 1. Hx. of Mental Status Change 2. Hx. Seizure or Rt. upper arm jerking- per family 3. Hx of Conversion Syndrome 4. Hx. of Dementia 5. Hx. of COPD 6. Hx. Depression 7. Hx. of Anxiety Disorder 8. Hx of Aphasia 9. Hx. of Seizure Disorder 10. Elevated AST/ALt. 57/93 11. Elevated D-dimer 1.09 12. Diastolic dysfunction-CHF BNP 1347 [] Dragon Disclaimer: Dragon Disclaimer: This electronic medical record was generated, in whole or in part, using a voice recognition dictation system. Departure Departure: Disposition: 01 HOME/RESIDENCE PRIOR TO ADM Condition: STABLE Referrals: RENAN CAUSEY MD (PCP) Justification of Admission: Justification of Admission: Justification of Admission Dx: Yes Altered Mental Status: Altered Mental Status Dragon Disclaimer This chart was dictated in whole or in part using Voice Recognition software in a busy, high-work load, and often noisy Emergency Department environment. It may contain unintended and wholly unrecognized errors or omissions. Dragon Disclaimer This chart was dictated in whole or in part using Voice Recognition software in a busy, high-work load, and often noisy Emergency Department environment. It may contain unintended and wholly unrecognized errors or omissions. CHUCHO BLOOD MD Nov 09, 2019 22:57
--- NOTE | 2019-11-09 23:06 | RAD ---
Exam: CT head INDICATION: Stroke TECHNIQUE: Sequential axial images through the head were obtained without the administration of IV contrast. Comparisons: 11/04/2019 FINDINGS: No focal parenchymal lesion or hemorrhage is identified. There is no midline shift or sulcal effacement. Similar hyperdensity at the left putamen when compared to the prior study. No acute vascular territory infarction is identified. Lepe-white distinction is preserved. The ventricular system is within normal limits without compression hydrocephalus. The basal cisterns are well maintained. The visualized portions of the paranasal sinuses and mastoid air cells are well-pneumatized. No acute fractures. IMPRESSION: No acute intracranial abnormality. Exposure: One or more of the following in the visualized dose reduction techniques were utilized for this examination: 1. Automated exposure control 2. Adjustment of the MA and/or KV according to patient size Use of iterative of reconstructive technique FOR INTERNAL CODING PURPOSES Critical result: Findings discussed with CHUCHO BLOOD at 11/09/2019 11:01 PM. RESULT CODE: (C) Electronically signed by: Elisa Marie MD (11/09/2019 11:04 PM) [id number]
--- NOTE | 2019-11-09 23:18 | RAD ---
CT C-Spine without contrast: Clinical History: Reason: AMS, NECK PAIN / Spl. Instructions: / History: Technique: Axial helical images of the cervical spine were obtained without contrast, axial coronal and sagittal reconstruction was performed. Findings: There is a polyp versus mucoid retention cyst in the right maxillary sinus and there is fluid in the sphenoid sinus. There is no loss of vertebral body stature. There is no prevertebral soft tissue swelling. The vertebral bodies are well aligned. The C1-C2 relationship is normal. The visualized osseous structures appear normal. There is diffuse circumferential disc bulges resulting in flattening of thecal sac at multiple levels. At C3-C3 there is moderate narrowing of the right neuroforamen and there is effacement of CSF anterior to the cord. At C3-C4 complete effacement of CSF anterior to the cord and marked narrowing of the right neuroforamen. At C4-C5 there is hypertrophy of the right facet and there is moderate narrowing of the neuroforamen bilaterally left worse than right. Impression: 1. Degenerative changes of the cervical spine with multilevel central and neuroforaminal stenosis. 2. Sinus disease not well included in this examination. End impression PQRS Compliance Statement: One or more of the following individualized dose reduction techniques were utilized for this examination: 1. Automated exposure control 2. Adjustment of the mA and/or kV according to patient size 3. Use of iterative reconstruction technique Electronically signed by: Darell Kowalski III, MD (11/09/2019 11:15 PM) [id number]
[2019-11-09] MEDS ORDERED: IV RINGERS SOLUTION,LACTATED 1,000 ML IV SCH (23:30)
[2019-11-09 23:40] LABS: BASO # 0.1 x10^3/uL (0.0-0.2); BASO % 1 % (0-3); EOS # 0.3 x10^3/uL (0.0-0.7); EOS % 4 % (0-3); HEMATOCRIT 41.4 % (39.0-53.0); HEMOGLOBIN 13.5 g/dL (13.0-17.5); LYMPH # 1.2 x10^3/uL (1.0-4.8); LYMPH % 17 % (24-48); MEAN CORPUSCULAR HEMOGLOBIN 27 pg (25-35); MEAN CORPUSCULAR HGB CONC 33 g/dL (31-37); MEAN CORPUSCULAR VOLUME 82 fL (79-100); MONO # 0.9 x10^3/uL (0.0-1.1); MONO % 14 % (0-9); NEUT # 4.4 x10^3uL (1.8-7.7); NEUT % 64 % (31-73); PLATELET COUNT 236 x10^3/uL (140-400); RED BLOOD COUNT 5.07 x10^6/uL (4.30-5.70); RED CELL DISTRIBUTION WIDTH 16.1 % (11.5-14.5); WHITE BLOOD COUNT 6.9 x10^3/uL (4.0-11.0)
--- NOTE | 2019-11-09 23:43 | RAD ---
PORTABLE CHEST 1V Clinical History: Reason: dyspnea / Spl. Instructions: / History: Technique: AP view of the chest was obtained at 11/09/2019 10:58 PM. Comparison: November 07, 2019. Findings: The cardiomediastinal silhouette is normal. The pulmonary vasculature is normal. There are linear opacities in left lung base. Impression: Left basal infiltrate appears improved and is likely resolving discoid atelectasis. Electronically signed by: Darell Kowalski III, MD (11/09/2019 11:40 PM) [id number]
[2019-11-09 23:51] LABS: CALCIUM 9.2 mg/dL (8.5-10.1); CREATININE 1.1 mg/dL (0.7-1.3); GFR 65.3; POTASSIUM 4.4 mmol/L (3.5-5.1)
[2019-11-10] MEDS ORDERED: ENOXAPARIN ** NOTE DOSE ** SYRINGE SQ ONE
[2019-11-10] MEDS ORDERED: ASPIRIN CHEWABLE 81 MG TABLET. PO ONE
[2019-11-10 00:03] LABS: ALBUMIN 3.6 g/dL (3.4-5.0); DIRECT BILIRUBIN 0.1 mg/dL (0.0-0.2); MAGNESIUM 2.4 mg/dL (1.8-2.4); TOTAL BILIRUBIN 0.5 mg/dL (0.2-1.0); TOTAL PROTEIN 7.9 g/dL (6.4-8.2)
[2019-11-10] MEDS ORDERED: LIDOCAINE 2% TOPICAL JELLY 5GM TUBE. TP ONE (00:03)
[2019-11-10 00:26] LABS: BACTERIA,URINE 0 /HPF (0-FEW); BILIRUBIN,URINE NEG (NEG); CLARITY,URINE CLEAR; COLOR,URINE YELLOW; GLUCOSE,URINE NEG (NEG); NITRITE,URINE NEG (NEG); RBC,URINE 0 /HPF (0-2); SQUAMOUS EPITHELIAL CELL,UR OCC /LPF; UROBILINOGEN,URINE 0.2 mg/dL (0.2 mg/dL); WBC,URINE RARE /HPF (0-4)
[2019-11-10 00:31] LABS: BARBITURATES NEG (NEG); BENZODIAZEPINES NEG (NEG); CANNABINOIDS NEG (NEG); COCAINE NEG (NEG); METHADONE NEG (NEG); OPIATES NEG (NEG); PHENCYCLIDINE NEG (NEG)
[2019-11-10 00:35] LABS: AMPHETAMINE/METHAMPHETAMINE NEG (NEG)
[2019-11-10] MEDS ORDERED: FAMOTIDINE 20 MG/2 ML VIAL ONE (00:42)
[2019-11-10] MEDS ORDERED: FAMOTIDINE 20 MG/2 ML VIAL IVP ONE ×2 (00:45→01:00)
[2019-11-10] MEDS ORDERED: SUCRALFATE 1 GM TABLET. PO ONE (01:00)
[2019-11-10] MEDS ORDERED: MAGNESIUM HYDROXIDE 2,400 MG/30 ML ORAL.SUSP. PO ONE (01:00)
[2019-11-10] MEDS ORDERED: ACETAMINOPHEN 325 MG TABLET PO PRN (02:30)
[2019-11-10] MEDS ORDERED: ONDANSETRON PF 4 MG/2 ML VIAL. IVP PRN (02:30)
--- NOTE | 2019-11-10 03:29 | NUR ---
Patient admitted for observation after stroke/seizure like activity. Patient was able to answer my questions and scored a 0 on our assessment. Patient does wear CPAP at night so if he stays longer than the 23 hrs observation, we may want family to bring up his CPAP or place him on O2 at night. Patient has not had a breathing treatment since 2018 and is not here for respiratory distress. A/NS Q4prn would be an appropriate order for him at this time.
--- NOTE | 2019-11-10 04:35 | NUR ---
Pt admitted from ER to ICU bed 5 via [facility], accompanied by EMS and nursing staff. Pt transferred from [facility] to bed x3 assist. Pt here for c/o right arm jerking movements/?atypical seizures and AMS. Pt was just DC from this facility to [place] yesterday for MRI. Pt with hx of CVA with right side weakness noted. Home medications and health history reviewed with pt. Pt lives at home with . Plavix for VTE. PT/OT/ST consulted for r/o CVA, along with Case management. Lipid profile ordered per protocol. POC reviewed with pt, understanding verbalized. Pt passed [facility] Swallow eval. Pt was given written information regarding hospital policies, unit procedures and contact persons. Valuables were checked and left at bedside. Dr Jeter consulted. Call light within reach.
[2019-11-10 04:51] VITALS: BP 146/61
[2019-11-10] MEDS ORDERED: DICLOFENAC SODIUM 1% TOPICAL GEL 100GM TUBE. TP PRN (06:00)
[2019-11-10 07:41] VITALS: BP 109/44
[2019-11-10] MEDS ORDERED: levETIRAcetam 500 MG TABLET PO SCH (08:00)
[2019-11-10] MEDS ORDERED: IPRATRPIUM/ALBUTEROL 0.5/2.5MG 3 ML NEBU. NEB SCH (08:00)
[2019-11-10] MEDS: CLOPIDOGREL BISULFATE 75 MG TABLET PO SCH (08:38)
[2019-11-10] MEDS: OMEGA-3 FATTY ACIDS/FISH OIL 1,000 MG CAPSULE. PO SCH (08:38)
[2019-11-10] MEDS: ASPIRIN CHEWABLE 81 MG TABLET. PO SCH (08:38)
[2019-11-10] MEDS: PANTOPRAZOLE 40 MG TABLET. PO SCH ×2 (08:38→17:35)
[2019-11-10] MEDS: ALPRAZolam 0.25 MG TABLET PO SCH ×2 (08:39→17:34)
[2019-11-10] MEDS: CARVEDILOL 12.5 MG TABLET PO SCH ×2 (08:39→17:35)
[2019-11-10] MEDS ORDERED: ASPIRIN CHEWABLE 81 MG TABLET. PO SCH (09:00)
[2019-11-10] MEDS ORDERED: CITALOPRAM 10 MG TABLET. PO SCH (09:00)
[2019-11-10] MEDS ORDERED: POTASSIUM CHLORIDE 10 MEQ TABLET.ER. PO SCH (09:00)
[2019-11-10 11:00] VITALS: BP 147/69
--- NOTE | 2019-11-10 14:06 | CONS ---
DATE OF CONSULTATION: NEUROLOGY CONSULTATION REFERRING PHYSICIAN: Dr. Saavedra. REASON FOR CONSULTATION: Mental status changes. HISTORY OF PRESENT ILLNESS: This is a 74-year-old right-handed male who was readmitted through Emergency Room today after he presented with recurrent episodes, described as sudden onset of confusion. According to the patient, he was sitting at home and all of a sudden he saw the refrigerator is spinning around his was also spinning around. The episode lasted few minutes. EMS was activated and the patient at that time had a little jerking movement of the right upper extremity, but he recalled the events. He denies any headaches, diplopia, dysphagia, chest pain, shortness of breath or palpitation. He was not able to communicate at that time. The patient was transferred yesterday to [facility] to have MRI and possible EEG, but nothing done even though he was seen by a neurologist over at [place] and decided not to do any procedure at this time. He has been taking Keppra 500 mg twice daily for underlying seizure disorder. The patient apparently had recurrent episodes during hospitalization at the same institute in the last few days. The episode witnessed by me, consistent of jerky movement of the right upper extremity with ictal confusion and not able to communicate during these spells which lasted a few minutes. The patient did not recall those events. It was recommended that the patient, if he had any recurrent jerking movements, he might need to have an EEG and also increase Keppra to 750 twice daily; however, he did not have any recurrent episodes until today. Initial nonenhanced head CT scan revealed no acute intracranial process, but it showed left putamen hyperdensity, probably represent small vessel ischemic changes. PAST MEDICAL HISTORY: Significant for stroke, TIA, seizure, hypertension, conversion reactions, anxiety, depressions, COPD, anemia, generalized weakness and bilateral hearing loss. SOCIAL HISTORY: The patient is . He denies smoking, alcohol drinking or illicit drug use. FAMILY HISTORY: Noncontributory. CURRENT HOME MEDICATIONS: Lipitor 80 mg daily, tamsulosin 0.4 mg at bedtime, donepezil 5 mg at bedtime, fish oil 1000 mg daily, potassium 10 mEq daily, Plavix 75 mg p.o. daily, citalopram 10 mg p.o. daily, aspirin 81 mg daily, carvedilol 12.5 mg twice daily, Keppra 500 mg twice daily, alprazolam 0.25 mg daily, potassium 40 mEq daily, diclofenac 1 application 4 times daily for pain control, acetaminophen and Zofran p.r.n. for nausea and vomiting. ALLERGIES: AMLODIPINE. PHYSICAL EXAMINATION: GENERAL: Well-developed, well-nourished male, not in acute distress. He weighs 96.8 kilos. VITAL SIGNS: Blood pressure 146/61, respiratory rate 18, pulse is 59 regular, oxygen saturation is 98% on room air. HEENT: Normocephalic, atraumatic, otherwise unremarkable. NECK: Supple. Negative for carotid bruit, lymphadenopathy or thyromegaly. LUNGS: Clear to A and P. CARDIOVASCULAR: Regular rate and rhythm. Normal S1, S2. There is no S3, S4 or murmur. ABDOMEN: Soft. Bowel sounds positive. EXTREMITIES: Negative for cyanosis, clubbing or edema. NEUROLOGICAL: Mental status: The patient is alert and oriented x 3. The speech is fluent. There is no language dysfunction. Memory, judgment, and abstracting thinking are fair. The patient denies hallucination or delusion. Cranial nerves: Visual mccracken are full. The pupils are reactive to light and accommodation. The extraocular movements are intact. There is no nystagmus. There is no facial motor or sensory deficit. Hearing is diminished bilaterally. The palate is elevated symmetrically. Sternocleidomastoid muscles are powerful bilaterally. The patient shrugs his shoulders symmetrically, protrudes his tongue in the midline without fasciculation or atrophy. Motor examination: No focal muscle bulk. The tone is normal. The strength is 5/5 throughout. Sensory examination: Revealed normal pinprick, light touch, vibratory and position senses. Deep tendon reflexes were asymmetric and hypoactive without pathologic responses. Gait: The stance is steady. LABORATORY DATA: CBC: White blood cells 6900, hemoglobin 13.5, hematocrit 41.4, platelet count 236,000. Chemistry revealed sodium 143, potassium 4.4, chloride 107, CO2 of 27, BUN 21, creatinine 1.1, glucose 77. Liver enzymes are elevated. Troponin level is normal. Lipid profile revealed elevated LDL with high TSH. Urinalysis is negative for urinary tract infections. DIAGNOSTIC DATA: Head CT scan as mentioned above in history of present illness. IMPRESSION: 1. Recurrent episodes of confusion, difficulty to communicate -- aphasia and sometimes complicated with jerky movements of the right upper extremity, etiology uncertain, atypical seizure versus transient ischemic attack. Other possibilities including anxiety and depression. 2. Multiple medical problems include hypertension, hyperlipidemia, sleep apnea, COPD, coronary artery disease and valvular heart disease. RECOMMENDATIONS: 1. Continue with current management initiated by Dr. Saavedra and home medications. 2. We will follow up the patient on an outpatient basis after 2 weeks from discharge. M Ean SOTO MD DR: HAILEY/reg JOB#: [id number] / [id number]
[2019-11-10 15:00] VITALS: BP 126/51
[2019-11-10] MEDS: levETIRAcetam 250 MG TABLET PO SCH (17:34)
[2019-11-10] MEDS: POTASSIUM CHLORIDE 10 MEQ TABLET.ER. PO SCH (17:37)
[2019-11-10 19:15] VITALS: BP 145/47
--- NOTE | 2019-11-10 19:27 | HP ---
ADMIT DATE: 11/10/2019 HISTORY OF PRESENT ILLNESS: The patient is a 74-year-old male patient whom I have discharged yesterday from [facility] where he was evaluated by Dr. Ibrahim. Unfortunately, the MRI was not working and Dr. Ibrahim did not recommend any further testing, increased his escitalopram to 20 mg and recommended switching his Keppra to topiramate, but he decided to do that at a later date. He was evaluated by the physical and occupational therapy. He was able to walk without assistance or assistive device. He was able to climb and descend stairs without any difficulty and I spoke to his and he was discharged home. Apparently, he went to pick something from the refrigerator and when he bent down, he felt that everything was spinning, the refrigerator even his was spinning around. The episode lasted a few minutes. His grandson came to assist, but he was unable to walk, they have to bring a chair for him to sit down and EMS was activated and was brought to the Emergency Room as he continued to have jerking movement in his right upper extremity, but he was able to recall all the events. He denied any weakness, tingling, or numbness. There is no loss of consciousness. Again, he developed aphasia at that time. He was evaluated in the Emergency Room and has had lab work that was unremarkable except slightly elevated liver enzymes. His prothrombin time, INR and aPTT were normal. Urinalysis was essentially unremarkable and toxic screen was negative. He did have a CT scan of the head, which basically showed that the patient has no focal parenchymal lesion or hemorrhage identified. There is no midline shift or sulcal effacement, similar hyperdensities at the left putamen when compared to the prior studies. No acute vascular territory infarction identified. Beth white distinction is preserved. The ventricular system is within normal limits without compression. Hydrocephalus, basal cisterns are well maintained. Visualized portion of the paranasal sinuses and mastoid air cells are well pneumatized. No acute fracture. His CT scan of the cervical spine showed basically degenerative changes of the cervical spine with multilevel central and neural foraminal stenosis and sinuses not fully included in this examination. His chest x-ray was unremarkable, which showed that the patient has cardiomediastinal silhouette is normal. Pulmonary vasculature is normal. There are linear opacities in the left lung base. The patient was admitted and he was continued on his current medication and I actually discontinued his hydrochlorothiazide, but kept him on his Lasix. PAST MEDICAL HISTORY: Significant for stroke, TIA, seizures, hypertension, conversion reaction, anxiety, depression, chronic obstructive pulmonary disease, anemia, generalized weakness, and bilateral hearing loss. PAST SURGICAL HISTORY: Unremarkable. FAMILY HISTORY: Noncontributory. SOCIAL HISTORY: He is , lives with his . He does not smoke, drink alcohol or use any recreational drugs. REVIEW OF SYSTEMS: As per history of present illness. ALLERGIES: He is allergic to AMLODIPINE. MEDICATIONS: He is currently on Lipitor ____ mg daily, tamsulosin 0.5 mg at bedtime, Aricept 5 mg at bedtime, fish oil 1000 mg daily, potassium 10 mEq once a day, Plavix 75 mg daily, citalopram 10 mg once a day that was increased by Dr. Ibrahim to 20 mg daily, aspirin 81 mg daily, carvedilol 12.5 mg twice a day, Keppra 500 mg twice a day, alprazolam 0.5 mg daily, diclofenac 1 g 4 times a day, acetaminophen and Zofran as needed for nausea and vomiting. PHYSICAL EXAMINATION: GENERAL: On arrival to the Emergency Room, he looked well and was clearly in no apparent respiratory distress. No pallor, jaundice, cyanosis or thyromegaly. No jugular venous distention. No lower limb edema. VITAL SIGNS: His heart rate was 63, blood pressure 135/72, temperature was 97.5, respiratory rate was 18 and oxygen saturation was 97%. HEAD, EYES, EARS, NOSE AND THROAT: Normocephalic and atraumatic. NECK: Supple. HEART: Showed normal first and second heart sounds. No gallop or murmur. CHEST: Clear to auscultation. No crepitation or rhonchi. ABDOMEN: Distended, soft, nontender. No guarding or rigidity. No organomegaly. All hernial orifice intact. Bowel sounds normal. NEUROLOGIC: He initially was unresponsive and was responding only to noxious stimuli. He eventually became alert, oriented x3, moves all extremities on request after he arrived to the Emergency Room. He has some distal sensory deficit, but no focal deficit noted. IMAGING STUDIES: He was extensively investigated. He has had an EKG, which showed that he was in sinus rhythm at a heart rate of 67 beats per minute, no acute morphology appreciated. The CT scan of the head showed no acute intracranial abnormalities. CT scan of the cervical spine showed degenerative changes of cervical spine with multilevel central and neural foraminal stenosis, sinuses not well visualized. His chest x-ray showed the cardiomediastinal silhouette is normal. Pulmonary vasculature is normal. There are linear opacities in the left lung base. LABORATORY DATA: His lab work showed his white cell count was 6900, hemoglobin 13.5, hematocrit 41, MCV 82, and platelet count 256,000. His serum sodium was 143, potassium 4.4, chloride 107, bicarbonate 27, anion gap of 9, BUN 21, creatinine 1.1, estimated GFR was 65 mL per minute. His calcium was 9.2, magnesium was 2.4. Total bilirubin and alkaline phosphatase were normal. His AST and ALT slightly elevated. His CK was normal at 91 and beta natriuretic peptide was 1347. Total protein was 7.9 and albumin was 3.6. His lipase was 140. His TSH was high at 8.121. His fasting lipid profile showed serum triglycerides of 138, total cholesterol 175, LDL was 108, VLDL was 27, HDL was 40 and ratio was 4. Urinalysis essentially unremarkable and toxic screen was negative. ASSESSMENT AND PLAN: The patient was admitted with another episode of altered mental status, questionable partial seizures affecting his right upper extremity as well as aphasia. Plan is to continue with all his medication including I will increase his Keppra to 750 mg and his citalopram to 20 mg once a day. We have consulted Dr. Jeter to see him again. KAVIN WATERS MD DR: LAURIE/reg JOB#: [id number] / [id number]
[2019-11-10] MEDS: ATORVASTATIN CALCIUM 20 MG TABLET PO SCH (19:41)
[2019-11-10] MEDS: DONEPEZIL HCL 5 MG TABLET. PO SCH (19:41)
[2019-11-10] MEDS: TAMSULOSIN 0.4 MG CAP.ER.24H. PO SCH (19:41)
[2019-11-11] VITALS (8 sets, daily range): BP systolic 123–195; BP diastolic 54–91
[2019-11-11] MEDS: OMEGA-3 FATTY ACIDS/FISH OIL 1,000 MG CAPSULE. PO SCH (08:34)
[2019-11-11] MEDS: ALPRAZolam 0.25 MG TABLET PO SCH ×2 (08:34→16:38)
[2019-11-11] MEDS: ASPIRIN CHEWABLE 81 MG TABLET. PO SCH (08:35)
[2019-11-11] MEDS: CARVEDILOL 12.5 MG TABLET PO SCH ×2 (08:35→16:37)
[2019-11-11] MEDS: CLOPIDOGREL BISULFATE 75 MG TABLET PO SCH (08:35)
[2019-11-11] MEDS: CITALOPRAM 20 MG TABLET. PO SCH (08:35)
[2019-11-11] MEDS: PANTOPRAZOLE 40 MG TABLET. PO SCH ×2 (08:35→16:37)
[2019-11-11] MEDS: levETIRAcetam 250 MG TABLET PO SCH ×2 (08:36→16:38)
--- NOTE | 2019-11-11 12:55 | NUR ---
COVID SWAB ORDERED FOR PATIENT SO HE CAN BE PLACED AT [facility]. WHEN TRYING TO OBTAIN THE COVID-19 NURSE SWABBED NARES AND KEPT IT IN PLACE FOR 10 SECONDS IN BILATERAL NARES INSTRUCTED BY NURSING CHAIR UPHOLSTERER. AFTER WITHDRAWING SWAB PT STATES "IM GONNA GO TELL THEM YOU'RE BEING RUDE." AND THEN STARTED LAUGHING HYSTERICALLY. WILL CTM.
--- NOTE | 2019-11-11 13:00 | PN ---
DATE: SUBJECTIVE: The patient is sitting comfortably in his chair, in no apparent distress. He stated that early in the morning, he had another episode of dizziness, feeling things spinning around, although it was short lived, was not as severe as the one that brought him here. He has been up and about. He managed to get to the bedside commode and also has managed to wash his face and shave without any difficulty. OBJECTIVE: GENERAL: When I saw him this afternoon, he looked well and was clearly in no apparent respiratory distress. GENERAL: No pallor, jaundice, cyanosis or thyromegaly. No jugular venous distention. No limb edema. VITAL SIGNS: Her heart rate was 59, blood pressure 158/63, his temperature was 98.5, respiratory rate was 22 and oxygen saturation was 95%. HEAD, EYES, EARS, NOSE AND THROAT: Showed normocephalic, atraumatic. NECK: Supple. HEART: Showed normal first and second heart sounds with no gallop, rub or murmur. CHEST: Clear to auscultation. No crepitation or rhonchi. ABDOMEN: Distended, soft, nontender. NEUROLOGIC: He was awake, alert, responding appropriately. All cranial nerves are intact. He moves extremities without difficulty. He was ambulating without assistance or assistive devices. His intake was 915, no output was recorded. His free T4 was well within normal range at 1.22. His total T3 and T4 are still pending at the time of this dictation. ASSESSMENT: Recurrent episode of altered mental status and questionable partial seizures affecting his right upper extremity together with aphasia. They also describes it seems to be vertigo with things spinning around. He is already on Keppra that was increased to 750 mg twice a day. Other medical problems include hypertension, anxiety, depression, chronic obstructive pulmonary disease, anemia, bilateral hearing loss, TIA and/or stroke. PLAN: To discharge him tomorrow to [place] [facility] ____. KAVIN WATERS MD DR: LAURIE/reg JOB#: [id number] / [id number]
--- NOTE | 2019-11-11 13:19 | PN ---
DATE: SUBJECTIVE: The patient stated he had an episode last night, described as a sudden onset of dizzy spell - "spinning," lasted approximately 2 minutes. The patient was able to communicate and he recall the events. He might have some shortness of breath, but no chest pain or palpitation, dysphagia or dysarthria. OBJECTIVE: GENERAL: Well-developed, well-nourished male, not in acute distress. VITAL SIGNS: Blood pressure 123/60, respiratory rate 18, pulse is 60 and regular, temperature 98.1, oxygen saturation 95% on room air. HEENT: Normocephalic, atraumatic, otherwise unremarkable. NECK: Supple. Negative for carotid bruit, lymphadenopathy or thyromegaly. LUNGS: Clear to A and P. CARDIOVASCULAR: Regular rate and rhythm, normal S1, S2. ABDOMEN: Soft. Bowel sounds positive. EXTREMITIES: Negative for cyanosis, clubbing or edema. NEUROLOGICAL EXAMINATION: Mental status: She is alert and oriented x 3. Speech is fluent. There is no language dysfunction. Cranial nerves are intact. No focal motor or sensory deficits. Deep tendon reflexes were symmetric and ____ Achilles responses. Gait: The patient is able to use a walker at this time ____. IMPRESSION: 1. Recurrent episodes of confusion, difficulty to communicate, but yesterday the episode was described as spinning, lasted 2 minutes without post-event confusion or aphasia. Otherwise, neurological examination today is unremarkable. Etiology of his spell is still unknown, possible atypical, probably psychogenic seizure versus anxiety and depressions. 2. Multiple medical problems include hypertension, hyperlipidemia, sleep apnea, chronic obstructive pulmonary disease, coronary artery disease and valvular heart disease. RECOMMENDATIONS: We will continue with current management initiated by Dr. Saavedra. We will arrange for EEG on outpatient basis to be done by Dr. Soto after 2 weeks from discharge. M Ean SOTO MD DR: HAILEY/reg JOB#: [id number] / [id number]
--- NOTE | 2019-11-11 14:35 | NUR ---
OVERALL ASSESSMENT: PT APPEARS TO BE IMPROVED SINCE YESTERDAY. PT BEHAVIORS: PT IS CONTINUING TO CALL NURSES STATION FOR NON-URGENT TASKS. WHEN IN THE PATIENTS ROOM THIS NURSE WILL ASK "IS THERE ANYTHING ELSE I CAN GET FOR YOU?" PT WILL RESPOND "NO." AND THIS NURSE WILL STATE "I HAVE TO MAKE SURE I AM AVAILABLE FOR THE OTHER PATIENTS WELL." PT STATES "WELL IF I NEED YOU, THEN I NEED YOU." AND THEN PATIENT WILL CALL A COUPLE MINUTES LATER AND ASK FOR ANOTHER SMALL TASK TO BE DONE. THIS BEHAVIOR HAS CONTINUED THROUGHOUT HOSPITAL STAY. PT WILL CLEAR THROAT AND POINT AT HIS FOOD TRAY TO HAVE THE NURSING STAFF COME AND GET IT. WILL CTM.
--- NOTE | 2019-11-11 16:08 | NUR ---
Pt continues to call nursing staff for non-urgent tasks when pt is alert and oriented times four and is able to ambulate independently and express wants and desires. Pt is able to perform ADLs independently with no help from nursing staff. Pt called nurse to move urinal off table when pt himself put it there. Pt also asked nurse to adjust his bed for him and to raise his side rail up. Nurse adjusted bed for him and also showed him how to use buttons on side of bed. Pt stated, "Oh, your making me do this" as nurse was walking out of room. Nurse turned around and stated, "we want to promote independence and show you how to use your bed controls. Pt abruptly started laughing. Will CTM.
--- NOTE | 2019-11-11 19:23 | NUR ---
report given to GINA Posada.
[2019-11-11] MEDS: TAMSULOSIN 0.4 MG CAP.ER.24H. PO SCH (21:00)
[2019-11-11] MEDS: DONEPEZIL HCL 5 MG TABLET. PO SCH (21:00)
[2019-11-11] MEDS: ATORVASTATIN CALCIUM 20 MG TABLET PO SCH (21:02)
--- NOTE | 2019-11-12 03:23 | NUR ---
Pt busy with coloring pages this evening. He requested scissors to cut colored pages from book to take to [facility] with him tomorrow. Pt pleasant and cooperative. He requested ice water and declined a snack. Pt sleeping soundly since about 2330. Will continue to monitor.
[2019-11-12 06:35] LABS: HEMATOCRIT 35.2 % (39.0-53.0); HEMOGLOBIN 11.4 g/dL (13.0-17.5); RED BLOOD COUNT 4.3 x10^6/uL (4.30-5.70); RED CELL DISTRIBUTION WIDTH 15.9 % (11.5-14.5); WHITE BLOOD COUNT 5.1 x10^3/uL (4.0-11.0)
[2019-11-12 06:47] LABS: ALBUMIN 2.8 g/dL (3.4-5.0); ALBUMIN/GLOBULIN RATIO 0.9 (1.0-1.7); CALCIUM 8.2 mg/dL (8.5-10.1); CREATININE 0.9 mg/dL (0.7-1.3); GFR 82.3; POTASSIUM 4.4 mmol/L (3.5-5.1); TOTAL BILIRUBIN 0.4 mg/dL (0.2-1.0)
--- NOTE | 2019-11-12 07:15 | EKG ---
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
[2019-11-12 09:07] LABS: THYROXINE 8.1 ug/dL (4.5-12.0)
[2019-11-12] MEDS: PANTOPRAZOLE 40 MG TABLET. PO SCH ×2 (09:44→18:34)
[2019-11-12] MEDS: POTASSIUM CHLORIDE 10 MEQ TABLET.ER. PO SCH (09:44)
[2019-11-12] MEDS: CITALOPRAM 20 MG TABLET. PO SCH (09:44)
[2019-11-12] MEDS: ALPRAZolam 0.25 MG TABLET PO SCH ×2 (09:44→17:00)
[2019-11-12] MEDS: OMEGA-3 FATTY ACIDS/FISH OIL 1,000 MG CAPSULE. PO SCH (09:44)
[2019-11-12] MEDS: ASPIRIN CHEWABLE 81 MG TABLET. PO SCH (09:44)
[2019-11-12] MEDS: CLOPIDOGREL BISULFATE 75 MG TABLET PO SCH (09:45)
[2019-11-12] MEDS: CARVEDILOL 12.5 MG TABLET PO SCH ×2 (09:45→18:34)
[2019-11-12] MEDS: levETIRAcetam 250 MG TABLET PO SCH ×2 (09:47→18:34)
--- NOTE | 2019-11-12 10:01 | PN ---
DATE: SUBJECTIVE: The patient stated he has a 2-second episode this morning, described as lightheadedness induced by moving the head to the right side and then backing up his head. He did not have any other neurological symptoms of aphasia or confusion. The patient did suffer from dizzy spell described as spinning yesterday, lasted 1-2 minutes and probably induced by quick changes of his head. He denies nausea, vomiting, chest pain, shortness of breath or palpitation, dysarthria or dysphagia. OBJECTIVE: GENERAL: Well-developed, well-nourished male, not in acute distress. VITAL SIGNS: Blood pressure is 139/55, respiratory rate is 14, pulse is 58, oxygen saturation 99% on 2 liters by nasal cannula and temperature 97.9. HEENT: Normocephalic, atraumatic, otherwise unremarkable. NECK: Supple. Negative for carotid bruit, lymphadenopathy or thyromegaly. LUNGS: Clear to A and P. CARDIOVASCULAR: Regular rate and rhythm. Normal S1, S2. ABDOMEN: Soft. Bowel sounds positive. EXTREMITIES: Negative for cyanosis, clubbing or edema. NEUROLOGICAL: Mental Status: The patient is alert and oriented x 3. The speech is fluent. There is no language dysfunction. Memory, judgment and abstracting thinking are fair. The patient denies hallucination or delusion. Cranial nerves are intact except for bilateral hearing loss. Motor examination: No focal muscle bulk was seen. The tone is normal. The strength is 5/5 throughout. Sensory examination revealed normal pinprick and light touch senses throughout. Deep tendon reflexes were symmetric and hypoactive with absent Achilles responses. Gait: The patient is able to stand up and walk for a few steps without assistance. LABORATORY DATA: CBC revealed white blood cells of 5100, hemoglobin 11.4, hematocrit 35.2, platelet count 182,000. Chemistry revealed sodium of 142, potassium 4.4, chloride 110, CO2 of 27, BUN 14, creatinine 0.9, glucose 98, calcium 8.2. Liver enzymes slightly elevated. IMPRESSION: 1. Recurrent episodes of lightheadedness and spinning, probably represent paroxysmal benign positional vertigo. 2. History of seizure disorder, no recurrence. 3. Multiple medical problems include hypertension, hyperlipidemia, chronic obstructive pulmonary disease, sleep apnea, coronary artery disease and valvular heart disease. RECOMMENDATIONS: 1. Continue with current management initiated by Dr. Saavedra. 2. Vestibular exercise and physical therapy. 3. Follow up with Dr. Soto after 2 weeks from discharge and arrange for EEG through his office. M Ean SOTO MD DR: HAILEY/reg JOB#: [id number] / [id number]
[2019-11-12 11:00] VITALS: BP 147/68
[2019-11-12 15:00] VITALS: BP 182/76
[2019-11-12 19:20] VITALS: BP 165/68
[2019-11-12] MEDS: TAMSULOSIN 0.4 MG CAP.ER.24H. PO SCH (20:06)
[2019-11-12] MEDS: ATORVASTATIN CALCIUM 20 MG TABLET PO SCH (20:06)
[2019-11-12] MEDS: DONEPEZIL HCL 5 MG TABLET. PO SCH (20:06)
[2019-11-12 23:55] VITALS: BP 155/58
--- NOTE | 2019-11-13 06:00 | NUR ---
Pt up in chair coloring in book at change of shift. Pt pleasant and cooperative with cares and assessment. Pt seems excited about possible DC to [facility]. Pt sleep great during night. No "seizure episodes" noted on this shift but pt stated that he had 2-3 during the day.
[2019-11-13 06:10] VITALS: BP 146/76
--- NOTE | 2019-11-13 07:01 | PN ---
DATE: 11/12/2019 SUBJECTIVE: The patient is a 74-year-old male patient who was yet again admitted with episodes of dizziness and vertigo. He apparently has 2 episodes this morning when he woke up and when he worked with physical therapist and then he had another episode this afternoon after described by the nursing staff when he stares, become aphasic and has some abnormal movement in his right upper extremity. In total, he has 2 episodes of this today, although by the time I saw him, he was awake, alert, and responding appropriately. He was able to walk all the way outside of the ICU and back and within his room. His family wanted him to be transferred to [facility] and I did make an attempt, but given that he has been investigated and was seen by four neurologists, he has multiple MRIs, EEGs, CT scans and CT angiograms, there was no point in transferring him there. He is already followed by Dr. Jeter and he is already on [place] and has an appointment to see Dr. Ibrahim and the plan is for him to be transferred to [place] tomorrow. His grandson wanted both his grandfather that the patient and his both to be admitted to the care home care and I told him that something he has to contact the assisted facility. From my point of view, we will admit his grandfather to the skilled side and he could from there be to the long-term care. When I saw him this afternoon, he looked well and was clearly in no apparent respiratory distress. He continued to have episodes of hypertension when he has these episodes; although most of time, he is normotensive. PHYSICAL EXAMINATION: VITAL SIGNS: His heart rate was 58, blood pressure was 182/76, temperature was 97.6, respiratory rate was 16, and oxygen saturation was 97%. HEAD, EYES, EARS, NOSE AND THROAT: Showed normocephalic, atraumatic. NECK: Supple. HEART: Showed normal first and second sounds. No gallop, rub or murmur. CHEST: Clear to auscultation. No crepitation or rhonchi. ABDOMEN: Distended, soft, nontender. No guarding or rigidity. No organomegaly. All hernial orifices intact. Bowel sounds normal. NEUROLOGIC: He was awake, alert, responding appropriately. All cranial nerves are intact. He moves extremities without difficulty, ambulates with a walker. His intake was 760, output was 1475. LABORATORY DATA: Showed a white cell count of 5000, hemoglobin 11, hematocrit 35, MCV 82 and platelet count of 182,000. His chemistry showed a serum sodium 142, potassium 4.4, chloride 110, bicarbonate 27, anion gap of 5, BUN 14, creatinine 0.9, estimated GFR was 82 mL per minute. His glucose was 98, calcium was 8.2. Total bilirubin and alkaline phosphatase normal. AST, ALT slightly elevated. His total protein was 6, albumin 2.8, although his TSH is slightly elevated at 8.121. 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 The plan is to basically continue with all her current medication. We will discharge him tomorrow to [facility] to continue the process of rehabilitation. IMPRESSION: 1. The patient has recurrent episode of spinning probably likely due to paroxysmal benign positional vertigo, history of seizure disorder, probably some partial seizures. 2. He has multiple other medical problems including: A. Hypertension. B. Hyperlipidemia. C. Chronic obstructive pulmonary disease. D. Obstructive sleep apnea. E. Coronary artery disease. F. Valvular heart disease. KAVIN WATERS MD DR: LAURIE/reg JOB#: [id number] / [id number]
[2019-11-13] MEDS: CLOPIDOGREL BISULFATE 75 MG TABLET PO SCH (08:21)
[2019-11-13] MEDS: PANTOPRAZOLE 40 MG TABLET. PO SCH (08:21)
[2019-11-13] MEDS: CITALOPRAM 20 MG TABLET. PO SCH (08:21)
[2019-11-13] MEDS: OMEGA-3 FATTY ACIDS/FISH OIL 1,000 MG CAPSULE. PO SCH (08:21)
[2019-11-13] MEDS: ASPIRIN CHEWABLE 81 MG TABLET. PO SCH (08:21)
[2019-11-13] MEDS: ALPRAZolam 0.25 MG TABLET PO SCH (08:21)
[2019-11-13] MEDS: levETIRAcetam 250 MG TABLET PO SCH (08:22)
[2019-11-13] MEDS: CARVEDILOL 12.5 MG TABLET PO SCH (08:28)
[2019-11-13] MEDS ORDERED: TORSEMIDE 20 MG TABLET. PO SCH (09:00)
--- NOTE | 2019-11-13 10:18 | PN ---
DATE: 11/13/2019 SUBJECTIVE: The patient denies any new medical or neurological complaints; however, he continues to have a mild right upper extremity tremor. He denies dizziness, chest pain, shortness of breath or palpitation. OBJECTIVE: GENERAL: A well-developed, well-nourished male, not in acute distress. VITAL SIGNS: Blood pressure 146/76, respiratory rate 14, pulse is 66 and regular, temperature 98.4, and oxygen saturation 100% on 2 liters by nasal cannula. HEENT: Normocephalic, atraumatic, otherwise unremarkable. NECK: Supple. Negative for carotid bruit, lymphadenopathy or thyromegaly. LUNGS: Clear to A and P. CARDIOVASCULAR: Regular rate and rhythm. Normal S1, S2. There is no S3, S4 or murmur. ABDOMEN: Soft. Bowel sounds positive. EXTREMITIES: Negative for cyanosis, clubbing or edema. NEUROLOGIC: Mental Status: The patient is alert and oriented x 3. Speech is fluent. There is no language dysfunction. Memory, judgment, and abstracting thinking are fair. The patient denies hallucination or delusion. Cranial nerves are intact except for bilateral hearing loss. Motor examination: No focal muscle bulk was seen. The tone is normal. The strength is 5/5 throughout. Sensory examination revealed normal pinprick, light touch, vibratory and position senses. Deep tendon reflexes were symmetric and active, with gait and coordination was normal. IMPRESSION: 1. Recurrent episodes of lightheadedness, dizziness and sometimes vertigo, probably represent paroxysmal benign positional vertigo. 2. Intermittent tremor of the right upper extremity of uncertain etiology. 3. Multiple medical problems include seizure disorder, stroke, TIAs, hypertension, hyperlipidemia, COPD and coronary artery disease and valvular heart disease. RECOMMENDATIONS: 1. Continue with current management initiated by Dr. Saavedra. 2. Continue with physical therapy. 3. Follow up with Dr. Soto after 2 weeks from discharge. M Ean SOTO MD DR: HAILEY/reg JOB#: [id number] / [id number]
[2019-11-13] MEDS ORDERED: POTA20TA4 PO (11:06)
[2019-11-13] MEDS ORDERED: ESCITALOPRAM OX20 MG PO (11:06)
[2019-11-13] MEDS ORDERED: TORS20TA2 PO (11:06)
[2019-11-13] MEDS ORDERED: LEVE750T41 PO (11:06)
--- NOTE | 2019-11-13 11:10 | DISCH ---
DISCHARGE ORDERS DISCHARGE DATE: Nov 13, 2019 FINAL DIAGNOSIS BPPV Intermittent right upper extremity tremors CONDITION AT DISCHARGE: Stable SNF STAY <30 DAYS: Yes HOME HEALTH: No ORDERS Discharge Orders Discharge to [] SNU Certification [] Admit to: [] Labs: [] Diet: see below Activity: see below PT: [] OT: [] Other: [] FSBS: [] Oxygen: [] POST DISCHARGE ORDERS Activity Instructions for Disc: Activity as tolerated Weight Bearing Status after Di: As tolerated Diet after Discharge: Cardiac CHECKS AFTER DISCHARGE Checks after discharge: Check blood press - daily DISCHARGE MEDICATION ORDERS Scheduled Alprazolam (Alprazolam), 0.25 MG PO BIDWMEALS, (Reported) Aspirin (Aspirin), 81 MG PO DAILY, (Reported) Atorvastatin Calcium (Atorvastatin Calcium), 80 MG PO QHS, (Reported) Carvedilol (Carvedilol), 12.5 MG PO BIDWMEALS, (Reported) Citalopram Hydrobromide (Celexa), 10 MG PO DAILY Clopidogrel Bisulfate (Plavix), 1 TAB PO DAILY, (Reported) Donepezil Hcl (Donepezil Hcl), 1 TAB PO HS, (Reported) Esomeprazole Magnesium (Nexium Capsule), 1 CAP PO BIDBFRMEAL, (Reported) Levetiracetam (Keppra), 500 MG PO BIDWMEALS, (Reported) [place]-3/Dha/Epa/Fish Oil (Fish Oil 1,000 mg Softgel), 1,000 MG PO DAILY, (Reported) Potassium Chloride (Potassium Chloride ), 10 MEQ PO QODAY, (Reported) Tamsulosin Hcl (Tamsulosin Hcl), 1 CAP PO HS, (Reported) Scheduled PRN Diclofenac Sodium (Voltaren), 1 GM TP PRN QID PRN for PAIN, (Reported) Discontinued Medications Hydrochlorothiazide (Hydrochlorothiazide Tablet), 12.5 MG PO DAILY, (Reported) Discontinued Reason: Torsemide (Torsemide), 1 TAB PO DAILY, (Reported) Discontinued Reason: FOLLOW-UP DC TO SNF: PT/OT EVAL AND TREAT TREATMENT/EQUIPMENT ORDERS Adaptive Equipment Issued: None KAVIN WATERS MD Nov 13, 2019 11:10
--- NOTE | 2019-11-13 11:44 | DS ---
DATE OF DISCHARGE: 11/13/2019 HOSPITAL COURSE: The patient is a 74-year-old male patient who has been in and out with a complaint of dizziness, but seemed to be vertigo. He also has episodes of aphasia and intermittent tremors of his right upper extremity. Apparently, this has been going on for almost 3 years now. He was at [facility] for almost a month according to his family. He was seen also by multiple neurologists including Dr. Jeter, Dr. Ibrahim, Dr. Baires and Dr. Blood. He has multiple MRIs and CT scans of the head and CT angio. Has also multiple bilateral carotid Doppler ultrasound and he is already on Keppra and there was suggestion that he might have transient ischemic attack or partial complex seizures. His Keppra is now 750 mg twice a day, although he continued to have these episodes. Dr. Herrera increased his escitalopram to 20 mg and would like to change Keppra to topiramate after he sees him as an outpatient. Meanwhile, I spoke with his and his grandson and the plan is for him go to [facility] as he was not accepted at [facility]. PHYSICAL EXAMINATION: GENERAL: When I saw him this afternoon, he looked well and was clearly in no apparent respiratory distress. No pallor, jaundice, cyanosis or thyromegaly. No jugular venous distention. No limb edema. VITAL SIGNS: Her heart rate was 66, blood pressure was 146/76, temperature was 98, respiratory rate was 14, and oxygen saturation 100% on 2 liters of oxygen. HEAD, EYES, EARS, NOSE AND THROAT: Showed normocephalic, atraumatic. NECK: Supple. CARDIAC: Normal first and second heart sounds. No gallop, rub or murmur. CHEST: Clear to auscultation. No crepitation or rhonchi. ABDOMEN: Distended, soft, nontender. NEUROLOGIC: He is awake, alert, responding appropriately. All cranial nerves are intact. He moves extremities without difficulty. He ambulates with a walker. His intake was 900, output was 650. LABORATORY DATA: As of yesterday, his white cell count was 5000, hemoglobin 11, hematocrit 35, MCV 82 and platelet count of 182,000. His chemistry showed a serum sodium 142, potassium 4.4, chloride 110, bicarbonate 27, anion gap of 5, BUN 14, creatinine 0.9, estimated GFR was 82 mL per minute. His glucose was 98, calcium was 8.2. Total bilirubin and alkaline phosphatase were normal. AST, ALT slightly elevated. His total protein 6, albumin was 2.8. 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 His COVID-19 by PCR was not detected. DISCHARGE MEDICATIONS: He was discharged to [facility] to continue on furosemide 20 mg once a day, citalopram hydrobromide 20 mg once a day, atorvastatin 80 mg at bedtime, tamsulosin 0.4 mg at bedtime, Aricept 5 mg at bedtime, potassium chloride 20 mEq once a day, Keppra 750 mg twice a day, fish oil 1000 mg once a day, Plavix 75 mg once a day, aspirin 81 mg once a day, carvedilol 12.5 mg twice a day, alprazolam 0.25 mg twice a day with meals, Protonix 40 mg twice a day and diclofenac sodium for Voltaren gel 1 gram 4 times a day applied topically for pain. FINAL DISCHARGE DIAGNOSES: 1. Recurrent episode of dizziness and lightheadedness consistent with a benign paroxysmal positional vertigo. 2. Intermittent tremors of the right upper extremity, of uncertain etiology. 3. He has multiple other medical problems including: A. Seizure disorder. B. Cerebrovascular accident. C. Transient ischemic attack. D. Hypertension. E. Hyperlipidemia. F. Chronic obstructive pulmonary disease. G. Coronary artery disease and valvular heart disease. KAVIN WATERS MD DR: LAURIE/reg JOB#: [id number] / [id number]
[2019-11-13 13:00] VITALS: BP 148/60
== END 2019-11-13 14:10 | DRG 65 ==
LOC: ER 22:47 → ICU 11-10 02:00 → UNDOADMOB 11-10 02:00 → ER 11-10 04:27 → OBSVTOIN 11-11 00:08
PROVIDERS: ADMIT Internal Medicine; ATTEND Internal Medicine
DX: I63.9 Cerebral infarction, unspecified (principal); G91.9 Hydrocephalus, unspecified; I50.30 Unspecified diastolic (congestive) heart failure; J98.11 Atelectasis; H81.10 Benign paroxysmal vertigo, unspecified ear; R47.01 Aphasia; E78.00 Pure hypercholesterolemia, unspecified; E78.5 Hyperlipidemia, unspecified; F03.90 Unspecified dementia, unspecified severity, without behavioral disturbance, psychotic disturbance, mood disturbance, and anxiety; G40.909 Epilepsy, unspecified, not intractable, without status epilepticus; G47.33 Obstructive sleep apnea (adult) (pediatric); H91.93 Unspecified hearing loss, bilateral; M19.90 Unspecified osteoarthritis, unspecified site; K21.9 Gastro-esophageal reflux disease without esophagitis; I11.0 Hypertensive heart disease with heart failure; D64.9 Anemia, unspecified; F32.9 Major depressive disorder, single episode, unspecified; I25.10 Atherosclerotic heart disease of native coronary artery without angina pectoris; F41.9 Anxiety disorder, unspecified; J44.9 Chronic obstructive pulmonary disease, unspecified; M48.00 Spinal stenosis, site unspecified; Z79.899 Other long term (current) drug therapy; Z86.73 Personal history of transient ischemic attack (TIA), and cerebral infarction without residual deficits; Z87.891 Personal history of nicotine dependence; Z88.8 Allergy status to other drugs, medicaments and biological substances; Z03.818 Encounter for observation for suspected exposure to other biological agents ruled out
CPT/HCPCS: 36415; 70450; 71045; 72125; 80048; 80053; 80061; 80076; 80307; 81001; 82550; 82947; 83690; 83735; 83880; 84436; 84439; 84443; 84480; 84484; 85025; 85027; 85379; 85610; 85730; 93005; 96361; 96372; 96374; 96375; G0238; G0378; G0379; J1650; J2060; J3490; J7120; 97530; 99285-25

== ENCOUNTER 2019-12-25 19:50 | Inpatient (IN) | payer MEDICARE, BC ==
[~2019-12-25] VITALS: Ht 185.4 cm; Wt 87.5 kg
[~2019-12-25 19:50] MED LIST changes: +ESCITALOPRAM OX20 MG PO; +LEVE750T41 PO
--- NOTE | 2019-12-25 20:39 | RAD ---
Examination: CHEST AP ONLY History: Reason: SOB, PUI, / Spl. Instructions: / History: Comparison: 11/09/2019 chest x-ray exam. Findings: AP portable upright frontal view of the chest was obtained. The cardiomediastinal silhouette is normal. Interstitial infiltrates in the perihilar regions and in the right mid thoracic region noted. No dense consolidation.. There is no pneumothorax. No pleural effusion is appreciated. No acute bone abnormality. IMPRESSION: Interstitial infiltrates primarily in the perihilar regions and right lateral midlung region are new in the. Electronically signed by: iTto Saunders MD (12/25/2019 8:35 PM) [facility]
[2019-12-25] MEDS ORDERED: IV NORMAL SALINE 1,000ML 1,000 ML IV ONE (20:45)
[2019-12-25] MEDS ORDERED: ACETAMINOPHEN 500 MG TABLET PO ONE (20:45)
[2019-12-25 21:14] LABS: BASO % 0 % (0-3); EOS % 0 % (0-3); HEMATOCRIT 35.1 % (39.0-53.0); HEMOGLOBIN 11.3 g/dL (13.0-17.5); LYMPH # 0.5 x10^3/uL (1.0-4.8); LYMPH % 6 % (24-48); MEAN CORPUSCULAR HEMOGLOBIN 26 pg (25-35); MEAN CORPUSCULAR HGB CONC 32 g/dL (31-37); MEAN CORPUSCULAR VOLUME 81 fL (79-100); MONO # 0.3 x10^3/uL (0.0-1.1); MONO % 3 % (0-9); NEUT # 7.2 x10^3uL (1.8-7.7); NEUT % 90 % (31-73); PLATELET COUNT 207 x10^3/uL (140-400); RED BLOOD COUNT 4.34 x10^6/uL (4.30-5.70); RED CELL DISTRIBUTION WIDTH 17.2 % (11.5-14.5)
[2019-12-25 21:22] LABS: CALCIUM 8.3 mg/dL (8.5-10.1); CREATININE 1.6 mg/dL (0.7-1.3); GFR 42.3; POTASSIUM 3.5 mmol/L (3.5-5.1)
[2019-12-25 21:28] LABS: ALBUMIN 2.7 g/dL (3.4-5.0); ALBUMIN/GLOBULIN RATIO 0.7 (1.0-1.7); TOTAL BILIRUBIN 0.9 mg/dL (0.2-1.0); TOTAL PROTEIN 6.6 g/dL (6.4-8.2)
--- NOTE | 2019-12-25 21:40 | EKG ---
[address] [address] Test Date: 2019-12-25 Test Time: 20:52:20 Pat Name: KITTY BRENNAN Department: Room: Gender: M Library Director: : 1945 Requested By: MICAH LYN Order Number: [id number] Reading MD: Measurements Intervals Tina Rate: 73 P: 43 KS: 140 QRS: -6 QRSD: 84 T: 0 QT: 456 QTc: 507 Interpretive Statements SINUS RHYTHM LEFTWARD AXIS PROLONGED QT NO SPECIFIC ECG ABNORMALITIES RI6.02 No previous ECG available for comparison
--- NOTE | 2019-12-25 21:53 | PHYS DOC ---
Past History Past Medical History: Anxiety, Arthritis, CAD, Cancer, COPD, Dementia, Depression, GERD, High Cholesterol, Hypertension, Seizure, TIA Additional Past Medical Histor: conversion disorder Past Surgical History: Cancer Surgery Additional Past Surgical Histo: prostate, bilateral hernias Smoking: Cigarettes, Quit Greater Than 1 Year Alcohol Use: Sober Drug Use: None General Adult EDM: Chief Complaint: SHORTNESS OF BREATH HPI: HPI: 74-year-old male presents via EMS with shortness of breath. The patient is feel ing more short of breath for several days. He is living with 2 COVID positive people. When EMS arrived at his house, his oxygen saturations were in the 80s. He has gone up to 92% with 4 L of oxygen. Patient is very hard of hearing. He tells me that he has been in and out of the hospital since August. He denies chest pain or diaphoresis. He has a very intermittent cough. The patient has a fever of 101.1 on arrival. Review of Systems: Review of Systems: Constitutional: Fever Eyes: Denies change in visual acuity HENT: Denies nasal congestion or sore throat Respiratory: Cough with shortness of breath Cardiovascular: Denies chest pain or edema GI: Denies abdominal pain, nausea, vomiting, bloody stools or diarrhea : Denies dysuria Musculoskeletal: Denies back pain or joint pain Integument: Denies rash Neurologic: Denies headache, focal weakness or sensory changes Endocrine: Denies polyuria or polydipsia Lymphatic: Denies swollen glands Psychiatric: Denies depression or anxiety Heart Score: Risk Factors: Risk Factors: DM, Current or recent (<one month) smoker, HTN, HLP, family history of CAD, obesity. Risk Scores: Score 0 - 3: 2.5% MACE over next 6 weeks - Discharge Home Score 4 - 6: 20.3% MACE over next 6 weeks - Admit for Clinical Observation Score 7 - 10: 72.7% MACE over next 6 weeks - Early Invasive Strategies Current Medications: Current Meds: Current Medications Medications (Trade) Dose Ordered Sig/Stan Start Time Stop Time Status Last Admin Dose Admin Acetaminophen (Tylenol) 1,000 mg 1X ONCE 12/25/19 20:45 12/25/19 20:48 DC 12/25/19 20:47 1,000 MG Sodium Chloride 1,000 ml @ 1,000 mls/hr 1X ONCE 12/25/19 20:45 12/25/19 21:44 DC 12/25/19 20:47 1,000 MLS/HR Allergies: Allergies: Allergies Coded Allergies Type Severity Reaction Last Updated Verified amlodipine Adverse Reaction Intermediate 04/07/18 Yes Physical Exam: PE: Constitutional: Well developed, well nourished, no acute distress, non-toxic appearance. [] HENT: Hard of hearing. Normocephalic, atraumatic, bilateral external ears normal, oropharynx dry, no oral exudates, nose normal. [] Eyes: PERRLA, EOMI, conjunctiva normal, no discharge. [] Neck: Normal range of motion, no tenderness, supple, no stridor. [] Cardiovascular: Deferred due to isolation precautions [] Lungs & Thorax: Deferred due to isolation precautions. [] Abdomen: Bowel sounds normal, soft, no tenderness, no masses, no pulsatile masses. [] Skin: Warm, dry, no erythema, no rash. [] Back: No tenderness, no CVA tenderness. [] Extremities: No tenderness, no cyanosis, no clubbing, ROM intact, no edema. [] Neurologic: Alert and oriented X 3, normal motor function, normal sensory function, no focal deficits noted. [] Psychologic: Affect normal, judgement normal, mood normal. [] Current Patient Data: Labs: Laboratory Tests Test 12/25/19 20:45 White Blood Count 8.0 x10^3/uL (4.0-11.0) Red Blood Count 4.34 x10^6/uL (4.30-5.70) Hemoglobin 11.3 g/dL (13.0-17.5) L Hematocrit 35.1 % (39.0-53.0) L Mean Corpuscular Volume 81 fL (79-100) Mean Corpuscular Hemoglobin 26 pg (25-35) Mean Corpuscular Hemoglobin Concent 32 g/dL (31-37) Red Cell Distribution Width 17.2 % (11.5-14.5) H Platelet Count 207 x10^3/uL (140-400) Neutrophils (%) (Auto) 90 % (31-73) H Lymphocytes (%) (Auto) 6 % (24-48) L Monocytes (%) (Auto) 3 % (0-9) Eosinophils (%) (Auto) 0 % (0-3) Basophils (%) (Auto) 0 % (0-3) Neutrophils # (Auto) 7.2 x10^3uL (1.8-7.7) Lymphocytes # (Auto) 0.5 x10^3/uL (1.0-4.8) L Monocytes # (Auto) 0.3 x10^3/uL (0.0-1.1) Eosinophils # (Auto) 0.0 x10^3/uL (0.0-0.7) Basophils # (Auto) 0.0 x10^3/uL (0.0-0.2) Platelet Estimate Pending Sodium Level 145 mmol/L (136-145) Potassium Level 3.5 mmol/L (3.5-5.1) Chloride Level 106 mmol/L (98-107) Carbon Dioxide Level 25 mmol/L (21-32) Anion Gap 14 (6-14) Blood Urea Nitrogen 24 mg/dL (8-26) Creatinine 1.6 mg/dL (0.7-1.3) H Estimated GFR (Cockcroft-Gault) 42.3 BUN/Creatinine Ratio 15 (6-20) Glucose Level 122 mg/dL (70-99) H Lactic Acid Level 2.0 mmol/L (0.4-2.0) Calcium Level 8.3 mg/dL (8.5-10.1) L Total Bilirubin 0.9 mg/dL (0.2-1.0) Aspartate Amino Transferase (AST) 156 U/L (15-37) H Alanine Aminotransferase (ALT) 119 U/L (16-63) H Alkaline Phosphatase 68 U/L (46-116) Troponin I Quantitative 0.017 ng/mL (0-0.055) Total Protein 6.6 g/dL (6.4-8.2) Albumin 2.7 g/dL (3.4-5.0) L Albumin/Globulin Ratio 0.7 (1.0-1.7) L Vital Signs: Vital Signs Date Time Temp Pulse Resp B/P (MAP) Pulse Ox O2 Delivery O2 Flow Rate FiO2 12/25/19 19:55 101.1 79 38 142/60 (87) 91 Nasal Cannula 4.0 EKG: EKG: [] Radiology/Procedures: Radiology/Procedures: [] Course & Med Decision Making: Course & Med Decision Making Pertinent Labs and Imaging studies reviewed. (See chart for details) The patient's x-ray is suggestive of interstitial infiltrates. I believe it is very likely he has COVID-19. I will treat him with Rocephin and azithromycin in case this is bacterial pneumonia. We have given him a gram of Tylenol. He is gotten a liter of normal saline. He will be admitted to the hospital. I spoke with Dr. Nava and he has accepted the patient for admission to the COVID unit. 57 minutes of critical care time was spent on this patient exclusive of other billable procedures. This includes but is not limited to isolation precautions, labs, imaging, physician consultation. [] Dragon Disclaimer: Dragon Disclaimer: This electronic medical record was generated, in whole or in part, using a voice recognition dictation system. Departure Departure: Impression: Primary Impression: Suspected COVID-19 virus infection Additional Impressions: Shortness of breath Hypoxia Disposition: ADMITTED INPATIENT Admitting Physician: Roscoe Carson Condition: STABLE Referrals: ROSCOE CARSON MD (PCP) Justification of Admission: Justification of Admission: Justification of Admission Dx: Yes Comments: Likely COVID-19, hypoxia MICAH LYN DO Dec 25, 2019 21:52
[2019-12-25 21:57] LABS: % BANDS 4 % (0-9); % LYMPHS 5 % (24-48); % MONOS 3 % (0-10); % SEGS 88 % (35-66)
[2019-12-25 21:58] LABS: PLT ESTIMATE ADEQUATE (ADEQUATE)
[2019-12-25] MEDS ORDERED: AZITHROMYCIN 250 MG TABLET. PO ONE (23:00)
[2019-12-25] MEDS ORDERED: ONDANSETRON PF 4 MG/2 ML VIAL. IVP PRN (23:15)
--- NOTE | 2019-12-25 23:15 | NUR ---
Pt. admitted to room 123 via gurney, accompanied by [facility] and nursing sup. Dx: SOA, likely COVID-19. Pt. appeared to be SOA and [place] throughout assessment, but calm and cooperative. Pt. stated that he has been living with his and grandson who have tested positive for COVID-19 last . Pt was swabbed for COVID in ED. Pt is currently resting with 4L of O2 via nasal cannula sating in the lower 90's. Pt normally wears CPAP at [facility] which he did not bring with him. Much of PMH obtained from previous records. Pt unable to recall home meds, will verify with in AM. Pt placed in contact and airborne precautions pending COVID result. Rocephin 1gm and Zithromax 500mg given per one time order from ED. Pt oriented to unit and routines, POC discussed and V/U. Will need reinforcement. Call light in reach.
[2019-12-25 23:27] VITALS: BP 127/56
[2019-12-26] MEDS ORDERED: ALBUTEROL SULFATE 8GM INHALER. INH PRN (05:45)
[2019-12-26] MEDS ORDERED: DEXAMETHASONE SOD PHOS 4 MG/ML VIAL. IVP ONE (06:00)
[2019-12-26 06:12] VITALS: BP 148/60
[2019-12-26 06:20] LABS: BGAS PH 7.44 (7.35-7.46)
--- NOTE | 2019-12-26 07:00 | NUR ---
Pt respiratory status deteriorating. Pt sating low 80's on 5L via NC. Dr Carson notified of pt status, new orders received. Respiratory paged and stat ABG obtained. Pt unable to keep sats up. Pt placed on NRB at 15L, now sating mid-90's. RT at bedside. Shift report given to oncoming nurse, Anne.
[2019-12-26] MEDS ORDERED: BUDESONIDE 0.5 MG/2 ML NEBU NEB SCH (08:00)
[2019-12-26] MEDS ORDERED: DICLOFENAC SODIUM 1% TOPICAL GEL 100GM TUBE. TP PRN (08:15)
[2019-12-26] MEDS ORDERED: ALBUTEROL SULFATE 8GM INHALER. INH SCH (08:15)
[2019-12-26] MEDS ORDERED: DEXAMETHASONE SOD PHOS 4 MG/ML VIAL. IVP SCH (09:00)
[2019-12-26] MEDS ORDERED: levETIRAcetam 500 MG TABLET PO SCH (09:00)
[2019-12-26] MEDS ORDERED: HYDROXYCHLOROQUINE 200 MG TABLET PO SCH ×2 (09:00)
[2019-12-26] MEDS ORDERED: TORSEMIDE 20 MG TABLET. PO SCH (09:00)
[2019-12-26] MEDS ORDERED: NON FORMULARY ITEM (Escitalopram Oxalate 1 TAB) PO SCH (09:00)
[2019-12-26] MEDS ORDERED: ASPIRIN CHEWABLE 81 MG TABLET. PO SCH (09:00)
[2019-12-26] MEDS ORDERED: levETIRAcetam 250 MG TABLET PO SCH (09:00)
[2019-12-26] MEDS ORDERED: CLOPIDOGREL BISULFATE 75 MG TABLET PO SCH (09:00)
[2019-12-26] MEDS ORDERED: POTASSIUM CHLORIDE 20 MEQ TABLET.ER. PO SCH (09:00)
[2019-12-26 10:00] VITALS: BP 170/64
[2019-12-26] MEDS: CARVEDILOL 12.5 MG TABLET PO SCH ×2 (10:04→16:11)
--- NOTE | 2019-12-26 10:33 | NUR ---
NSG NOTE; DeSAT ROOM AIR PT HUNGRY. DID NOT EAT BREAKFAST. CURRENTLY O2 SAT 94% NONREBREATHER MASK WITH 02 AT 15 L MASK REMOVED X 2 MINUTES WHILE I FED HIM JELLO PT DESATed TO 80%. MASK REPLACED WITH O2 SAT RECOVERY TO 94% IN [address] CAUSEY UPDATED AT BEDSIDE
--- NOTE | 2019-12-26 10:49 | NUR ---
IP: patient pending COVID-19 test, requires contact and airborne precautions.
[2019-12-26] MEDS ORDERED: ELECTROLYTE (NON-ICU) PROTOCOL MC PRN (11:15)
[2019-12-26] MEDS ORDERED: FUROSEMIDE 20 MG/2 ML VIAL IVP ONE (11:30)
--- NOTE | 2019-12-26 11:56 | HP ---
ADMIT DATE: 12/25/2019 HISTORY OF PRESENT ILLNESS: This is a 74-year-old gentleman with multiple medical problems, came in with shortness of breath to the Emergency Room for the last couple of days. The patient has become increasingly worse. He is living with to COVID positive people. Apparently, they have been keeping the distance. In any case, the patient's temperature was 101. His oxygen saturation was in the low 80% on room air and took 4 liters to get it above 90. The patient is also hard of hearing. He denies chest pain, diaphoresis. Does have a cough and fever as noted. He was admitted obviously for acute respiratory failure, probable COVID-19 and will be admitted under the protocol. We will start him on some Decadron, MDIs and hydroxychloroquine for now until further evaluation can be made. PAST MEDICAL HISTORY: Of this gentleman is dysphagia. He has neurological symptoms. He is hard of hearing. He had a stroke. TPA given in 2017. TIAs, valvular heart disease, coronary artery disease. He is on Plavix, hypercholesterolemia, COPD, history of previous pneumonia, sleep apnea with CPAP, history of diverticulitis, hiatal hernia, GERD, prostate cancer, prostatectomy, psychiatric problems, possible conversion syndrome and seen by Psychiatry as well as Neurology. He also suffers from depression and anxiety. FAMILY HISTORY: Father had cancer and heart attack. ALLERGIES: HE HAS AN ADVERSE REACTION TO AMLODIPINE OR NORVASC. SOCIAL HISTORY: Denies smoking, alcohol or drug use. , lives at home with as noted, his has COVID-19 and a close relative also has it. The patient is a full code and denies smoking, alcohol or drug use. REVIEW OF SYSTEMS: The patient denies any headaches, visual changes, blurred vision, double vision. Does have increased shortness of breath, have trouble breathing, using some accessory muscles. The patient otherwise denies chest pain, abdominal pain. Denies any nausea, vomiting, melena, hematochezia, hematemesis and neurologically baseline for this individual was noted. He is hard of hearing and has a history of possible seizures versus pseudoseizures. PHYSICAL EXAMINATION: GENERAL: This is a very pleasant gentleman. The patient is alert. He is able to answer questions and more or less is baseline mental status [place]. VITAL SIGNS: His blood pressure has ranged anywhere from 140/60 as high as 170/64, pulse of 72, respiratory rate 24, temperature as noted 101.1, presently down to 99.8. He is on 15 liters per nonrebreather at 93%. HEENT: His head was atraumatic, normocephalic. Eyes: PERRLA without jaundice. Mouth and Throat: Covered with a rebreather. NECK: Supple. LUNGS: Did show some coarse breath sounds in the right lung itself. CARDIOVASCULAR: Regular sinus rhythm. ABDOMEN: Soft, nontender, no rebound or guarding. Positive bowel sounds. No hepatosplenomegaly. EXTREMITIES: No clubbing, cyanosis, or edema. NEUROLOGIC: Alert, moving all extremities well. No neurological deficits noted. Chest x-ray shows interstitial infiltrates primarily in perihilar regions and right lateral mid lung region. IMPRESSION: Acute respiratory failure, sepsis, pneumonia, anemia of chronic disease, chronic kidney disease stage 3. GFR 42, glucose 122. Lactic acid 2. He does have elevated liver enzymes 156, 120 AST and ALT respectively. Troponin negative. Albumin 2.7. Severe protein malnutrition. Blood gas, 7.44, pCO2 of 30, pO2 of 56, bicarbonate 20, low FiO2 that was on 40%. The patient was admitted to the COVID-19 Unit. We will try to get him transferred since we do not have Pulmonology or other secondary specialist at this facility, trying to make arrangements for his transfer. The patient is on albuterol MDI as noted, hydroxychloroquine as well as Decadron IV. We will continue to monitor and give him small dose of IV Lasix and make further evaluation on him. EKG could not be viewed on this computer. In any case, he is on rebreather, being monitored carefully and we will try to make arrangements for his transfer as soon as they become available. RENAN CAUSEY MD DR: JOHN/reg JOB#: [id number] / [id number]
[2019-12-26 14:07] VITALS: BP 150/59
[2019-12-26 16:11] VITALS: BP 150/59
[2019-12-26] MEDS ORDERED: PANTOPRAZOLE 40 MG TABLET. PO SCH (16:30)
--- NOTE | 2019-12-26 16:40 | NUR ---
NSG NOTE; TRANSFER TO [facility] ROOM 650 AT 1638 VIA CART ACCOMP BY EMS PERSONNEL. ALL PERSONAL ITEMS SENT WITH PT INCLUDING RIGHT HEARING AIDE AND GLASSES REPORT HAD BEEN CALLED TO DEB FUENTES AND PAPER COPY OF CHART, INCLUDING MED REC, SENT WITH EMS FOR [facility] STAFF NIYAH AND DAUGHTER KATE CALLED TO NOTIFY THEM OF ROOM # AND DEPARTURE FROM [facility]
[2019-12-26] MEDS ORDERED: ALPRAZolam 0.25 MG TABLET PO SCH (17:00)
[2019-12-26] MEDS ORDERED: TAMSULOSIN 0.4 MG CAP.ER.24H. PO SCH (21:00)
[2019-12-26] MEDS ORDERED: ATORVASTATIN CALCIUM 20 MG TABLET PO SCH (21:00)
[2019-12-26] MEDS ORDERED: AZITHROMYCIN 250 MG in IV NORMAL SALINE 250ML 250 ML IV SCH (22:00)
== END 2019-12-26 16:38 | disposition short-term general hospital (02) | DRG 871 ==
LOC: ER 19:50 → 1 SOUTH 22:20
PROVIDERS: ADMIT Family Medicine; ATTEND Family Medicine
DX: A41.89 Other specified sepsis (principal); E43 Unspecified severe protein-calorie malnutrition; J96.01 Acute respiratory failure with hypoxia; U07.1 COVID-19; J12.89 Other viral pneumonia; J44.0 Chronic obstructive pulmonary disease with (acute) lower respiratory infection; D63.8 Anemia in other chronic diseases classified elsewhere; E78.00 Pure hypercholesterolemia, unspecified; F03.90 Unspecified dementia, unspecified severity, without behavioral disturbance, psychotic disturbance, mood disturbance, and anxiety; H91.90 Unspecified hearing loss, unspecified ear; I12.9 Hypertensive chronic kidney disease with stage 1 through stage 4 chronic kidney disease, or unspecified chronic kidney disease; I25.10 Atherosclerotic heart disease of native coronary artery without angina pectoris; N18.3 Chronic kidney disease, stage 3 (moderate); Z79.02 Long term (current) use of antithrombotics/antiplatelets; Z80.9 Family history of malignant neoplasm, unspecified; Z85.46 Personal history of malignant neoplasm of prostate; Z86.73 Personal history of transient ischemic attack (TIA), and cerebral infarction without residual deficits; Z87.01 Personal history of pneumonia (recurrent); Z87.891 Personal history of nicotine dependence; F32.9 Major depressive disorder, single episode, unspecified; F41.9 Anxiety disorder, unspecified; K21.9 Gastro-esophageal reflux disease without esophagitis; M19.90 Unspecified osteoarthritis, unspecified site; Z88.8 Allergy status to other drugs, medicaments and biological substances; Z79.899 Other long term (current) drug therapy
CPT/HCPCS: 36415; 36600; 71045; 80053; 82803; 83605; 83880; 84484; 85007; 85025; 87040; 93005; 94640; 96360; 99291; J0456; J0696; J1100; J7613; J7030; U0003-CS